=== PATIENT | female | born 1950 | race Caucasian/White ===

== ENCOUNTER → 2018-06-02 14:26 | Outpatient (POV) | payer MEDICARE, OTHER, SELFPAY | PROVIDERS: Visit Provider Dermatology | DX: Z00.00 Encounter for general adult medical examination without abnormal findings (principal) ==

== ENCOUNTER → 2018-06-08 13:29 | Outpatient (CLI) | payer MEDICARE, OTHER, SELFPAY ==
[2018-06-08 13:54] LABS: Basophils # 0.1 K/mm3 (0-0.2); Basophils % 1.2 % (0.1-2.0); Eosinophils # 0.1 K/mm3 (0.0-0.4); Eosinophils % 2.4 % (0.1-12.0); Hematocrit 38.6 % (37.0-47.0); Hemoglobin 13.8 g/dL (12.2-16.2); Lymphocytes # 1.3 K/mm3 (0.7-4.5); Lymphocytes % 25.4 % (10-50); Mean Corpuscular HGB Conc 35.7 g/dL (31.8-35.4); Mean Corpuscular Volume 92.6 fl (81-99); Mean Platelet Volume 8.2 fl (7.4-10.4); Monocytes # 0.2 K/mm3 (0.1-1.0); Monocytes % 4.3 % (1.7-9.3); Neutrophils # 3.5 K/mm3 (1.8-7.8); Neutrophils % 66.7 % (37.0-80.0); Platelet Count 230 K/mm3 (142-424); Red Blood Count 4.17 M/mm3 (4.20-5.40); Red Cell Distribution Width 13.2 % (11.5-17.5); White Blood Count 5.3 K/mm3 (4.8-10.8)
[2018-06-08 14:32] LABS: Alanine Aminotransferase 21 U/L (12-78); Albumin Level 3.9 gm/dL (3.4-5.0); Albumin/Globulin Ratio 1.3 (1.1-1.8); Alkaline Phosphatase 78 U/L (46-116); Aspartate Amino Transferase 14 U/L (15-37); Bilirubin,Total 0.3 mg/dL (0.2-1.0); Blood Urea Nitrogen 11 mg/dL (7-18); Calcium 9.2 mg/dL (8.5-10.1); Carbon Dioxide 29 mmol/L (21.0-32.0); Chloride 103 mmol/L (98-107); Chol/HDL Ratio 3.1 (1-3.5); Cholesterol 295 mg/dL (140-200); Estimated Glomerular Filt Rate 72 ml/min (>60); Free Thyroxine Index 2.6 ug/dL (5.93-13.13); GFR (African American) 87 ML/MIN (>60); Globulin 3.1 gm/dl (1.3-3.2); Glucose 95 mg/dL (74-106); HDL Cholesterol 96 mg/dL (29-89); LDL Cholesterol 156 mg/dL (0-130); Sodium 140 mmol/L (136-145); T4 (Thyroxine) 9.1 ug/dl (4.7-13.3); Thyroid Stimulating Hormone 1.87 uIU/ml (0.358-3.740); Triglycerides 216 mg/dL (30-200); Triiodothryronine (T3) Uptake 29 % (31-39); VLDL Cholesterol 43 mg/dL (0-40)
== END ==
PROVIDERS: Visit Provider Emergency Medicine
DX: R53.1 Weakness (principal); E78.49 Other hyperlipidemia
CPT/HCPCS: 80053; 80061; 82652; 84436; 84443; 84479; 85025

== ENCOUNTER 2020-02-06 13:08 | Emergency (ER) | payer MEDICARE, BC, SELFPAY ==
--- NOTE | 2020-02-06 13:41 | HMH.EDUTC ---
[facility] [place] Impression: Viral syndrome, Bronchitis Disposition: Home, Self-Care Condition on Discharge: Good Instructions: DI for Bronchiolitis, Preventing the Spread of Coronavirus Discharge Instructions Additional Instructions: Drink plenty of fluids. Take tylenol for pain or fever. Follow up with your regular doctor. GO TO THE ER FOR ANY WORSENING SYMPTOMS FOLLOW THE DIRECTIONS ON THE COVID-19 HAND OUT THAT WE GAVE YOU REGARDING SELF-ISOLATION UNTIL YOU KNOW YOUR COVID-19 RESULTS Prescriptions: Fluconazole [Diflucan 150mg tab] 150 mg PO ONCE #1 tab Transmission Status: Received by [facility] # Benzonatate [Tessalon Perle 100mg Cap] 100 mg PO TIDP PRN #30 cap PRN Reason: Cough Transmission Status: Received by [facility] # Azithromycin [Z-Terrell 250mg Tab*] 250 mg PO UD DOSE PK #6 tab Transmission Status: Received by [facility] # Referrals: Roque Gutierrez MD [Primary Care Provider] - Time of Disposition: 14:27 Medical Decision Making - Medical Records Medical records reviewed: No: I reviewed the patient's medical records. - Abdiel Inquiry Pt receiving controlled substance: No Vital Signs: 02/06/20 13:49 02/06/20 14:34 Temperature 97.9 F 97.9 F Temperature Source Oral Oral Pulse Rate 76 Pulse Rate [Radial] 76 Respiratory Rate 14 14 Blood Pressure 149/84 H Blood Pressure [Right Arm] 149/84 H Blood Pressure Mean [Right Arm] 105 Blood Pressure Source Automatic Cuff Blood Pressure Source [Right Arm] Automatic Cuff Blood Pressure Position Sitting Blood Pressure Position [Right Arm] Sitting 02 Sat by Pulse Oximetry 98 Oxygen Delivery Method Room Air [place] Air [facility] [place] - General Stated complaint: sore throat cough Time Seen by Provider: 02/06/20 13:41 - History of Present Illness Provider Complaint: She c/o sore throat, chilling, feeling bad and having a dry cough for the past 2 days. She denies a documented fever. She denies being around anyone known to have COVID-19. - Related Data Home Medications Medication Instructions Recorded Confirmed tizanidine 4 mg tablet 4 mg PO DAILY 30 Days #60 02/09/18 07/12/19 agmpsbprly-muqmpcrnxfycl-vomtzwmu PO Q6H PRN 30 Days #40 tab 06/12/18 07/12/19 50 mg-325 mg-40 mg tablet colestipol 1 gram tablet PO 30 Days #30 tab 06/12/18 07/12/19 clonazepam 1 mg tablet 1 mg PO DAILY PRN tab 03/08/19 07/12/19 flu vacc [id number](65yr up)PF 180 IM 07/12/19 07/12/19 mcg/0.5 mL intramuscular syringe [id number]-vfrm 225 mg/1.5 mL mg SQ 07/12/19 07/12/19 subcutaneous syringe ketorolac 10 mg tablet PO BID tab 07/12/19 07/12/19 meloxicam 7.5 mg tablet PO DAILY PRN tab 07/12/19 07/12/19 pneumococcal 23-albino ps vaccine 25 IM 07/12/19 07/12/19 mcg/0.5 mL injection syringe Previous Rx's Medication Instructions Recorded estradiol 0.5 mg tablet 0.5 mg PO DAILY #90 tab 11/16/18 ciprofloxacin HCl 500 mg tablet 500 mg PO BID #20 tab 07/12/19 diazepam 5 mg tablet 5 mg PO DAILY #30 tab 07/12/19 fluconazole 100 mg tablet 100 mg PO Q OTHER DAY #5 tab 07/12/19 hydrocodone 5 mg-acetaminophen 325 1 tab PO TID PRN #10 tab 07/12/19 mg tablet esomeprazole magnesium 40 mg 40 mg PO DAILY #90 cap 01/13/20 capsule,delayed release Azithromycin [Z-Terrell 250mg Tab*] 250 mg PO UD DOSE PK #6 tab 02/06/20 Benzonatate [Tessalon Perle 100mg 100 mg PO TIDP PRN #30 cap 02/06/20 Cap] Fluconazole [Diflucan 150mg tab] 150 mg PO ONCE #1 tab 02/06/20 Allergies Allergy/AdvReac Type Severity Reaction Status Date / Time Sulfa (Sulfonamide Allergy Mild Verified 07/12/19 09:27 Antibiotics) [SULFA (SULFONAMIDE ANTIBIOTICS)] [facility] History - Hepatitis A Screen Attestation statement:: This patient has been screened for Hepatitis A risk factors. I have reviewed the patient's past medical history: Yes Medical History: Reports:: Anxiety, Hypertension, Migraine Denies:: C
[2020-02-06 13:49] VITALS: BP 149/84; PULSE 76; RESP 14; TEMP 36.6; O2SAT 98; BMI 23.0
[2020-02-06 14:19] LABS: UTC Strep Screen (Rapid) Negative (Negative)
[2020-02-06 14:34] VITALS: BP 149/84; PULSE 76; RESP 14; TEMP 36.6; O2SAT 98
== END 2020-02-06 14:37 | disposition home or self-care (01) ==
PROVIDERS: Emergency Provider Nurse Practitioner Family; PCP Emergency Medicine
DX: J20.9 Acute bronchitis, unspecified (principal); B34.9 Viral infection, unspecified; I10 Essential (primary) hypertension; G43.709 Chronic migraine without aura, not intractable, without status migrainosus; Z88.2 Allergy status to sulfonamides; Z79.899 Other long term (current) drug therapy; Z90.09 Acquired absence of other part of head and neck; Z90.710 Acquired absence of both cervix and uterus
CPT/HCPCS: G0463; 87880; 99202; U0003

== ENCOUNTER → 2020-04-21 13:59 | Outpatient (CLI) | payer OTHER, SELFPAY ==
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
--- NOTE | 2020-04-21 14:36 | XR_ITS ---
PROCEDURE: XR CHEST 2V CLINICAL HISTORY: bronchitis COMPARISON: No exams were available for comparison FINDINGS: The cardiomediastinal silhouette and pulmonary vascularity are within normal limits. The lungs are clear without infiltrates, suspicious nodules, or pleural effusions. There is calcified granuloma in the left upper lobe. There are bilateral breast implants. There is some nodularity noted in the hilar region on the lateral view and in the left suprahilar region which may be due to overlapping vessels or lymph nodes. Follow-up may confirm stability.. No acute bony findings. IMPRESSION: No definite acute finding. Nodularity in the hilar region on the left superiorly and in on the lateral view inferiorly possibly due to overlapping vessels or nodes. Stability may be confirmed with follow-up. Dictated by: Levon Downing MD 04/21/2020 15:27 Levon Downing MD in [facility] 04/21/2020 15:27
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
== END ==
PROVIDERS: PCP Emergency Medicine; Visit Provider Emergency Medicine
DX: R51.9 Headache, unspecified (principal); S09.93XA Unspecified injury of face, initial encounter; S16.1XXA Strain of muscle, fascia and tendon at neck level, initial encounter; M25.511 Pain in right shoulder; J40 Bronchitis, not specified as acute or chronic; V89.2XXA Person injured in unspecified motor-vehicle accident, traffic, initial encounter
CPT/HCPCS: 70450; 70486; 71046; 72125; 73030; 73050

== ENCOUNTER → 2020-04-22 13:47 | Outpatient (CLI) | payer OTHER, SELFPAY ==
--- NOTE | 2020-04-22 13:56 | XR_ITS ---
PROCEDURE: REPEAT VIEW XR CLINICAL INDICATION: AC joints COMPARISON: CR XR AC JOINT RT from 04/21/2020 FINDINGS: No fracture or dislocation. No lytic or blastic change. There is normal mineralization. The joint spaces are well-preserved. No significant degenerative/arthritic changes. No erosive changes evident. Other findings:Images are obtained without and with weights. No abnormal subluxation. No fracture or dislocation. IMPRESSION: Negative AC joints Dictated by: Levon Downing MD 04/22/2020 14:48 Levon Downing MD in [facility] 04/22/2020 14:48
== END ==
PROVIDERS: PCP Emergency Medicine; Visit Provider Emergency Medicine
DX: M25.511 Pain in right shoulder (principal)

== ENCOUNTER → 2020-05-02 14:22 | Outpatient (CLI) | payer OTHER, SELFPAY ==
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
== END ==
PROVIDERS: PCP Emergency Medicine; Visit Provider Emergency Medicine
DX: S49.91XA Unspecified injury of right shoulder and upper arm, initial encounter (principal); V89.2XXA Person injured in unspecified motor-vehicle accident, traffic, initial encounter
CPT/HCPCS: 73221

== ENCOUNTER 2020-05-22 14:00 | Outpatient (RCR) | payer OTHER, SELFPAY | END 2020-05-22 14:05 | disposition home or self-care (01) | LOC: OT 14:00 | PROVIDERS: Visit Provider Emergency Medicine | DX: S49.91XA Unspecified injury of right shoulder and upper arm, initial encounter; V89.2XXA Person injured in unspecified motor-vehicle accident, traffic, initial encounter | CPT/HCPCS: 97014; 97110; 97165; 97530; G0283 ==

== ENCOUNTER → 2020-05-23 11:02 | Outpatient (POV) | payer OTHER, SELFPAY | PROVIDERS: Visit Provider Dermatology | DX: Z00.00 Encounter for general adult medical examination without abnormal findings (principal) ==

== ENCOUNTER → 2020-06-16 09:06 | Outpatient (CLI) | payer MEDICARE, BC, SELFPAY ==
--- NOTE | 2020-06-16 09:07 | CT_ITS ---
PROCEDURE: CT CHEST WO CON CLINICAL INDICATION: possible hilar node seen on cxr, follow-up chest x-ray, bronchitis FOLLOW UP; ? HILAR NODE SEEN ON CXR, 04/21/20 COMPARISON: CR XR CHEST 2V from 04/21/2020 TECHNIQUE: Axial images obtained with sagittal and coronal reformats. All CT scans at the facility use one or more dose reduction, viz: automated exposure control, ma/kV adjustment per patient size (including targeted exams where dose is matched to indication, i.e. head), or iterative reconstruction technique. FINDINGS: HEART AND MEDIASTINAL STRUCTURES: No mediastinal or hilar mass or adenopathy. Coronary artery calcifications are present. LUNGS AND PLEURAL SPACES: There are some atelectatic or fibrotic changes in the left lung base. There is a calcified granuloma in the left upper lobe. There are few small nodular opacities which are nonspecific including a 3 mm nodule image 19 series 3 right upper lobe, 3 mm noncalcified nodule right upper lobe image 31, 2 mm right upper lobe nodule image 39. The nodularity noted in the left hilar region corresponds to overlapping vessels. No hilar mass evident. No central obstructing lesions BONY STRUCTURES: No acute finding UPPER ABDOMEN: Unremarkable ADDITIONAL FINDINGS: There are bilateral breast implants with intracapsular rupture noted with linguine sign bilaterally. The capsules are calcified partially. IMPRESSION: 1. No mediastinal or hilar mass. Radiographic abnormality corresponds to overlapping vessels. 2. There are few small less than 5 mm pulmonary nodules. Annual follow-up may confirm stability. 3. Bilateral breast implants with intracapsular rupture with capsular calcification Dictated by: Levon Downing MD 06/17/2020 08:52 Levon Downing MD in [facility] 06/17/2020 08:52
== END ==
PROVIDERS: PCP Emergency Medicine; Visit Provider Emergency Medicine
DX: R91.1 Solitary pulmonary nodule (principal)
CPT/HCPCS: 71250

== ENCOUNTER → 2020-06-27 09:21 | Outpatient (POV) | payer MEDICARE, BC, SELFPAY | PROVIDERS: Visit Provider Dermatology | DX: Z00.00 Encounter for general adult medical examination without abnormal findings (principal) ==

== ENCOUNTER → 2021-01-23 14:45 | Outpatient (POV) | payer MEDICARE, BC, SELFPAY | PROVIDERS: Visit Provider Dermatology | DX: Z00.00 Encounter for general adult medical examination without abnormal findings (principal) ==

== ENCOUNTER → 2021-06-18 08:32 | Outpatient (CLI) | payer MEDICARE, BC, SELFPAY ==
--- NOTE | 2021-06-18 08:33 | CT_ITS ---
PROCEDURE: CT CHEST WO CON CLINICAL INDICATION: nodules COMPARISON: CT CT CHEST WO CON from 06/16/2020 TECHNIQUE: Axial images obtained with sagittal and coronal reformats. All CT scans at the facility use one or more dose reduction, viz: automated exposure control, ma/kV adjustment per patient size (including targeted exams where dose is matched to indication, i.e. head), or iterative reconstruction technique. FINDINGS: HEART AND MEDIASTINAL STRUCTURES: No mediastinal or hilar mass. Coronary artery calcifications are present. Mild nonspecific thickening at the GE junction. Bilateral partially calcified breast implants are noted with radial folds versus intracapsular rupture which may be better evaluated with MRI. LUNGS AND PLEURAL SPACES: Fibrotic changes are present in the left lung base. There is evidence of old granulomatous disease.. No suspicious nodules.. Previously noted small nodules are unchanged to somewhat less apparent. No new nodules evident. No effusions or infiltrates. BONY STRUCTURES: No acute bony abnormalities apparent. UPPER ABDOMEN: Unremarkable. ADDITIONAL FINDINGS: No other significant abnormalities. IMPRESSION: Stable CT appearance of the chest. No new suspicious nodules. Previously noted small nodules are unchanged to somewhat less prominent Bilateral partially calcified breast implants are noted with radial folds versus intracapsular rupture which would be better evaluated with MRI Dictated by: Levon Downing MD 06/19/2021 09:28 Levon Downing MD in [facility] 06/19/2021 09:28
== END ==
PROVIDERS: PCP Emergency Medicine; Visit Provider Emergency Medicine
DX: R91.8 Other nonspecific abnormal finding of lung field (principal)
CPT/HCPCS: 71250

== ENCOUNTER → 2021-09-18 10:52 | Outpatient (CLI) | payer MEDICARE, BC, SELFPAY ==
[2021-09-18 11:31] LABS: Basophils # 0.1 K/mm3 (0-0.2); Basophils % 1.1 % (0.1-2.0); Eosinophils # 0.1 K/mm3 (0.0-0.4); Hematocrit 45.8 % (37.0-47.0); Hemoglobin 14.6 g/dL (12.2-16.2); Lymphocytes # 1.3 K/mm3 (0.7-4.5); Lymphocytes % 23.7 % (10-50); Mean Corpuscular HGB Conc 31.9 g/dL (31.8-35.4); Mean Corpuscular Volume 97.2 fl (81-99); Mean Platelet Volume 8.1 fl (7.4-10.4); Monocytes # 0.2 K/mm3 (0.1-1.0); Monocytes % 4.1 % (1.7-9.3); Neutrophils # 3.8 K/mm3 (1.8-7.8); Neutrophils % 69.1 % (37.0-80.0); Platelet Count 281 K/mm3 (142-424); Red Blood Count 4.71 M/mm3 (4.20-5.40); Red Cell Distribution Width 13.7 % (11.5-17.5); White Blood Count 5.5 K/mm3 (4.8-10.8)
[2021-09-18 12:22] LABS: Alanine Aminotransferase 16 U/L (12-78); Albumin Level 4.4 g/dl (3.5-5.0); Albumin/Globulin Ratio 2.1 (1.1-1.8); Alkaline Phosphatase 85 U/L (38-126); Anion Gap 10.1 mEq/L (5-15); Aspartate Amino Transferase 33 U/L (14-36); Bilirubin,Total 0.7 mg/dl (0.2-1.3); Blood Urea Nitrogen 21 mg/dl (7-17); Calcium 9.6 mg/dl (8.4-10.2); Carbon Dioxide 32 mmol/L (22.0-30.0); Chloride 101 mmol/L (98-107); Chol/HDL Ratio 3.3 (1-3.5); Cholesterol 293 mg/dl (140-200); Estimated Glomerular Filt Rate 71 ml/min (>60); GFR (African American) 86 ML/MIN (>60); Globulin 2.1 g/dL (1.3-3.2); Glucose 93 mg/dl (74-100); HDL Cholesterol 90 mg/dl (40-60); Potassium 4.1 mmoL/L (3.5-5.1); Sodium 139 mmol/L (136-145); Total Protein,Serum 6.5 g/dl (6.3-8.2); Triglycerides 226 mg/dl (30-150); VLDL Cholesterol 45 mg/dL (0-40)
[2021-09-18 12:32] LABS: Direct LDL Cholesterol 150.22 mg/dL (100-129)
[2021-09-18 12:39] LABS: 25-OH Vitamin D, Total 50.9 ng/mL (30-100); Free T4 (Free Thyroxine) 0.92 ng/dl (0.78-2.19)
[2021-09-18 12:52] LABS: Thyroid Stimulating Hormone 1.29 uIU/mL (0.465-4.68)
== END ==
PROVIDERS: Visit Provider Emergency Medicine
DX: R53.83 Other fatigue (principal); E55.9 Vitamin D deficiency, unspecified; K59.00 Constipation, unspecified; E03.9 Hypothyroidism, unspecified
CPT/HCPCS: 36415; 80053; 80061; 82306; 84439; 84443; 85025

== ENCOUNTER 2021-09-28 17:31 | Inpatient (IN) | payer MEDICARE, BC, SELFPAY ==
[2021-09-28] VITALS (24 sets, daily range): BP systolic 97–198; BP diastolic 46–120; PULSE 60–113; RESP 15–22; TEMP 36.2–36.8; O2SAT 96–100; BMI 22.1; BMI 23.8
--- NOTE | 2021-09-28 | IR_ITS ---
APPROVED REPORT Patient Location: Emergent Sole Splitter: COLUMBA Ji RT (R) PROCEDURES Left heart catheterization Left ventriculogram Selective coronary angiogram Drug-eluting stent deployment to the mid dominant right coronary artery INDICATION Acute coronary syndrome, Coronary artery disease Informed consent was obtained prior to the procedure. COMPLICATIONS None Estimated Blood Loss: Less than 10 mls TECHNIQUE One percent lidocaine used to anesthetize the right anterior aspect of the wrist. The right radial artery was accessed via the Seldinger technique. A 6 Armenian sheath was placed in the right radial artery. 2.5 mg of verapamil, 800 mcg of nitroglycerin, 1mg Lidocaine and 5000 U Heparin were given through the arterial sheath. The papa catheter was also used to perform left heart catheterization, left ventriculogram and selective coronary angiogram. At the end the diagnostic angiogram therapeutic heparin was administered giving a therapeutic ACT and the guide catheter was placed in the right coronary artery followed by a Choice PT wire. A 3.5 x 22 mm resolute Sb stent was initially deployed at 16 lorrie and then 20 lorrie reducing the stenosis to 10 to 20%. 3.75 x 8 mm balloon was then deployed in the midportion and proximal portion of the stent at 20 and then 22 lorrie further post dilating. TYLER-3 flow was present before and after the procedure. At the end of the procedure the apparatus was removed the sheath was removed and hemostasis was achieved using TR banding patient was transferred to the postop already in stable condition ANGIOGRAPHIC RESULTS The left main artery Normal The left anterior descending artery Is normal in the ostial segment and then has a 30% concentric tapering immediately proximal to the takeoff of the large first diagonal artery. Immediately distal to this large first diagonal artery the LAD continues with a 30 to 40% stenosis. The remaining LAD is patent. The first diagonal artery i is 3 mm in diameter and widely patent The circumflex artery Is a codominant vessel and has mild mid vessel 10% stenosis The right coronary artery Is a large codominant vessel and has a proximal to mid vessel hazy 30 to 40% stenosis. The SAMANO ventriculogram reveals Normal 65% The left ventricular end-diastolic pressure 20 mmHg IMPRESSION Hazy stenosis which represents a ruptured plaque with thrombus in the mid dominant right coronary artery which accounted for the highly abnormal EKG abnormalities. This vessel was successfully stented using 1 drug-eluting stent reducing the stenosis to 0% Normal ejection fraction Mildly elevated LVEDP PLAN 1. Brilinta 90 twice daily plus aspirin 81 mg daily 2. LDL less than 55 to be achieved with high intensity statin 3. Continue with beta-blockers for ischemic heart disease 4. Given the mildly elevated D-dimer I still think it would be reasonable to perform pulmonary artery CTA this evening to make sure pulmonary embolism is not present. 5. The hazy stenosis within the right coronary artery is almost certainly the culprit for what appears to be an acute coronary syndrome. Patient's EKG has improved and her pain improved with better blood pressure control and heart rate control. Nevertheless I still want to rule out the possibility of a PE. Electronically signed by : Andrew Salomon MD 09/28/2021 20:10:44
--- NOTE | 2021-09-28 17:31 | ECG_ITS ---
APPROVED REPORT Exam: Resting ECG HR:101 bpm ECG Measurements Heart Rate 101 AXES CA 133 P 52 QRSd 81 QRS 47 QT 340 T 54 QTc 398 Conclusion SINUS TACHYCARDIA MODERATE ST DEPRESSION [0.05+ mV ST DEPRESSION] ABNORMAL ECG UNCONFIRMED REPORT Electronically signed by : Isaak Donovan MD 09/29/2021 08:15:59
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
--- NOTE | 2021-09-28 17:41 | HMH.EDGENADL ---
ED Disposition Clinical Impression: Acute coronary syndrome Disposition: Admitted As Inpatient Condition on Discharge: Serious - Critical Care Critical Care Time: Yes Attestation: On , the high probability of a clinically significant, sudden or life threatening deterioration of the following system(s) required my full and direct attention, intervention and personal management. The time I documented below is in addition to time spent performing reported procedures but includes the following listed in this critical care notation. Total Critical Care Time: 45 Vital system(s) involved:: Circulatory Failure My critical care processes included: Assessment & monitoring of V/S, Initial and Re-exams, Data Review/Interpretation, Coordinating Care, Medication Orders and management, Documentation Medical Decision Making - Abdiel Inquiry Pt receiving controlled substance: Yes Abdiel was queried for this patient: No Reason not queried -: Emergent pt cond-no time Risks and benefits of using a controlled substance: were not discussed with pt by me Vital Signs: 09/28/21 17:34 09/28/21 17:53 09/28/21 18:00 Temperature 98 F Temperature Source Oral Pulse Rate 101 H 113 H Pulse Rate [Radial] 103 H Respiratory Rate 20 Blood Pressure 171/93 H 170/113 H Blood Pressure [Right Arm] 173/104 H Blood Pressure Mean Blood Pressure Mean [Right Arm] 127 Blood Pressure Position Sitting Blood Pressure Position [Right Arm] Sitting 02 Sat by Pulse Oximetry 98 Oxygen Delivery Method Room Air 09/28/21 18:14 09/28/21 18:20 09/28/21 18:25 Temperature Temperature Source Pulse Rate 93 H 92 H 91 H Pulse Rate [Radial] Respiratory Rate 22 15 Blood Pressure 173/104 H 183/104 H 174/97 H Blood Pressure [Right Arm] Blood Pressure Mean 127 123 Blood Pressure Mean [Right Arm] Blood Pressure Position Sitting Blood Pressure Position [Right Arm] 02 Sat by Pulse Oximetry 97 97 Oxygen Delivery Method 09/28/21 18:30 09/28/21 18:43 09/28/21 18:50 Temperature Temperature Source Pulse Rate 88 87 Pulse Rate [Radial] Respiratory Rate Blood Pressure 195/107 H 198/120 H 165/98 H Blood Pressure [Right Arm] Blood Pressure Mean Blood Pressure Mean [Right Arm] Blood Pressure Position Sitting Blood Pressure Position [Right Arm] 02 Sat by Pulse Oximetry Oxygen Delivery Method 09/28/21 18:53 09/28/21 19:13 Temperature Temperature Source Pulse Rate 89 87 Pulse Rate [Radial] Respiratory Rate 16 Blood Pressure 148/86 H 152/90 H Blood Pressure [Right Arm] Blood Pressure Mean Blood Pressure Mean [Right Arm] Blood Pressure Position Sitting Sitting Blood Pressure Position [Right Arm] 02 Sat by Pulse Oximetry 98 Oxygen Delivery Method Room Air - Lab Data Lab Results 09/28/21 17:37: WBC 11.0 H, RBC 4.67, Hgb 14.4, Hct 45.7, MCV 97.7, MCH 30.8, MCHC 31.6 L, RDW 13.3, Plt Count 307, MPV 8.3, Neut % (Auto) 72.1, Lymph % (Auto) 23.4, Tompkins % (Auto) 3.1, Eos % (Auto) 0.5, Baso % (Auto) 0.9, Neut # (Auto) 7.9 H, Lymph # (Auto) 2.6, Tompkins # (Auto) 0.3, Eos # (Auto) 0.1, Baso # (Auto) 0.1 09/28/21 17:37: Sodium 135 L, Potassium 3.6, Chloride 99, Carbon Dioxide 29, Anion Gap 10.6, BUN 16, Creatinine 0.80, Estimated Creat Clear 48, Estimated GFR 71, Est GFR ( Amer) 86, Glucose 103 H, Calcium 9.8, Troponin I < 0.01 09/28/21 17:37: PT 10.7, INR 0.94, APTT 24.9 09/28/21 17:37: D-Dimer 0.59 H 09/28/21 19:42: Activated Clotting Time 212 H* 09/28/21 19:53: Activated Clotting Time 269 H* D Result diagrams: 09/28/21 17:37 09/28/21 17:37 Orders (Tests/Meds): ED MEDICATIONS Generic Name Dose Route Start Last Admin Trade Name Freq PRN Reason Stop Dose Admin Aspirin 81 mg 09/29/21 09:00 Aspirin Ec 81mg Tablet PO 10/29/21 08:59 DAILY ATUL Atorvastatin Calcium 40 mg 09/28/21 21:00 Atorvastatin 40mg Tablet PO 10/28/21 20:59 HS ATUL Jones
--- NOTE | 2021-09-28 17:53 | PC.NURSE ---
has been paged.
--- NOTE | 2021-09-28 17:54 | PC.NURSE ---
on the phone with
[2021-09-28 17:55] LABS: Basophils # 0.1 K/mm3 (0-0.2); Basophils % 0.9 % (0.1-2.0); Eosinophils # 0.1 K/mm3 (0.0-0.4); Eosinophils % 0.5 % (0.1-12.0); Hematocrit 45.7 % (37.0-47.0); Hemoglobin 14.4 g/dL (12.2-16.2); Lymphocytes # 2.6 K/mm3 (0.7-4.5); Lymphocytes % 23.4 % (10-50); Mean Corpuscular HGB Conc 31.6 g/dL (31.8-35.4); Mean Corpuscular Hemoglobin 30.8 pg (27.0-31.2); Mean Corpuscular Volume 97.7 fl (81-99); Mean Platelet Volume 8.3 fl (7.4-10.4); Monocytes # 0.3 K/mm3 (0.1-1.0); Monocytes % 3.1 % (1.7-9.3); Neutrophils # 7.9 K/mm3 (1.8-7.8); Neutrophils % 72.1 % (37.0-80.0); Platelet Count 307 K/mm3 (142-424); Red Blood Count 4.67 M/mm3 (4.20-5.40); Red Cell Distribution Width 13.3 % (11.5-17.5)
[2021-09-28 18:01] LABS: Anion Gap 10.6 mEq/L (5-15); Blood Urea Nitrogen 16 mg/dl (7-17); Calcium 9.8 mg/dl (8.4-10.2); Carbon Dioxide 29 mmol/L (22.0-30.0); Chloride 99 mmol/L (98-107); Creatinine Clearance Estimated 48 mL/min (50-200); Estimated Glomerular Filt Rate 71 ml/min (>60); GFR (African American) 86 ML/MIN (>60); Glucose 103 mg/dl (74-100); Potassium 3.6 mmoL/L (3.5-5.1); Sodium 135 mmol/L (136-145)
--- NOTE | 2021-09-28 18:04 | PC.NURSE ---
has been paged again
--- NOTE | 2021-09-28 18:05 | PC.NURSE ---
on the phone with
[2021-09-28 18:15] LABS: Troponin I < 0.01 ng/ml (0.00-0.034)
[2021-09-28 18:18] LABS: Activated Partial Thrombo Time 24.9 seconds (22.8-30.6); INR 0.94 (0.9-1.1); Prothrombin Time 10.7 seconds (10.1-12.5)
[2021-09-28 18:28] LABS: D-Dimer 0.59 ug/mL (0.0-0.5)
--- NOTE | 2021-09-28 18:52 | ECG_ITS ---
APPROVED REPORT Exam: Resting ECG HR:85 bpm ECG Measurements Heart Rate 85 AXES TN 141 P 53 QRSd 81 QRS 47 QT 370 T 47 QTc 412 Conclusion SINUS RHYTHM NONSPECIFIC T-WAVE ABNORMALITY BORDERLINE ECG UNCONFIRMED REPORT Electronically signed by : Isaak Donovan MD 09/29/2021 08:15:54
--- NOTE | 2021-09-28 18:57 | PC.NURSE ---
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
[2021-09-28 20:21] LABS: CATHL Activated Clotting Time 269 SEC (74-125)
[2021-09-28 20:22] LABS: CATHL Activated Clotting Time 212 SEC (74-125)
--- NOTE | 2021-09-28 20:32 | PC.NURSE ---
pt arrived to floor via stretcher at this time
--- NOTE | 2021-09-28 21:44 | PC.NURSE ---
MD Mast consulted about PE workup. New orders received to cancel PE studies.
[2021-09-29] VITALS (8 sets, daily range): BP systolic 96–141; BP diastolic 52–68; PULSE 50–63; RESP 15–18; TEMP 36.4–36.6; O2SAT 97–98; BMI 22.6
--- NOTE | 2021-09-29 05:13 | PC.NURSE ---
Pt A&O x4. Denies any discomfort or soa. (R) radial cath site with DSG in place. C/D/I. Pt is sinus with periods of bradycardia on telemetry. Other VSS. Pt has ambulated to with standby assistance. Education provided. No other concerns. Will continue to monitor.
--- NOTE | 2021-09-29 05:27 | CT_ITS ---
PROCEDURE INFORMATION: Exam: CTA Chest With Contrast Exam date and time: 09/29/2021 7:49 AM Age: 71 years old Clinical indication: Shortness of breath; Prior surgery; Surgery date: Post-operative (0-2 days); Surgery type: Stent placement heart cath; Additional info: Sob// status post stent placement yesterday TECHNIQUE: Imaging protocol: Computed tomographic angiography of the chest with contrast. 3D rendering (Not supervised by radiologist): MIP and/or 3D reconstructed images were created by the technologist. Radiation optimization: All CT scans at this facility use at least one of these dose optimization techniques: automated exposure control; mA and/or kV adjustment per patient size (includes targeted exams where dose is matched to clinical indication); or iterative reconstruction. Contrast material: ISOVUE; Contrast volume: 70 ml; Contrast route: INTRAVENOUS (IV); COMPARISON: CT CHEST WO CON 06/18/2021 8:45 AM FINDINGS: Pulmonary arteries: Normal. No pulmonary emboli. Aorta: Unremarkable. No aortic aneurysm. No aortic dissection. Lungs: Streaky consolidation at both lung bases, more compared to the prior study. The remaining pulmonary parenchyma is clear. No other pulmonary infiltrate or consolidation. No pulmonary nodules or masses. Pleural spaces: Unremarkable. No pneumothorax. No pleural effusion. Heart: Stent in the right coronary artery. No cardiomegaly. No pericardial effusion. Lymph nodes: Unremarkable. No enlarged lymph nodes. Bones/joints: Mild degenerative changes in the spine. No acute fracture. Soft tissues: Again noted are bilateral breast implants. IMPRESSION: 1. Streaky consolidation at both lung bases, most likely atelectasis. 2. No other acute changes in the chest. No pulmonary embolus.
[2021-09-29 06:46] LABS: Chloride 104 mmol/L (98-107); Potassium 3.3 mmoL/L (3.5-5.1); Sodium 137 mmol/L (136-145)
[2021-09-29 06:47] LABS: Basophils # 0.1 K/mm3 (0-0.2); Basophils % 0.9 % (0.1-2.0); Eosinophils # 0.1 K/mm3 (0.0-0.4); Eosinophils % 1.3 % (0.1-12.0); Hematocrit 39.6 % (37.0-47.0); Hemoglobin 12.9 g/dL (12.2-16.2); Lymphocytes % 26.8 % (10-50); Mean Corpuscular HGB Conc 32.5 g/dL (31.8-35.4); Mean Corpuscular Hemoglobin 31.5 pg (27.0-31.2); Mean Corpuscular Volume 96.7 fl (81-99); Mean Platelet Volume 8.4 fl (7.4-10.4); Monocytes # 0.3 K/mm3 (0.1-1.0); Monocytes % 4.5 % (1.7-9.3); Neutrophils # 5.1 K/mm3 (1.8-7.8); Neutrophils % 66.5 % (37.0-80.0); Platelet Count 251 K/mm3 (142-424); Red Blood Count 4.09 M/mm3 (4.20-5.40); Red Cell Distribution Width 13.6 % (11.5-17.5); White Blood Count 7.6 K/mm3 (4.8-10.8)
[2021-09-29 06:49] LABS: Anion Gap 7.3 mEq/L (5-15); Blood Urea Nitrogen 13 mg/dl (7-17); Calcium 8.3 mg/dl (8.4-10.2); Carbon Dioxide 29 mmol/L (22.0-30.0); Creatinine Clearance Estimated 50 mL/min (50-200); Estimated Glomerular Filt Rate 71 ml/min (>60); GFR (African American) 86 ML/MIN (>60); Glucose 82 mg/dl (74-100)
--- NOTE | 2021-09-29 09:06 | HMH.HPDC ---
General - General Admission date:: 09/28/21 Discharge date: 09/29/21 *Admission Date: 09/28/21 *Chief complaint: chest pain *History of present illness: this patient presented to the ed with chest pain - States that 45 minutes prior to arrival developed substernal chest pain with pain going into her right neck and jaw associated with shortness of breath, nausea, diaphoresis. Current pain is 8/10. She has had extreme fatigue for the past couple of months, daytime sleepiness, but has not had chest pain. She saw Dr. Gutierrez in the office today for follow-up of lab results. No prior history of heart disease. She does have hypertension. She has hyperlipidemia but says that she cannot take statins because of side effects. She does not have diabetes. She is a non-smoker. She has seen Dr. Noel, instrumentation tech at [facility], because of orthostatic hypotension, she has not had a heart cath. She also just recently drove to [place] and [facility], arriving back within the past week. eKG was transmitted to him for review. He concurs that findings suggest cardiac ischemia. He recommends metoprolol tartrate 50 mg, Brilinta 180 mg, heparin 4000 units IV bolus followed by 1000 unit drip, nitroglycerin drip. Call him back within the next 30 minutes to report on her pain level. If symptoms do not resolve, he anticipates heart cath tonight. 6:52 PM: Patient still has pain 5/10 and significant pain in her neck and jaw. Discussed with Dr. Salomon. He request the seed analysis laboratory assistant team be called in. pt was admitted with acute coronary art syndrome [facility] History I have reviewed the patient's past medical history: Yes Medical History: Reports:: Anxiety, Hypertension, Migraine Denies:: Cancer, Diabetes Mellitus Type 1, Diabetes Mellitus Type 2, MRSA *Have you ever received a pneumonia vaccine?: No *Have you received a flu vaccine this season?: No Laterality Cases: Bilateral: Tonsillectomy Other Surgeries: Yes: No Previous Surgery, Cholecystectomy, Colonoscopy, Hysterectomy-Total, Other Amputation: No Fractures: No - *Social History Smoking Status: Never smoker Alcohol Intake: current Alcohol Intake Frequency:: holidays/special occasions only *Occupational Status:: retired Housing: house Household Members: family *Travel in the last 8 weeks: Inside the [facility] - Psychiatric History Pschychiatric History:: Reports:: Anxiety Family Hx:: Cancer, Heart Attack, Hyperlipidemia, Thyroid Disorder Review of Systems - Review of Systems Review of systems:: pertinent systems reviewed and negative unless documented below - Constitutional Denies fever(s) - Eyes Denies change in vision - ENT Denies dizziness - *Cardiovascular Reports chest pain at rest, Reports shortness of breath - *Respiratory Denies cough - *Gastrointestinal Denies abdominal pain - *Genitourinary Denies blood in urine - *Musculoskeletal Denies joint pain - Integumentary/Breasts Denies rash - *Neurologic Denies localized weakness, Denies headache(s) - Psychiatric Denies anxiety Exam Vital signs and Labs for Last 24 Hours: Temp Pulse Resp BP Pulse Ox 97.6 F 63 18 141/68 H 97 09/29/21 07:50 09/29/21 07:50 09/29/21 07:50 09/29/21 07:50 09/29/21 07:50 Laboratory Results - last 24 hr 09/28/21 17:37: WBC 11.0 H, RBC 4.67, Hgb 14.4, Hct 45.7, MCV 97.7, MCH 30.8, MCHC 31.6 L, RDW 13.3, Plt Count 307, MPV 8.3, Neut % (Auto) 72.1, Lymph % (Auto) 23.4, Cooke % (Auto) 3.1, Eos % (Auto) 0.5, Baso % (Auto) 0.9, Neut # (Auto) 7.9 H, Lymph # (Auto) 2.6, Cooke # (Auto) 0.3, Eos # (Auto) 0.1, Baso # (Auto) 0.1 09/28/21 17:37: Sodium 135 L, Potassium 3.6, Chloride 99, Carbon Dioxide 29, Anion Gap 10.6, BUN 16, Creatinine 0.80, Estimated Creat Clear 48, Estimated GFR 71, Est GFR ( Amer) 86, Glucose 103 H, Calcium 9.8, Troponin I < 0.01 09/28/21 17:37: PT 10.7, INR 0.94, APTT 24.9 09/28/21 17:37: D-Dimer 0.59 H 09/28/21 19:42: Activated Clotting Tani
--- NOTE | 2021-09-29 10:21 | PC.NURSE ---
spoke with MD regarding pt being on a statin for discharge. Per MD pt is intolernt of statins and will follow up with Dr. Gutierrez so she will not be prescribed one upon discharge
--- NOTE | 2021-09-29 10:29 | HMH.PHACLD ---
Maame Khan has received discharge medication counseling on the following medications: -BRILINTA (WATCH FOR SIGNS/SYMPTOMS OF BLEEDING, TAKE BID, BUMP HEAD = VISIT ER, BRUISING MAY LAST LONGER) -ASPIRIN (WATCH FOR SIGNS/SYMPTOMS OF BLEEDING, TAKE DAILY, BUMP HEAD = VISIT ER, BRUISING MAY LAST LONGER) -LOSARTAN (TAKE DAILY, WATCH FOR DIZZINESS/LIGHTHEADEDNESS) -BISOPROLOL (TAKE DAILY, WATCH FOR DIZZINESS/LIGHTHEADEDNESS) -PATIENT HAS AN INTOLERANCE TO STATINS, A RESULT THESE WERE HELD.
--- NOTE | 2021-09-29 10:59 | PC.NURSE ---
pt has been discahrged from the unit. Took all of her belongings. Family @ bedside. Voiced understanding of all teaching and follow up labs,appts. Cath site is c/d/i/ denies any pain. prescriptions given vis meds to beds
--- NOTE | 2021-10-01 14:03 | CARE MANAGER ---
Spoke with patient regarding hospital stay and patient states no concerns and no issues. Patient got her meds and had follow-up appointment in the am. No further needs at this time.
== END 2021-09-29 10:55 | disposition home or self-care (01) | DRG 249 ==
LOC: ER 19:48 → 2ND 20:21
PROVIDERS: Internal Medicine; Admitting Provider Family Medicine; Emergency Provider Emergency Medicine; PCP Emergency Medicine; Visit Provider Emergency Medicine
PROC: 02H03DZ Insertion of Intraluminal Device into Coronary Artery, One Artery, Percutaneous Approach (ICD-10-PCS; principal; 2021-09-28 19:15)
DX: I25.10 Atherosclerotic heart disease of native coronary artery without angina pectoris (principal); F41.9 Anxiety disorder, unspecified; I10 Essential (primary) hypertension; G43.909 Migraine, unspecified, not intractable, without status migrainosus; E78.5 Hyperlipidemia, unspecified
CPT/HCPCS: C9600; 71045; 71275; 80048; 84484; 85025; 85347; 85378; 85610; 85730; 92928; 93005; 93458; 96365; 96375; 96376; 99152; 99285; C1725; C1769; C1876; J1644; J2405; Q9967

== ENCOUNTER → 2021-10-02 07:30 | Outpatient (CLI) | payer MEDICARE, BC, SELFPAY ==
[2021-10-02 08:02] LABS: Blood Urea Nitrogen 13 mg/dl (7-17); Estimated Glomerular Filt Rate 62 ml/min (>60); GFR (African American) 75 ML/MIN (>60)
== END ==
PROVIDERS: Visit Provider Internal Medicine
DX: I25.10 Atherosclerotic heart disease of native coronary artery without angina pectoris (principal)
CPT/HCPCS: 36415; 82565; 84520

== ENCOUNTER 2021-10-10 13:57 | Outpatient (RCR) | payer MEDICARE, BC, SELFPAY | END 2021-12-03 15:00 | disposition home or self-care (01) | LOC: PT 13:57 | PROVIDERS: Visit Provider Internal Medicine | DX: I25.10 Atherosclerotic heart disease of native coronary artery without angina pectoris (principal); Z95.5 Presence of coronary angioplasty implant and graft | CPT/HCPCS: 93798 ==

== ENCOUNTER 2021-11-11 13:10 | Emergency (ER) | payer MEDICARE, BC, SELFPAY ==
[2021-11-11 13:25] VITALS: BP 131/76; PULSE 79; RESP 19; TEMP 37.1; O2SAT 96; BMI 22.3
--- NOTE | 2021-11-11 13:43 | HMH.EDUTC ---
[facility] [place] Disposition Clinical Impression: Enlarged lymph node in neck Disposition: Home, Self-Care Condition on Discharge: Good Instructions: DI for Lymphadenopathy Additional Instructions: follow up with pcp antibiotics as ordered return or be seen in ed if symptoms worsen or do not improve Prescriptions: cephALEXin [Cephalexin 500mg Tab] 500 mg PO BID 10 Days #20 tab Prescription Printed Fluconazole [Diflucan 100mg tablet] 100 mg PO ONCE #1 tab Prescription Printed Referrals: Roque Gutierrez MD [Primary Care Provider] - Time of Disposition: 13:48 Medical Decision Making - Abdiel Inquiry Pt receiving controlled substance: No Vital Signs: 11/11/21 13:25 Temperature 98.7 F Temperature Source Oral Pulse Rate [Right Brachial] 79 Respiratory Rate 19 Blood Pressure [Right Arm] 131/76 Blood Pressure Mean [Right Arm] 94 Blood Pressure Source [Right Arm] Automatic Cuff Blood Pressure Position [Right Arm] Sitting 02 Sat by Pulse Oximetry 96 Oxygen Delivery Method Room Air [facility] [place] HPI - General Chief complaint: Urgent Treatment Center Stated complaint: LYUMP NODE SWOLLEN,NAUSEA Time Seen by Provider: 11/11/21 13:43 Mode of Arrival: Ambulatory Source of Information: Patient Limitations: No Limitations Description of Symptoms (Recalled from Triage Doc. by RN): PATIENT C/O PAIN TO BACK OF HEAD ON RIGHT SIDE THAT RADIATES DOWN NECK AND NAUSEA. SHE STATES SYMPTOMS STARTED AFTER HAVING A TICK BITE TO AREA ON FRIDAY HEENT Symptoms (Recalled from RN notes): Yes Resp Symptoms (Recalled from RN notes): No Skin Symptoms (Recalled from RN notes): No MS Symptoms (Recalled from RN notes): No Functional Status (Recalled from RN notes): WNL - History of Present Illness Provider Complaint: 71 yr old female presents for a knot in the back of her head on the rt side and lymp node in neck that swollen and tender - Related Data Home Medications Medication Instructions Recorded Confirmed tizanidine 4 mg tablet 4 mg PO DAILY 30 Days #60 02/09/18 10/02/21 clonazepam 1 mg tablet 1 mg PO DAILY PRN tab 03/08/19 10/02/21 ubrogepant 100 mg tablet 100 mg PO DAILY PRN tab 06/20/21 10/02/21 Esomeprazole Magnesium 40 mg PO DAILY 09/28/21 10/02/21 Hydrocodone/Acetaminophen 1 tab PO DAILY PRN 09/28/21 10/02/21 [Hydrocodone-Acetamin 7.5-325] diazePAM [Valium 5mg tablets] 5 mg PO DAILY 09/28/21 10/02/21 atogepant 60 mg tablet 60 mg PO HS PRN tab 10/02/21 10/02/21 Previous Rx's Medication Instructions Recorded estradiol 0.5 mg tablet 0.5 mg PO DAILY #90 tab 11/16/18 ondansetron 4 mg disintegrating 4 mg PO Q8H PRN #30 tab 09/14/21 tablet Aspirin [Aspirin 81mg EC Tab] 81 mg PO DAILY #30 tab 09/29/21 Losartan Potassium 25 mg PO DAILY #30 tab 09/29/21 Ticagrelor [Brilinta 90mg 90 mg PO BID #60 tab 09/29/21 Tablet] bisoproloL fumarate [Bisoprolol 10 mg PO DAILY #30 tab 09/29/21 Fumarate] rosuvastatin 5 mg tablet 5 mg PO DAILY #30 tab 10/02/21 Fluconazole [Diflucan 100mg tablet] 100 mg PO ONCE #1 tab 11/11/21 cephALEXin [Cephalexin 500mg Tab] 500 mg PO BID 10 Days #20 tab 11/11/21 Allergies Allergy/AdvReac Type Severity Reaction Status Date / Time Sulfa (Sulfonamide Allergy Mild Verified 10/02/21 09:16 Antibiotics) [SULFA (SULFONAMIDE ANTIBIOTICS)] - Worker's Comp Is this a Worker's Comp case?: No [facility] History - Hepatitis A Screen Attestation statement:: This patient has been screened for Hepatitis A risk factors. I have reviewed the patient's past medical history: Yes Medical History: Reports:: Anxiety, Hypertension, Migraine Denies:: Cancer, Diabetes Mellitus Type 1, Diabetes Mellitus Type 2, MRSA Laterality Cases: Bilateral: Tonsillectomy Other Surgeries: Yes: No Previous Surgery, Cholecystectomy, Colonoscopy, Hysterectomy-Total, Other Amputation: No Fractures: No Comment: hammer toe - Social History Smoking Status: Never smoker Alcohol Intake: current Alcohol Intake F
[2021-11-11 13:47] VITALS: BP 131/76; PULSE 79; RESP 19; TEMP 37.1; O2SAT 96
== END 2021-11-11 13:50 | disposition home or self-care (01) ==
PROVIDERS: Emergency Provider Nurse Practitioner Family; PCP Emergency Medicine
DX: R59.0 Localized enlarged lymph nodes (principal); I10 Essential (primary) hypertension; K21.9 Gastro-esophageal reflux disease without esophagitis; E78.5 Hyperlipidemia, unspecified; G43.909 Migraine, unspecified, not intractable, without status migrainosus; F41.9 Anxiety disorder, unspecified; Z79.1 Long term (current) use of non-steroidal anti-inflammatories (NSAID); Z79.82 Long term (current) use of aspirin; Z79.890 Hormone replacement therapy; Z79.899 Other long term (current) drug therapy; Z88.2 Allergy status to sulfonamides; Z82.49 Family history of ischemic heart disease and other diseases of the circulatory system; Z80.9 Family history of malignant neoplasm, unspecified; Z83.438 Family history of other disorder of lipoprotein metabolism and other lipidemia; Z83.49 Family history of other endocrine, nutritional and metabolic diseases
CPT/HCPCS: 99213; G0463

== ENCOUNTER 2021-12-11 12:52 | Emergency (ER) | payer MEDICARE, BC, SELFPAY ==
[2021-12-11 13:16] VITALS: BP 135/71; PULSE 58; RESP 17; TEMP 36.7; O2SAT 98; BMI 21.6
--- NOTE | 2021-12-11 13:22 | HMH.EDUTC ---
[facility] [place] Clinical Impression: Sinusitis Qualifiers: Sinusitis location: unspecified location Chronicity: unspecified Qualified Code(s): J32.9 - Chronic sinusitis, unspecified Disposition: Home, Self-Care Condition on Discharge: Good Instructions: Sinusitis, DI for Sinusitis, Cefdinir Additional Instructions: *Monitor Temp, Over the counter Motrin or Tylenol as directed/as needed Tylenol every 4 hours and Motrin every 6 hours (as long as your family doctor has told you that you can take it) for fever or pain. and straight to ER if unable to lower temp less than 101.0 after medication given *Warm salt water gargles may help to soothe the throat *Throat Lozenges *Warm fluids like tea with honey may help to soothe the throat *Sleep elevated *Humidifier/Vaporizer Follow up IMMEDIATELY for new or worsening symptoms or no Noticeable improvement over the next 48-72 hours. 911 for difficulty breathing or swallowing You were tested for today for COVID19 your test result should be back in the next 24-48 hours, your results will be available for viewing on the [facility] [employer] [facility] Prescriptions: Fluconazole [Diflucan 150mg tab] 150 mg PO ONCE #1 tab Transmission Status: Pending to [facility] # methylPREDNISolone [Medrol 4mg tab] 4 mg PO DIRECTED #21 tab Transmission Status: Pending to [facility] # Cefdinir [Omnicef 300mg Capsule] 300 mg PO BID 7 Days #14 cap Transmission Status: Pending to [facility] # Referrals: Roque Gutierrez MD [Primary Care Provider] - As needed Time of Disposition: 13:31 Medical Decision Making - Abdiel Inquiry Pt receiving controlled substance: No Abdiel was queried for this patient: No Vital Signs: 12/11/21 13:16 Temperature 98.1 F Temperature Source Oral Pulse Rate [Left Radial] 58 L Respiratory Rate 17 Blood Pressure [Right Arm] 135/71 Blood Pressure Mean [Right Arm] 92 02 Sat by Pulse Oximetry 98 Orders (Tests/Meds): ORDERS Category Date Time Status Covid-19 Nasal PCR ([facility]) Routine Lab 12/11/21 13:14 Received Medical Decision Narrative: Patient states that she has taken cephlosporins and medrol in the past without complications or reactions [facility] [place] - General Stated complaint: head congestion, runny nose, [place] Time Seen by Provider: 12/11/21 13:23 Description of Symptoms (Recalled from Triage Doc. by RN): patient comes in today for head congestion, runny nose, headache, sore throat, ear fullness. symptoms began 2 days ago HEENT Symptoms (Recalled from RN notes): Yes Resp Symptoms (Recalled from RN notes): Yes Skin Symptoms (Recalled from RN notes): No MS Symptoms (Recalled from RN notes): No Functional Status (Recalled from RN notes): wnl - History of Present Illness Provider Complaint: Patient states that she started about 2 days ago with headache, sore throat, ear fullness, and pressure behind her eyes that has got worse over the last couple of days States that at first she thought it may be just her allergies but today it was worse so she came in to get checked State that she also needed a COVID test because she is suppose to see Cardiology tomorrow and due to her symptoms wanted her to get a COVID test - Related Data Home Medications Medication Instructions Recorded Confirmed tizanidine 4 mg tablet 4 mg PO DAILY 30 Days #60 02/09/18 11/29/21 clonazepam 1 mg tablet 1 mg PO DAILY PRN tab 03/08/19 11/29/21 ubrogepant 100 mg tablet 100 mg PO DAILY PRN tab 06/20/21 11/29/21 Esomeprazole Magnesium 40 mg PO DAILY 09/28/21 11/29/21 Hydrocodone/Acetaminophen 1 tab PO DAILY PRN 09/28/21 11/29/21 [Hydrocodone-Acetamin 7.5-325] diazePAM [Valium 5mg tablets] 5 mg PO DAILY 09/28/21 11/29/21 atogepant 60 mg tablet 60 mg PO HS PRN tab 10/02/21 11/29/21 Previous Rx's Medication Instructions Recorded estradiol 0.5 mg tablet 0.5 mg PO DAILY #90 tab 11/16/18 ondansetron 4 mg disintegrating 4
[2021-12-11 13:39] VITALS: BP 135/71; PULSE 58; RESP 17; TEMP 36.7
== END 2021-12-11 13:43 | disposition home or self-care (01) ==
PROVIDERS: Emergency Provider Nurse Practitioner; PCP Emergency Medicine
DX: J32.9 Chronic sinusitis, unspecified (principal); J02.9 Acute pharyngitis, unspecified; H92.03 Otalgia, bilateral; N39.0 Urinary tract infection, site not specified; I10 Essential (primary) hypertension; K21.9 Gastro-esophageal reflux disease without esophagitis; E78.5 Hyperlipidemia, unspecified; G43.909 Migraine, unspecified, not intractable, without status migrainosus; Z79.51 Long term (current) use of inhaled steroids; Z79.82 Long term (current) use of aspirin; Z79.890 Hormone replacement therapy; Z79.899 Other long term (current) drug therapy; Z88.2 Allergy status to sulfonamides; Z82.49 Family history of ischemic heart disease and other diseases of the circulatory system; Z83.438 Family history of other disorder of lipoprotein metabolism and other lipidemia; Z83.49 Family history of other endocrine, nutritional and metabolic diseases; Z80.9 Family history of malignant neoplasm, unspecified
CPT/HCPCS: 99213; C9803; G0463; U0003; U0005

== ENCOUNTER 2022-01-06 13:31 | Emergency (ER) | payer MEDICARE, BC, SELFPAY ==
[2022-01-06 13:50] VITALS: BP 143/74; PULSE 60; RESP 18; TEMP 37.1; O2SAT 98; BMI 21.4
--- NOTE | 2022-01-06 14:06 | HMH.EDUTC ---
[facility] Disposition Clinical Impression: Cellulitis of arm, left Disposition: Home, Self-Care Condition on Discharge: Good Instructions: Cellulitis Additional Instructions: follow up with dermatology and pcp as scheduled if worsen or no improvement return meds as ordered Prescriptions: cephALEXin [Cephalexin 500mg Tab] 500 mg PO BID 7 Days #14 tab Transmission Status: Pending to [id number] Triamcinolone Acetonide 1 applic TP BID 7 Days #15 gm Transmission Status: Pending to [id number] Referrals: Roque Gutierrez MD [Primary Care Provider] - Time of Disposition: 14:13 Medical Decision Making - Abdiel Inquiry Pt receiving controlled substance: No Vital Signs: 01/06/22 13:50 Temperature 98.8 F Temperature Source Oral Pulse Rate [Left Brachial] 60 Respiratory Rate 18 Blood Pressure [Left Arm] 143/74 H Blood Pressure Mean [Left Arm] 97 Blood Pressure Source [Left Arm] Automatic Cuff Blood Pressure Position [Left Arm] Sitting 02 Sat by Pulse Oximetry 98 Oxygen Delivery Method Room Air [facility] HPI - General Chief complaint: Urgent Treatment Center Stated complaint: hot spots on arms and chest Time Seen by Provider: 01/06/22 14:06 Mode of Arrival: Ambulatory Source of Information: Patient Limitations: No Limitations Description of Symptoms (Recalled from Triage Doc. by RN): PATIENT C/O RASH TO LEFT UPPER ARM AND CHEST THAT BLOOD AND GETS WORSE AT NIGHT. SHE STATES IT STARTED APPROX 5 WEEKS AGO HEENT Symptoms (Recalled from RN notes): No Resp Symptoms (Recalled from RN notes): No Skin Symptoms (Recalled from RN notes): Yes MS Symptoms (Recalled from RN notes): No Functional Status (Recalled from RN notes): WNL - History of Present Illness Provider Complaint: 71 yr old female presnts for redness and rash to left upper arm. pt states she had a really bad sunburn 3 weeks ago and since then she has has had this redness and burning to upper arm and chest that is worse at night - Related Data Home Medications Medication Instructions Recorded Confirmed tizanidine 4 mg tablet 4 mg PO DAILY 30 Days #60 02/09/18 11/29/21 clonazepam 1 mg tablet 1 mg PO DAILY PRN tab 03/08/19 11/29/21 ubrogepant 100 mg tablet 100 mg PO DAILY PRN tab 06/20/21 11/29/21 Esomeprazole Magnesium 40 mg PO DAILY 09/28/21 11/29/21 Hydrocodone/Acetaminophen 1 tab PO DAILY PRN 09/28/21 11/29/21 [Hydrocodone-Acetamin 7.5-325] diazePAM [Valium 5mg tablets] 5 mg PO DAILY 09/28/21 11/29/21 atogepant 60 mg tablet 60 mg PO HS PRN tab 10/02/21 11/29/21 Previous Rx's Medication Instructions Recorded estradiol 0.5 mg tablet 0.5 mg PO DAILY #90 tab 11/16/18 ondansetron 4 mg disintegrating 4 mg PO Q8H PRN #30 tab 09/14/21 tablet Aspirin [Aspirin 81mg EC Tab] 81 mg PO DAILY #30 tab 09/29/21 Losartan Potassium 25 mg PO DAILY #30 tab 09/29/21 Ticagrelor [Brilinta 90mg 90 mg PO BID #60 tab 09/29/21 Tablet] bisoproloL fumarate [Bisoprolol 10 mg PO DAILY #30 tab 09/29/21 Fumarate] rosuvastatin 5 mg tablet 5 mg PO DAILY #30 tab 10/02/21 Fluconazole [Diflucan 100mg tablet] 100 mg PO ONCE #1 tab 11/11/21 cephALEXin [Cephalexin 500mg Tab] 500 mg PO BID 10 Days #20 tab 11/11/21 Cefdinir [Omnicef 300mg Capsule] 300 mg PO BID 7 Days #14 cap 12/11/21 Fluconazole [Diflucan 150mg tab] 150 mg PO ONCE #1 tab 12/11/21 methylPREDNISolone [Medrol 4mg 4 mg PO DIRECTED #21 tab 12/11/21 tab] Triamcinolone Acetonide 1 applic TP BID 7 Days #15 gm 01/06/22 cephALEXin [Cephalexin 500mg Tab] 500 mg PO BID 7 Days #14 tab 01/06/22 Allergies Allergy/AdvReac Type Severity Reaction Status Date / Time Sulfa (Sulfonamide Allergy Mild Verified 12/11/21 13:19 Antibiotics) [SULFA (SULFONAMIDE ANTIBIOTICS)] - Worker's Comp Is this a Worker's Comp case?: No [facility] History - Hepatitis A Screen Attestation statement:: This patient has been screened for Hepatitis A risk factors. I have reviewed th
[2022-01-06 14:12] VITALS: BP 143/74; PULSE 60; RESP 18; TEMP 37.1; O2SAT 98
== END 2022-01-06 14:19 | disposition home or self-care (01) ==
PROVIDERS: Emergency Provider Nurse Practitioner Family; PCP Emergency Medicine
DX: L03.114 Cellulitis of left upper limb
CPT/HCPCS: 96372; 99212; G0463

== ENCOUNTER 2022-01-13 11:50 | Emergency (ER) | payer MEDICARE, BC, SELFPAY ==
[2022-01-13 11:51] VITALS: BP 100/60; PULSE 66; RESP 16; TEMP 36.7; O2SAT 100; BMI 21.4
--- NOTE | 2022-01-13 12:12 | HMH.EDUTC ---
[facility] [place] Clinical Impression: Dermatitis Disposition: Home, Self-Care Condition on Discharge: Good Instructions: Photosensitivity (Alternative Therapy) Additional Instructions: Cholesterol-lowering drugs may result in chronic skin changes, such as actinic dermatitis, erythema, and eczematous rashes. They also can be a cause of photosensitivity. We should not adjust your cholesterol and heart medications here. Your fisherman helper and cardiothoracic surgeon and primary care physician should be the only ones to change these. Call Dr. Bush's office in the morning and let them know what is going on with you and that it could be your cholesterol medication or other heart medications causing this. He may want to adjust something to see if it helps your skin issue. Follow up with your primary care physician also. If this is not caused by your medications then you may need to be seen by a director of retail operations for further evaluation. I put in a referrral to Dr. Zhang (director of retail operations that comes to the speciality clinic at this [facility]). Please call her office to get an appointment if you are not getting better with a medication change. Wear a good sun screen at all times when you are going to be exposed to the sun. GO TO THE EMERGENCY ROOM FOR ANY WORSENING OR LIFE THREATENING SYMPTOMS. Prescriptions: Triamcinolone Acetonide 1 applicatio TP TIDP PRN 7 Days #1 gm PRN Reason: Itching Transmission Status: Received by [id number] Ubrogepant [Ubrelvy] 100 mg PO DAILYP PRN #20 tab PRN Reason: Migraine Headache Transmission Status: Received by [id number] Referrals: Roque Gutierrez MD [Primary Care Provider] - Yisel Zhang MD [Referring] - Time of Disposition: 12:54 Medical Decision Making - Medical Records Medical records reviewed: No: I reviewed the patient's medical records. - Abdiel Inquiry Pt receiving controlled substance: No Vital Signs: 01/13/22 11:51 01/13/22 13:06 Temperature 98.0 F 98.3 F Temperature Source Oral Oral Pulse Rate 64 Pulse Rate [Right] 66 Respiratory Rate 16 16 Blood Pressure 102/64 L Blood Pressure [Right Arm] 100/60 L Blood Pressure Mean [Right Arm] 73 Blood Pressure Source Automatic Cuff Blood Pressure Source [Right Arm] Automatic Cuff Blood Pressure Position Sitting Blood Pressure Position [Right Arm] Sitting 02 Sat by Pulse Oximetry 100 Oxygen Delivery Method Room Air Room Air [facility] [place] HPI - General Stated complaint: ongoing rash Time Seen by Provider: 01/13/22 12:12 Mode of Arrival: Ambulatory Source of Information: Patient Limitations: No Limitations Description of Symptoms (Recalled from Triage Doc. by RN): pt advises she has a rash all over that has been ongoing for weeks. Advises she was seen in the [facility] last week but the rash is still going on. Advises she thinks it might be her heart medicine. Asked pt if she had contacted her fisherman helper about it. Advises no HEENT Symptoms (Recalled from RN notes): No Resp Symptoms (Recalled from RN notes): No Skin Symptoms (Recalled from RN notes): Yes (rash all over) MS Symptoms (Recalled from RN notes): No Functional Status (Recalled from RN notes): na - History of Present Illness Provider Complaint: She states that for the past 6 weeks she has had recurrent skin rashes. She states that her symptoms are worse after being exposed to sun light. She was treated with steroids about 2 weeks ago with no improvment of her symptoms - Related Data Home Medications Medication Instructions Recorded Confirmed tizanidine 4 mg tablet 4 mg PO DAILY 30 Days #60 02/09/18 11/29/21 clonazepam 1 mg tablet 1 mg PO DAILY PRN tab 03/08/19 11/29/21 ubrogepant 100 mg tablet 100 mg PO DAILY PRN tab 06/20/21 11/29/21 Esomeprazole Magnesium 40 mg PO DAILY 09/28/21 11/29/21 Hydrocodone/Acetaminophen 1 tab PO DAILY PRN 09/28/21 11/29/21 [Hydrocodone-Acetamin 7.5-325] diazePAM [Valium 5mg tab
[2022-01-13 13:06] VITALS: BP 102/64; PULSE 64; RESP 16; TEMP 36.8; O2SAT 98
== END 2022-01-13 13:07 | disposition home or self-care (01) ==
PROVIDERS: Emergency Provider Nurse Practitioner Family; PCP Emergency Medicine
DX: L30.9 Dermatitis, unspecified (principal)
CPT/HCPCS: 99212; G0463

== ENCOUNTER → 2022-01-22 10:36 | Outpatient (CLI) | payer MEDICARE, BC, SELFPAY ==
[2022-01-22 11:34] LABS: Chol/HDL Ratio 5.5 (1-3.5); Cholesterol 213 mg/dl (140-200); HDL Cholesterol 39 mg/dl (40-60); Triglycerides 212 mg/dl (30-150); VLDL Cholesterol 42 mg/dL (0-40)
[2022-01-22 11:45] LABS: Direct LDL Cholesterol 124.55 mg/dL (100-129)
== END ==
PROVIDERS: PCP Emergency Medicine; Visit Provider Emergency Medicine
DX: E03.9 Hypothyroidism, unspecified (principal); E78.5 Hyperlipidemia, unspecified
CPT/HCPCS: 36415; 80061

== ENCOUNTER → 2022-01-22 11:05 | Outpatient (POV) | payer MEDICARE, BC, SELFPAY | PROVIDERS: Visit Provider Dermatology | DX: Z00.00 Encounter for general adult medical examination without abnormal findings (principal) ==

== ENCOUNTER → 2022-01-29 15:14 | Outpatient (CLI) | payer MEDICARE, BC, SELFPAY ==
[2022-01-29 16:32] LABS: Basophils # 0.1 K/mm3 (0-0.2); Basophils % 0.8 % (0.1-2.0); Eosinophils # 0.3 K/mm3 (0.0-0.4); Eosinophils % 3.6 % (0.1-12.0); Hemoglobin 12.4 g/dL (12.2-16.2); Lymphocytes # 0.4 K/mm3 (0.7-4.5); Lymphocytes % 4.8 % (10-50); Mean Corpuscular Hemoglobin 28.7 pg (27.0-31.2); Mean Corpuscular Volume 92.5 fl (81-99); Mean Platelet Volume 8.4 fl (7.4-10.4); Monocytes # 0.3 K/mm3 (0.1-1.0); Monocytes % 4.6 % (1.7-9.3); Neutrophils # 6.1 K/mm3 (1.8-7.8); Neutrophils % 86.1 % (37.0-80.0); Platelet Count 231 K/mm3 (142-424); Red Blood Count 4.32 M/mm3 (4.20-5.40); Red Cell Distribution Width 13.8 % (11.5-17.5); White Blood Count 7.1 K/mm3 (4.8-10.8)
[2022-01-29 16:45] LABS: MANUAL DIFFERENTIAL MANUAL DIFFERENTIAL (MANUAL DIFF)
[2022-01-29 16:48] LABS: Chloride 97 mmol/L (98-107); Potassium 4.3 mmoL/L (3.5-5.1); Sodium 137 mmol/L (136-145)
[2022-01-29 16:51] LABS: Alanine Aminotransferase 28 U/L (12-78); Albumin Level 4.2 g/dl (3.5-5.0); Albumin/Globulin Ratio 1.8 (1.1-1.8); Alkaline Phosphatase 143 U/L (38-126); Anion Gap 11.3 mEq/L (5-15); Aspartate Amino Transferase 33 U/L (14-36); Bilirubin,Total 0.6 mg/dl (0.2-1.3); Carbon Dioxide 33 mmol/L (22.0-30.0); Globulin 2.3 g/dL (1.3-3.2); Total Protein,Serum 6.5 g/dl (6.3-8.2)
[2022-01-29 16:52] LABS: Calcium 10.2 mg/dl (8.4-10.2); Glucose 120 mg/dl (74-100)
[2022-01-29 16:56] LABS: Blood Urea Nitrogen 20 mg/dl (7-17)
[2022-01-29 16:57] LABS: Estimated Glomerular Filt Rate 55 ml/min (>60); GFR (African American) 66 ML/MIN (>60)
[2022-01-29 17:24] LABS: Thyroid Stimulating Hormone 1.64 uIU/mL (0.465-4.68)
[2022-01-29 18:00] LABS: Lymphocytes % 11 % (10-50); Monocytes % 6 % (2-9); Neutrophils % 83 % (42-76); Total Cells Counted 100
[2022-01-29 18:01] LABS: Hypochromasia 1+; Platelet Estimate Normal
== END ==
PROVIDERS: PCP Internal Medicine Adolescent Medicine; Visit Provider Dermatology
DX: L30.8 Other specified dermatitis (principal); Z79.899 Other long term (current) drug therapy
CPT/HCPCS: 36415; 80053; 84443; 85007; 85025

== ENCOUNTER → 2022-02-12 10:48 | Outpatient (POV) | payer MEDICARE, BC, SELFPAY | PROVIDERS: Visit Provider Dermatology | DX: Z00.00 Encounter for general adult medical examination without abnormal findings (principal) ==

== ENCOUNTER → 2022-02-18 10:12 | Outpatient (CLI) | payer MEDICARE, BC, SELFPAY ==
--- NOTE | 2022-02-18 10:21 | XR_ITS ---
FINAL REPORT CLINICAL HISTORY: COUGH,LYMPHADENOPATHY, rash COMPARISON: 09/28/2021 FINDINGS: 2 views of the chest were obtained . The heart is normal in size. The mediastinum is within normal limits. There is a calcified granuloma in the left upper lobe. The lungs are otherwise clear. There is no pneumothorax. Osseous structures are unremarkable. IMPRESSION: No acute cardiopulmonary process. Reviewed, Interpreted and Dictated by Lazaro Ribera MD Transcribed by Yuliana Dietrich Authenticated and [facility]
== END ==
PROVIDERS: PCP Nurse Practitioner Family; Visit Provider Nurse Practitioner Family
DX: R05.1 Acute cough (principal); R59.1 Generalized enlarged lymph nodes; R21 Rash and other nonspecific skin eruption
CPT/HCPCS: 71046

== ENCOUNTER → 2022-03-11 14:27 | Outpatient (CLI) | payer MEDICARE, BC, SELFPAY ==
[2022-03-11 15:28] LABS: Basophils # 0.1 K/mm3 (0-0.2); Basophils % 1.4 % (0.1-2.0); Eosinophils # 0.6 K/mm3 (0.0-0.4); Eosinophils % 9.8 % (0.1-12.0); Hematocrit 38.7 % (37.0-47.0); Lymphocytes # 0.6 K/mm3 (0.7-4.5); Lymphocytes % 10.1 % (10-50); Mean Corpuscular HGB Conc 30.9 g/dL (31.8-35.4); Mean Corpuscular Hemoglobin 27.7 pg (27.0-31.2); Mean Corpuscular Volume 89.6 fl (81-99); Mean Platelet Volume 8.1 fl (7.4-10.4); Monocytes # 0.4 K/mm3 (0.1-1.0); Monocytes % 6.3 % (1.7-9.3); Neutrophils # 4.1 K/mm3 (1.8-7.8); Neutrophils % 72.4 % (37.0-80.0); Platelet Count 247 K/mm3 (142-424); Red Blood Count 4.32 M/mm3 (4.20-5.40); Red Cell Distribution Width 14.6 % (11.5-17.5); White Blood Count 5.7 K/mm3 (4.8-10.8)
[2022-03-11 15:40] LABS: Anion Gap 15.3 mEq/L (5-15); Blood Urea Nitrogen 10 mg/dl (7-17); Carbon Dioxide 32 mmol/L (22.0-30.0); Chloride 93 mmol/L (98-107); Estimated Glomerular Filt Rate 44 ml/min (>60); GFR (African American) 54 ML/MIN (>60); Glucose 103 mg/dl (74-100); Potassium 3.3 mmoL/L (3.5-5.1); Sodium 137 mmol/L (136-145)
[2022-03-11 15:46] LABS: Calcium 12.1 mg/dl (8.4-10.2)
[2022-03-11 15:55] LABS: 25-OH Vitamin D, Total 57.6 ng/mL (30-100)
== END ==
PROVIDERS: PCP Nurse Practitioner Family; Visit Provider Nurse Practitioner Family
DX: E83.52 Hypercalcemia (principal)
CPT/HCPCS: 36415; 80048; 82306; 82330; 83970; 85025

== ENCOUNTER → 2022-03-18 12:48 | Outpatient (CLI) | payer MEDICARE, BC, SELFPAY ==
--- NOTE | 2022-03-18 12:51 | CT_ITS ---
FINAL REPORT TECHNIQUE: Thin section axial CT images with coronal and sagittal reformats were performed through the neck. This study was performed with techniques to keep radiation doses as low as reasonably achievable (ALARA). Individualized dose reduction techniques using automated exposure control or adjustment of mA and/or kV according to the patient''s size were employed. CLINICAL HISTORY: LYMPHADENOPATHY COMPARISON: 04/21/2020 FINDINGS: Bilateral cervical adenopathy has increased from prior exam. Anterior and posterior cervical lymph nodes now measure up to 11 mm or less. Salivary glands are normal. Larynx is unremarkable. Thyroid gland is unremarkable. There is a retention cyst or polyp in the left maxillary sinus . IMPRESSION: Worsening cervical adenopathy. Reviewed, Interpreted and Dictated by Lazaro Ribera MD Transcribed by Yuliana Dietrich Authenticated and [facility]
--- NOTE | 2022-03-18 13:07 | CT_ITS ---
FINAL REPORT TECHNIQUE: Axial imaging of the chest was obtained without contrast. Reformatted images were also obtained and reviewed.This study was performed with techniques to keep radiation doses as low as reasonably achievable, (ALARA). Individualized dose reduction technique using automated exposure control or adjustment of mA and/or kV according to the patient's size were employed. CLINICAL HISTORY: LYMPHADENOPATHY, WEIGHT LOSS FINDINGS: There are new, multiple bilateral, abnormally enlarged axillary lymph nodes measuring up to 2.6 cm. Note is made of densely peripherally calcified breast implants. There is no hilar or mediastinal mass or adenopathy. Heart size is normal. There is no pericardial or pleural effusion. Limited images of the upper abdomen are unremarkable. There is scarring at the left lung base. No suspicious infiltrate or nodule is identified on lung window images. IMPRESSION: New, extensive cervical and axillary adenopathy, consider underlying lymphoma peer Reviewed, Interpreted and Dictated by Lazaro Ribera MD Transcribed by Yuliana Dietrich Authenticated and . [facility]
== END ==
PROVIDERS: PCP Nurse Practitioner Family; Visit Provider Nurse Practitioner Family
DX: R59.1 Generalized enlarged lymph nodes (principal)
CPT/HCPCS: 70490; 71250

== ENCOUNTER → 2022-12-13 13:32 | Outpatient (CLI) | payer MEDICARE, BC, SELFPAY ==
--- NOTE | 2022-12-13 13:36 | XR_ITS ---
FINAL REPORT CLINICAL HISTORY: Rt knee pain x yrs, worsened x last few months since undergoing chemo. COMPARISON: None FINDINGS: Three views of the right knee reveal no evidence of fracture or dislocation. The bony alignment is normal. There is mild degenerative change. Medial compartment narrowing is noted. There is no evidence of joint effusion. No localized soft tissue abnormality is identified. IMPRESSION: No acute abnormality identified. Reviewed, Interpreted and Dictated by Jorge Martel III, MD Transcribed by Dulce Royal Authenticated and [facility]
--- NOTE | 2022-12-13 13:36 | XR_ITS ---
FINAL REPORT CLINICAL HISTORY: Lt knee pain x yrs, worsened x last few months since undergoing chemo. Lt knee worse than Rt. COMPARISON: None FINDINGS: Three views of the left knee reveal no evidence of fracture or dislocation. The bony alignment is normal. There is mild degenerative change. Medial compartment narrowing is noted. There is no evidence of joint effusion. No localized soft tissue abnormality is seen. IMPRESSION: No acute abnormality identified. Reviewed, Interpreted and Dictated by Jorge Martel III, MD Transcribed by Dulce Royal Authenticated and [facility] [place] [place]
== END ==
PROVIDERS: PCP Internal Medicine Adolescent Medicine; Visit Provider Orthopaedic Surgery
DX: M25.561 Pain in right knee (principal); M25.562 Pain in left knee
CPT/HCPCS: 73562

== ENCOUNTER → 2023-03-20 14:38 | Outpatient (POV) | payer MEDICARE, BC, SELFPAY | PROVIDERS: Visit Provider Specialist/Technologist | DX: Z00.00 Encounter for general adult medical examination without abnormal findings (principal) ==

== ENCOUNTER 2023-07-03 13:36 | Outpatient (CLI) | payer MEDICARE, BC, SELFPAY ==
[2023-07-03 14:03] LABS: Basophils % 0.8 % (0.1-2.0); Eosinophils # 0.1 K/mm3 (0.0-0.4); Eosinophils % 2.6 % (0.1-12.0); Hematocrit 39.8 % (37.0-47.0); Hemoglobin 12.8 g/dL (12.2-16.2); Lymphocytes # 0.7 K/mm3 (0.7-4.5); Lymphocytes % 17.6 % (10-50); Mean Corpuscular HGB Conc 32.1 g/dL (31.8-35.4); Mean Corpuscular Hemoglobin 30.8 pg (27.0-31.2); Mean Corpuscular Volume 95.9 fl (81-99); Mean Platelet Volume 8.4 fl (7.4-10.4); Monocytes # 0.3 K/mm3 (0.1-1.0); Monocytes % 7.3 % (1.7-9.3); Neutrophils # 2.8 K/mm3 (1.8-7.8); Neutrophils % 71.7 % (37.0-80.0); Platelet Count 103 K/mm3 (142-424); Red Blood Count 4.15 M/mm3 (4.20-5.40); Red Cell Distribution Width 13.8 % (11.5-17.5); White Blood Count 3.9 K/mm3 (4.8-10.8)
[2023-07-03 14:13] LABS: Chloride 99 mmol/L (98-107); Sodium 138 mmol/L (136-145)
[2023-07-03 14:14] LABS: Potassium 4.5 mmoL/L (3.5-5.1)
[2023-07-03 14:16] LABS: Alanine Aminotransferase 25 U/L (12-78); Amylase 34 U/L (30-110); Anion Gap 11.5 mEq/L (5-15); Aspartate Amino Transferase 39 U/L (14-36); Blood Urea Nitrogen 16 mg/dl (7-17); Carbon Dioxide 32 mmol/L (22.0-30.0); Estimated Glomerular Filt Rate 49 ml/min (>60); GFR (African American) 59 ML/MIN (>60)
[2023-07-03 14:17] LABS: Albumin/Globulin Ratio 1.5 (1.1-1.8); Alkaline Phosphatase 153 U/L (38-126); Bilirubin,Total 0.9 mg/dl (0.2-1.3); Globulin 2.6 g/dL (1.3-3.2); Glucose 94 mg/dl (74-100); Lipase 88 U/L (23-300); Total Protein,Serum 6.6 g/dl (6.3-8.2)
== END 2023-07-03 23:59 ==
LOC: LAB 13:38
PROVIDERS: Nurse Practitioner Family; PCP Internal Medicine Adolescent Medicine; Visit Provider Internal Medicine Adolescent Medicine
DX: R11.0 Nausea (principal)
CPT/HCPCS: 36415; 80053; 82150; 83690; 85025

== ENCOUNTER 2023-08-26 13:10 | Outpatient (POV) | payer MEDICARE, BC, SELFPAY | END 2023-08-26 23:59 | disposition home or self-care (01) | LOC: SC 13:10 | PROVIDERS: PCP Internal Medicine Adolescent Medicine; Visit Provider Dermatology | DX: Z00.00 Encounter for general adult medical examination without abnormal findings (principal) ==

== ENCOUNTER 2023-11-27 16:31 | Emergency (ER) | payer MEDICARE, BC, SELFPAY ==
[2023-11-27 16:40] VITALS: BP 143/76; PULSE 91; RESP 20; TEMP 36.8; O2SAT 98; BMI 21.6
--- NOTE | 2023-11-27 16:57 | EXP.UTC ---
Discharge Plan Disposition Patient Disposition: Home, Self-Care Condition: Good Prescriptions Prescriptions: New benzonatate 100 mg capsule 100 mg PO TID PRN (Reason: cough) Qty: 30 0RF methylprednisolone [Medrol (Terrell)] 4 mg tablets,dose pack See Rx Instructions .Route .COMPLEX 6 Days Qty: 21 0RF Rx Instructions: taper pack; amoxicillin-pot clavulanate 875-125 mg Tablet 1 tab PO Q12H Qty: 20 0RF No Action tizanidine 4 mg tablet 4 mg PO DAILY 30 Days Qty: 60 clonazepam [Klonopin] 1 mg tablet 1 mg PO DAILY PRN (Reason: Sleep) meloxicam 7.5 mg tablet 7.5 mg PO DAILY Patient Comments: TAKE 1 TABLET BY MOUTH ONCE DAILY Repatha SureClick 140 mg/mL pen injector 140 mg SQ Q2W Patient Comments: INJECT 1 ML UNDER THE SKIN EVERY 2 WEEKS DIRECTED cyclosporine [Restasis] 0.05 % dropperette 1 drp Eye-Both BID ubrogepant 100 MG tablet 100 mg PO DAILYP PRN (Reason: Migraine Headache) Qty: 20 0RF esomeprazole magnesium 40 MG capsule,delayed release(DR/EC) 40 mg PO DAILY aspirin 81 MG tablet,delayed release (DR/EC) 81 mg PO DAILY Qty: 30 0RF Referrals Follow up/Referrals: Isaak Donovan MD [Primary Care Provider] - See instructions Activity Restrictions/Add. Instructions Additional Instructions/Restrictions: *Monitor Temp, Over the counter Motrin or Tylenol as directed/as needed Tylenol every 4 hours and Motrin every 6 hours (as long as your family doctor has told you that you can take it) for fever or pain. and straight to ER if unable to lower temp less than 101.0 after medication given *Warm salt water gargles may help to soothe the throat *Throat Lozenges? *Warm fluids like tea with honey may help to soothe the throat? *Sleep elevated *Humidifier/Vaporizer Take medication as prescribed Follow up IMMEDIATELY for new or worsening symptoms or no Noticeable improvement over the next 48-72 hours. 911 for difficulty breathing or swallowing Clinical Impressions Clinical Impression: Sinusitis Qualifiers: Sinusitis location: unspecified location Chronicity: unspecified Qualified Code(s): J32.9 - Chronic sinusitis, unspecified Instructions Patient Instructions: Sinusitis, DI for Sinusitis [place] [facility] [place] General Stated complaint: cough Mode of Arrival: Ambulatory Source of Information: Patient Limitations: No Limitations Time Seen by Provider: 11/27/23 16:57 Description of Symptoms (Recalled from Triage Doc. by RN): PATIENT C/O SINUS CONGESTION X 2 WEEKS HEENT Symptoms (Recalled from RN notes): Yes Resp Symptoms (Recalled from RN notes): No Skin Symptoms (Recalled from RN notes): No MS Symptoms (Recalled from RN notes): No Functional Status (Recalled from RN notes): WNL History of Present Illness Provider Complaint: Patient states that she has been having sinus pain and pressure and cough for about 2 weeks States that she is a Cancer patient and recently found out she was no longer in remission and had to start taking cancer pills again and thinks she may have a bad sinus infection Related Data Home Medications Medication Instructions Recorded Confirmed tizanidine 4 mg tablet 4 mg PO DAILY Pain 30 days ##60 02/09/18 09/12/23 clonazepam 1 mg tablet (Klonopin) 1 mg PO DAILY PRN Sleep 03/08/19 11/27/23 esomeprazole magnesium 40 mg 40 mg PO DAILY GERD 09/28/21 09/12/23 capsule,delayed release cyclosporine 0.05 % eye drops in a 1 drp Eye-Both BID 02/10/23 09/12/23 dropperette (Restasis) evolocumab 140 mg/mL subcutaneous 140 mg SQ Q2W 02/10/23 09/12/23 pen injector (Nitish Campos) meloxicam 7.5 mg tablet 7.5 mg PO DAILY 02/10/23 09/12/23 Previous Rx's Medication Instructions Recorded aspirin 81 mg tablet,delayed 81 mg PO DAILY #30 tabs 09/29/21 release ubrogepant 100 mg tablet 100 mg PO DAILYP PRN Migraine 01/13/22 Headache #20 tabs amoxicillin 875 mg-potassium 1 tab PO Q12H #20 tabs 11/27/23 clavulanate 125 mg tablet benzonatate 100 mg capsule 100 mg PO TID PRN cough #30 caps 11/27/23 methylprednisolone 4 mg tablets in See Rx Instructions .Route 05/30/24 a dose pack (Medrol (Terrell)) .COMPLEX 6 days #21 tabs Allergies Allergy/AdvReac Type Severity Reaction Status Date / Time Sulfa (Sulfonamide Allergy Mild Verified 09/12/23 11:41 Antibiotics) [SULFA (SULFONAMIDE ANTIBIOTICS)] Worker's Comp Is this a Worker's Comp case?: No [facility] Disclaimer: The information contained in this section may have been updated after the patient was seen, as this information can be updated by other users. Medical History Sensorineural hearing loss Lymphoma in remission Ear congestion Hearing loss . Otalgia Gastroesophageal reflux disease Hyperlipidemia (~06/11/18) Social History Smoking Status: Never smoker alcohol intake: current alcohol intake frequency: holidays/special occasions only substance use type: denies use current occupational status: retired Travel in the last 8 weeks: None household members: spouse housing: house caffeine: Yes ROS Obtained: Yes All systems reviewed & no additional complaints except as documented and Yes Systems reviewed as appropriate & no additional complaints except as documented Constitutional Constitutional: Reports system reviewed and no additional complaints, except as documented and Reports as per HPI ENT Ears, Nose, Mouth, and Throat: Reports system reviewed and no additional complaints, except as documented, Reports as per HPI, Reports sinus pain and Reports sinus pressure Respiratory Respiratory: Reports system reviewed and no additional complaints, except as documented, Reports as per HPI and Reports cough Gastrointestinal Gastrointestingal: Reports system reviewed and no additional complaints, except as documented and as per HPI Genitourinary Female Genitourinary: Reports system reviewed and no additional complaints, except as documented and Reports as per HPI Musculoskeletal Musculoskeletal: Reports system reviewed and no additional complaints, except as documented and Reports as per HPI Physical Exam General General appearance: alert and in no apparent distress ENT ENT exam: Present mucous membranes moist Expanded ENT Exam Nose exam: Present sinus tenderness Throat exam: Present other (PND) Respiratory Respiratory exam: Present normal lung sounds bilaterally; Absent respiratory distress or wheezes Cardiovascular Cardiovascular exam: Present regular rate, normal rhythm and normal heart sounds Abdominal Exam Abdominal exam: Present soft and normal bowel sounds; Absent distention or tenderness Neurological Exam Neurological exam: Present alert, oriented X3 and normal gait Medical Decision Making Abdiel Inquiry Pt receiving controlled substance: No Abdiel was queried for this patient: No Vital Signs: 11/27/23 16:40 Temperature 98.2 F Temperature Source Oral Pulse Rate [Left Brachial] 91 H Respiratory Rate 20 Blood Pressure [Left Arm] 143/76 H Blood Pressure Mean [Left Arm] 98 Blood Pressure Source [Left Arm] Automatic Cuff Blood Pressure Position [Left Arm] Sitting 02 Sat by Pulse Oximetry 98 Oxygen Delivery Method Room Air Medical Decision Narrative: Medication discussed with pharmacy
[2023-11-27 17:08] VITALS: BP 143/76; PULSE 91; RESP 20; TEMP 36.8; O2SAT 98
== END 2023-11-27 17:13 | disposition home or self-care (01) ==
PROVIDERS: Emergency Provider Nurse Practitioner; PCP Internal Medicine Adolescent Medicine
DX: J01.90 Acute sinusitis, unspecified (principal); R05.9 Cough, unspecified; C85.90 Non-Hodgkin lymphoma, unspecified, unspecified site
CPT/HCPCS: 99212; 99214; G0463

== ENCOUNTER 2024-01-13 14:02 | Outpatient (CLI) | payer MEDICARE, BC, SELFPAY ==
[2024-01-13 14:28] LABS: Basophils # 0.1 K/mm3 (0-0.2); Basophils % 1.2 % (0.1-2.0); Eosinophils % 0.7 % (0.1-12.0); Hematocrit 37.1 % (37.0-47.0); Hemoglobin 12.1 g/dL (12.2-16.2); Lymphocytes # 0.9 K/mm3 (0.7-4.5); Mean Corpuscular HGB Conc 32.6 g/dL (31.8-35.4); Mean Corpuscular Hemoglobin 30.2 pg (27.0-31.2); Mean Corpuscular Volume 92.6 fl (81-99); Monocytes # 0.3 K/mm3 (0.1-1.0); Neutrophils # 3.9 K/mm3 (1.8-7.8); Neutrophils % 75.1 % (37.0-80.0); Platelet Count 129 K/mm3 (142-424); Red Blood Count 4.01 M/mm3 (4.20-5.40); Red Cell Distribution Width 16.2 % (11.5-17.5); White Blood Count 5.2 K/mm3 (4.8-10.8)
[2024-01-13 14:39] LABS: Alanine Aminotransferase 17 U/L (12-78); Albumin Level 3.8 g/dl (3.5-5.0); Albumin/Globulin Ratio 1.9 (1.1-1.8); Alkaline Phosphatase 106 U/L (38-126); Anion Gap 8.9 mEq/L (5-15); Aspartate Amino Transferase 28 U/L (14-36); Bilirubin,Total 0.6 mg/dl (0.2-1.3); Blood Urea Nitrogen 18 mg/dl (7-17); Calcium 9.6 mg/dl (8.4-10.2); Carbon Dioxide 31 mmol/L (22.0-30.0); Chloride 103 mmol/L (98-107); Estimated Glomerular Filt Rate 62 ml/min (>60); GFR (African American) 74 ML/MIN (>60); Glucose 86 mg/dl (74-100); Lactate Dehydrogenase 252 U/L (313-618); Potassium 3.9 mmoL/L (3.5-5.1); Sodium 139 mmol/L (136-145); Total Protein,Serum 5.8 g/dl (6.3-8.2); Uric Acid 7.7 mg/dl (2.5-6.2)
== END 2024-01-13 23:59 | disposition home or self-care (01) ==
LOC: LAB 14:04
PROVIDERS: PCP Radiology Diagnostic Radiology; Visit Provider Internal Medicine Medical Oncology
DX: C81.90 Hodgkin lymphoma, unspecified, unspecified site (principal)
CPT/HCPCS: 36415; 80053; 83615; 84550; 85025

== ENCOUNTER 2024-01-14 11:17 | Outpatient (CLI) | payer MEDICARE, BC, SELFPAY ==
--- NOTE | 2024-01-14 11:22 | CT_ITS ---
FINAL REPORT TECHNIQUE: Thin section axial images were obtained through the abdomen after intravenous contrast. Reconstruction images were obtained from the axial data. Exam was performed using dose reduction techniques. CLINICAL HISTORY: LYMPHOMA COMPARE TO RASTAFARI IMAGES SHARED FOR CT AND PET COMPARISON: Outside PET from 08/12/2023 FINDINGS: The liver is homogeneous. The gallbladder is present. The spleen is enlarged at 14 cm but stable. The adrenal glands, and pancreas are unremarkable. There is no hydronephrosis or solid renal mass. Abdominal GI tract is without acute abnormality. There is a small hiatal hernia. There is no evidence of small bowel obstruction.. The uterus is absent. The pelvic solid organs are unremarkable. The pelvic portions of the GI tract, including the appendix, are without acute abnormality. There is a left periaortic lymph node seen on axial image 51 measuring 10 mm which is unchanged. There is an aortocaval lymph node which is increased in size measuring 11 mm, was 6 mm. There are several other retroperitoneal lymph nodes which have slightly increased in size. A right external iliac lymph node is 22 mm, previously measured 11 mm. Inguinal and left external iliac adenopathy has also worsened. A stable fluid density is seen adjacent to the rectosigmoid colon which is unchanged. No acute osseous abnormality is seen IMPRESSION: Increasing lymphadenopathy in lower abdomen and pelvis concerning for progression of lymphoma. Reviewed, Interpreted and Dictated by Perla Layne MD Transcribed by Yuliana Dietrich Authenticated and [facility]
--- NOTE | 2024-01-14 11:22 | CT_ITS ---
FINAL REPORT TECHNIQUE: Thin section axial images were obtained from the thoracic inlet through the upper abdomen after intravenous contrast injection. Reconstruction images were obtained from the axial data. Exam was performed using dose reduction technique. CLINICAL HISTORY: .100 ML OF ISOVUE 370 LYMPHOMA PLEASE COMPARE TO EPISCOPALIAN IMAGES COMPARISON: 03/18/2022 FINDINGS: There is bilateral axillary lymphadenopathy. Largest right axillary lymph node measures 28 mm, previously measured 15 mm. There are also new right axillary lymph nodes. Left axillary lymphadenopathy has improved. There is no mediastinal or hilar adenopathy. There is no pleural or pericardial effusion. The lungs are clear. No acute osseous abnormality. IMPRESSION: Mixed response with worsening right and improving left axillary lymphadenopathy. No new abnormality identified. Reviewed, Interpreted and Dictated by Perla Layne MD Transcribed by Loren Dalal Authenticated and [facility]
--- NOTE | 2024-01-14 11:22 | CT_ITS ---
FINAL REPORT TECHNIQUE: Thin section axial CT images with coronal and sagittal reformats were performed after the administration of IV contrast. This study was performed with techniques to keep radiation doses as low as reasonably achievable (ALARA). Individualized dose reduction techniques using automated exposure control or adjustment of mA and/or kV according to the patient''s size were employed. CLINICAL HISTORY: 100 ML OF ISOVUE LYMPHOMA PLEASE COMPARE TO IMAGES FROM [facility] COMPARISON: 03/18/2022 FINDINGS: The nasopharynx, oropharynx, epiglottis, and larynx are unremarkable. The thyroid and salivary glands are unremarkable without acute abnormality. There is bilateral cervical lymphadenopathy. The previously noted lymph node along the inferior left parotid gland now measures 6 mm, was 11 mm. The left submandibular lymph node measuring 8 mm previously measured 13 mm. Other lymph nodes are stable or also smaller. There is no new lymphadenopathy. There are no acute osseous abnormalities. IMPRESSION: Stable to slightly improved cervical lymphadenopathy. Reviewed, Interpreted and Dictated by Perla Layne MD Transcribed by Dulce Royal Authenticated and [facility]
== END 2024-01-14 23:59 | disposition home or self-care (01) ==
LOC: RAD 11:18
PROVIDERS: PCP Internal Medicine Adolescent Medicine; Visit Provider Internal Medicine Medical Oncology
DX: C85.98 Non-Hodgkin lymphoma, unspecified, lymph nodes of multiple sites (principal)
CPT/HCPCS: 70491; 71260; 74177; Q9967

== ENCOUNTER 2024-01-21 11:38 | Outpatient (CLI) | payer MEDICARE, BC, SELFPAY ==
[2024-01-21] MEDS: VITAMIN B-12 1,000 MCG 1ML VIAL 1000 MCG (11:45)
[2024-01-21 11:48] VITALS: BP 150/72; PULSE 76; RESP 18; O2SAT 100
== END 2024-01-21 11:48 | disposition home or self-care (01) ==
LOC: INF 11:39
PROVIDERS: PCP Internal Medicine Adolescent Medicine; Visit Provider Internal Medicine Medical Oncology
DX: C85.99 Non-Hodgkin lymphoma, unspecified, extranodal and solid organ sites (principal)
CPT/HCPCS: 96372; J3420

== ENCOUNTER 2024-01-30 11:01 | Outpatient (CLI) | payer MEDICARE, BC, SELFPAY ==
[2024-01-30] MEDS: SODIUM CHLORIDE 0.9% 10ML FLUSH SYRINGE 10 ML IV (12:00)
[2024-01-30 12:10] VITALS: BP 133/71; PULSE 92; RESP 17; TEMP 36.3; O2SAT 98
[2024-01-30 12:40] VITALS: BP 150/73; PULSE 90; TEMP 36.9; O2SAT 96
--- NOTE | 2024-02-03 14:41 | DIET.NUTRFU ---
Consult for 1st chemo dose. She just started chemo through Dr. Mccloud but has been during it through [facility] previously. Currently she has mouth sores and was out picking up script for that. Also on steroids and has been gaining weight. plans to pickup milkshake while out, recommended premier protein 2-3 day if appetite/mouth sore causing poor intake. Provided contact information for future needs. She did not want to talk for long hurting.
== END 2024-01-30 12:40 | disposition home or self-care (01) ==
LOC: INF 11:02
PROVIDERS: PCP Internal Medicine Adolescent Medicine; Visit Provider Internal Medicine Medical Oncology
DX: Z51.11 Encounter for antineoplastic chemotherapy (principal); Z79.899 Other long term (current) drug therapy; C84.48 Peripheral T-cell lymphoma, not elsewhere classified, lymph nodes of multiple sites
CPT/HCPCS: 96409; J9307

== ENCOUNTER 2024-02-05 10:43 | Outpatient (CLI) | payer MEDICARE, BC, SELFPAY ==
[2024-02-05 10:47] VITALS: BMI 23.5
[2024-02-05 11:09] LABS: Basophils % 0.5 % (0.1-2.0); Eosinophils # 0.4 K/mm3 (0.0-0.4); Eosinophils % 5.5 % (0.1-12.0); Hematocrit 40.8 % (37.0-47.0); Hemoglobin 13.2 g/dL (12.2-16.2); Lymphocytes # 1.3 K/mm3 (0.7-4.5); Lymphocytes % 16.9 % (10-50); Mean Corpuscular HGB Conc 32.3 g/dL (31.8-35.4); Mean Corpuscular Hemoglobin 29.6 pg (27.0-31.2); Mean Corpuscular Volume 91.5 fl (81-99); Mean Platelet Volume 7.9 fl (7.4-10.4); Monocytes # 0.2 K/mm3 (0.1-1.0); Monocytes % 2.8 % (1.7-9.3); Neutrophils # 5.7 K/mm3 (1.8-7.8); Neutrophils % 74.4 % (37.0-80.0); Platelet Count 147 K/mm3 (142-424); Red Blood Count 4.46 M/mm3 (4.20-5.40); Red Cell Distribution Width 16.4 % (11.5-17.5); White Blood Count 7.6 K/mm3 (4.8-10.8)
[2024-02-05 11:35] LABS: Alanine Aminotransferase 80 U/L (12-78); Albumin/Globulin Ratio 1.4 (1.1-1.8); Alkaline Phosphatase 85 U/L (38-126); Anion Gap 8.8 mEq/L (5-15); Aspartate Amino Transferase 62 U/L (14-36); Blood Urea Nitrogen 17 mg/dl (7-17); Calcium 9.6 mg/dl (8.4-10.2); Carbon Dioxide 30 mmol/L (22.0-30.0); Chloride 104 mmol/L (98-107); Creatinine Clearance Estimated 50 mL/min (50-200); Estimated Glomerular Filt Rate 55 ml/min (>60); GFR (African American) 66 ML/MIN (>60); Globulin 2.8 g/dL (1.3-3.2); Glucose 84 mg/dl (74-100); Potassium 3.8 mmoL/L (3.5-5.1); Sodium 139 mmol/L (136-145); Total Protein,Serum 6.8 g/dl (6.3-8.2)
== END 2024-02-05 11:45 | disposition home or self-care (01) ==
LOC: INF 10:44
PROVIDERS: PCP Internal Medicine Adolescent Medicine; Visit Provider Internal Medicine Medical Oncology
DX: R59.0 Localized enlarged lymph nodes (principal)
CPT/HCPCS: 36415; 80053; 85025

== ENCOUNTER 2024-02-17 09:11 | Outpatient (CLI) | payer MEDICARE, BC, SELFPAY ==
[2024-02-17 09:19] VITALS: BMI 23.5
--- NOTE | 2024-02-17 09:28 | PC.NURSE ---
0928-collected labs via venipuncture stick in left ac with butterfly needle;pt to dr sanchez.
[2024-02-17 09:38] LABS: Eosinophils # 0.1 K/mm3 (0.0-0.4); Eosinophils % 4.7 % (0.1-12.0); Hemoglobin 10.5 g/dL (12.2-16.2); Lymphocytes # 0.5 K/mm3 (0.7-4.5); Lymphocytes % 17.3 % (10-50); Mean Corpuscular HGB Conc 31.8 g/dL (31.8-35.4); Mean Corpuscular Hemoglobin 28.8 pg (27.0-31.2); Mean Corpuscular Volume 90.7 fl (81-99); Mean Platelet Volume 8.4 fl (7.4-10.4); Monocytes # 0.2 K/mm3 (0.1-1.0); Monocytes % 6.4 % (1.7-9.3); Neutrophils # 2.1 K/mm3 (1.8-7.8); Neutrophils % 70.6 % (37.0-80.0); Platelet Count 233 K/mm3 (142-424); Red Blood Count 3.64 M/mm3 (4.20-5.40); Red Cell Distribution Width 17.1 % (11.5-17.5)
== END 2024-02-17 09:28 | disposition home or self-care (01) ==
PROVIDERS: PCP Internal Medicine Adolescent Medicine; Visit Provider Internal Medicine Medical Oncology
DX: C85.90 Non-Hodgkin lymphoma, unspecified, unspecified site (principal)
CPT/HCPCS: 36415; 85025

== ENCOUNTER 2024-02-17 10:37 | Observation (INO) | payer MEDICARE, BC, SELFPAY ==
--- OUTSIDE RECORDS SUMMARY | 2024-02-17 10:42 | XMS_ITS ---
Author Organization [facility] Address [address] [facility] [address] [place] [address] Care Team Providers Care Management Planner Name Role Phone Mackenzie Shikha Primary Care Provider Mtat Clark, Rajinder Unavailable Unavailable REASON FOR VISIT refill hydroxyzine MEDICATIONS Medication SIG (Take, Route, Frequency, Duration) Notes Start Date End Date Status hydrOXYzine hydrochloride 25 mg 1 tab(s) orally at bedtime as needed for itching for 30 days 01/05/2024 Active Encounters Encounter Location Date Provider Diagnosis [facility] [address] [facility] [address] [place] [address] 01/05/2024 Shikha Mackenzie PLAN OF TREATMENT Medication Medication Name Sig Start Date Stop Date Notes hydrOXYzine hydrochloride 25 mg 1 tab(s) orally at bedtime as needed for itching for 30 days 01/05/2024 Progress Notes * Ranjan VIVASgailDOB:1950 ( 73 yo F)Acc No.[id number]:01/05/2024 Patient:??Maame VIVAS :1950?Age:73 Y?Sex:Fe male Address:[place], [address] * Refills?? Start hydrOXYzine tablet, hydrochloride 25 mg, orally, 30, 1 tab(s), at bedtime as needed for itching, 30 days, Refills=1 * true * Date:??
--- OUTSIDE RECORDS SUMMARY | 2024-02-17 10:42 | XMS_ITS ---
Author Organization [facility] Address [address] [place] [address] Care Team Providers Care Heat And Frost Insulator Name Role Phone Shikha Mann Primary Care Provider Matt Clark, Rajinder Unavailable Unavailable REASON FOR VISIT Dr Mccloud Encounters Encounter Location Date Provider Diagnosis [facility] [address] [place] [address] 01/06/2024 Shikha Mann PLAN OF TREATMENT No Information Progress Notes * CASSIERanjan CEDEÑOgailDOB:1950 ( 73 yo F)Acc No.[id number]:01/06/2024 Patient:??Maame VIVAS :1950?Age:73 Y?Sex:Fe male Address:[place], [address] * true * Date:??
--- OUTSIDE RECORDS SUMMARY | 2024-02-17 10:43 | XMS_ITS | Patient Health Record ---
Author Organization [facility] Address [address] [place] [address] Care Team Providers Care Instructor Flying Name Role Phone Shikha Mann Primary Care Provider [phone] Matt Clark, Rajinder Unavailable Unavailable Isaak Donovan Unavailable [phone] ALLERGIES Allergen (clinical drug ingredient) Drug/Non Drug Allergy documented on EMR Reaction Allergy Type Onset Date Status sulfa (uncoded) vagina swelling Allergy Active RESULTS Component Value Reference Range Notes M-Complete Blood Count Auto Diff Reviewed date:07/06/2023 01:07:45 PM Interpretation: Performing Lab: Notes/Report: WBC 3.9 4.8-10.8 K/mm3 RBC 4.15 4.20-5.40 M/mm3 HGB 12.8 12.2-16.2 g/dL HCT 39.8 37.0-47.0 % MCV 95.9 81-99 fl MCH 30.8 27.0-31.2 pg MCHC 32.1 31.8-35.4 g/dL RDW 13.8 11.5-17.5 % PLT 103 142-424 K/mm3 MPV 8.4 7.4-10.4 fl NE% 71.7 37.0-80.0 % LY% 17.6 10-50 % MO% 7.3 1.7-9.3 % EO% 2.6 0.1-12.0 % BA% 0.8 0.1-2.0 % NE# 2.8 1.8-7.8 K/mm3 LY# 0.7 0.7-4.5 K/mm3 MO# 0.3 0.1-1.0 K/mm3 EO# 0.1 0.0-0.4 K/mm3 BA# 0.0 0-0.2 K/mm3 M-Comprehensive Metabolic Pa milton Reviewed date:07/06/2023 01:07:45 PM Interpretation: Performing Lab: Notes/Report: NA 138 136-145 mmol/L K 4.5 3.5-5.1 mmoL/L CL 99 98-107 mmol/L CO2 32 22.0-30.0 mmol/L GAP 11.5 5-15 mEq/L BUN 16 7-17 mg/dl CREATT 1.10 0.52-1.04 mg/dl GFRAA 59 >60 ML/MIN EGFR 49 >60 ml/min GLU 94 74-100 mg/dl CA 9.0 8.4-10.2 mg/dl BILIT 0.9 0.2-1.3 mg/dl AST 39 14-36 U/L ALT 25 12-78 U/L TP 6.6 6.3-8.2 g/dl ALB 4.0 3.5-5.0 g/dl GLOB 2.6 1.3-3.2 g/dL AGRATIO 1.5 1.1-1.8 ALP 153 38-126 U/L M-Amylase Reviewed date:07/06/2023 01:07:45 PM Interpretation: Performing Lab: Notes/Report: EMMANUELLE 34 30-110 U/L M-Lipase Reviewed date:07/06/2023 01:07:45 PM Interpretation: Performing Lab: Notes/Report: LIP 88 23-300 U/L LIPID PANEL, STANDARD (7600) Reviewed date:03/31/2023 10:01:47 AM Interpretation: Performing Lab:CB, [facility] [address], [place]andal MuellerXuudYC[address] [place] Notes/Report: NON-FASTING; NON-FASTING; NON-FASTING; NON-FASTING; NON-FAST FASTING:YES FASTING: YES CHOLESTEROL, TOTAL 138 <200 mg/dL HDL CHOLESTEROL 63 > OR = 50 mg/dL TRIGLYCERIDES 166 <150 mg/dL LDL-CHOLESTEROL 51 Reference range: <100 Desirable range <100 mg/dL for primary prevention; <70 mg/dL for patients with CHD or diabetic patients with > or = 2 CHD risk factors. LDL-C is now calculated using the Carlos-Cole calculation, which is a validated novel method providing better accuracy than the Friedewald equation in the estimation of LDL-C. Carlos SS et al. XENIA. 2013;310(19): 4193-4997 (http://education.[employer] Media/faq/GZH148) CHOL/HDLC RATIO 2.2 <5.0 (calc) NON HDL CHOLESTEROL 75 <130 mg/dL (calc) For patients with diabetes plus 1 major ASCVD risk factor, treating to a non-HDL-C goal of <100 mg/dL (LDL-C of <70 mg/dL) is considered a therapeutic option. LIPID PANEL, STANDARD (7600) Reviewed date:09/23/2023 05:02:22 PM Interpretation: Performing Lab:[facility] Hbvc8237 [facility], [facility] CenterCeltOY[address] [place] Notes/Report: FASTING: YES FASTING:YES NON-FASTING CHOLESTEROL, TOTAL 176 <200 mg/dL HDL CHOLESTEROL 81 > OR = 50 mg/dL TRIGLYCERIDES 239 <150 mg/dL If a non-fasting specimen was collected, consider repeat triglyceride testing on a fasting specimen if clinically indicated. Forte et al. J. of Clin. Lipidol. 2015;9:129-169. LDL-CHOLESTEROL 65 Reference range: <100 Desirable range <100 mg/dL for primary prevention; <70 mg/dL for patients with CHD or diabetic patients with > or = 2 CHD risk factors. LDL-C is now calculated using the Carlos-Cole calculation, which is a validated novel method providing better accuracy than the Friedewald equation in the estimation of LDL-C. Carlos SS et al. XENIA. 2013;310(19): 8089-8038 (http://education.[employer].com/faq/UAC008) CHOL/HDLC RATIO 2.2 <5.0 (calc) NON HDL CHOLESTEROL 95 <130 mg/dL (calc) For patients with diabetes plus 1 major ASCVD risk factor, treating to a non-HDL-C goal of <100 mg/dL (LDL-C of <70 mg/dL) is considered a therapeutic option. COMPREHENSIVE METABOLIC PANE Alesia (17787) Reviewed date:03/31/2023 10:01:47 AM Interpretation: Performing Lab:[facility] [id number] SolutionsteSonoMedica, [facility] InstituteLaqnWD[address] [place] Notes/Report: NON-FASTING; NON-FASTING; NON-FASTING; NON-FASTING; NON-FAST FASTING:YES FASTING: YES GLUCOSE 83 65-99 mg/dL Fasting reference interval UREA NITROGEN (BUN) 17 7-25 mg/dL CREATININE 0.99 0.60-1.00 mg/dL EGFR 61 > OR = 60 mL/min/1.73m2 BUN/CREATININE RATIO SEE NOTE: 6-22 (calc) Not Reported: BUN and Creatinine are within reference range. SODIUM 143 135-146 mmol/L POTASSIUM 3.8 3.5-5.3 mmol/L CHLORIDE 106 98-110 mmol/L CARBON DIOXIDE 28 20-32 mmol/L CALCIUM 9.3 8.6-10.4 mg/dL PROTEIN, TOTAL 6.2 6.1-8.1 g/dL ALBUMIN 4.1 3.6-5.1 g/dL GLOBULIN 2.1 1.9-3.7 g/dL (calc) ALBUMIN/GLOBULIN RATIO 2.0 1.0-2.5 (calc) BILIRUBIN, TOTAL 0.7 0.2-1.2 mg/dL ALKALINE PHOSPHATASE 124 37-153 U/L AST 20 10-35 U/L ALT 15 6-29 U/L CBC (INCLUDES DIFF/PLT) (639 9) Reviewed date:03/31/2023 10:01:47 AM Interpretation: Performing Lab:[facility] Poly2576 [employer], [facility] InstituteFrspDC[address] [place] Notes/Report: NON-FASTING; NON-FASTING; NON-FASTING; NON-FASTING; NON-FAST FASTING:YES FASTING: YES WHITE BLOOD CELL COUNT 5.2 3.8-10.8 Thousand/ uL RED BLOOD CELL COUNT 4.14 3.80-5.10 Million/uL HEMOGLOBIN 12.6 11.7-15.5 g/dL HEMATOCRIT 37.6 35.0-45.0 % MCV 90.8 80.0-100.0 fL MCH 30.4 27.0-33.0 pg MCHC 33.5 32.0-36.0 g/dL RDW 14.1 11.0-15.0 % PLATELET COUNT 150 140-400 Thousand/uL MPV 10.1 7.5-12.5 fL ABSOLUTE NEUTROPHILS 4098 8816-8213 cells/uL ABSOLUTE LYMPHOCYTES 782 202-3305 cells/uL ABSOLUTE MONOCYTES 302 200-950 cells/uL ABSOLUTE EOSINOPHILS 99 15-500 cells/uL ABSOLUTE BASOPHILS 42 0-200 cells/uL NEUTROPHILS 78.8 LYMPHOCYTES 12.7 MONOCYTES 5.8 EOSINOPHILS 1.9 BASOPHILS 0.8 VITAMIN B12 (927) Reviewed date:03/31/2023 10:01:47 AM Interpretation: Performing Lab:KASSIDY, [facility] [employer], [facility] InstituteEnirFZ[address] [place] Notes/Report: NON-FASTING; NON-FASTING; NON-FASTING; NON-FASTING; NON-FAST FASTING:YES FASTING: YES VITAMIN B12 298 593-0161 pg/mL Please Note: Although the reference range for vitamin B12 is 200-1100 pg/mL, it has been reported that between 5 and 10% of patients with values between 200 and 400 pg/mL may experience neuropsychiatric and hematologic abnormalities due to occult B12 deficiency; less than 1% of patients with values above 400 pg/mL will have symptoms. TSH W/REFLEX TO FT4 (40037) Reviewed date:03/31/2023 10:01:47 AM Interpretation: Performing Lab:KASSIDY, [facility] [address], [place] BksuFS[address] [place] Notes/Report: NON-FASTING; NON-FASTING; NON-FASTING; NON-FASTING; NON-FAST FASTING:YES FASTING: YES TSH W/REFLEX TO FT4 2.14 0.40-4.50 mIU/L REASON FOR REFERRAL Reason Dr Volodymyr Antonio for EGD. 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 Referral Priority Routine MEDICATIONS Medication SIG (Take, Route, Frequency, Duration) Notes Start Date End Date Status esomeprazole 40 mg 1 cap(s) orally once a day for 90 days 04/28/2023 Active KlonoPIN 1 mg 1 tab(s) orally 2 ti mes a day as needed for 30 days Active Aspirin Low Dose 81 mg 1 tab(s) orally once a day Active hydrOXYzine hydrochloride 25 mg 1 tab(s) orally at bedtime as needed for itching for 30 days 01/05/2024 Active Ubrelvy 50 mg 1 tab(s) orally once as needed for migraine for 30 days 04/04/2022 Active Copiktra 25 mg 1 cap(s) orally 2 ti mes a day Active Repatha Prefilled Syringe 140 mg/mL as directed subcutaneously every 2 weeks Active dapsone 25 mg 2 tab(s) orally once a day Active DULoxetine Hydrochloride 20 mg 1 cap(s) orally once a day for 30 days 11/08/2023 Active SOCIAL HISTORY Tobacco Use: Social History Observation Description Date Details (start date - stop date) Never Smoker NA - NA Sex Assigned At : Social History Observation Description Sex Assigned At Unknown Smoking: Question Answer Notes Are you a: nonsmoker PROBLEMS Problem Type ICD Code Onset Dates Problem Status W/U Status Risk SNOMED Code Notes Problem Hypercalcemia (E83.52) Active confirmed 63663131 Problem Urinary frequency (R35.0) Active confirmed Urinary frequen cy (417567437) Problem Urinary tract infection (N39.0) Active confirmed Urinary tract infection (53055450) Problem Coronary artery disease involving [place] coronary artery of [place] heart without angina pectoris (I25.10) Active confirmed 147891847 Problem Situational depression (F43.21) Active confirmed 60151139 Problem Dysphagia, unspecified type (R13.10) Active confirmed 15419197 Problem Schatzki's ring (K22.2) Active confirmed 956097141 Problem Chronic migraine with aura (G43.109) Active confirmed 497939481 Problem 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) Active confirmed 428856946151742 VITAL SIGNS Heart Rate 84 /min 11/08/2023 Temperature 97.8 degrees Fahrenheit 11/08/2023 Blood pressure diastolic 66 mm Hg 11/08/2023 Height 5 ft 4 in in 11/08/2023 Blood pressure systolic 114 mm Hg 11/08/2023 Weight 133 lbs 11/08/2023 BMI 22.83 kg/m2 11/08/2023 Encounters Encounter Location Date Provider Diagnosis [facility] [address] [address] 03/07/2023 Isaak Donovan [facility] [address] [place] [address] 03/27/2023 Shikha Mackenzie [facility] [address] [place] [address] 09/22/2023 Shikha Mackenzie [facility] [address] [place] [address] 07/03/2023 Shikha Mackenzie Chronic nausea R11.0 [facility] [address] [place] [address] 11/08/2023 Shikha Mackenzie Peripheral T cell lymphoma of lymph nodes of multiple sites C84.48 and Situational depression F43.21 [facility] [address] [place] [address] 03/26/2023 Shikha Mackenzie Coronary artery disease involving [place] coronary artery of [place] heart without angina pectoris I25.10 ; Peripheral T cell lymphoma of lymph nodes of multiple sites C84.48 and Malaise R53.81 [facility] [address] [place] [address] 04/28/2023 Shikha Mackenzie [facility] [address] [facility] [address] [place] [address] 08/20/2023 Shikha Mackenzie [facility] [address] [place] [address] 09/16/2023 Shikha Mann Coronary artery disease involving [place] coronary artery of [place] heart without angina pectoris I25.10 [facility] [address] [place] [address] 01/05/2024 [facility] [address] [place] [address] 01/06/2024 Shikha Mann ASSESSMENTS Encounter Date Diagnosis Assessment Notes Treatment Notes Treatment Clinical Notes 03/26/2023 Coronary artery disease involving [place] coronary artery of [place] heart without angina pectoris (ICD-10 - I25.10) 03/26/2023 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 I recommended that she hold her meloxicam for the next couple of weeks and see if this helps her nausea. Continue PPI. 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 Recommend labs today to rule out any acute abnormalities with her liver, kidney, pancreatic enzymes. 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 Encouraged her to continue discussion about medication side effects with her oncologist and see what [facility] has to stay about possible SCT. Dapsone could be causing some side effects as well. 03/26/2023 Malaise (ICD-10 - R53.81) PLAN OF TREATMENT Pending Test Test Name Order Date M-Parathyroid Hormone Intact 03/09/2022 M-Vitamin D 25 Hydroxy 03/09/2022 Insurance Providers Payer Name Payer Address Payer Phone Subscriber Number Group Number Insured Name Patient Relationship to Insured Coverage Start Date Coverage End Date [place] [address] [place] [address] [phone] [id number] Maame Khan Self - patient is the insured [facility] [address] [place] [address] [id number] Jim Khan Spouse - patient is the spouse of the insured MEDICAL (GENERAL) HISTORY Medical History History ICD Code Acute NM 09/2021 HTN, HLD Common salts diarrhea following cholecys tectomy Migraines, ocular, followed by Dr Gisell martínez in [place] HRT - followed by Dr Vines. Esophageal strictures, managed by Dr Sandra munoz. Colonoscopy with him as well. Lymphoma Surgical History Surgery Date(Month/Year) cholecystectomy 2014 AMP repair with bladder lift 2001 Total hysterectomy 1992 Cardiac Stent x 1 2021 Hammer toe surgery 2008 T and A 1956 Hospitalization History Reason Date(Month/Year) childbirth x 2 surgeries 1992, 2021 2001
--- OUTSIDE RECORDS SUMMARY | 2024-02-17 10:43 | XMS_ITS | Patient Health Record ---
Author Organization [facility] Address [address] [address] [place] [address] Care Team Providers Care Steward/Stewardess Club Car Name Role Phone Ila Vines Unavailable [phone] Reason For Referral No Information Medications Medication SIG (Take, Route, Fr equency, Duration) Notes Start Date End Date Status Estradiol 0.5 MG 1 tablet Orally Once a day for 90 days 08/17/2021 Active Problems Problem Type SNOMED Code ICD Code Onset Dates Problem Status W/U Status Risk Notes Problem Gynecological examination normal (662210234018358 ) Cervical smear, as part of routine gynecological examination (Z01.419) 01/07/20 19 Active confirmed Annual without abnormal findings Plan Of Treatment No Information Medical (General) History Medical History History ICD Code MENSTR FLOW: Heavy Abnormal Pap Anxiety Depression IBS UTI and Yeast infections. Mobic 7.5 mg tablet, BY MOUTH Citracal-D3 Plus Magnesium 250-40-125 mg -mg-unit tablet, BY MOUTH cholecalciferol (vitamin D3) 25 mcg (1,0 00 unit) capsule, BY MOUTH Klonopin 1 mg tablet, BY MOUTH Ubrelvy colestipol 1 gram tablet, BY MOUTH esomeprazole magnesium 40 mg capsule,del ayed release(DR/EC) tizanidine 2 mg tablet, BY MOUTH Surgical History Surgery Date(Month/Year) T/A, Hysterectomy, Anterior/ Posterior Repair, Mid Urethral Sling, and Hammer Toe.
--- OUTSIDE RECORDS SUMMARY | 2024-02-17 10:43 | XMS_ITS ---
Author Organization [facility] Address [address] [place] [address] Care Team Providers Care Wood Strip Block Floor Installer Name Role Phone Shikha Mann Primary Care Provider Matt Clark, Rajinder Unavailable Unavailable ALLERGIES Allergen (clinical drug ingredient) Drug/Non Drug Allergy documented on EMR Reaction Allergy Type Onset Date Status sulfa (uncoded) vagina swelling Allergy Active REASON FOR VISIT Patient here today to discuss several issues MEDICATIONS Medication SIG (Take, Route, Frequency, Duration) Notes Start Date End Date Status esomeprazole 40 mg 1 cap(s) orally once a day for 90 days 04/28/2023 Active KlonoPIN 1 mg 1 tab(s) orally 2 ti mes a day as needed for 30 days Active Aspirin Low Dose 81 mg 1 tab(s) orally once a day Active Ubrelvy 50 mg 1 tab(s) orally [...] Question Answer Notes Are you a: nonsmoker VITAL SIGNS Temperature 97.8 degrees Fahrenheit 11/08/19 24 Heart Rate 84 /min 11/08/2023 Blood pressure systolic 114 mm Hg 11/08/19 24 Blood pressure diastolic 66 mm Hg 024 Height 5 ft 4 in in 11/08/2023 Weight 133 lbs 11/08/2023 BMI 22.83 kg/m2 11/08/2023 Encounters Encounter Location Date Provider Diagnosis [facility] [address] [place] [address] 11/08/2023 Shikha Mann 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 Encouraged her to continue discussion about medication side effects with her oncologist and see what [facility] has to stay about possible SCT. Dapsone could be causing some side effects as well. 11/08/2023 Situational depression (ICD-10 - F43.21) Recommend trial of low dose Cymbalta to help with depression and pain symptoms PLAN OF TREATMENT Medication Medication Name Sig Start Date Stop Date Notes DULoxetine Hydrochloride 20 mg 1 cap(s) orally once a day for 30 days 11/08/2023 Treatment Notes Assessment Notes Peripheral T cell lymphoma o f lymph nodes of multiple sites Long discussion about options. Encourage d her to continue discussion about medication side effects with her oncologist and see what [facility] has to stay about possible SCT. Dapsone could be causing some side effects as well. Situational depression Recommend trial o f low dose Cymbalta to help with depression and pain symptoms Next Appt Details Follow Up: 6 Weeks,prn, Reas on: Progress Notes * Maame VIVASDOB:1950 ( 73 yo F)Acc No.[id number]:11/08/2023 Progress Notes Patient:??ORTEGA Maame Provider:??FIFI Prieto :1950?Age:73 Y?Sex:Fe male Date:11/08/2023 Address:[address] [place] [address] [id number] Subjective: * Chief Complaints: * ?1. Patient here today to discuss several issues. * HPI: ?gen:? 73-year-old female with lymphoma presents today to discuss treatment and symptoms. Recent imaging indicated complete response to her current therapy but she reports multiple side effects including myalgias, arthralgias, malaise, lack of taste, etc. She has discussed these symptoms with her oncologist as well. She is really quite discouraged about the fact that she will have to take this medication for the rest of her life if she wants to maintain remission. She does have an appointment to see an oncologist at the [facility] to discuss possible stem cell transplant which would allow her to stop oral chemotherapy if transplant is an option and successful ?pain ?not sleeping well ?poor appetite but gaining weight ?rash on chest and face ?tearful - did not tolerate lexapro. taking clonazepam only at night ?Dr Rojas gave steroids and Peralta, pain is improved somewhat. * ROS:?CONSTITUTIONAL:?See HPI??Yes.?DERMATOLOGY:?Rash??yes.?GASTROENTEROLOGY:?no??Vomiting.??no??Diarrhea.?UROLOGY:?no??Difficulty urinating.? * Medical History:??Acute [place] , HTN, HLD, Common salts diarrhea following cholecystectomy, Migraines, ocular, followed by Dr Manuel in [place], HRT - followed by Dr Vines., Esophageal strictures, managed by Dr Antonio. Colonoscopy with him as well., Lymphoma. * Surgical History:??cholecyst ectomy 2014, AMP repair with bladder lift 2001, Total hysterectomy 1992, Cardiac Stent x 1 2021, Hammer toe surgery 2008, T and A 195. * Hospitalization/Major Diagno stic Procedure:??surgeries 1992, 2021 2001, childbirth x 2 . * Family History:??Father: dec eased, [place]'s disease.??Mother: , Alzheimer's dementia.??Paternal Grand Father: .??Paternal Grand Mother: .??Maternal Grand Father: .??Maternal Grand Mother: .??Paternal uncle: .??Paternal aunt: .??Maternal uncle: .??Maternal aunt: .??Siblings: alive, brother and sister -[place]'s.??Children: alive.??2 sister(s) - healthy. 2 son(s) - healthy. .?? * Social History:??Smoking??Ar e you a:??nonsmoker.??Recreational drug use: no. Exercise: no. Home smoke detector use: yes. Caffeine: yes, frequency:tea daily. Living Will: Yes. Alcohol: socially. Sexually active: no. Travel outside [place]: no. Occupation: Retired. * Medications:??Taking dapsone 25 mg tablet 2 tab(s) orally once a day , Taking Copiktra 25 mg capsule 1 cap(s) orally 2 times a day , Taking Repatha Prefilled Syringe 140 mg/mL solution as directed subcutaneously every 2 weeks , Taking Aspirin Low Dose 81 mg delayed release tablet 1 tab(s) orally once a day , Taking Ubrelvy 50 mg tablet 1 tab(s) orally once as needed for migraine , Taking esomeprazole 40 mg delayed release capsule 1 cap(s) orally once a day , Taking KlonoPIN 1 mg tablet 1 tab(s) orally 2 times a day as needed , Discontinued meloxicam 7.5 mg tablet 1 tab(s) orally once a day , Medication List reviewed and reconciled with the patient * Allergies:??Sulfa: Vagina Sw elling. Objective: * Vitals:??Nurse: niles, Temp: 97 .8, RR: 18, HR: 84, BP: 114/66, Ht: 5 ft 4 in, Wt: 133, BMI:22.83. * Examination: ?General Examination: ?General??Pleasant and Cooperative, NAD on RA,.?Oral cavity:??Moist membranes.?Heart:??Regular Rate and Rhythm, no murmur, rubs or gallops.?Lungs:??clear to auscultation,.?Skin:??without acute rashes.?Psych??Depressed Affect.? Assessment: * Assessment: 1.??Peripheral T cell lympho ma of lymph nodes of multiple sites - C84.48 (Primary)??2.??Situational depression - F43.21?? Plan: * Treatment: 2.??Situational depression?? Start DULoxetine Hydrochloride delayed release capsule, 20 mg, 1 cap(s), orally, once a day, 30 days, 30 Capsule, Refills 1.? Notes: Recommend trial of low dose Cymbalta to help with depression and pain symptoms? * Follow Up:??6 Weeks,prn * * Sign off status: Completed true * Provider:??FIFI Prieto Date: ??11/08/2023 History and Physical Notes * Examination Category Sub-Category Detail Notes General Examination Heart: Regular Rate and Rhythm, no murmur, rubs or gallops Lungs: clear to auscultatio n, Skin: without acute rashes Oral cavity: Moist membranes General Pleasant and Coopera tive, NAD on RA, Psych Depressed Affect
[2024-02-17 10:48] VITALS: BP 99/53; PULSE 77; RESP 16; TEMP 37.3; O2SAT 98; BMI 23.2
--- NOTE | 2024-02-17 11:08 | HMH.PHAINT1 ---
Pharmacy Intervention Comments: MEDICATION RECONCILIATION COMPLETED ON PATIENT USING EXTERNAL FILL HISTORY FROM PHARMACY AND NADIA REPORT. -RAYRAY PAZ, LONAD
[2024-02-17 12:29] LABS: Albumin Level 3.5 g/dl (3.5-5.0); Chloride 98 mmol/L (98-107); Sodium 132 mmol/L (136-145)
[2024-02-17 12:30] LABS: Potassium 3.1 mmoL/L (3.5-5.1)
[2024-02-17 12:32] LABS: Alanine Aminotransferase 24 U/L (12-78); Alkaline Phosphatase 76 U/L (38-126); Anion Gap 11.1 mEq/L (5-15); Aspartate Amino Transferase 42 U/L (14-36); Bilirubin,Total 0.9 mg/dl (0.2-1.3); Blood Urea Nitrogen 17 mg/dl (7-17); Carbon Dioxide 26 mmol/L (22.0-30.0); Creatinine Clearance Estimated 45 mL/min (50-200); Estimated Glomerular Filt Rate 49 ml/min (>60); GFR (African American) 59 ML/MIN (>60)
[2024-02-17 12:33] LABS: Albumin/Globulin Ratio 1.5 (1.1-1.8); Calcium 8.7 mg/dl (8.4-10.2); Globulin 2.3 g/dL (1.3-3.2); Glucose 114 mg/dl (74-100); Total Protein,Serum 5.8 g/dl (6.3-8.2)
--- NOTE | 2024-02-17 12:55 | EXP.HP ---
History of Present Illness *Admission Date: 02/17/24 *Reason for visit:: rash *History of present illness: 73-year-old with past medical history of T-cell lymphoma, hypothyroidism, GERD, hearing loss, CAD, dermatitis. Patient presents with 7 days of torso rash, weakness. Patient presented to hematology clinic then admitted to medical service for rash/weakness amelioration patient states she has suffered from T7, for about 3.5 years. Patient first seen at for 1.5 years, then transferred to Dr. Mccloud, local jawbone breaker about 2 years ago. Status post treatment with pralatrexate [address] Garcia for mucositis simulation. Patient states that rash has steadily spread all over diffuse extremities, torso, arms, neck, and legs. Admits to 45 days of fevers, chills and night sweats. Denies chest pain, abdominal pain, known sick contacts, recent travel, or dysphagia. [facility] Disclaimer: The information contained in this section may have been updated after the patient was seen, as this information can be updated by other users. Medical History Sensorineural hearing loss Lymphoma in remission Ear congestion Hearing loss . Otalgia Gastroesophageal reflux disease Hyperlipidemia (~06/11/18) Surgical History History of hammer toe correction History of bladder surgery History of hysterectomy Family History Other Alzheimer disease [facility] disease Social History Smoking Status: Never smoker alcohol intake: current alcohol intake frequency: holidays/special occasions only substance use type: denies use current occupational status: retired Travel in the last 8 weeks: None household members: spouse housing: house caffeine: Yes Review of Systems Constitutional Constitutional: Reports system reviewed and no additional complaints, except as documented Meds Home Medications and Allergies Home Medications ?Medication ?Instructions ?Recorded ?Confirmed ?Type tizanidine 4 mg tablet 4 - 8 mg PO HS 30 days ##60 02/09/18 02/17/24 History esomeprazole magnesium 40 mg 40 mg PO DAILY 09/28/21 02/17/24 History capsule,delayed release aspirin 81 mg tablet,delayed 81 mg PO DAILY #30 tabs 09/29/21 02/17/24 Rx release ubrogepant 100 mg tablet 100 mg PO DAILYP PRN Migraine 01/13/22 02/17/24 Rx Headache #20 tabs evolocumab 140 mg/mL subcutaneous 140 mg SQ Q2W 02/10/23 02/17/24 History pen injector (Nitish Campos) allopurinol 300 mg tablet 300 mg PO DAILY 02/17/24 02/17/24 History clonazepam 2 mg tablet 2 mg PO HS 02/17/24 02/17/24 History folic acid 1 mg tablet 1 mg PO DAILY 02/17/24 02/17/24 History hydrocodone 7.5 mg-acetaminophen 1 - 2 tab PO Q6HP PRN Moderate 02/17/24 02/17/24 History 325 mg tablet Pain (Scale Score 5-6) methylprednisolone 4 mg tablets in 4 mg PO DIRECTED 02/17/24 02/17/24 History a dose pack valacyclovir 1 gram tablet 1,000 mg PO TID 02/17/24 02/17/24 History New Prescriptions to Start Prescriptions: Allergies Allergy/AdvReac Type Severity Reaction Status Date / Time Sulfa (Sulfonamide Allergy Mild Verified 02/17/24 09:45 Antibiotics) [SULFA (SULFONAMIDE ANTIBIOTICS)] Exam Data for Last 24 hours Vital signs and Labs for Last 24 Hours: Temp Pulse Resp BP Pulse Ox O2 Del Method 99.2 F 77 16 99/53 L 98 Room Air 02/17/24 10:48 02/17/24 10:48 02/17/24 10:48 02/17/24 10:48 02/17/24 10:48 02/17/24 11:00 Laboratory Results - last 24 hr 02/17/24 12:00: Sodium 132 L, Potassium 3.1 L, Chloride 98, Carbon Dioxide 26, Anion Gap 11.1, BUN 17, Creatinine 1.10 H, Estimated Creat Clear 45, Estimated GFR 49 L, Est GFR ( Amer) 59, Glucose 114 H, Calcium 8.7, Total Bilirubin 0.9, AST 42 H, ALT 24, Alkaline Phosphatase 76, Total Protein 5.8 L, Albumin 3.5, Globulin 2.3, Albumin/Globulin Ratio 1.5 I & O for Last 24 hours: Intake & Output 02/14/24 02/15/24 02/16/24 02/17/24 23:59 23:59 23:59 23:59 Weight 61.49 kg *Routine HEENT Exam Head: Present normocephalic Eye: Present EOMI, PERRL and normal accommodation ENT: Present mucous membranes moist *Routine Neck Exam Neck: Present supple and full ROM *Routine Respiratory Exam Respiratory: Present CTA bilaterally *Routine Cardiovascular Exam Cardiovascular: Present RRR and Normal S1 *Routine Abdominal Exam Abdominal: Present soft and normoactive bowel sounds *Routine Rectal Exam Rectal:: deferred *Routine Genitalia Exam Genitalia:: deferred *Routine Extremities Exam Extremities: Present full ROM and normal capillary refill *Routine Skin Exam Skin: Present intact and dry *Routine Neurological Exam Neurological: Present alert and oriented X3 Assessment and Plan *Assessment and plan (1) T-cell lymphoma: Status: Acute Category: Medical Code(s): C85.90 - Non-Hodgkin lymphoma, unspecified, unspecified site (2) Dermatitis: Status: Acute Category: Medical Code(s): L30.9 - Dermatitis, unspecified (3) CAD (coronary artery disease): Status: Chronic Qualifiers: Coronary Disease-Associated Artery/Lesion type: [place] artery [place] vs. transplanted heart: [place] heart Associated angina: without angina Qualified Code(s): I25.10 - Atherosclerotic heart disease of [place] coronary artery without angina pectoris Category: Medical Code(s): I25.10 - Atherosclerotic heart disease of [place] coronary artery without angina pectoris Plan 73-year-old with past medical history of history of RCA stent, T-cell lymphoma, hypothyroidism, GERD, hearing loss, CAD, dermatitis. Patient presents with 7 days of torso rash, weakness. Patient presented to hematology clinic then admitted to medical service for rash/weakness amelioration: Torso rash lymphoma versus infection: ? Check inflammatory markers including CBC, CMP, procalcitonin. Start antibiotics if signs or symptoms of SIRS/sepsis noted. Per hematology advise we will start IV fluids, IV Decadron, and order PT/OT evaluation. ANC currently 2100 so no signs of neutropenia. PPX: Lovenox subcutaneous CODE STATUS: Full FEN regular diet:
--- NOTE | 2024-02-17 13:33 | HMH.OTEV ---
OT Inpatient Evaluation Rehab OT IP Evaluation Start: 02/17/24 12:49 Freq: ONCE Status: Active Protocol: Document 02/17/24 13:29 [facility] (Rec: 02/17/24 13:33 [facility] [id number]) Rehab OT IP Assessment Subjective History Pt oriented x 3 on arrival. Pt agreeable to engage in therapy evaluation. Pt admitted on 02/17/24 due to weakness and rash. History and Physical report: 73-year-old with past medical history of T-cell lymphoma, hypothyroidism, GERD, hearing loss, CAD, dermatitis. Patient presents with 7 days of torso rash, weakness. Patient presented to hematology clinic then admitted to medical service for rash/weakness amelioration patient states she has suffered from T7, for about 3. 5 years. Patient first seen at for 1.5 years, then transferred to Dr. Mccloud, local bow stapler about 2 years ago. Status post treatment with pralatrexate [address] Garcia for mucositis simulation. Patient states that rash has steadily spread all over diffuse extremities, torso, arms, neck, and legs. Admits to 45 days of fevers, chills and night sweats. Denies chest pain, abdominal pain, known sick contacts, recent travel, or dysphagia. Subjective I have had the rash for a little bit. Prior to being in the hospital , pt lived at home with her . Pt reports up until this past week she was independent with all ADLs and IADLs. Pt has been using a walker within the last week, but normally she did not require it. Objective Patient Orientation Person,Place,Birthday Right Upper Extremity Gross ROM Min Limitation <25% Left Upper Extremity Gross ROM Min Limitation <25% Shoulder ROM Limitations Muscle Weakness Elbow ROM Limitations Muscle Weakness Wrist Limitations of Range of Motion Muscle Weakness Bed Mobility bed mobility-scooting,bed mobility - supine/sit Assist Level Contact Guard/Hand Hold Transfer Training Sit/Stand Transfer Assist Level Contact Guard/Hand Hold Rehab OT IP prob,goals,plan Problems Date of Evaluation: 02/17/24 OT IP Problems Bed Mobility,Transfers,Balance ,Self care,Safety Rehab Potential Rehab Potential Good Equipment Needs Assistive Devices Rolling / Wheeled Walker Plan OT intervention Plan Bed Mobility,Transfers,Balance ,Self care,Safety,Therapeutic Exercise OT Plan Frequency Daily Duration LOS Discharge Goals Bed Mobility Ability Standby Assistance Sit to Stand Chair Transfer Ability Supervision/Stand by Chair Transfer Ability Supervision/Stand by Chair Transfer Technique Sit to/from Ambulatory Chair Transfer Assistive Devices Rolling Walker Lower Body Dressing Ability Minimal Assistance Upper Body Dressing Ability Standby Assistance Bathing Ability Minimal Assistance Performing Toilet Hygiene Ability Standby Assistance Overall Commode/Toilet Transfer Ability Standby Assistance Commode/Toilet Transfer Technique Sit to/from Ambulatory Oral Care Assist Standby Assistance Decrease in Endurance Yes Discharge Plan OT Discharge Plan Pt will continue to be seen for OT services while at [facility]. Pt can return home with husbands assistance once she is medically stable per physician. Therapist recommends OT evaluation upon returning home for continued skilled therapy. Therapist also recommends continued use of rolling walker to increase safety during functional transfers. Eval Complexity Eval Charge Codes 74689 - Moderate Complexity PHYSICIAN CERTIFICATION: I certify the specified therapy services for Maame Khan are required, authorized, and reviewed every 30 days.
--- NOTE | 2024-02-17 13:33 | HMH.PTEV ---
Physical Therapy Evaluation Rehab PT IP Evaluation Start: 02/17/24 12:47 Freq: ONCE Status: Active Protocol: Document 02/17/24 13:30 [facility] (Rec: 02/17/24 13:33 [facility] [id number]) Subjective/History History History Per H&P: 73-year-old with past medical history of T-cell lymphoma, hypothyroidism, GERD, hearing loss, CAD, dermatitis. Patient presents with 7 days of torso rash, weakness. Patient presented to hematology clinic then admitted to medical service for rash/weakness amelioration patient states she has suffered from T7, for about 3. 5 years. Patient first seen at for 1.5 years, then transferred to Dr. 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 Status post treatment with pralatrexate [address] Garcia for mucositis simulation. Patient states that rash has steadily spread all over diffuse extremities, torso, arms, neck, and legs. Admits to 45 days of fevers, chills and night sweats. Denies chest pain, abdominal pain, known sick contacts, recent travel, or dysphagia. Subjective Subjective Pt lives at home with her and is usually IND with all mobility. Pt has recently started using a RW d/ t more weakness and falls. 0 [place] home. New diagnosis of cancer in past 12 No months? Rehab PT IP Eval Objective Appearance Patient Behavior Appropriate,Cooperative Patient Orientation Person,Place Difficulty following instructions none Speech Pattern Clear Ambulation Patient Able to Ambulate Yes Ambulation Observation Ambulation Distance (feet) 20 Ambulation Assistive Device None Ambulation Ability Contact Guard/Hand Hold Balance Ability to Arise Able, uses arms to help Sitting Balance Steady, safe Standing Balance Steady, wide stance Transfers Bed Transfer Ability Supervision/Stand by Sit to Stand Bed Transfer Ability Contact Guard/Hand Hold Rehab PT IP prob,goals,plan Problems Date of Evaluation: 02/17/24 PT IP Problems Transfers,Gait,Balance,Safety Rehab Potential Rehab Potential Good Plan PT Intervention Plan Transfers,Gait,Balance,Safety, Therapeutic Exercise Other Intervention Plan 1-2 times PT Plan Frequency Daily Duration LOS Discharge Goals Bed Transfer Ability Independent Sit to Stand Chair Transfer Ability Independent Ambulation Assistive Device Rolling Walker Ambulation Distance (feet) 20 Discharge Plan PT Discharge Plan Initial physical therapy evaluation performed. Patient presents below baseline at this time in functional mobility, transfers, gait, and strength. Pt would benefit from skilled PT while at [facility] to prevent further functional decline and maximize safety with mobility. Pt safe to d/c home when deemed medically necessary d/t current level of mobility, home set-up, and family support. PT recommending home health PT services to address deficits. Eval Complexity Eval Charge Codes 92860 - Moderate Complexity PHYSICIAN CERTIFICATION: I certify the specified therapy services for Maame Khan are required, authorized, and reviewed every 30 days.
[2024-02-17 14:11] LABS: Lactate Dehydrogenase 330 U/L (313-618); Phosphorous 2.9 mg/dl (2.5-4.5); Uric Acid 5.2 mg/dl (2.5-6.2)
[2024-02-17 15:21] LABS: Lactic Acid 1.2 mmol/L (0.7-2.1)
[2024-02-17 16:00] VITALS: BP 93/48; PULSE 66; RESP 18; TEMP 36.9; O2SAT 97
[2024-02-17] MEDS: ENOXAPARIN 40MG/0.4ML SYRINGE 40 MG SQ (16:20)
[2024-02-17] MEDS: 0.9 % SODIUM CHLORIDE 1000ML 1,000 ML 125 ML IV (16:20)
[2024-02-17] MEDS: DEXAMETHASONE 4MG/ML 1ML VIAL 4 MG IV ×2 (16:20→21:34)
[2024-02-17 20:00] VITALS: BP 114/67; PULSE 89; RESP 16; TEMP 37.8; O2SAT 97
[2024-02-17] MEDS: clonazePAM 1MG TABLET 2 MG PO (21:33)
--- NOTE | 2024-02-17 21:41 | PC.NURSE ---
At [facility], pt states her gave her her hs pantoprazole dose earlier in night stating i didnt know if i would get it so i just took my own. Pt was educated on hospital policy and asked not to take any more of her own medication if it has not been labeled and scanned by staff. Pt states understanding. took home medication, no meds in room.
[2024-02-18] MEDS: 0.9 % SODIUM CHLORIDE 1000ML 1,000 ML 125 ML IV ×2 (02:52→15:33)
[2024-02-18 04:00] VITALS: BP 109/58; PULSE 71; RESP 16; TEMP 36.6; O2SAT 98; BMI 23.8
[2024-02-18] MEDS: DEXAMETHASONE 4MG/ML 1ML VIAL 4 MG IV ×3 (05:04→21:50)
[2024-02-18 07:40] VITALS: BP 134/74; PULSE 79; RESP 19; TEMP 36.7; O2SAT 98
[2024-02-18] MEDS: FOLIC ACID 1MG TABLET 1 MG PO (08:28)
[2024-02-18] MEDS: ASPIRIN EC 81MG TABLET 81 MG PO (08:28)
[2024-02-18] MEDS: ENOXAPARIN 40MG/0.4ML SYRINGE 40 MG SQ (08:32)
--- NOTE | 2024-02-18 10:07 | SW/DCPLANNER ---
Addendum entered by Katherine Feliz 02/19/24 15:19: Gretchen king/ [facility] stated that services will start tomorrow for this patient. Addendum entered by Katherine Feliz 02/19/24 11:21: Patient is now agreeable to home health services for PT/OT. Patient information will be faxed to [facility] this AM. Original Note: I spoke w/ this patient regarding plans once medically stable for discharge. PT/OT evaluated patient and recommended returning home w/ home health services. Patient voiced that she is not interested in home health services at this time. Patient stated that Dr Mccloud recently ordered her a rolling walker from [facility]. I did call Nikki king/ [facility] this AM: they have not received an order at this time. I will update Dr Serra and fax a new order. Discharge date is unknown at this time.
[2024-02-18 14:55] LABS: Basophils % 0.6 % (0.1-2.0); Eosinophils % 0.3 % (0.1-12.0); Hematocrit 31.1 % (37.0-47.0); Hemoglobin 9.8 g/dL (12.2-16.2); Lymphocytes # 0.7 K/mm3 (0.7-4.5); Lymphocytes % 19.9 % (10-50); Mean Corpuscular HGB Conc 31.6 g/dL (31.8-35.4); Mean Corpuscular Hemoglobin 28.6 pg (27.0-31.2); Mean Corpuscular Volume 90.7 fl (81-99); Mean Platelet Volume 8.8 fl (7.4-10.4); Monocytes # 0.2 K/mm3 (0.1-1.0); Monocytes % 4.9 % (1.7-9.3); Neutrophils # 2.7 K/mm3 (1.8-7.8); Neutrophils % 74.2 % (37.0-80.0); Platelet Count 262 K/mm3 (142-424); Red Blood Count 3.44 M/mm3 (4.20-5.40); White Blood Count 3.6 K/mm3 (4.8-10.8)
[2024-02-18 14:58] LABS: Anion Gap 8.1 mEq/L (5-15); Blood Urea Nitrogen 11 mg/dl (7-17); Calcium 8.8 mg/dl (8.4-10.2); Carbon Dioxide 25 mmol/L (22.0-30.0); Chloride 107 mmol/L (98-107); Creatinine Clearance Estimated 51 mL/min (50-200); Estimated Glomerular Filt Rate 82 ml/min (>60); GFR (African American) 100 ML/MIN (>60); Glucose 118 mg/dl (74-100); Magnesium 1.7 mg/dl (1.6-2.3); Potassium 3.1 mmoL/L (3.5-5.1); Sodium 137 mmol/L (136-145)
[2024-02-18 15:04] LABS: C-Reactive Protein 30.6 mg/L (0-4)
[2024-02-18 15:15] LABS: Procalcitonin 1.23 ng/mL (0.0-2.0)
[2024-02-18 16:00] VITALS: BP 126/67; PULSE 81; RESP 21; TEMP 36.5; O2SAT 98
--- NOTE | 2024-02-18 16:02 | P.PN_ITS ---
Subjective *Date: 02/18/24 *Time: 16:05 Interval history: Patient states she feels more energetic versus yesterday. Patient's rash less pronounced on distal extremities hands/feet. Medical Exam Vital signs and Labs for Last 24 Hours: Vital Signs Temp Pulse Resp BP Pulse Ox O2 Del Method 02/18/24 12:56 Room Air 02/18/24 11:00 Room Air 02/18/24 08:38 Room Air 02/18/24 08:35 Room Air 02/18/24 07:40 98.1 F 79 19 134/74 98 Room Air 02/18/24 07:00 Room Air 02/18/24 05:00 Room Air 02/18/24 04:00 97.9 F 71 16 109/58 L 98 Room Air 02/18/24 03:00 Room Air 02/18/24 01:00 Room Air 02/17/24 23:00 Room Air 02/17/24 21:00 Room Air 02/17/24 20:00 Room Air 02/17/24 20:00 100.1 F H 89 16 114/67 97 Room Air 02/17/24 17:00 Room Air Intake and Output 02/18/24 02/18/24 02/18/24 07:59 15:59 23:59 Intake Total 1268 / 1448 180 / 1448 Output Total 0 / 0 0 / 0 Balance 1268 / 1448 180 / 1448 Intake: Intake, Oral Amount 270 / 450 180 / 450 Intake, Total IV Amount 998 / 998 0.9 % Sodium Chloride 1000ML 1, 998 / 998 000 ml @ 125 mls/hr IV .Q8H [facility] Rx#:[id number] Output: Output, Urine Amount 0 / 0 0 / 0 Other: Number of Voids 0 Number of Unmeasured Voids 1 1 Weight 63.412 kg Patient Weight 02/18/24 23:59 Weight 63.412 kg Laboratory Results - last 24 hr 02/18/24 14:35: WBC 3.6 L, RBC 3.44 L, Hgb 9.8 L, Hct 31.1 L, MCV 90.7, MCH 28.6, MCHC 31.6 L, RDW 17.0, Plt Count 262, MPV 8.8, Neut % (Auto) 74.2, Lymph % (Auto) 19.9, [place] % (Auto) 4.9, Eos % (Auto) 0.3, Baso % (Auto) 0.6, Neut # (Auto) 2.7, Lymph # (Auto) 0.7, [place] # (Auto) 0.2, Eos # (Auto) 0.0, Baso # (Auto) 0.0, Sodium 137, Potassium 3.1 L, Chloride 107, Carbon Dioxide 25, Anion Gap 8.1, BUN 11 D, Creatinine 0.70 D, Estimated Creat Clear 51, Estimated GFR 82, Est GFR ( Amer) 100 D, Glucose 118 H, Calcium 8.8, Magnesium 1.7, C- Reactive Protein 30.6 H, Procalcitonin 1.23 I & O for Labs for Last 24 Hours: Intake & Output 02/15/24 02/16/24 02/17/24 02/18/24 23:59 23:59 23:59 23:59 Intake Total 540 / 540 1448 / 1448 Output Total 0 / 0 0 / 0 Balance 540 / 540 1448 / 1448 Weight 61.49 kg 63.412 kg Head: Present normocephalic ENT: Present normal exam Neck: Present normal inspection Respiratory: Present CTA bilaterally Cardiac: Present Reg Rate and Rhythm and Regular Rate GI: Present soft and normal bowel sounds Rectal (female): Present deferred (female): Present deferred Extremities: Present normal inspection and full ROM Skin: Present intact and dry Assessment and Plan *Assessment and plan (1) T-cell lymphoma: Status: Acute Category: Medical Code(s): C85.90 - Non-Hodgkin lymphoma, unspecified, unspecified site (2) Sensorineural hearing loss: Status: Acute Qualifiers: Laterality: bilateral Qualified Code(s): H90.3 - Sensorineural hearing loss, bilateral Category: Medical Code(s): H90.5 - Unspecified sensorineural hearing loss (3) Rash: Status: Acute Category: Medical Code(s): R21 - Rash and other nonspecific skin eruption (4) Lymphoma in remission: Status: Acute Category: Medical Code(s): C85.90 - Non-Hodgkin lymphoma, unspecified, unspecified site (5) Ear congestion: Status: Acute Qualifiers: Laterality: bilateral Qualified Code(s): H93.8X3 - Other specified disorders of ear, bilateral Category: Medical Code(s): H93.8X9 - Other specified disorders of ear, unspecified ear (6) Hearing loss: Problem Comment: . Status: Acute Qualifiers: Hearing loss type: sensorineural Laterality: bilateral Qualified Code(s): H90.3 - Sensorineural hearing loss, bilateral Category: Medical Code(s): H91.90 - Unspecified hearing loss, unspecified ear Plan 73-year-old with past medical history of history of RCA stent, T-cell lymphoma, hypothyroidism, GERD, hearing loss, CAD, dermatitis. Patient presents with 7 days of torso rash, weakness. Patient presented to hematology clinic then admitted to medical service for rash/weakness amelioration: Torso rash lymphoma versus infection: ? Check inflammatory markers including CBC, CMP, procalcitonin. Start antibiotics if signs or symptoms of SIRS/sepsis noted. Per hematology advise we will start IV fluids, IV Decadron, and order PT/OT evaluation. ANC currently 2100 so no signs of neutropenia. PPX: Lovenox subcutaneous CODE STATUS: Full FEN regular diet: Disposition: ? 02/18/2024 likely discharge tomorrow in a.m. if patient's rash continues to recede on IV glucocorticoids. Spoke with patient's oncologist Dr. Garcia today about patient's case via phone.
--- NOTE | 2024-02-18 18:25 | PC.NURSE ---
A&OX4. TOLERATING RA WELL. PT HAS BEEN UP AMBULATING INDEPENDENTLY WITH STANDBY ASSIST TO AND FROM BATHROOM. HAS BEEN UP TO CHAIR. HAS HAD MULTIPLE VISITORS T/O SHIFT. RASH REMAINS PRESENT, BETTER ON EXTREMITIES BUT CONTINUES TO BE PRETTY THICK ON TORSO. HAS HAD NO C/O THIS SHIFT OF ITCHING OR PAIN. PT HAS BEEN VERY PLEASANT. GOOD APPETITE. VSS.
[2024-02-18 19:00] VITALS: BMI 62.6
[2024-02-18 20:00] VITALS: BP 114/63; PULSE 76; RESP 17; TEMP 36.7; O2SAT 97
[2024-02-18 21:50] VITALS: O2SAT 97
[2024-02-18] MEDS: clonazePAM 1MG TABLET 2 MG PO (21:50)
[2024-02-19] MEDS: 0.9 % SODIUM CHLORIDE 1000ML 1,000 ML 125 ML IV (01:24)
[2024-02-19] MEDS: ACETAMINOPHEN 325MG TAB 650 MG PO (01:34)
[2024-02-19] MEDS: DEXAMETHASONE 4MG/ML 1ML VIAL 4 MG IV ×2 (04:24→14:05)
--- NOTE | 2024-02-19 05:44 | PC.NURSE ---
Patient alert and oriented x4 this shift. Tolerating room air well. NS running at 125 mls/hr. Patient has complained of a sore throat this shift and asked for Tylenol for pain. Administered per AUG. Patient stated around 2129 that she was absolutely exhausted from visitors throughout the day and would like for nobody to enter her room unless absolutely needed so she could get some rest, she will use her call light if she needs anything. Message was relayed to hospitalist and communication order entered. VSS. Patient has rested well through the night and states she is feeling much better this AM. Call light within reach.
[2024-02-19 07:34] VITALS: BP 115/58; PULSE 75; RESP 19; TEMP 36.6; O2SAT 97
[2024-02-19 09:21] LABS: Basophils % 0.9 % (0.1-2.0); Eosinophils % 0.2 % (0.1-12.0); Hematocrit 29.3 % (37.0-47.0); Hemoglobin 9.3 g/dL (12.2-16.2); Lymphocytes # 1.2 K/mm3 (0.7-4.5); Lymphocytes % 29.5 % (10-50); Mean Corpuscular HGB Conc 31.7 g/dL (31.8-35.4); Mean Corpuscular Hemoglobin 28.7 pg (27.0-31.2); Mean Corpuscular Volume 90.4 fl (81-99); Monocytes # 0.2 K/mm3 (0.1-1.0); Monocytes % 4.5 % (1.7-9.3); Neutrophils # 2.7 K/mm3 (1.8-7.8); Platelet Count 240 K/mm3 (142-424); Red Blood Count 3.23 M/mm3 (4.20-5.40); Red Cell Distribution Width 17.3 % (11.5-17.5); White Blood Count 4.2 K/mm3 (4.8-10.8)
[2024-02-19 09:26] LABS: Chloride 112 mmol/L (98-107); Sodium 139 mmol/L (136-145)
[2024-02-19 09:29] LABS: Blood Urea Nitrogen 13 mg/dl (7-17); Creatinine Clearance Estimated 44 mL/min (50-200); Estimated Glomerular Filt Rate 71 ml/min (>60); GFR (African American) 85 ML/MIN (>60)
[2024-02-19 09:30] LABS: Calcium 8.7 mg/dl (8.4-10.2); Glucose 156 mg/dl (74-100); Magnesium 1.6 mg/dl (1.6-2.3)
[2024-02-19 09:32] LABS: Potassium 2.8 mmoL/L (3.5-5.1)
[2024-02-19 09:35] LABS: C-Reactive Protein 18.9 mg/L (0-4)
--- NOTE | 2024-02-19 10:01 | P.DS_ITS ---
General Admission date:: 02/17/24 Discharge date: 02/19/24 HPI HPI HPI: 73-year-old with past medical history of T-cell lymphoma, hypothyroidism, GERD, hearing loss, CAD, dermatitis. Patient presents with 7 days of torso rash, weakness. Patient presented to hematology clinic then admitted to medical service for rash/weakness amelioration patient states she has suffered from T7, for about 3.5 years. Patient first seen at for 1.5 years, then transferred to Dr. Mccloud, local traffic incident management manager about 2 years ago. Status post treatment with pralatrexate [address] Garcia for mucositis simulation. Patient states that rash has steadily spread all over diffuse extremities, torso, arms, neck, and legs. Admits to 45 days of fevers, chills and night sweats. Denies chest pain, abdominal pain, known sick contacts, recent travel, or dysphagia. Hospital Course Hospital Course Hospital Course: Patient admitted to hospital for weakness and rash and diagnosed with T-cell lymphoma related rash. Patient placed on Decadron 3 times a day, maintenance IV fluids and slowly improved during hospitalization. Patient's potassium repleted during hospitalization. Patient's oncologist Dr. Mccloud phoned daily by Dr. Serra, and co-managed patient during hospitalization. Patient's rash ultimately improved, and patient discharged home on prednisone 40 mg p.o. x 7 days. Patient instructed to follow-up with Dr. Mccloud in oncology clinic for further prednisone medication titration. Patient also advised to follow-up with primary care physician within 2 weeks of hospital discharge. Patient sent home with rolling walker ordered. Patient's potassium noted to trend downward during hospitalization and was 3.18/ and 2.8 on 02/18. Patient given 100 MEQ equivalents potassium chloride by Dr. Serra 02/19/2024. Patient's potassium rechecked at time of hospital discharge. Patient also sent home on additional potassium supplementation. Patient's magnesium also low normal, so patient given 2 g IV magnesium sulfate by Dr. Serra prior to hospital discharge. Exam Data for Last 24 hours Vital signs and Labs for Last 24 Hours: Temp Pulse Resp BP Pulse Ox O2 Del Method 97.8 F 75 19 115/58 L 97 Room Air 02/19/24 07:34 02/19/24 07:34 02/19/24 07:34 02/19/24 07:34 02/19/24 07:34 02/19/24 07:34 Laboratory Results - last 24 hr 02/18/24 14:35: WBC 3.6 L, RBC 3.44 L, Hgb 9.8 L, Hct 31.1 L, MCV 90.7, MCH 28.6, MCHC 31.6 L, RDW 17.0, Plt Count 262, MPV 8.8, Neut % (Auto) 74.2, Lymph % (Auto) 19.9, Guthrie % (Auto) 4.9, Eos % (Auto) 0.3, Baso % (Auto) 0.6, Neut # (Auto) 2.7, Lymph # (Auto) 0.7, Guthrie # (Auto) 0.2, Eos # (Auto) 0.0, Baso # (Auto) 0.0, Sodium 137, Potassium 3.1 L, Chloride 107, Carbon Dioxide 25, Anion Gap 8.1, BUN 11 D, Creatinine 0.70 D, Estimated Creat Clear 51, Estimated GFR 82, Est GFR ( Amer) 100 D, Glucose 118 H, Calcium 8.8, Magnesium 1.7, C- Reactive Protein 30.6 H, Procalcitonin 1.23 02/19/24 09:00: WBC 4.2 L, RBC 3.23 L, Hgb 9.3 L, Hct 29.3 L, MCV 90.4, MCH 28.7, MCHC 31.7 L, RDW 17.3, Plt Count 240, MPV 9.0, Neut % (Auto) 65.0, Lymph % (Auto) 29.5, Guthrie % (Auto) 4.5, Eos % (Auto) 0.2, Baso % (Auto) 0.9, Neut # (Auto) 2.7, Lymph # (Auto) 1.2, Guthrie # (Auto) 0.2, Eos # (Auto) 0.0, Baso # (Auto) 0.0, Sodium 139, Potassium 2.8 L*, Chloride 112 H, Carbon Dioxide 23, BUN 13, Creatinine 0.80, Estimated Creat Clear 44, Estimated GFR 71, Est GFR ( Amer) 85, Glucose 156 H D, Calcium 8.7, Magnesium 1.6, C-Reactive Protein 18.9 H D I & O for Last 24 hours: Intake & Output 02/16/24 02/17/24 02/18/24 02/19/24 23:59 23:59 23:59 23:59 Intake Total 540 / 540 3157 / 3157 1320 / 1320 Output Total 0 / 0 0 / 0 Balance 540 / 540 3157 / 3157 1320 / 1320 Weight 61.49 kg 166.525 kg Constitutional Constitutional: no acute distress *Routine HEENT Exam Head: Present normocephalic Eye: Present EOMI and normal accommodation ENT: Present mucous membranes moist *Routine Neck Exam Neck: Present supple and full ROM *Routine Respiratory Exam Respiratory: Present diminished air movement *Routine Cardiovascular Exam Cardiovascular: Present RRR, Normal S1 and Normal S2 *Routine Abdominal Exam Abdominal: Present soft and normoactive bowel sounds *Routine Extremities Exam Extremities: Present full ROM and normal capillary refill *Routine Skin Exam Skin: Present intact and dry Results Data Completed and Pending Labs on day of discharge: Labs from last 24 hours 02/19/24 02/18/24 09:00 14:35 WBC 4.2 L 3.6 L RBC 3.23 L 3.44 L Hgb 9.3 L 9.8 L Hct 29.3 L 31.1 L MCV 90.4 90.7 MCH 28.7 28.6 MCHC 31.7 L 31.6 L RDW 17.3 17.0 Plt Count 240 262 MPV 9.0 8.8 Neut % (Auto) 65.0 74.2 Lymph % (Auto) 29.5 19.9 Guthrie % (Auto) 4.5 4.9 Eos % (Auto) 0.2 0.3 Baso % (Auto) 0.9 0.6 Neut # (Auto) 2.7 2.7 Lymph # (Auto) 1.2 0.7 Guthrie # (Auto) 0.2 0.2 Eos # (Auto) 0.0 0.0 Baso # (Auto) 0.0 0.0 Sodium 139 137 Potassium 2.8 L* 3.1 L Chloride 112 H 107 Carbon Dioxide 23 25 Anion Gap 8.1 BUN 13 11 D Creatinine 0.80 0.70 D Estimated Creat Clear 44 51 Estimated GFR 71 82 Est GFR ( Amer) 85 100 D Glucose 156 H D 118 H Calcium 8.7 8.8 Magnesium 1.6 1.7 C-Reactive Protein 18.9 H D 30.6 H Procalcitonin 1.23 DS: Diagnosis Discharge Diagnosis (1) T-cell lymphoma: Status: Acute Code(s): C85.90 - Non-Hodgkin lymphoma, unspecified, unspecified site (2) Sensorineural hearing loss: Status: Acute Code(s): H90.5 - Unspecified sensorineural hearing loss Qualifiers: Laterality: bilateral Qualified Code(s): H90.3 - Sensorineural hearing loss, bilateral (3) Rash: Status: Acute Code(s): R21 - Rash and other nonspecific skin eruption (4) Lymphoma in remission: Status: Acute Code(s): C85.90 - Non-Hodgkin lymphoma, unspecified, unspecified site (5) Ear congestion: Status: Acute Code(s): H93.8X9 - Other specified disorders of ear, unspecified ear Qualifiers: Laterality: bilateral Qualified Code(s): H93.8X3 - Other specified disorders of ear, bilateral (6) Hearing loss: Status: Acute Code(s): H91.90 - Unspecified hearing loss, unspecified ear Qualifiers: Hearing loss type: sensorineural Laterality: bilateral Qualified Code(s): H90.3 - Sensorineural hearing loss, bilateral Problem details: . Meds Home Medications and Allergies Home Medications ?Medication ?Instructions ?Recorded ?Confirmed ?Type tizanidine 4 mg tablet 4 - 8 mg PO HS 30 days ##60 02/09/18 02/17/24 History esomeprazole magnesium 40 mg 40 mg PO DAILY 09/28/21 02/17/24 History capsule,delayed release aspirin 81 mg tablet,delayed 81 mg PO DAILY #30 tabs 09/29/21 02/17/24 Rx release ubrogepant 100 mg tablet 100 mg PO DAILYP PRN Migraine 01/13/22 02/17/24 Rx Headache #20 tabs evolocumab 140 mg/mL subcutaneous 140 mg SQ Q2W 02/10/23 02/17/24 History pen injector (Nitish Campos) allopurinol 300 mg tablet 300 mg PO DAILY 02/17/24 02/17/24 History clonazepam 2 mg tablet 2 mg PO HS 02/17/24 02/17/24 History folic acid 1 mg tablet 1 mg PO DAILY 02/17/24 02/17/24 History hydrocodone 7.5 mg-acetaminophen 1 - 2 tab PO Q6HP PRN Moderate 02/17/24 02/17/24 History 325 mg tablet Pain (Scale Score 5-6) valacyclovir 1 gram tablet 1,000 mg PO TID 02/17/24 02/17/24 History potassium chloride 20 mEq 40 meq (2 x 20 mEq) PO DAILY #6 02/19/24 Rx tablet,extended release tabs prednisone 20 mg tablet 40 mg (2 x 20 mg) PO DAILY #14 tabs 02/19/24 Rx New Prescriptions to Start Prescriptions: potassium chloride Serra,[place] prednisone Serra,Robbie Allergies Allergy/AdvReac Type Severity Reaction Status Date / Time Sulfa (Sulfonamide Allergy Mild Verified 02/17/24 09:45 Antibiotics) [SULFA (SULFONAMIDE ANTIBIOTICS)] Discharge Plan Disposition Patient Disposition: Home, Self-Care Condition: Fair Follow up Plan Follow up with: Roque Mccloud MD [Staff Physician] - 02/26/24 9:30 am (T-cell lymphoma patient admitted for weakness, rash resolved with IV Decadron during hospitalization. Discharged on 10 mg prednisone taper by Dr. Serra. Please follow-up in clinic. Thank you) Isaak Donovan MD [Primary Care Provider] - 02/24/24 11:15 am (After hospitalization for weakness and rash.) Prescriptions/Medication Reconciliation: New prednisone 20 mg tablet 40 mg PO DAILY Qty: 14 0RF Rx Instructions: Please continue this medication until you see Dr. Mccloud in oncology clinic. Thank you! potassium chloride 20 mEq tablet extended release 40 meq PO DAILY Qty: 6 0RF Rx Instructions: Next dose 02/20/2020 4 in the morning. Continued tizanidine 4 mg tablet 4 - 8 mg PO HS 30 Days Qty: 60 Repatha SureClick 140 mg/mL pen injector 140 mg SQ Q2W Patient Comments: INJECT 1 ML UNDER THE SKIN EVERY 2 WEEKS DIRECTED ubrogepant 100 MG tablet 100 mg PO DAILYP PRN (Reason: Migraine Headache) Qty: 20 0RF esomeprazole magnesium 40 MG capsule,delayed release(DR/EC) 40 mg PO DAILY aspirin 81 MG tablet,delayed release (DR/EC) 81 mg PO DAILY Qty: 30 0RF valacyclovir 1 gram tablet 1,000 mg PO TID Patient Comments: TAKE 1 TABLET BY MOUTH 3 TIMES A DAY clonazepam 2 mg tablet 2 mg PO HS Patient Comments: TAKE 1 TABLET BY MOUTH DAILY AT BEDTIME folic acid 1 mg tablet 1 mg PO DAILY hydrocodone-acetaminophen 7.5-325 mg tablet 1 - 2 tab PO Q6HP PRN (Reason: Moderate Pain (Scale Score 5-6)) Held allopurinol 300 mg tablet 300 mg PO DAILY Hold Instructions: Resume on 02/26/24. Please hold until you speak with Dr. Mccloud about restarting this medication at your next oncology appointment Patient Comments: TAKE 1 TABLET BY MOUTH EVERY DAY Discontinued methylprednisolone 4 mg tablets,dose pack 4 mg PO DIRECTED Patient Comments: FOLLOW PACKAGE DIRECTIONS Other Ambulatory Orders: Home Medical Equipment (Routine) Location: None Selected Ordered By: Robbie Serra Problem Reconciliation Problems Reviewed?: Yes Patient Discharge Instructions ACTIVITY: Continue current activity DIET: continue same diet Patient Instructions: DI for Contact Dermatitis Print Language: Ukrainian Providers Primary Care Provider: Isaak Donovan Admit Provider: Robbie Serra Attending Provider: Robbie Serra
[2024-02-19] MEDS: POTASSIUM CHLORIDE 20MEQ TAB 60 MEQ PO (10:15)
[2024-02-19] MEDS: PT OWN MED *ASPIRIN 81 MG EC TAB 1 EACH PO (10:15)
[2024-02-19] MEDS: ENOXAPARIN 40MG/0.4ML SYRINGE 40 MG SQ (10:15)
[2024-02-19] MEDS: ESOMEPRAZOLE 40 MG 1 EACH PO (10:15)
[2024-02-19] MEDS: MAGNESIUM SULFATE IN WATER 2 GM/50 ML PIGGYBACK IV (10:15)
[2024-02-19] MEDS: FOLIC ACID 1MG TABLET 1 MG PO (10:16)
[2024-02-19 10:19] LABS: Procalcitonin 0.725 ng/mL (0.0-2.0)
[2024-02-19 12:23] LABS: Anion Gap 6.8 mEq/L (5-15); Carbon Dioxide 23 mmol/L (22.0-30.0)
[2024-02-19] MEDS: POTASSIUM CHLORIDE 20MEQ TAB 40 MEQ PO (14:05)
[2024-02-19 14:08] LABS: Chloride 112 mmol/L (98-107); Sodium 137 mmol/L (136-145)
[2024-02-19 14:09] LABS: Potassium 3.1 mmoL/L (3.5-5.1)
[2024-02-19 14:11] LABS: Blood Urea Nitrogen 13 mg/dl (7-17); Creatinine Clearance Estimated 44 mL/min (50-200); Estimated Glomerular Filt Rate 71 ml/min (>60); GFR (African American) 85 ML/MIN (>60)
[2024-02-19 14:12] LABS: Anion Gap 6.1 mEq/L (5-15); Calcium 8.3 mg/dl (8.4-10.2); Carbon Dioxide 22 mmol/L (22.0-30.0); Glucose 139 mg/dl (74-100)
--- NOTE | 2024-02-23 13:30 | SW/DCPLANNER ---
Hospital discharge follow up phone call: patient stated that she is doing well at home. Per patient home health services have started. Patient was able to flower buncher or picker her new medications and is aware of her follow up appointments w/ Dr Donovan and Dr Mccloud. Patient did not have any further needs/questions at this time.
== END 2024-02-19 15:21 | disposition home health service (06) ==
PROVIDERS: Admitting Provider Internal Medicine; PCP Internal Medicine Adolescent Medicine; Visit Provider Internal Medicine
DX: C85.90 Non-Hodgkin lymphoma, unspecified, unspecified site (principal); R53.1 Weakness; R21 Rash and other nonspecific skin eruption; L30.9 Dermatitis, unspecified; I25.10 Atherosclerotic heart disease of native coronary artery without angina pectoris; H90.3 Sensorineural hearing loss, bilateral; H93.8X3 Other specified disorders of ear, bilateral; K21.9 Gastro-esophageal reflux disease without esophagitis; E03.9 Hypothyroidism, unspecified; Z95.5 Presence of coronary angioplasty implant and graft
CPT/HCPCS: G0379; 36415; 80048; 80053; 83605; 83615; 83735; 84100; 84145; 84550; 85025; 86140; 97162; 97166; 97530; 97535; G0378; J1100; J1650; J3475; J7030

== ENCOUNTER 2024-02-26 11:14 | Outpatient (CLI) | payer MEDICARE, BC, SELFPAY ==
[2024-02-26 11:33] LABS: Basophils # 0.1 K/mm3 (0-0.2); Basophils % 1.1 % (0.1-2.0); Eosinophils % 0.4 % (0.1-12.0); Hematocrit 37.4 % (37.0-47.0); Hemoglobin 11.6 g/dL (12.2-16.2); Lymphocytes # 1.1 K/mm3 (0.7-4.5); Lymphocytes % 11.6 % (10-50); Mean Corpuscular HGB Conc 30.9 g/dL (31.8-35.4); Mean Corpuscular Hemoglobin 28.6 pg (27.0-31.2); Mean Corpuscular Volume 92.4 fl (81-99); Monocytes # 0.4 K/mm3 (0.1-1.0); Monocytes % 4.4 % (1.7-9.3); Neutrophils # 8.2 K/mm3 (1.8-7.8); Neutrophils % 82.6 % (37.0-80.0); Platelet Count 241 K/mm3 (142-424); Red Blood Count 4.05 M/mm3 (4.20-5.40); Red Cell Distribution Width 17.6 % (11.5-17.5); White Blood Count 9.9 K/mm3 (4.8-10.8)
[2024-02-26 11:49] LABS: Chloride 105 mmol/L (98-107)
[2024-02-26 11:50] LABS: Potassium 3.7 mmoL/L (3.5-5.1); Sodium 136 mmol/L (136-145)
[2024-02-26 11:53] LABS: Alanine Aminotransferase 34 U/L (12-78); Albumin/Globulin Ratio 1.9 (1.1-1.8); Alkaline Phosphatase 64 U/L (38-126); Anion Gap 9.7 mEq/L (5-15); Aspartate Amino Transferase 33 U/L (14-36); Bilirubin,Total 0.7 mg/dl (0.2-1.3); Blood Urea Nitrogen 19 mg/dl (7-17); Calcium 9.2 mg/dl (8.4-10.2); Carbon Dioxide 25 mmol/L (22.0-30.0); Estimated Glomerular Filt Rate 62 ml/min (>60); GFR (African American) 74 ML/MIN (>60); Globulin 2.1 g/dL (1.3-3.2); Glucose 92 mg/dl (74-100); Total Protein,Serum 6.1 g/dl (6.3-8.2)
[2024-02-26 12:22] LABS: Lactate Dehydrogenase 230 U/L (313-618); Uric Acid 7.3 mg/dl (2.5-6.2)
== END 2024-02-26 11:35 ==
LOC: INF 11:16
PROVIDERS: PCP Internal Medicine Adolescent Medicine; Visit Provider Internal Medicine Medical Oncology
DX: C85.90 Non-Hodgkin lymphoma, unspecified, unspecified site (principal)
CPT/HCPCS: 36415; 80053; 83615; 84550; 85025

== ENCOUNTER 2024-03-02 08:44 | Outpatient (CLI) | payer MEDICARE, BC, SELFPAY ==
--- NOTE | 2024-03-02 08:56 | CT_ITS ---
FINAL REPORT CLINICAL HISTORY: Lymphoma. Diagnosed Mar. COMPARISON: 01/14/2024 FINDINGS: CT OF THE ABDOMEN AND PELVIS WITH CONTRAST Axial CT images of the abdomen and pelvis were obtained after the administration of oral and iv contrast. Coronal and sagittal reformatted images were also obtained and reviewed.This study was performed with techniques to keep radiation doses as low as reasonably achievable (ALARA). Individualized dose reduction techniques using automated exposure control or adjustment of mA and/or kV according to the patient's size were employed. Abdomen: . The heart is normal in size. The gallbladder has been surgically resected. There is mild nonspecific biliary ductal dilatation. No focal hepatic mass is identified. The spleen has decreased in size, on today's exam measuring 12.7 cm, was previously 14.1 cm in size. No adrenal mass is present. The pancreas has an unremarkable appearance. The kidneys are normal, without evidence of mass or hydronephrosis. The aorta is normal in caliber. There is improvement in abdominal and pelvic adenopathy. A para-aortic node on the prior exam measured 10 mm, is 6 mm in size on today's exam. No mass or abnormal fluid collection is seen. Pelvis: The appendix is not well-visualized. The urinary bladder is unremarkable. No inflammatory process is seen. There is improvement in size of the pelvic adenopathy when compared to the prior exam. There is improvement in the iliac and inguinal adenopathy, with many nodes now normal in size. There is a left inguinal node that measures 9 mm on today's examination, with 17 mm previously. Diverticulosis of the sigmoid colon is noted without active inflammatory change. The uterus has been surgically resected. There is a small umbilical hernia containing fat. There is no evidence of bowel obstruction. IMPRESSION: Marked improvement in abdominal and pelvic adenopathy when compared to the prior exam of 01/14/2024. Improved splenomegaly since the prior exam, with the spleen now measuring 12.7 cm, was previously 14.1 cm in size. Reviewed, Interpreted and Dictated by Jorge Martel III, MD Transcribed by Liane Phillips Authenticated and [facility]
--- NOTE | 2024-03-02 08:57 | CT_ITS ---
FINAL REPORT TECHNIQUE: Thin section axial CT images were obtained through the neck after intravenous contrast administration. Coronal and sagittal reformats were also obtained. This study was performed with techniques to keep radiation doses as low as reasonably achievable (ALARA). Individualized dose reduction techniques using automated exposure control or adjustment of mA and/or kV according to the patient's size were employed. CLINICAL HISTORY: LYMPHOMA- diagnosed Mar 2022 COMPARISON: 01/14/2024 FINDINGS: The nasopharynx, oropharynx, hypopharynx and larynx are unremarkable. When compared to the prior exam of 01/14/2024, there is marked improvement in the adenopathy, with the cervical lymph nodes visualized today all less than 1 cm in diameter. No new masses or adenopathy are noted. The thyroid gland is unremarkable. There is a left maxillary polyp versus retention cyst present. There is no acute osseous abnormality. IMPRESSION: Marked improvement in the cervical adenopathy when compared to the prior CT examination, with all the nodes visualized on today's exam less than 1 cm in size. No new masses or adenopathy are identified. Reviewed, Interpreted and Dictated by Jorge Martel III, MD Transcribed by Liane Phillips Authenticated and [facility]
--- NOTE | 2024-03-02 08:57 | CT_ITS ---
FINAL REPORT CLINICAL HISTORY: Lymphoma. Diagnosed Mar 2022. COMPARISON: 01/14/2024 FINDINGS: Axial CT images of the chest were obtained with contrast. Coronal and sagittal reformatted images were also obtained. This study was performed with techniques to keep radiation doses as low as reasonably achievable, (ALARA). Individualized dose reduction techniques using automated exposure control or adjustment of mA and/or KV according to the patient's size were employed. There are a few small mediastinal nodes present, stable since the prior exam. There has been marked interval improvement in axillary adenopathy, with many of the lymph node seen on today's examination within normal limits of size. No new adenopathy is noted in the chest. On lung window images, no pulmonary mass or dominant pulmonary nodule is identified. No localized pulmonary inflammatory process is identified. Mild scarring versus fibrosis is present in the lung bases. IMPRESSION: Marked improvement in axillary adenopathy when compared to the prior exam, with many previously enlarged lymph nodes now within normal limits of size. No new adenopathy is identified. Reviewed, Interpreted and Dictated by Jorge Martel III, MD Transcribed by Liane Phillips Authenticated and [facility]
[2024-03-02] MEDS: IOPAMIDOL-370 (76%);100ML BOTTLE 150 ML IV (10:14)
[2024-03-02] MEDS: SODIUM CHLORIDE 0.9% 10ML SYR (RAD ONLY) 10 ML IV (10:14)
== END 2024-03-02 23:59 | disposition home or self-care (01) ==
LOC: RAD 08:46
PROVIDERS: PCP Internal Medicine Adolescent Medicine; Visit Provider Internal Medicine Medical Oncology
DX: C85.90 Non-Hodgkin lymphoma, unspecified, unspecified site (principal)
CPT/HCPCS: 70491; 71260; 74177; Q9967

== ENCOUNTER 2024-03-11 12:26 | Emergency (ER) | payer MEDICARE, BC, SELFPAY ==
[2024-03-11 12:28] VITALS: BP 164/78; PULSE 80; RESP 17; TEMP 36.7; O2SAT 98; BMI 22.3
--- NOTE | 2024-03-11 12:56 | CT_ITS ---
FINAL REPORT TECHNIQUE: Axial CT images of the face were obtained without contrast. Coronal reformatted images were also obtained. This study was performed with techniques to keep radiation doses as low as reasonably achievable, (ALARA). Individualized dose reduction techniques using automated exposure control or adjustment of mA and/or kV according to the patient''s size were employed. CLINICAL HISTORY: trauma >65, ran into door frame in the middle of the night walking back to bed, hit rt forehead and cheek, lac and swelling FINDINGS: There is no evidence of fracture.The orbits are intact.The globes are intact.No sinus fluid levels are identified. Right periorbital soft tissue swelling and soft tissue air is noted. IMPRESSION: No fracture or acute bony abnormality identified. Right periorbital soft tissue swelling and soft tissue air. Authenticated and [facility]
--- NOTE | 2024-03-11 12:56 | CT_ITS ---
FINAL REPORT CLINICAL HISTORY: trauma >65, ran into door frame in the middle of the night when walking back to bed FINDINGS: Axial CT images of the cervical spine were obtained without contrast. Sagittal and coronal reformatted images were also obtained. This study was performed with techniques to keep radiation doses as low as reasonably achievable (ALARA). Individualized dose reduction techniques using automated exposure control or adjustment of mA and/or kV according to the patient''s size were employed. There is no evidence of fracture or dislocation. The bony alignment is normal. Moderate degenerative changes are noted. There is no evidence of canal stenosis. No paraspinous soft tissue abnormality is seen. Limited images of the upper thorax are unremarkable. IMPRESSION: No fracture or acute bony abnormality identified. Moderate degenerative change. Authenticated and [facility]
--- NOTE | 2024-03-11 12:56 | CT_ITS ---
FINAL REPORT CLINICAL HISTORY: trauma >65, ran into door frame in the middle of the night walking back to bed FINDINGS: Axial images of the head were obtained without contrast. Coronal reformatted images were also obtained. This study was performed with techniques to keep radiation doses as low as reasonably achievable (ALARA). Individualized dose reduction techniques using automated exposure control or adjustment of mA and/or kV according to the patient''s size were employed. There is generalized age-appropriate atrophy. Periventricular low-attenuation areas are seen consistent with mild chronic ischemic changes. There is no evidence of intracranial hemorrhage or mass. There is no evidence of acute infarct. There is no evidence of shift of the midline structures. No skull abnormality is seen on the bone window images. IMPRESSION: Atrophy and mild periventricular chronic ischemic changes. No acute intracranial abnormality identified. Authenticated and [facility]
[2024-03-11 13:00] VITALS: BP 148/70; PULSE 69; O2SAT 90
--- NOTE | 2024-03-11 13:23 | PC.NURSE ---
PT TO CT
--- NOTE | 2024-03-11 13:40 | PC.NURSE ---
PT RETURNED FROM CT
--- NOTE | 2024-03-11 13:49 | PC.NURSE ---
DR BYRNES AT BEDSIDE
[2024-03-11] MEDS: TET/DIPHTH/PERT-ADULT 0.5ML SYRINGE 0.5 ML IM (13:51)
[2024-03-11] MEDS: ACETAMINOPHEN 500MG TAB 1000 MG PO (14:06)
[2024-03-11] MEDS: LIDOCAINE 1% W/EPI 1:100,000 20ML VIAL 20 ML IJ (14:06)
[2024-03-11 14:30] VITALS: BP 142/68; PULSE 68; RESP 16; O2SAT 96
[2024-03-11 15:00] VITALS: BP 128/68; PULSE 68; O2SAT 94
--- NOTE | 2024-03-11 15:43 | PC.WOUNDNOTE ---
Updated pt's on POC and ct scan
--- NOTE | 2024-03-11 16:28 | ED_ITS ---
Discharge Plan Disposition Patient Disposition: Home, Self-Care Condition: Good Prescriptions Prescriptions: No Action tizanidine 4 mg tablet 4 - 8 mg PO HS 30 Days Qty: 60 allopurinol 300 mg tablet 300 mg PO DAILY Qty: 30 3RF Rx Instructions: take one tablet daily Repatha SureClick 140 mg/mL pen injector 140 mg SQ Q2W Patient Comments: INJECT 1 ML UNDER THE SKIN EVERY 2 WEEKS DIRECTED ubrogepant 100 MG tablet 100 mg PO DAILYP PRN (Reason: Migraine Headache) Qty: 20 0RF esomeprazole magnesium 40 MG capsule,delayed release(DR/EC) 40 mg PO DAILY aspirin 81 MG tablet,delayed release (DR/EC) 81 mg PO DAILY Qty: 30 0RF valacyclovir 1 gram tablet 1,000 mg PO TID Patient Comments: TAKE 1 TABLET BY MOUTH 3 TIMES A DAY clonazepam 2 mg tablet 2 mg PO HS Patient Comments: TAKE 1 TABLET BY MOUTH DAILY AT BEDTIME folic acid 1 mg tablet 1 mg PO DAILY hydrocodone-acetaminophen 7.5-325 mg tablet 1 - 2 tab PO Q6HP PRN (Reason: Moderate Pain (Scale Score 5-6)) prednisone 20 mg tablet 40 mg PO DAILY Qty: 14 0RF Rx Instructions: Please continue this medication until you see Dr. Mccloud in oncology clinic. Thank you! potassium chloride 20 mEq tablet extended release 40 meq PO DAILY Qty: 6 0RF Rx Instructions: Next dose 02/20/2020 4 in the morning. bcobarqs-dljfonnze-QN 3.5-10,000-1 mg/mL-unit/mL-% drops,suspension 4 drp Ear-Left Q6H 7 Days Qty: 10 0RF Referrals Follow up/Referrals: Isaak Donovan MD [Primary Care Provider] - See instructions Activity Restrictions/Add. Instructions Additional Instructions/Restrictions: You were evaluated in the emergency department today. Please keep your wound clean and dry. Do not submerge under any water. Monitor for any signs of infection such as redness, warmth, or pus draining from the wound. Follow-up closely with your primary care provider. Return to the emergency department for new or worsening symptoms. Clinical Impressions Clinical Impression: Laceration of face, Abrasion of face, Periorbital hematoma Instructions Patient Instructions: DI for Skin Abscess Print Language Print Language: Singaporean Discharge ED Provider: Sury,Ross A General Adult HPI General Chief complaint: Skin/Abscess/Foreign Body Stated complaint: AO 03/10/24, fell, lac above and below rt eye Time Seen by Provider: 03/11/24 12:56 Mode of Arrival: Family Vehicle Source of Information: Patient and Spouse Limitations: No Limitations Description of Symptoms (Recalled from ER Triage Doc. by RN): Pt presents to ER following fall a fall @ approx 1am this morning from tripping and hitting the door-frame on the way back to bed. Denies any dizziness or light-headedness prior to fall. States she has a 1 gash to her R eyebrow with bruising and swelling around it. She c/o pain to R eye, similar to R occular migraine. Denies any vision changes. She did take a ubrevlya as she has a hx of migraines. History of Present Illness HPI narrative: Please note that above description of symptoms, in this electronic medical record under categorization of recalled from ER triage doctor by RN are reflective of an initial nursing assessment, however, is not reflective of my full history and physical exam that was personally taken and clarified. Consequentially, this preceding description of symptoms, which may include the patient's categorized chief complaint in the EMR, do not reflect my personal clinical impression, and the ultimate description of history of present illness and patient stated complaints should be deferred to this section of the note. Unless stated otherwise or congruent with this section of the note, additional signs, symptoms, or incongruence should be interpreted as inaccurate with my clinical impression. Related Data Home Medications ?Medication ?Instructions ?Recorded ?Confirmed tizanidine 4 mg tablet 4 - 8 mg PO HS 30 days ##60 02/09/18 03/08/24 esomeprazole magnesium 40 mg 40 mg PO DAILY 09/28/21 03/08/24 capsule,delayed release evolocumab 140 mg/mL subcutaneous 140 mg SQ Q2W 02/10/23 03/08/24 pen injector (Nitish Campos) clonazepam 2 mg tablet 2 mg PO HS 02/17/24 03/08/24 folic acid 1 mg tablet 1 mg PO DAILY 02/17/24 03/08/24 hydrocodone 7.5 mg-acetaminophen 1 - 2 tab PO Q6HP PRN Moderate 02/17/24 03/08/24 325 mg tablet Pain (Scale Score 5-6) valacyclovir 1 gram tablet 1,000 mg PO TID 02/17/24 03/08/24 Previous Rx's ?Medication ?Instructions ?Recorded aspirin 81 mg tablet,delayed 81 mg PO DAILY #30 tabs 09/29/21 release ubrogepant 100 mg tablet 100 mg PO DAILYP PRN Migraine 01/13/22 Headache #20 tabs umcauoex-dcsflapjg-lobmggrvb 3.5 4 drp Ear-Left Q6H 7 days #10 mL 02/19/24 mg-10,000 unit/mL-1 % ear drops,susp potassium chloride 20 mEq 40 meq (2 x 20 mEq) PO DAILY #6 02/19/24 tablet,extended release tabs prednisone 20 mg tablet 40 mg (2 x 20 mg) PO DAILY #14 tabs 02/19/24 allopurinol 300 mg tablet 300 mg PO DAILY #30 tabs 02/26/24 Allergies Allergy/AdvReac Type Severity Reaction Status Date / Time Sulfa (Sulfonamide Allergy Mild Verified 03/08/24 13:53 Antibiotics) [SULFA (SULFONAMIDE ANTIBIOTICS)] [facility] Disclaimer: The information contained in this section may have been updated after the patient was seen, as this information can be updated by other users. Medical History Sensorineural hearing loss Lymphoma in remission Ear congestion Hearing loss . Otalgia Gastroesophageal reflux disease Hyperlipidemia (~06/11/18) Surgical History History of hammer toe correction History of bladder surgery History of hysterectomy Family History Other Alzheimer disease Zirconia disease Social History Smoking Status: Never smoker alcohol intake: current alcohol intake frequency: holidays/special occasions only substance use type: denies use current occupational status: retired Travel in the last 8 weeks: None household members: spouse housing: house caffeine: Yes ROS Obtained: Yes All systems reviewed & no additional complaints except as documented Physical Exam General General appearance: alert Head Head exam: normocephalic and other (2 cm vertical laceration overlying right eyebrow over superior orbital rim. No ocular involvement. Superficial abrasion right mid face) Eye Eye exam: Present normal appearance, PERRL, EOMI and other (No evidence of hyphema, proptosis, entrapment, conjunctival hemorrhage, pupillary changes, cellulitic change, obvious foreign body, or otherwise irregular ocular findings.) Neck Neck exam: Present normal inspection, full ROM and trachea midline Respiratory Respiratory exam: Absent respiratory distress, wheezes, stridor, accessory muscle use or prolonged expiratory phase Cardiovascular Cardiovascular exam: Present other (Pulses equal symmetric in upper and lower extremities) Abdominal Exam Abdominal exam: Present soft; Absent distention, tenderness or pulsatile mass Extremities Exam Extremities exam: Absent edema Neurological Exam Neurological exam: Present alert, oriented X3 and CN II-XII intact; Absent motor sensory deficit Skin Skin exam: Present warm and dry; Absent diaphoresis or erythema Medical Decision Making Medical Records Medical records reviewed: Yes I reviewed the patient's medical records. Abdiel Inquiry Pt receiving controlled substance: No Abdiel was queried for this patient: No Vital Signs: 03/11/24 12:28 03/11/24 13:00 03/11/24 14:30 Temperature 98.0 F Temperature Source Oral Pulse Rate 69 68 Pulse Rate [Right] 80 Respiratory Rate 17 16 Blood Pressure 148/70 H 142/68 H Blood Pressure [Right Arm] 164/78 H Blood Pressure Mean 117 117 Blood Pressure Mean [Right Arm] 106 Blood Pressure Source [Right Arm] Automatic Cuff 02 Sat by Pulse Oximetry 98 90 L 96 Oxygen Delivery Method Room Air Room Air 03/11/24 15:00 Temperature Temperature Source Pulse Rate 68 Pulse Rate [Right] Respiratory Rate Blood Pressure 128/68 Blood Pressure [Right Arm] Blood Pressure Mean 104 Blood Pressure Mean [Right Arm] Blood Pressure Source [Right Arm] 02 Sat by Pulse Oximetry 94 L Oxygen Delivery Method Orders (Tests/Meds): ED MEDICATIONS Discontinued Medications Generic Name Dose Route Start Last Admin Trade Name Freq PRN Reason Stop Dose Admin Acetaminophen 1,000 mg 03/11/24 13:57 03/11/24 14:06 Acetaminophen 500mg Tab PO 03/11/24 13:58 1,000 mg ONCE ONE Administration Lidocaine/Epinephrine 20 ml 03/11/24 13:57 03/11/24 14:06 Lidocaine 1% W/Epi 1:100,000 20ml Vial IJ 03/11/24 13:58 10 ml ONCE ONE Administration Tetanus/Reduced Diphtheria/Acell Pertussis 0.5 ml 03/11/24 12:56 03/11/24 13:51 Tet/Diphth/Pert-Adult 0.5ml Syringe IM 03/11/24 12:57 0.5 ml .ONCE ONE Administration ORDERS Category Date Time Status CT cervical spine wo con Stat Cat Scan 03/11/24 12:[address] facial bones wo con Stat Cat Scan 03/11/24 12:[address] head/brain wo con Stat Cat Scan 03/11/24 12:56 Completed Medical Decision Narrative: 73-year-old female history of T-cell lymphoma presenting with fall and forehead laceration. Patient states that she takes Klonopin for sleeping at night. States that she got up to go to the bathroom around 1 AM, was trying to move around in the dark, used her phone flashlight to help her navigate, tripped and hit her forehead on the door frame. No loss of consciousness. Tried to manage symptoms at home, but given continued bleeding, she came in for further evaluation. Denies vision changes, neck pain, or any other concerns. Patient very pleasant and in no acute distress on my evaluation. States that she does not take anticoagulation other than daily aspirin. History was obtained via conversation with patient and . On arrival, patient hemodynamically stable, alert, oriented x4, appropriate, GCS 15, moving all extremities spontaneously, pupils equal and reactive to light. Full physical exam performed and significant for very well-appearing woman who is in no acute distress. She has a 2 cm vertical laceration overlying superior orbital rim on the right. No ocular involvement. Neurologically intact grossly and hemostatic on my arrival. Differential includes laceration, fracture, intracranial bleed, critical cervical spine injury, among others. Patient placed on continuous cardiac monitoring and continuous pulse ox with initial blood pressure 164/78, heart rate 80, saturation 98% on room air.. Patient was given subcutaneous epinephrine and lidocaine, acetaminophen, Tdap for symptomatic management and correction of underlying abnormalities. Workup independently interpreted and significant for no acute intracranial hemorrhage, no cervical spine injury. Patient also has no facial fracture just soft tissue injuries on CT face. See radiology read for full review of final results. On reevaluation, patient resting comfortably. Given patient presentation, workup, history, this most likely represents complicated laceration of the face secondary to fall. Laceration repaired, because patient at baseline without signs or symptoms of clinical decompensation, deemed appropriate for discharge. Results were relayed to patient who voiced understanding and were agreeable to outpatient management and follow up. I discussed my clinical impression with patient and answered all questions. At this time, the evidence for any other entities in the differential is insufficient to warrant any further testing or ED observation. This was explained as well. Advisory was given that persistent or worsening symptoms require further evaluation. I confirmed the understanding of this discussion. [employer]cher disclaimer Much of this encounter note is an electronic cert occupational therapy asst spoken language to printed text. Electronic cert occupational therapy asst of the spoken language may permit errors. Although I have reviewed the note, some errors may still exist. Procedures Laceration Laceration 1: Site: face Side (If applicable): right Size (cm): 2 Description: linear and clean Depth: simple, single layer, involves subcutaneous layer and involves muscle layer Local Anesthetic: lidocaine 1% and with epi Amount of anesthesia used (mL): 5 Pre-repair: wound explored Skin layer closed with: other (5.0 plain gut) Size (cm): 5-0 Number of sutures: 3 Technique: simple, interrupted Subcutaneous layer closed with: other (plain gut) Size: 5-0 Number of sutures: 2 Technique: simple, interrupted Critical Care Critical Care Time Critical Care Time: No
[2024-03-11 16:33] VITALS: BP 146/67; PULSE 80; RESP 18; TEMP 36.7; O2SAT 98
== END 2024-03-11 16:44 | disposition home or self-care (01) ==
PROVIDERS: Emergency Provider Emergency Medicine; PCP Internal Medicine Adolescent Medicine
DX: S01.81XA Laceration without foreign body of other part of head, initial encounter (principal); H57.11 Ocular pain, right eye; W01.198A Fall on same level from slipping, tripping and stumbling with subsequent striking against other object, initial encounter; Z23 Encounter for immunization
CPT/HCPCS: 12051; 70450; 70486; 72125; 90471; 90715; 99285

== ENCOUNTER 2024-03-15 10:57 | Outpatient (CLI) | payer MEDICARE, BC, SELFPAY ==
[2024-03-15 11:07] VITALS: BMI 22.8
[2024-03-15 11:19] LABS: Basophils # 0.1 K/mm3 (0-0.2); Basophils % 0.8 % (0.1-2.0); Eosinophils # 0.3 K/mm3 (0.0-0.4); Eosinophils % 4.2 % (0.1-12.0); Hematocrit 41.3 % (37.0-47.0); Hemoglobin 12.7 g/dL (12.2-16.2); Lymphocytes % 12.8 % (10-50); Mean Corpuscular HGB Conc 30.7 g/dL (31.8-35.4); Mean Corpuscular Hemoglobin 28.7 pg (27.0-31.2); Mean Corpuscular Volume 93.7 fl (81-99); Mean Platelet Volume 8.3 fl (7.4-10.4); Monocytes # 0.4 K/mm3 (0.1-1.0); Monocytes % 4.6 % (1.7-9.3); Neutrophils # 5.8 K/mm3 (1.8-7.8); Neutrophils % 77.5 % (37.0-80.0); Platelet Count 168 K/mm3 (142-424); Red Cell Distribution Width 18.7 % (11.5-17.5); White Blood Count 7.5 K/mm3 (4.8-10.8)
[2024-03-15] MEDS: ONDANSETRON 4MG ODT 16 MG (11:34)
[2024-03-15] MEDS: [UNRECOGNIZED DRUG - OTHER] IV (12:10)
[2024-03-15] MEDS: SODIUM CHLORIDE 0.9% 50ML BAG 50 ML IV (12:10)
[2024-03-15] MEDS: SODIUM CHLORIDE 0.9% IV (12:10)
[2024-03-15 12:15] VITALS: BP 144/69; PULSE 76; RESP 18; TEMP 36.7; O2SAT 100
[2024-03-15 12:30] VITALS: BP 127/57; PULSE 73; RESP 18
[2024-03-15 12:45] VITALS: BP 129/60; PULSE 75; RESP 18; O2SAT 100
[2024-03-15 13:05] VITALS: BP 131/62; PULSE 75; RESP 18; TEMP 36.4; O2SAT 100
== END 2024-03-15 13:05 | disposition home or self-care (01) ==
LOC: INF 11:00
PROVIDERS: PCP Internal Medicine Adolescent Medicine; Visit Provider Internal Medicine Medical Oncology
DX: C85.90 Non-Hodgkin lymphoma, unspecified, unspecified site (principal); Z51.11 Encounter for antineoplastic chemotherapy; Z79.899 Other long term (current) drug therapy
CPT/HCPCS: 85025; 96413; J9032; Q0162

== ENCOUNTER 2024-03-16 10:59 | Outpatient (CLI) | payer MEDICARE, BC, SELFPAY ==
[2024-03-16] MEDS: ONDANSETRON 4MG ODT 16 MG SL (11:10)
[2024-03-16] MEDS: SODIUM CHLORIDE 0.9% 50ML BAG 50 ML IV (11:46)
[2024-03-16] MEDS: [UNRECOGNIZED DRUG - OTHER] IV (11:48)
[2024-03-16] MEDS: SODIUM CHLORIDE 0.9% IV (11:48)
[2024-03-16 11:55] VITALS: BP 139/63; PULSE 97; RESP 18; TEMP 36.8; O2SAT 99
[2024-03-16 12:34] VITALS: BP 101/56; PULSE 86; RESP 18; O2SAT 100
== END 2024-03-16 12:34 | disposition home or self-care (01) ==
LOC: INF 11:00
PROVIDERS: PCP Internal Medicine Adolescent Medicine; Visit Provider Internal Medicine Medical Oncology
DX: Z51.11 Encounter for antineoplastic chemotherapy (principal); C85.90 Non-Hodgkin lymphoma, unspecified, unspecified site; Z79.899 Other long term (current) drug therapy
CPT/HCPCS: 96413; J9032; Q0162

== ENCOUNTER 2024-03-17 10:51 | Outpatient (CLI) | payer MEDICARE, BC, SELFPAY ==
[2024-03-17] VITALS (7 sets, daily range): BP systolic 78–144; BP diastolic 44–73; PULSE 82–130; RESP 18; TEMP 36.4; O2SAT 97–98
[2024-03-17] MEDS: ONDANSETRON 4MG ODT 16 MG (11:08)
[2024-03-17] MEDS: SODIUM CHLORIDE 0.9% IV (11:37)
[2024-03-17] MEDS: [UNRECOGNIZED DRUG - OTHER] IV (11:37)
[2024-03-17] MEDS: SODIUM CHLORIDE 0.9% 50ML BAG 50 ML IV (11:37)
[2024-03-17] MEDS: 0.9 % SODIUM CHLORIDE 1000ML 500 ML 999 ML IV (12:30)
[2024-03-17] MEDS: DEXAMETHASONE 4MG/ML 5ML MDV 10 MG IV (16:29)
== END 2024-03-17 13:20 | disposition home or self-care (01) ==
LOC: INF 10:53
PROVIDERS: PCP Internal Medicine Adolescent Medicine; Visit Provider Internal Medicine Medical Oncology
DX: Z51.11 Encounter for antineoplastic chemotherapy (principal); C85.90 Non-Hodgkin lymphoma, unspecified, unspecified site; Z79.899 Other long term (current) drug therapy
CPT/HCPCS: 96366; 96367; 96375; 96413; J1100; J7030; J9032; Q0162

== ENCOUNTER 2024-03-18 10:42 | Outpatient (CLI) | payer MEDICARE, BC, SELFPAY ==
[2024-03-18] MEDS: ONDANSETRON 4MG ODT 16 MG (10:54)
[2024-03-18] MEDS: DEXAMETHASONE 4MG/ML 5ML MDV 20 MG (10:54)
[2024-03-18] MEDS: SODIUM CHLORIDE 0.9% IV (11:33)
[2024-03-18] MEDS: [UNRECOGNIZED DRUG - OTHER] IV (11:33)
[2024-03-18 11:35] VITALS: BP 159/77; PULSE 71; RESP 18; TEMP 36.6; O2SAT 99
[2024-03-18] MEDS: SODIUM CHLORIDE 0.9% 50ML BAG 50 ML IV (11:35)
[2024-03-18 12:25] VITALS: BP 137/69; PULSE 73; RESP 18; O2SAT 98
== END 2024-03-18 12:25 | disposition home or self-care (01) ==
LOC: INF 10:44
PROVIDERS: PCP Internal Medicine Adolescent Medicine; Visit Provider Internal Medicine Medical Oncology
DX: Z51.11 Encounter for antineoplastic chemotherapy (principal); C85.90 Non-Hodgkin lymphoma, unspecified, unspecified site; Z79.899 Other long term (current) drug therapy
CPT/HCPCS: 96413; J1100; J9032; Q0162

== ENCOUNTER 2024-03-19 10:57 | Outpatient (CLI) | payer MEDICARE, BC, SELFPAY ==
[2024-03-19] MEDS: DEXAMETHASONE 4MG/ML 5ML MDV 20 MG (11:13)
[2024-03-19] MEDS: ONDANSETRON 4MG ODT 16 MG (11:13)
[2024-03-19 11:55] VITALS: BP 133/70; PULSE 73; RESP 18; TEMP 36.6; O2SAT 99
[2024-03-19] MEDS: SODIUM CHLORIDE 0.9% IV (11:56)
[2024-03-19] MEDS: [UNRECOGNIZED DRUG - OTHER] IV (11:56)
[2024-03-19] MEDS: SODIUM CHLORIDE 0.9% 50ML BAG 50 ML IV (11:57)
[2024-03-19 14:49] VITALS: BP 121/66; PULSE 69; RESP 18; O2SAT 98
== END 2024-03-19 14:49 | disposition home or self-care (01) ==
LOC: INF 10:59
PROVIDERS: PCP Internal Medicine Adolescent Medicine; Visit Provider Internal Medicine Medical Oncology
DX: Z51.11 Encounter for antineoplastic chemotherapy (principal); C85.90 Non-Hodgkin lymphoma, unspecified, unspecified site; Z79.899 Other long term (current) drug therapy
CPT/HCPCS: 96413; J1100; J9032; Q0162

== ENCOUNTER 2024-03-24 11:00 | Outpatient (CLI) | payer MEDICARE, BC, SELFPAY ==
[2024-03-24 11:16] VITALS: BMI 23.5
--- NOTE | 2024-03-24 11:22 | PC.NURSE ---
1122-collected labs via venipuncture stick in left ac with butterfly needle;pt to d/c home.
[2024-03-24 11:36] LABS: Basophils # 0.1 K/mm3 (0-0.2); Basophils % 0.9 % (0.1-2.0); Eosinophils # 0.2 K/mm3 (0.0-0.4); Eosinophils % 2.5 % (0.1-12.0); Hematocrit 39.2 % (37.0-47.0); Hemoglobin 12.9 g/dL (12.2-16.2); Lymphocytes # 0.5 K/mm3 (0.7-4.5); Lymphocytes % 6.3 % (10-50); Mean Corpuscular HGB Conc 32.8 g/dL (31.8-35.4); Mean Corpuscular Volume 91.6 fl (81-99); Mean Platelet Volume 8.4 fl (7.4-10.4); Monocytes # 0.3 K/mm3 (0.1-1.0); Neutrophils # 6.5 K/mm3 (1.8-7.8); Neutrophils % 86.3 % (37.0-80.0); Platelet Count 125 K/mm3 (142-424); Red Blood Count 4.29 M/mm3 (4.20-5.40); Red Cell Distribution Width 18.9 % (11.5-17.5); White Blood Count 7.6 K/mm3 (4.8-10.8)
[2024-03-24 11:38] LABS: MANUAL DIFFERENTIAL MANUAL DIFFERENTIAL (MANUAL DIFF)
[2024-03-24 13:14] LABS: Lymphocytes % 8 % (10-50); Monocytes % 2 % (2-9); Neutrophils % 90 % (42-76); Platelet Estimate Normal; RBC Morphology Normal; Total Cells Counted 100
== END 2024-03-24 11:25 | disposition home or self-care (01) ==
LOC: INF 11:02
PROVIDERS: PCP Internal Medicine Adolescent Medicine; Visit Provider Internal Medicine Medical Oncology
DX: C85.90 Non-Hodgkin lymphoma, unspecified, unspecified site (principal)
CPT/HCPCS: 36415; 85007; 85025; 85027

== ENCOUNTER 2024-04-01 12:23 | Outpatient (CLI) | payer MEDICARE, BC, SELFPAY ==
[2024-04-01] VITALS (10 sets, daily range): BP systolic 102–144; BP diastolic 52–72; PULSE 100–115; RESP 18; O2SAT 100; BMI 23.0
--- NOTE | 2024-04-01 12:37 | PC.NURSE ---
1238-collected labs via venipuncture stick in left ac with butterfly needle; pt to oncology appointment.
[2024-04-01 12:49] LABS: Basophils % 0.8 % (0.1-2.0); Eosinophils % 0.6 % (0.1-12.0); Hematocrit 32.7 % (37.0-47.0); Hemoglobin 10.4 g/dL (12.2-16.2); Lymphocytes # 0.6 K/mm3 (0.7-4.5); Lymphocytes % 10.6 % (10-50); Mean Corpuscular HGB Conc 31.7 g/dL (31.8-35.4); Mean Corpuscular Hemoglobin 30.1 pg (27.0-31.2); Mean Corpuscular Volume 94.9 fl (81-99); Monocytes # 0.2 K/mm3 (0.1-1.0); Monocytes % 3.6 % (1.7-9.3); Neutrophils # 4.6 K/mm3 (1.8-7.8); Neutrophils % 84.3 % (37.0-80.0); Platelet Count 171 K/mm3 (142-424); Red Blood Count 3.45 M/mm3 (4.20-5.40); Red Cell Distribution Width 18.4 % (11.5-17.5); White Blood Count 5.5 K/mm3 (4.8-10.8)
[2024-04-01 13:19] LABS: Chloride 96 mmol/L (98-107)
[2024-04-01 13:20] LABS: Albumin Level 3.5 g/dl (3.5-5.0); Sodium 133 mmol/L (136-145)
[2024-04-01 13:22] LABS: Alanine Aminotransferase 25 U/L (12-78); Alkaline Phosphatase 103 U/L (38-126); Anion Gap 9.9 mEq/L (5-15); Aspartate Amino Transferase 44 U/L (14-36); Bilirubin,Total 0.9 mg/dl (0.2-1.3); Blood Urea Nitrogen 16 mg/dl (7-17); Carbon Dioxide 30 mmol/L (22.0-30.0); Creatinine Clearance Estimated 49 mL/min (50-200); Estimated Glomerular Filt Rate 55 ml/min (>60); GFR (African American) 66 ML/MIN (>60)
[2024-04-01 13:23] LABS: Albumin/Globulin Ratio 1.5 (1.1-1.8); Calcium 9.2 mg/dl (8.4-10.2); Globulin 2.3 g/dL (1.3-3.2); Glucose 121 mg/dl (74-100); Total Protein,Serum 5.8 g/dl (6.3-8.2)
[2024-04-01 13:24] LABS: Potassium 2.9 mmoL/L (3.5-5.1)
[2024-04-01] MEDS: 0.9% NaCl w/40mEq KCL 1,000 ML 500 ML IV (13:55)
[2024-04-01] MEDS: DEXAMETHASONE 4MG/ML 5ML MDV 10 MG IV (15:58)
--- NOTE | 2024-04-02 14:58 | PC.NURSE ---
1458-called new rx of dexamethasone 4mg po bid for 5 days per md order to [facility].
== END 2024-04-01 16:00 | disposition home or self-care (01) ==
LOC: INF 12:24
PROVIDERS: PCP Internal Medicine Adolescent Medicine; Visit Provider Internal Medicine Medical Oncology
DX: C85.90 Non-Hodgkin lymphoma, unspecified, unspecified site (principal)
CPT/HCPCS: 36415; 80053; 85025; 96360; 96361; 96374; 96375; J1100

== ENCOUNTER 2024-04-20 19:05 | Inpatient (IN) | payer MEDICARE, BC, SELFPAY ==
[2024-04-20 19:06] VITALS: BP 113/55; PULSE 121; RESP 22; TEMP 39.6; O2SAT 93; BMI 23.1
--- NOTE | 2024-04-20 19:12 | ED_ITS ---
Discharge Plan Disposition Patient Disposition: Admitted Condition: Good Clinical Impressions Clinical Impression: Sepsis without septic shock, Encephalopathy, Immunocompromised Discharge ED Provider: Luis Ga General Adult HPI <JIMI Duque - Last Filed: 04/20/24 22:06> General Chief complaint: Fever Stated complaint: cough,weakness,fever Time Seen by Provider: 04/20/24 19:12 History of Present Illness HPI narrative: Patient presents for evaluation of cough weakness and fever. Patient has a history of lymphoma who last received chemotherapy approximately a month ago. Today patient has been profoundly weak has had a cough and according to family members present had some shaking along with incontinence of urine which is abnormal. Patient herself is unable to really provide any history of events. She does not have a seizure history. She reports a nonproductive cough and fever was 103.3 on arrival here. She denies any chest pain dysuria nausea vomiting diarrhea. Related Data Home Medications ?Medication ?Instructions ?Recorded ?Confirmed tizanidine 4 mg tablet 4 - 8 mg PO HS 30 days ##60 02/09/18 04/21/24 esomeprazole magnesium 40 mg 40 mg PO DAILY 09/28/21 04/20/24 capsule,delayed release evolocumab 140 mg/mL subcutaneous 140 mg SQ Q2W 02/10/23 04/20/24 pen injector (Nitish Campos) pregabalin 25 mg capsule 25 - 50 mg PO HS 04/20/24 04/21/24 amoxicillin 875 mg-potassium 1 tab PO BID 04/21/24 04/21/24 clavulanate 125 mg tablet clonazepam 1 mg tablet 1 mg PO BID PRN Insomnia 04/21/24 04/21/24 Previous Rx's ?Medication ?Instructions ?Recorded aspirin 81 mg tablet,delayed 81 mg PO DAILY #30 tabs 09/29/21 release ubrogepant 100 mg tablet 100 mg PO DAILYP PRN Migraine 01/13/22 Headache #20 tabs allopurinol 300 mg tablet 300 mg PO DAILY #30 tabs 02/26/24 Allergies Allergy/AdvReac Type Severity Reaction Status Date / Time Sulfa (Sulfonamide Allergy Mild Verified 04/06/24 10:42 Antibiotics) [SULFA (SULFONAMIDE ANTIBIOTICS)] PFS <JIMI Duque - Last Filed: 04/20/24 22:06> [facility] Disclaimer: The information contained in this section may have been updated after the patient was seen, as this information can be updated by other users. Medical History Sensorineural hearing loss Lymphoma in remission Ear congestion Hearing loss . Otalgia Gastroesophageal reflux disease Hyperlipidemia (~06/11/18) Surgical History History of hammer toe correction History of bladder surgery History of hysterectomy Family History Other Alzheimer disease Ange disease Social History Smoking Status: Never smoker alcohol intake: former substance use type: denies use current occupational status: retired Travel in the last 8 weeks: None household members: spouse housing: house caffeine: Yes Other Medical History Have you received the Flu Vaccine for this season: No Have you received the Pneumonia Vaccine: Yes <JIMI Duque - Last Filed: 04/20/24 22:06> ROS Obtained: Yes Systems reviewed as appropriate & no additional complaints except as documented Physical Exam <JIMI Duque - Last Filed: 04/20/24 22:06> General General appearance: alert (Patient is awake but does not appear to be alert currently) Respiratory Respiratory exam: Present normal lung sounds bilaterally Cardiovascular Cardiovascular exam: Present tachycardia Neurological Exam Neurological exam: Present other (Pavo Coma Score is 13); Absent alert or oriented X3 <Luis Ga MD - Last Filed: 04/21/24 15:46> Neck Neck exam: Present normal inspection and full ROM; Absent tenderness or meningismus Medical Decision Making <JIMI Duque - Last Filed: 04/20/24 22:06> Medical Records Medical records reviewed: Yes I reviewed the patient's medical records. Screening: Per USPSTF and CDC recommendations, given the prevalence of disease in our region, it is our hospital?s policy to screen for HIV and viral Hepatitis for all patients aged 18 and over and those with ongoing risk factors. Abdiel Inquiry Pt receiving controlled substance: No Vital Signs: 04/20/24 19:06 04/20/24 19:46 04/20/24 20:03 Temperature 103.3 F H Temperature Source Oral Pulse Rate 121 H 119 H Pulse Rate [Right] 121 H Respiratory Rate 22 Blood Pressure 137/75 138/67 Blood Pressure [Right Arm] 113/55 L Blood Pressure Mean 92 91 Blood Pressure Mean [Right Arm] 74 Blood Pressure Source 02 Sat by Pulse Oximetry 93 L 98 92 L Oxygen Delivery Method 04/20/24 20:30 04/20/24 22:19 04/20/24 22:29 Temperature 98.1 F Temperature Source Oral Oral Pulse Rate 115 H 105 H Pulse Rate [Right] Respiratory Rate 20 Blood Pressure 113/55 L 114/72 Blood Pressure [Right Arm] Blood Pressure Mean 74 Blood Pressure Mean [Right Arm] Blood Pressure Source Automatic Cuff 02 Sat by Pulse Oximetry 94 L Oxygen Delivery Method Room Air Lab Data Lab results reviewed: Yes I reviewed the patient's lab results. Lab Results 04/20/24 19:13: Chlamy pneumoniae PCR Not detected, Adenovirus (PCR) Not detected, B. pertussis DNA (PCR) Not detected, Coronavirus OC43 (PCR) Not detected, Coronavirus HKU1 (PCR) Not detected, Coronavirus 229E (PCR) Not detected, SARS-CoV-2 (PCR) Not detected, Coronavirus NL63 (PCR) Not detected, Human Metapneumovir PCR Not detected, Influenza A (H1) PCR Not detected, Influ A (H1N1/09) PCR Not detected, Influenza A (H3) PCR Not detected, Influenza Type A (PCR) Not detected, Influenza Type B (PCR) Not detected, M. pneumoniae (PCR) Not detected, Parainfluenza 1 (PCR) Not detected, Parainfluenza 2 (PCR) Not detected, Parainfluenza 3 (PCR) Not detected, Parainfluenza 4 (PCR) Not detected, RSV (PCR) Not detected, Entero/Rhino (PCR) Not detected 04/20/24 19:25: PT 11.9, INR 1.07, APTT 16.4 L, Sodium 134 L, Potassium 3.3 L, C hloride 97 L, Carbon Dioxide 29, Anion Gap 11.3, BUN 13, Creatinine 0.90, Estimated Creat Clear 49, Estimated GFR 62, Est GFR ( Amer) 74, Glucose 120 H, Lactate 1.8, Calcium 10.2, Magnesium 1.4 L, Total Bilirubin 1.0, AST 43 H , ALT 21, Alkaline Phosphatase 84, Lactate Dehydrogenase 416, Total Creatine Kinase < 20 L, Total Protein 5.9 L, Albumin 3.6, Globulin 2.3, Albumin/Globulin Ratio 1.6, HIV 1&2 Antibody Rapid Nonreactive 04/20/24 19:56: WBC 3.5 L, RBC 3.47 L, Hgb 9.9 L, Hct 30.4 L, MCV 87.5, MCH 28.6, MCHC 32.7, RDW 17.6 H, Plt Count 103 L, MPV 8.8, Neut % (Auto) 61.5, Lymph % (Auto) 27.6, Cros[place] % (Auto) 6.8, Eos % (Auto) 2.9, Baso % (Auto) 1.1, Neut # (Auto) 2.2, Lymph # (Auto) 1.0, [place] # (Auto) 0.2, Eos # (Auto) 0.1, Baso # (Auto) 0.0, Retic Count (auto) 2.1 04/20/24 22:12: Urine Color Yellow, Urine Appearance Clear, Urine pH 6.0, Ur Specific [place] 1.015, Urine Protein Trace, Urine Glucose (UA) Negative, Urine Ketones Negative, Urine Blood Negative, Urine Nitrate Negative, Urine Bilirubin Negative, Urine Urobilinogen 0.2, Ur Leukocyte Esterase Negative, Urine RBC 3-5, Urine WBC 3-5, Ur Squamous Epith Cells 5-10, Urine Bacteria 1+, Hyaline Casts 5- 10, Urine Mucus 1+ 04/21/24 06:05 04/21/24 06:05 Orders (Tests/Meds): ED MEDICATIONS Generic Name Dose Route Start Last Admin Trade Name Freq PRN Reason Stop Dose Admin Acetaminophen 1,000 mg 04/21/24 07:24 04/21/24 08:17 Acetaminophen 500mg Tab PO 05/21/24 07:23 1,000 mg Q6HP PRN Administration Fever or Mild Pain (1-3) Hydrocodone Bitart/Acetaminophen 1 tab 04/20/24 23:08 Hydrocodone/Apap 5/325 Mg Tablet PO 05/20/24 23:07 Q4HP PRN Mild to Moderate Pain (1-6) Albuterol/Ipratropium 3 ml 04/20/24 23:13 Ipratropium/Albuterol 3 Ml Neb IH 05/20/24 23:12 Q6HP PRN Shortness Of Breath Allopurinol 300 mg 04/21/24 09:00 04/21/24 08:14 Allopurinol 300mg Tablet PO 05/21/24 08:59 300 mg DAILY ATUL Administration Clonazepam 0.5 mg 04/21/24 21:00 Clonazepam 0.5mg Tablet PO 05/21/24 20:59 HS ATUL Docusate Sodium 100 mg 04/21/24 09:00 04/21/24 08:14 Docusate Sodium 100 Mg Capsule PO 05/21/24 08:59 100 mg DAILY ATUL Administration Doxycycline Hyclate 100 mg 04/21/24 09:00 04/21/24 08:14 Doxycycline Hycl 100 Mg Tablet PO 05/01/24 08:59 100 mg BID ATUL Administration Sodium Chloride 1,000 mls @ 100 mls/hr 04/20/24 23:15 04/21/24 09:56 Sod Chlor 0.9% 1000ml Bag IV 05/20/24 23:14 Not Given .Q10H ATUL Ceftriaxone Sodium 1 gm/ 50 mls @ 100 mls/hr 04/21/24 23:15 Sodium Chloride IV 05/01/24 23:14 Q24H ATUL Morphine Sulfate 2 mg 04/20/24 23:08 Morphine 2mg/Ml Syringe IV 05/20/24 23:07 Q4HP PRN Severe Pain (7-10) Ondansetron HCl 4 mg 04/20/24 23:08 Ondansetron 4mg/2ml Vial IV 05/20/24 23:07 Q8HP PRN Nausea Pantoprazole Sodium 40 mg 04/21/24 21:00 Pantoprazole 40mg Tablet PO 05/21/24 20:59 HS ATUL Pregabalin 25 mg 04/21/24 21:00 Pregabalin 25mg Capsule PO 05/21/24 20:59 HS ATUL Sodium Chloride 10 ml 04/20/24 23:08 Sodium Chloride 0.9% 10ml Flush Syringe IV 05/20/24 23:07 NEEDED PRN Maintain IV Site Sodium Chloride 3 ml 04/21/24 05:24 Sodium Chloride 3% 15ml Neb IH 05/21/24 05:23 ONCE PRN INDUCE SPUTUM COLLECTION Discontinued Medications Generic Name Dose Route Start Last Admin Trade Name Freq PRN Reason Stop Dose Admin Acetaminophen 1,000 mg 04/20/24 19:21 04/20/24 19:40 Acetaminophen 1,000mg/100ml Vial IV 04/20/24 19:22 1,000 mg ONCE ONE Administration Clonazepam 0.5 mg 04/21/24 00:15 04/21/24 00:19 Clonazepam 0.5mg Tablet PO 04/21/24 00:16 0.5 mg ONCE ONE Administration Cefepime HCl 2 gm/ Sodium 100 mls @ 200 mls/hr 04/20/24 19:19 04/20/24 21:15 Chloride IV 04/20/24 19:48 200 mls/hr ONCE ONE Administration Metronidazole 500 mg in 100 mls @ 100 mls/hr 04/20/24 19:19 04/20/24 21:11 Flagyl 500mg/100ml Ivpb IV 04/20/24 20:18 100 mls/hr ONCE ONE Administration Lactated Ringer's 1,000 mls @ 999 mls/hr 04/20/24 19:21 04/20/24 19:41 Lactated Ringer's 1000 Ml Bag IV 04/20/24 20:21 999 mls/hr .Q1H1M ONE Administration Vancomycin/PEG/NADA/Lysine/Water 1.25 gm in 250 mls @ 125 mls/hr 04/20/24 19:30 04/20/24 19:40 Vancomycin 1.25gm/250ml (Peg) Premix IV 04/20/24 21:29 125 mls/hr ONCE ONE Administration Lactated Ringer's 1,840 mls @ 920 mls/hr 04/20/24 20:50 04/20/24 21:11 Lactated Ringer's 1000 Ml Bag 30 ml/kg infuse over 2 hr (1840 ml) 04/20/24 22:49 920 mls/hr IV Administration .Q2H ONE Magnesium Sulfate 2 gm in 50 mls @ 50 mls/hr 04/20/24 23:13 04/20/24 23:34 Magnesium Sulfate 2gm/50ml Premix IV 04/21/24 00:12 50 mls/hr ONCE ONE Administration Iopamidol 100 ml 04/20/24 20:45 04/20/24 20:50 Iopamidol-370 (76%);100ml Bottle IV 04/20/24 20:46 100 ml ONCE ONE Administration Iopamidol 75 ml 04/21/24 08:49 04/21/24 08:50 Iopamidol-370 (76%);100ml Bottle IV 04/21/24 08:50 75 ml ONCE ONE Administration Ketorolac Tromethamine 15 mg 04/20/24 19:21 04/20/24 19:40 Ketorolac 30mg/Ml Vial IV 04/20/24 19:22 15 mg ONCE ONE Administration Miscellaneous 1 each 04/20/24 19:30 04/20/24 20:18 Vancomycin Consult Request NOTAPPLIC 05/20/24 19:29 Not Given CONSULT PHARMACY ATUL Potassium Chloride 40 meq 04/20/24 23:30 04/21/24 08:15 Potassium Chloride 20meq Tab PO 04/21/24 09:01 40 meq BID ATUL Administration Sodium Chloride 10 ml 04/20/24 20:45 04/20/24 20:50 Sodium Chloride 0.9% 10ml Syr (Rad Only) IV 05/20/24 20:44 10 ml NEEDED PRN Administration Maintain IV Site Sodium Chloride 10 ml 04/21/24 08:49 04/21/24 08:50 Sodium Chloride 0.9% 10ml Syr (Rad Only) IV 04/21/24 08:50 10 ml ONCE ONE Administration ORDERS Category Date Time Status CT head/brain wo/w con Stat Cat Scan 04/20/24 19:58 Completed CXR --portable [XR chest portable] Stat Exams 04/20/24 19:19 Completed Activated Partial Thrombo Time Stat Lab 04/20/24 19:25 Completed CK [Creatine Kinase] Stat Lab 04/20/24 19:25 Completed Complete Blood Count Auto Diff Stat Lab 04/20/24 19:56 Completed Comprehensive Metabolic Panel Stat Lab 04/20/24 19:25 Completed Full Resp Panel w/COVID ([facility]) Routine Lab 04/20/24 19:13 Completed HIV (1&2) Antibody Rapid Stat Lab 04/20/24 19:25 Completed Hep C Ab with Reflex to RNA Stat Lab 04/20/24 19:25 Received LDH [Lactate Dehydrogenase] Stat Lab 04/20/24 19:25 Completed Lactic Acid Stat Lab 04/20/24 19:25 Completed MAG [Magnesium] Stat Lab 04/20/24 19:25 Completed Prothrombin Time INR Stat Lab 04/20/24 19:25 Completed Reticulocyte % (Auto) Stat Lab 04/20/24 19:56 Completed Urinalysis and Microscopic Stat Lab 04/20/24 22:12 Completed Blood Culture Stat Micro 04/21/24 01:28 Received Tissue Perfus/Sepsis Re-Eval Sepsis Re-Evaluation Performed: Yes Date Performed: 04/20/24 Time Performed: 21:23 Medical Decision Narrative: In summary patient is a 73-year-old female who presents to the emergency department for evaluation of fever cough encephalopathy. Patient is presenting with a blood pressure of 113/55 heart rate of 121 respiratory rate of 22 temperature of 103.3 satting at 93% on room air upon arrival. Physical exam is remarkable for an awake and interactive but disoriented 73-year-old female who appears to be unwell. She can answer questions briefly but is not oriented to person place and circumstance currently. She has no nuchal rigidity she has full range of motion of her neck she can follow commands and pupils are equal round and reactive to light and accommodation. Breath sounds are clear and equal bilaterally to the bases abdomen is soft and nontender. Differential diagnosis includes sepsis meningitis stroke space-occupying lesion etc. Patient has a history of lymphoma and last received chemotherapy a month ago.. Initial workup will be conducted with hematologic labs CT scan of the head without contrast plain film chest x-ray blood cultures urinalysis full respiratory swab. Initial interventions include sepsis bolus triple antibiotics Tylenol Zofran. Initial workup reviewed by me shows that she has a white count of 3.5 hemoglobin hematocrit 9.9 and 30.4 respectively with an absolute neutrophil count of 2.2, CMP is significant for potassium 3.3 chloride 97 glucose of 120 magnesium of 1.4 CK of 20 with the remainder of her hematologic labs being nonactionable. My informal interpretation of CT scan of the head shows no acute processes and my informal interpretation of her chest x-ray again also shows no acute processes. There are lab test still pending including UA and respiratory panel.. Upon repeat evaluation after initial intervention patient is mentating back to baseline her fever has defervesced her heart rate is come down and she is oriented to person place but has no memory of events from earlier today with a Glascow coma score 15 currently. Given this because patient is immunocompromised and no definitive cause of fever has been identified as of yet I had interactive discussion with hospital medicine regarding patient management and she will be admitted for further evaluation and care. <Luis Ga MD - Last Filed: 04/21/24 15:46> Vital Signs: 04/20/24 19:06 04/20/24 19:46 04/20/24 20:03 Temperature 103.3 F H Temperature Source Oral Pulse Rate 121 H 119 H Pulse Rate [Right] 121 H Respiratory Rate 22 Blood Pressure 137/75 138/67 Blood Pressure [Right Arm] 113/55 L Blood Pressure Mean 92 91 Blood Pressure Mean [Right Arm] 74 Blood Pressure Source 02 Sat by Pulse Oximetry 93 L 98 92 L Oxygen Delivery Method 04/20/24 20:30 04/20/24 22:19 04/20/24 22:29 Temperature 98.1 F Temperature Source Oral Oral Pulse Rate 115 H 105 H Pulse Rate [Right] Respiratory Rate 20 Blood Pressure 113/55 L 114/72 Blood Pressure [Right Arm] Blood Pressure Mean 74 Blood Pressure Mean [Right Arm] Blood Pressure Source Automatic Cuff 02 Sat by Pulse Oximetry 94 L Oxygen Delivery Method Room Air Lab Data Lab Results 04/20/24 19:13: Chlamy pneumoniae PCR Not detected, Adenovirus (PCR) Not detected, B. pertussis DNA (PCR) Not detected, Coronavirus OC43 (PCR) Not detected, Coronavirus HKU1 (PCR) Not detected, Coronavirus 229E (PCR) Not detected, SARS-CoV-2 (PCR) Not detected, Coronavirus NL63 (PCR) Not detected, Human Metapneumovir PCR Not detected, Influenza A (H1) PCR Not detected, Influ A (H1N1/09) PCR Not detected, Influenza A (H3) PCR Not detected, Influenza Type A (PCR) Not detected, Influenza Type B (PCR) Not detected, M. pneumoniae (PCR) Not detected, Parainfluenza 1 (PCR) Not detected, Parainfluenza 2 (PCR) Not detected, Parainfluenza 3 (PCR) Not detected, Parainfluenza 4 (PCR) Not detected, RSV (PCR) Not detected, Entero/Rhino (PCR) Not detected 04/20/24 19:25: PT 11.9, INR 1.07, APTT 16.4 L, Sodium 134 L, Potassium 3.3 L, C hloride 97 L, Carbon Dioxide 29, Anion Gap 11.3, BUN 13, Creatinine 0.90, Estimated Creat Clear 49, Estimated GFR 62, Est GFR ( Amer) 74, Glucose 120 H, Lactate 1.8, Calcium 10.2, Magnesium 1.4 L, Total Bilirubin 1.0, AST 43 H , ALT 21, Alkaline Phosphatase 84, Lactate Dehydrogenase 416, Total Creatine Kinase < 20 L, Total Protein 5.9 L, Albumin 3.6, Globulin 2.3, Albumin/Globulin Ratio 1.6, HIV 1&2 Antibody Rapid Nonreactive 04/20/24 19:56: WBC 3.5 L, RBC 3.47 L, Hgb 9.9 L, Hct 30.4 L, MCV 87.5, MCH 28.6, MCHC 32.7, RDW 17.6 H, Plt Count 103 L, MPV 8.8, Neut % (Auto) 61.5, Lymph % (Auto) 27.6, [place] % (Auto) 6.8, Eos % (Auto) 2.9, Baso % (Auto) 1.1, Neut # (Auto) 2.2, Lymph # (Auto) 1.0, [place] # (Auto) 0.2, Eos # (Auto) 0.1, Baso # (Auto) 0.0, Retic Count (auto) 2.1 04/20/24 22:12: Urine Color Yellow, Urine Appearance Clear, Urine pH 6.0, Ur Specific [place] 1.015, Urine Protein Trace, Urine Glucose (UA) Negative, Urine Ketones Negative, Urine Blood Negative, Urine Nitrate Negative, Urine Bilirubin Negative, Urine Urobilinogen 0.2, Ur Leukocyte Esterase Negative, Urine RBC 3-5, Urine WBC 3-5, Ur Squamous Epith Cells 5-10, Urine Bacteria 1+, Hyaline Casts 5- 10, Urine Mucus 1+ Orders (Tests/Meds): ED MEDICATIONS Generic Name Dose Route Start Last Admin Trade Name Freq PRN Reason Stop Dose Admin Acetaminophen 1,000 mg 04/21/24 07:24 04/21/24 08:17 Acetaminophen 500mg Tab PO 05/21/24 07:23 1,000 mg Q6HP PRN Administration Fever or Mild Pain (1-3) Hydrocodone Bitart/Acetaminophen 1 tab 04/20/24 23:08 Hydrocodone/Apap 5/325 Mg Tablet PO 05/20/24 23:07 Q4HP PRN Mild to Moderate Pain (1-6) Albuterol/Ipratropium 3 ml 04/20/24 23:13 Ipratropium/Albuterol 3 Ml Neb 05/20/24 23:12 Q6HP PRN Shortness Of Breath Allopurinol 300 mg 04/21/24 09:00 04/21/24 08:14 Allopurinol 300mg Tablet PO 05/21/24 08:59 300 mg DAILY ATUL Administration Clonazepam 0.5 mg 04/21/24 21:00 Clonazepam 0.5mg Tablet PO 05/21/24 20:59 HS ATUL Docusate Sodium 100 mg 04/21/24 09:00 04/21/24 08:14 Docusate Sodium 100 Mg Capsule PO 05/21/24 08:59 100 mg DAILY ATUL Administration Doxycycline Hyclate 100 mg 04/21/24 09:00 04/21/24 08:14 Doxycycline Hycl 100 Mg Tablet PO 05/01/24 08:59 100 mg BID ATUL Administration Sodium Chloride 1,000 mls @ 100 mls/hr 04/20/24 23:15 04/21/24 09:56 Sod Chlor 0.9% 1000ml Bag IV 05/20/24 23:14 Not Given .Q10H ATUL Ceftriaxone Sodium 1 gm/ 50 mls @ 100 mls/hr 04/21/24 23:15 Sodium Chloride IV 05/01/24 23:14 Q24H ATUL Morphine Sulfate 2 mg 04/20/24 23:08 Morphine 2mg/Ml Syringe IV 05/20/24 23:07 Q4HP PRN Severe Pain (7-10) Ondansetron HCl 4 mg 04/20/24 23:08 Ondansetron 4mg/2ml Vial IV 05/20/24 23:07 Q8HP PRN Nausea Pantoprazole Sodium 40 mg 04/21/24 21:00 Pantoprazole 40mg Tablet PO 05/21/24 20:59 HS ATUL Pregabalin 25 mg 04/21/24 21:00 Pregabalin 25mg Capsule PO 05/21/24 20:59 HS ATUL Sodium Chloride 10 ml 04/20/24 23:08 Sodium Chloride 0.9% 10ml Flush Syringe IV 05/20/24 23:07 NEEDED PRN Maintain IV Site Sodium Chloride 3 ml 04/21/24 05:24 Sodium Chloride 3% 15ml Neb IH 05/21/24 05:23 ONCE PRN INDUCE SPUTUM COLLECTION Discontinued Medications Generic Name Dose Route Start Last Admin Trade Name Ravi PRN Reason Stop Dose Admin Acetaminophen 1,000 mg 04/20/24 19:21 04/20/24 19:40 Acetaminophen 1,000mg/100ml Vial IV 04/20/24 19:22 1,000 mg ONCE ONE Administration Clonazepam 0.5 mg 04/21/24 00:15 04/21/24 00:19 Clonazepam 0.5mg Tablet PO 04/21/24 00:16 0.5 mg ONCE ONE Administration Cefepime HCl 2 gm/ Sodium 100 mls @ 200 mls/hr 04/20/24 19:19 04/20/24 21:15 Chloride IV 04/20/24 19:48 200 mls/hr ONCE ONE Administration Metronidazole 500 mg in 100 mls @ 100 mls/hr 04/20/24 19:19 04/20/24 21:11 Flagyl 500mg/100ml Ivpb IV 04/20/24 20:18 100 mls/hr ONCE ONE Administration Lactated Ringer's 1,000 mls @ 999 mls/hr 04/20/24 19:21 04/20/24 19:41 Lactated Ringer's 1000 Ml Bag IV 04/20/24 20:21 999 mls/hr .Q1H1M ONE Administration Vancomycin/PEG/NADA/Lysine/Water 1.25 gm in 250 mls @ 125 mls/hr 04/20/24 19:30 04/20/24 19:40 Vancomycin 1.25gm/250ml (Peg) Premix IV 04/20/24 21:29 125 mls/hr ONCE ONE Administration Lactated Ringer's 1,840 mls @ 920 mls/hr 04/20/24 20:50 04/20/24 21:11 Lactated Ringer's 1000 Ml Bag 30 ml/kg infuse over 2 hr (1840 ml) 04/20/24 22:49 920 mls/hr IV Administration .Q2H ONE Magnesium Sulfate 2 gm in 50 mls @ 50 mls/hr 04/20/24 23:13 04/20/24 23:34 Magnesium Sulfate 2gm/50ml Premix IV 04/21/24 00:12 50 mls/hr ONCE ONE Administration Iopamidol 100 ml 04/20/24 20:45 04/20/24 20:50 Iopamidol-370 (76%);100ml Bottle IV 04/20/24 20:46 100 ml ONCE ONE Administration Iopamidol 75 ml 04/21/24 08:49 04/21/24 08:50 Iopamidol-370 (76%);100ml Bottle IV 04/21/24 08:50 75 ml ONCE ONE Administration Ketorolac Tromethamine 15 mg 04/20/24 19:21 04/20/24 19:40 Ketorolac 30mg/Ml Vial IV 04/20/24 19:22 15 mg ONCE ONE Administration Miscellaneous 1 each 04/20/24 19:30 04/20/24 20:18 Vancomycin Consult Request NOTAPPLIC 05/20/24 19:29 Not Given CONSULT PHARMACY ATUL Potassium Chloride 40 meq 04/20/24 23:30 04/21/24 08:15 Potassium Chloride 20meq Tab PO 04/21/24 09:01 40 meq BID ATUL Administration Sodium Chloride 10 ml 04/20/24 20:45 04/20/24 20:50 Sodium Chloride 0.9% 10ml Syr (Rad Only) IV 05/20/24 20:44 10 ml NEEDED PRN Administration Maintain IV Site Sodium Chloride 10 ml 04/21/24 08:49 04/21/24 08:50 Sodium Chloride 0.9% 10ml Syr (Rad Only) IV 04/21/24 08:50 10 ml ONCE ONE Administration ORDERS Category Date Time Status CT head/brain wo/w con Stat Cat Scan 04/20/24 19:58 Completed CXR --portable [XR chest portable] Stat Exams 04/20/24 19:19 Completed Activated Partial Thrombo Time Stat Lab 04/20/24 19:25 Completed CK [Creatine Kinase] Stat Lab 04/20/24 19:25 Completed Complete Blood Count Auto Diff Stat Lab 04/20/24 19:56 Completed Comprehensive Metabolic Panel Stat Lab 04/20/24 19:25 Completed Full Resp Panel w/COVID ([facility]) Routine Lab 04/20/24 19:13 Completed HIV (1&2) Antibody Rapid Stat Lab 04/20/24 19:25 Completed Hep C Ab with Reflex to RNA Stat Lab 04/20/24 19:25 Received LDH [Lactate Dehydrogenase] Stat Lab 04/20/24 19:25 Completed Lactic Acid Stat Lab 04/20/24 19:25 Completed MAG [Magnesium] Stat Lab 04/20/24 19:25 Completed Prothrombin Time INR Stat Lab 04/20/24 19:25 Completed Reticulocyte % (Auto) Stat Lab 04/20/24 19:56 Completed Urinalysis and Microscopic Stat Lab 04/20/24 22:12 Completed Blood Culture Stat Micro 04/21/24 01:28 Received Medical Decision Narrative: In summary patient is a 73-year-old female who presents to the emergency department for evaluation of fever cough encephalopathy. Patient is presenting with a blood pressure of 113/55 heart rate of 121 respiratory rate of 22 temperature of 103.3 satting at 93% on room air upon arrival. Physical exam is remarkable for an awake and interactive but disoriented 73-year-old female who appears to be unwell. She can answer questions briefly but is not oriented to person place and circumstance currently. She has no nuchal rigidity she has full range of motion of her neck she can follow commands and pupils are equal round and reactive to light and accommodation. Breath sounds are clear and equal bilaterally to the bases abdomen is soft and nontender. Differential diagnosis includes sepsis meningitis stroke space-occupying lesion etc. Patient has a history of lymphoma and last received chemotherapy a month ago.. Initial workup will be conducted with hematologic labs CT scan of the head without contrast plain film chest x-ray blood cultures urinalysis full respiratory swab. Initial interventions include sepsis bolus triple antibiotics Tylenol Zofran. Initial workup reviewed by me shows that she has a white count of 3.5 hemoglobin hematocrit 9.9 and 30.4 respectively with an absolute neutrophil count of 2.2, CMP is significant for potassium 3.3 chloride 97 glucose of 120 magnesium of 1.4 CK of 20 with the remainder of her hematologic labs being nonactionable. My informal interpretation of CT scan of the head shows no acute processes and my informal interpretation of her chest x-ray again also shows no acute processes. There are lab test still pending including UA and respiratory panel.. Upon repeat evaluation after initial intervention patient is mentating back to baseline her fever has defervesced her heart rate is come down and she is oriented to person place but has no memory of events from earlier today with a Glascow coma score 15 currently. Given this because patient is immunocompromised and no definitive cause of fever has been identified as of yet I had interactive discussion with hospital medicine regarding patient management and she will be admitted for further evaluation and care. I was consulted by the AKSHAT, and we discussed the complexity of the problems being addressed. I approved the treatment and management plan for this patient's care in the Emergency Department, thus performing a substantive portion of the medical decision making. Luis Ga MD Procedures <Luis Ga MD - Last Filed: 04/21/24 15:46> Limited Ultrasound Indication:: Ultrasound-guided line placement Indication: -Difficult access, altered mental status Identified structures: -Left radial and ulnar veins, left cephalic and basilic veins Location/access site: -Left basilic vein Vessel patency: -Patent Direct visualization? -Yes Impression: Successful placement of IV catheter in left basilic vein Images were not saved to permanent archive The study was technically adequate CPT Codes: Venipuncture: 56461-38 Age <3 yo: 05168-72 Age >3yo: 20728-91 Central line <5 yo: 83338-04 Central line >5 yo: 61260-49 This study was performed by me, and I personally interpreted all images/videos. Based on my clinical judgement, these images were adequate and did not necessitate further imaging Critical Care <JIMI Duque - Last Filed: 04/20/24 22:06> Critical Care Time Critical Care Time: Yes Attestation: On 04/20/24, the high probability of a clinically significant, sudden or life threatening deterioration of the following system: Cardiopulmonary, neurologic; required my full and direct attention, intervention and personal management. The time I documented below is in addition to time spent performing reported procedures but includes the following listed in this critical care notation. Total Time Total Critical Care Time: 30 <Luis Ga MD - Last Filed: 04/21/24 15:46> Total Time Total Critical Care Time: 45
--- NOTE | 2024-04-20 19:19 | XR_ITS ---
PROCEDURE INFORMATION: Exam: XR Chest Exam date and time: 04/20/2024 8:31 PM Age: 73 years old Clinical indication: Fever; Additional info: Fever, lymphoma TECHNIQUE: Imaging protocol: Radiologic exam of the chest. Views: 1 view. COMPARISON: CT CHEST W CON 03/02/2024 9:57 AM FINDINGS: Lungs: Low lung volumes with bronchovascular crowding. Platelike opacities in the left lower lobe most suggestive of subsegmental atelectasis. No focal consolidation. Pleural spaces: No pneumothorax. Trace left pleural effusion. Heart/Mediastinum: Cardiomediastinal silhouette is unremarkable for technique. Bones/joints: See Soft tissues finding. Soft tissues: Bilateral breast prostheses. No acute osseous or soft tissue abnormality. IMPRESSION: 1. Low lung volumes with bronchovascular crowding. Platelike opacities in the left lower lobe most suggestive of subsegmental atelectasis. No focal consolidation. 2. Trace left pleural effusion.
[2024-04-20 19:31] LABS: Adenovirus,PCR Not Detected (NotDetected); Bordetella Pertussis Not Detected (NotDetected); Chlamydophila Pneumoniae, PCR Not Detected (NotDetected); Coronavirus 19, PCR Not Detected (NotDetected); Coronavirus 229E Not Detected (NotDetected); Coronavirus NL63 Not Detected (NotDetected); Coronavirus OC43 Not Detected (NotDetected); Coronovirus HKU1,PCR Not Detected (NotDetected); Human Metapneumovirus Not Detected (NotDetected); Influenza A, PCR Not Detected (NotDetected); Influenza AH1, 2009 Not Detected (NotDetected); Influenza AH1, PCR Not Detected (NotDetected); Influenza AH3,PCR Not Detected (NotDetected); Influenza B, PCR Not Detected (NotDetected); Mycoplasma Pneumoniae, PCR Not Detected (NotDetected); Parainfluenza 1, PCR Not Detected (NotDetected); Parainfluenza 2, PCR Not Detected (NotDetected); Parainfluenza 3, PCR Not Detected (NotDetected); Parainfluenza 4, PCR Not Detected (NotDetected); Respiratory Syncytial Virus Not Detected (NotDetected); Rhinovirus/Enterovirus Not Detected (NotDetected)
[2024-04-20] MEDS: KETOROLAC 30MG/ML VIAL 15 MG IV (19:40)
[2024-04-20] MEDS: ACETAMINOPHEN 1,000MG/100ML VIAL 1000 MG IV (19:40)
[2024-04-20] MEDS: VANCOMYCIN/WATER FOR INJ (PEG) 1.25 GM/250 ML PIGGYBACK IV (19:40)
[2024-04-20] MEDS: LACTATED RINGERS 1000ML 1,000 ML 999 ML IV (19:41)
[2024-04-20 19:46] VITALS: BP 137/75; PULSE 121; O2SAT 98
[2024-04-20 19:46] LABS: Albumin Level 3.6 g/dl (3.5-5.0); Chloride 97 mmol/L (98-107); Potassium 3.3 mmoL/L (3.5-5.1); Sodium 134 mmol/L (136-145)
[2024-04-20 19:47] LABS: Lactic Acid 1.8 mmol/L (0.7-2.1)
[2024-04-20 19:48] LABS: Blood Urea Nitrogen 13 mg/dl (7-17); Creatinine Clearance Estimated 49 mL/min (50-200); Estimated Glomerular Filt Rate 62 ml/min (>60); GFR (African American) 74 ML/MIN (>60)
[2024-04-20 19:49] LABS: Alanine Aminotransferase 21 U/L (12-78); Albumin/Globulin Ratio 1.6 (1.1-1.8); Alkaline Phosphatase 84 U/L (38-126); Anion Gap 11.3 mEq/L (5-15); Aspartate Amino Transferase 43 U/L (14-36); Calcium 10.2 mg/dl (8.4-10.2); Carbon Dioxide 29 mmol/L (22.0-30.0); Globulin 2.3 g/dL (1.3-3.2); Glucose 120 mg/dl (74-100); Magnesium 1.4 mg/dl (1.6-2.3); Total Protein,Serum 5.9 g/dl (6.3-8.2)
--- NOTE | 2024-04-20 19:52 | PC.NURSE ---
Contacted Bora at [facility] in regards to a vancomycin consult. He said they'll take a look and let us know of any changes.
--- NOTE | 2024-04-20 19:58 | CT_ITS ---
PROCEDURE INFORMATION: Exam: CT Head Without And With Contrast Exam date and time: 04/20/2024 8:45 PM Age: 73 years old Clinical indication: Altered mental status/memory loss; Additional info: Lymphoma, AMS TECHNIQUE: Imaging protocol: Computed tomography of the head without and with contrast. Radiation optimization: All CT scans at this facility use at least one of these dose optimization techniques: automated exposure control; mA and/or kV adjustment per patient size (includes targeted exams where dose is matched to clinical indication); or iterative reconstruction. Contrast material: ISOVUE; Contrast volume: 100 ml; Contrast route: IV; COMPARISON: CT HEAD/BRAIN WO CON 03/11/2024 1:25 PM FINDINGS: Brain: Scattered hypoattenuation in the periventricular white matter similar to previous exam right greater than left hemispheres. No abnormal intra or extra-axial lesion demonstrated in the brain. Cerebral ventricles: No ventriculomegaly. Paranasal sinuses: Small mucous retention cyst present left maxillary sinus. Mastoid air cells: Visualized mastoid air cells are well aerated. Bones: Unremarkable. No acute fracture. Soft tissues: Unremarkable. Other findings: Normal post-contrast CT appearance for age. IMPRESSION: No visible acute intracranial abnormality. No abnormal enhancement.
[2024-04-20 20:02] LABS: Basophils % 1.1 % (0.1-2.0); Eosinophils # 0.1 K/mm3 (0.0-0.4); Eosinophils % 2.9 % (0.1-12.0); Hematocrit 30.4 % (37.0-47.0); Hemoglobin 9.9 g/dL (12.2-16.2); Lymphocytes % 27.6 % (10-50); Mean Corpuscular HGB Conc 32.7 g/dL (31.8-35.4); Mean Corpuscular Hemoglobin 28.6 pg (27.0-31.2); Mean Corpuscular Volume 87.5 fl (81-99); Mean Platelet Volume 8.8 fl (7.4-10.4); Monocytes # 0.2 K/mm3 (0.1-1.0); Monocytes % 6.8 % (1.7-9.3); Neutrophils # 2.2 K/mm3 (1.8-7.8); Neutrophils % 61.5 % (37.0-80.0); Platelet Count 103 K/mm3 (142-424); Red Blood Count 3.47 M/mm3 (4.20-5.40); Red Cell Distribution Width 17.6 % (11.5-17.5); Reticulocyte % (Auto) 2.1 % (0.9-3.2); White Blood Count 3.5 K/mm3 (4.8-10.8)
[2024-04-20 20:03] VITALS: BP 138/67; PULSE 119; O2SAT 92
--- NOTE | 2024-04-20 20:03 | PC.NURSE ---
Patient started on offrimev and LR at Bolus rate, once these are done the vancomycin at 125ml/hr will be started.
[2024-04-20 20:05] LABS: INR 1.07 (0.9-1.1); Prothrombin Time 11.9 seconds (10.1-12.5)
--- NOTE | 2024-04-20 20:09 | PC.NURSE ---
Vancomycin started at 125ml/hr with 250ml TBI, patient resting comfortably with family at bedside.
[2024-04-20 20:15] LABS: Activated Partial Thrombo Time 16.4 seconds (22.8-30.6)
[2024-04-20 20:20] LABS: Lactate Dehydrogenase 416 U/L (313-618)
[2024-04-20 20:30] VITALS: BP 113/55; PULSE 115; O2SAT 94
[2024-04-20] MEDS: SODIUM CHLORIDE 0.9% 10ML SYR (RAD ONLY) 10 ML IV (20:50)
[2024-04-20] MEDS: IOPAMIDOL-370 (76%);100ML BOTTLE 100 ML IV (20:50)
[2024-04-20] MEDS: LACTATED RINGERS 1000ML 1,840 ML 920 ML IV (21:11)
[2024-04-20] MEDS: METRONIDAZ/SOD CHL 500 MG/100 ML PIGGYBACK 100 MG IV (21:11)
[2024-04-20] MEDS: CEFEPIME HCL 2 GM in 0.9 % SODIUM CHLORIDE 100 ML IV (21:15)
[2024-04-20 21:20] LABS: Creatine Kinase < 20 U/L (30-135)
[2024-04-20 22:06] LABS: HIV (1&2) Antibody Rapid NONREACTIVE (NONREACTIVE)
[2024-04-20 22:16] LABS: Microscopic, Urine URINE MICROSCOPIC (MICROSCOPIC)
[2024-04-20 22:26] LABS: Appearance,Urine CLEAR (Clear); Bilirubin,Urine Negative (Negative); Blood, Urine Negative (Negative); Color,Urine YELLOW (Yellow); Glucose,Urine (UA) Negative (Negative); Ketones,Urine Negative (Negative); Leukocyte Esterase,Urine Negative (Negative); Nitrate,Urine Negative (Negative); Protein,Urine TRACE (Negative); Specific Gravity, Urine 1.015 (1.005-1.030); Urobilinogen,Urine 0.2 EU/dl (0.2)
[2024-04-20 22:29] VITALS: BP 114/72; PULSE 105; RESP 20; TEMP 36.7; O2SAT 98
[2024-04-20 22:38] LABS: Bacteria,Urine 1+ /lpf; Mucus,Urine 1+ /lpf
--- NOTE | 2024-04-20 23:17 | P.HP_ITS ---
History of Present Illness *Admission Date: 04/20/24 *Reason for visit:: Fever *History of present illness: This is a 73-year-old female who presents to [facility] emergency department at the request of her family for fever and delirium. The patient's past medical history significant for lymphoma with recent chemotherapy and outpatient oncology evaluations. She reports 2 to 3 days of weakness not improved with rest and home care. She reports an increased cough over the last 24 hours not improving. She reports no associated sputum production, hemoptysis or acute dyspnea at rest. She denies chest pain, palpitations, nausea, vomiting or diarrhea. She reports no abdominal pain or dysuria. She describes chills with some confusion and lack of energy. In the ED her Tmax was 103.3 with tachypnea, tachycardia and chest x-ray imaging concerning for pneumonia. [facility] Disclaimer: The information contained in this section may have been updated after the patient was seen, as this information can be updated by other users. Medical History Sensorineural hearing loss Lymphoma in remission Ear congestion Hearing loss . Otalgia Gastroesophageal reflux disease Hyperlipidemia (~06/11/18) Surgical History History of hammer toe correction History of bladder surgery History of hysterectomy Family History Other Alzheimer disease Ange disease Social History (Updated 04/20/24 @ 22:38 by Ml Paige RN) Smoking Status: Never smoker alcohol intake: former substance use type: denies use current occupational status: retired Travel in the last 8 weeks: None household members: spouse housing: house caffeine: Yes Other Medical History Have you received the Flu Vaccine for this season: Yes Have you received the Pneumonia Vaccine: No Review of Systems Review of Systems Review of systems:: pertinent systems reviewed and negative unless documented below Meds Home Medications and Allergies Home Medications ?Medication ?Instructions ?Recorded ?Confirmed ?Type tizanidine 4 mg tablet 4 mg PO HS 30 days ##60 02/09/18 04/20/24 History esomeprazole magnesium 40 mg 40 mg PO DAILY 09/28/21 04/20/24 History capsule,delayed release aspirin 81 mg tablet,delayed 81 mg PO DAILY #30 tabs 04/02/22 10/22/24 Rx release ubrogepant 100 mg tablet 100 mg PO DAILYP PRN Migraine 01/13/22 04/20/24 Rx Headache #20 tabs evolocumab 140 mg/mL subcutaneous 140 mg SQ Q2W 02/10/23 04/20/24 History pen injector (Nitish Campos) allopurinol 300 mg tablet 300 mg PO DAILY #30 tabs 02/26/24 04/20/24 Rx clonazepam 2 mg tablet 1 mg PO HS 04/06/24 04/20/24 History pregabalin 25 mg capsule 25 mg PO HS 04/20/24 04/20/24 History New Prescriptions to Start Prescriptions: Allergies Allergy/AdvReac Type Severity Reaction Status Date / Time Sulfa (Sulfonamide Allergy Mild Verified 04/06/24 10:42 Antibiotics) [SULFA (SULFONAMIDE ANTIBIOTICS)] Exam Data for Last 24 hours Vital signs and Labs for Last 24 Hours: Temp Pulse Resp BP Pulse Ox O2 Del Method 98.1 F 105 H 20 114/72 94 L Room Air 04/20/24 22:29 04/20/24 22:29 04/20/24 22:29 04/20/24 22:29 04/20/24 20:30 04/20/24 22:29 Laboratory Results - last 24 hr 04/20/24 19:13: Chlamy pneumoniae PCR Not detected, Adenovirus (PCR) Not detected, B. pertussis DNA (PCR) Not detected, Coronavirus OC43 (PCR) Not detected, Coronavirus HKU1 (PCR) Not detected, Coronavirus 229E (PCR) Not detected, SARS-CoV-2 (PCR) Not detected, Coronavirus NL63 (PCR) Not detected, Human Metapneumovir PCR Not detected, Influenza A (H1) PCR Not detected, Influ A (H1N1/09) PCR Not detected, Influenza A (H3) PCR Not detected, Influenza Type A (PCR) Not detected, Influenza Type B (PCR) Not detected, M. pneumoniae (PCR) Not detected, Parainfluenza 1 (PCR) Not detected, Parainfluenza 2 (PCR) Not detected, Parainfluenza 3 (PCR) Not detected, Parainfluenza 4 (PCR) Not detected, RSV (PCR) Not detected, Entero/Rhino (PCR) Not detected 04/20/24 19:25: PT 11.9, INR 1.07, APTT 16.4 L, Sodium 134 L, Potassium 3.3 L, Chloride 97 L, Carbon Dioxide 29, Anion Gap 11.3, BUN 13, Creatinine 0.90, Estimated Creat Clear 49, Estimated GFR 62, Est GFR ( Amer) 74, Glucose 120 H, Lactate 1.8, Calcium 10.2, Magnesium 1.4 L, Total Bilirubin 1.0, AST 43 H , ALT 21, Alkaline Phosphatase 84, Lactate Dehydrogenase 416, Total Creatine Kinase < 20 L, Total Protein 5.9 L, Albumin 3.6, Globulin 2.3, Albumin/Globulin Ratio 1.6, HIV 1&2 Antibody Rapid Nonreactive 04/20/24 19:56: WBC 3.5 L, RBC 3.47 L, Hgb 9.9 L, Hct 30.4 L, MCV 87.5, MCH 28.6, MCHC 32.7, RDW 17.6 H, Plt Count 103 L, MPV 8.8, Neut % (Auto) 61.5, Lymph % (Auto) 27.6, Starke % (Auto) 6.8, Eos % (Auto) 2.9, Baso % (Auto) 1.1, Neut # (Auto) 2.2, Lymph # (Auto) 1.0, Starke # (Auto) 0.2, Eos # (Auto) 0.1, Baso # (Auto) 0.0, Retic Count (auto) 2.1 04/20/24 22:12: Urine Color Yellow, Urine Appearance Clear, Urine pH 6.0, Ur Specific Parks 1.015, Urine Protein Trace, Urine Glucose (UA) Negative, Urine Ketones Negative, Urine Blood Negative, Urine Nitrate Negative, Urine Bilirubin Negative, Urine Urobilinogen 0.2, Ur Leukocyte Esterase Negative, Urine RBC 3-5, Urine WBC 3-5, Ur Squamous Epith Cells 5-10, Urine Bacteria 1+, Hyaline Casts 5- 10, Urine Mucus 1+ I & O for Last 24 hours: Intake & Output 04/17/24 04/18/24 04/19/24 04/20/24 23:59 23:59 23:59 23:59 Weight 61.235 kg Constitutional Constitutional: no acute distress and cooperative *Routine HEENT Exam Head: Present normocephalic Eye: Present EOMI, PERRL and conjunctivae pink ENT: Present mucous membranes moist *Routine Neck Exam Neck: Present supple and trachea midline; Absent lymphadenopathy *Routine Respiratory Exam Respiratory: Present rhonchi, normal respiratory effort and symmetric chest movement *Routine Cardiovascular Exam Cardiovascular: Present tachycardia *Routine Abdominal Exam Abdominal: Present soft and normoactive bowel sounds; Absent tenderness *Routine Rectal Exam Rectal:: deferred *Routine Genitalia Exam Genitalia:: deferred *Routine Extremities Exam Extremities: Present full ROM and pulses intact; Absent edema *Routine Skin Exam Skin: Present warm; Absent rash *Routine Neurological Exam Neurological: Present alert, oriented X3, moving all extremities, vision grossly intact, hearing grossly intact and normal speech; Absent sensory deficit, motor deficit, altered mental status or tremors Routine Psychiatric Exam Psychiatric: Present normal affect, normal thought process, cooperative, good insight and good judgment Assessment and Plan *Assessment and plan (1) Sepsis: Status: Acute Category: Medical Code(s): A41.9 - Sepsis, unspecified organism (2) Immunocompromised: Status: Acute Category: Medical Code(s): D84.9 - Immunodeficiency, unspecified (3) Bacterial pneumonia: Status: Acute Category: Medical Code(s): J15.9 - Unspecified bacterial pneumonia (4) Lymphoma in remission: Status: Acute Category: Medical Code(s): C85.90 - Non-Hodgkin lymphoma, unspecified, unspecified site Plan This is a 73-year-old female who presents to the emergency department with fever, lymphoma in remission with recent history of chemotherapy and cough. Problems addressed as follows: Sepsis, present on admission Febrile, tachycardia, tachypnea, source identified Immunocompromise state Acute metabolic encephalopathy-resolved Blood cultures pending IV fluid resuscitation with normal lactic acid CT head with no acute disease Trending labs and inflammatory markers IV antibiotic therapy Bacterial pneumonia Pulse oximetry monitoring Oxygen therapy to maintain appropriate oxygen saturations Currently oxygenating appropriately on room air Chest x-ray with concerns for pneumonia CT chest ordered Respiratory PCR negative for COVID, influenza and RSV Trending labs and inflammatory markers Blood cultures pending IV Rocephin P.o. doxycycline Meli/Rafa inhalation therapy as needed Incentive spirometry Lymphoma in remission Contact and droplet precautions Trending labs and imaging Replacing potassium and magnesium The length of stay for this patient will be 2 midnights or greater due to above diagnoses.
[2024-04-20] MEDS: 0.9 % SODIUM CHLORIDE 1000ML 1,000 ML 100 ML IV (23:34)
[2024-04-20] MEDS: MAGNESIUM SULFATE IN WATER 2 GM/50 ML PIGGYBACK IV (23:34)
[2024-04-21] VITALS (8 sets, daily range): BP systolic 88–128; BP diastolic 44–69; PULSE 80–132; RESP 14–20; TEMP 36.4–39.6; O2SAT 93–99; BMI 23.6; BMI 22.7
[2024-04-21] MEDS: POTASSIUM CHLORIDE 20MEQ TAB 40 MEQ PO ×2 (00:18→08:15)
[2024-04-21] MEDS: clonazePAM 0.5MG TABLET 0.5 MG PO ×2 (00:19→20:45)
--- NOTE | 2024-04-21 07:00 | CT_ITS ---
PROCEDURE INFORMATION: Exam: CT Chest With Contrast; Diagnostic Exam date and time: 04/21/2024 8:38 AM Age: 73 years old Clinical indication: Condition or disease; Other: Pneumonia , neutropenic; Additional info: Pneumonia and immunocompromised state TECHNIQUE: Imaging protocol: Diagnostic computed tomography of the chest with contrast. Radiation optimization: All CT scans at this facility use at least one of these dose optimization techniques: automated exposure control; mA and/or kV adjustment per patient size (includes targeted exams where dose is matched to clinical indication); or iterative reconstruction. Contrast material: ISOVUE; Contrast volume: 75 ml; Contrast route: IV; COMPARISON: CT CHEST W CON 03/02/2024 9:57 AM FINDINGS: Lungs: See Pleural spaces finding. Pleural spaces: No pneumothorax. Small bilateral pleural effusions with overlying passive atelectasis, [id number]-[id number]-gqdg-right. Few scattered 2-3 mm nodules in the bilateral lungs are unchanged. No new or enlarging pulmonary nodule. Heart: Normal heart size. No pericardial fluid. Mild coronary vessel atherosclerosis. Lymph nodes: Compared to 03/02/2024 increased prominence of multiple prominent bilateral lymph nodes, measuring up to 1.5 x 3.1 cm in the left axilla, 1.3 x 1.1 cm in the right axilla. Increased prominence of several mildly enlarged as well as a few new prevascular, paratracheal, precarinal, bilateral hilar lymph nodes. Vasculature: No large or central pulmonary embolus. Diaphragm: Yrctm-ug-ehogivpd hiatal hernia. Prior cholecystectomy. Partially imaged liver is unremarkable. Spleen: New splenomegaly (15.1 cm axial). Partially seen hypodense 7 x 7 mm nodule in the posterior lateral subcapsular spleen (image 71 series 2). Bones/joints: Unremarkable. No acute fracture. Soft tissues: Bilateral breast prostheses. 6 mm nodule in the posterolateral right breast on image 53 series 2. IMPRESSION: 1. Few tiny 2-3 mm nodules in the bilateral lungs are unchanged from the comparison. May be infectious or inflammatory. No new or enlarging pulmonary nodules or infiltrates on this study. 2. New trace right and small left pleural effusions, with overlying passive atelectasis in the left lower lobe. 3. There is diffuse increased lymphadenopathy in the bilateral axillae and mediastinum. No distinct hilar adenopathy. New splenomegaly. These are suggestive of a systemic infectious/inflammatory or lymphoproliferative disorder. Recommend correlation. 4. Partially seen 7 mm nodule attenuating at greater than fluid density in the posterior spleen is nonspecific. May be benign (for example hemangioma or hamartoma). Splenic infection/ microabscess is not excluded. Recommend correlation. Dedicated CT abdomen and pelvis recommended for complete evaluation. 5. 6 mm nodule in the posterolateral right breast. Nonspecific finding. May represent lymph node. Unless recently performed outpatient mammogram recommended for complete evaluation.
[2024-04-21 07:06] LABS: Basophils % 0.7 % (0.1-2.0); Eosinophils # 0.1 K/mm3 (0.0-0.4); Eosinophils % 2.6 % (0.1-12.0); Hematocrit 31.4 % (37.0-47.0); Hemoglobin 9.9 g/dL (12.2-16.2); Lymphocytes # 0.6 K/mm3 (0.7-4.5); Lymphocytes % 20.8 % (10-50); Mean Corpuscular HGB Conc 31.7 g/dL (31.8-35.4); Mean Corpuscular Hemoglobin 28.8 pg (27.0-31.2); Mean Platelet Volume 8.8 fl (7.4-10.4); Monocytes # 0.2 K/mm3 (0.1-1.0); Monocytes % 5.8 % (1.7-9.3); Neutrophils # 2.1 K/mm3 (1.8-7.8); Neutrophils % 70.2 % (37.0-80.0); Platelet Count 99 K/mm3 (142-424); Red Blood Count 3.45 M/mm3 (4.20-5.40); Red Cell Distribution Width 17.9 % (11.5-17.5)
[2024-04-21 07:31] LABS: Chloride 104 mmol/L (98-107); Potassium 3.5 mmoL/L (3.5-5.1); Sodium 137 mmol/L (136-145)
[2024-04-21 07:34] LABS: Anion Gap 11.5 mEq/L (5-15); Blood Urea Nitrogen 13 mg/dl (7-17); Calcium 9.6 mg/dl (8.4-10.2); Carbon Dioxide 25 mmol/L (22.0-30.0); Creatinine Clearance Estimated 51 mL/min (50-200); Estimated Glomerular Filt Rate 55 ml/min (>60); GFR (African American) 66 ML/MIN (>60); Glucose 96 mg/dl (74-100); Magnesium 2.1 mg/dl (1.6-2.3)
--- NOTE | 2024-04-21 07:41 | HMH.PHAINT1 ---
Pharmacy Intervention Comments: Home medications verified using list from pharmacy.
[2024-04-21] MEDS: ALLOPURINOL 300MG TABLET 300 MG PO (08:14)
[2024-04-21] MEDS: DOCUSATE SODIUM 100 MG CAPSULE PO (08:14)
[2024-04-21] MEDS: DOXYCYCLINE HYCL 100 MG TABLET PO ×2 (08:14→20:45)
[2024-04-21] MEDS: ACETAMINOPHEN 500MG TAB 1000 MG PO (08:17)
--- NOTE | 2024-04-21 08:44 | PC.NURSE ---
Addendum entered by Larisa Calvin RN 04/21/24 10:34: temperature recheck resulted 99.3 Original Note: tech notifed this rn of pt temperature of 103.2. pt medicated with tylenol per aug. will reassess temperature.
[2024-04-21] MEDS: SODIUM CHLORIDE 0.9% 10ML SYR (RAD ONLY) 10 ML IV (08:50)
[2024-04-21] MEDS: IOPAMIDOL-370 (76%);100ML BOTTLE 75 ML IV (08:50)
[2024-04-21 08:58] LABS: Procalcitonin 2.06 ng/mL (0.0-2.0)
--- OUTSIDE RECORDS SUMMARY | 2024-04-21 13:02 | XMS_ITS ---
Author Organization [facility] Address [address] [facility] [address] [facility] [address] [place] [address] Care Team Providers Care Trace Evidence Technician Name Role Phone Shikha Mann Primary Care Provider Matt Clark, Rajinder Unavailable Unavailable Isaak Donovan Unavailable [phone] REASON FOR VISIT NADIA/REFILL Medications Medication SIG (Take, Route, Frequency, Duration) Notes Start Date End Date Status KlonoPIN 1 mg 1 tab(s) orally 2 ti mes a day as needed for 30 days 04/12/2024 Active Encounters Encounter Location Date Provider Diagnosis [facility] [address] [place] [address] [facility] [address] [place] [address] 04/12/2024 Isaak Donovan Chronic insomnia F51.04 Assessments Encounter Date Diagnosis (ICD Code) Assessment Notes Treatment Notes Treatment Clinical Notes 04/12/2024 Chronic insomnia (ICD-10 - F51.04) Plan Of Treatment Medication Medication Name Sig Start Date Stop Date Notes KlonoPIN 1 mg 1 tab(s) orally 2 ti mes a day as needed for 30 days 04/12/2024 Progress Notes * Ranjan VIVASgailDOB:1950 ( 73 yo F)Acc No.[id number]:04/12/2024 Patient:?Maame VIVAS :1950???Age:73 Y???Sex:Female Address:[address] [place], [address] * Refills? Refill KlonoPIN tablet, 1 mg, orally, 60, 1 tab(s), 2 times a day as needed, 30 days, Refills=2 * true * Date:? Generated for Maren goodman/Jim/Mansiitting on:?04/21/2024 01:02 PM EDT
--- OUTSIDE RECORDS SUMMARY | 2024-04-21 13:02 | XMS_ITS ---
Author Organization [facility] Address [address] [facility] [address] [facility] [address] [place] [address] Care Team Providers Care Board Writer Name Role Phone Mackenzie Shikha Primary Care Provider [phone] Matt Clark, Rajinder Unavailable Unavailable Medications Medication SIG (Take, Route, Frequency, Duration) Notes Start Date End Date Status amoxicillin-clavulanate 875 mg-125 mg 1 tab(s) orally every 12 hours for 10 days 04/20/2024 Active Encounters Encounter Location Date Provider Diagnosis [facility] [address] [place] [address] [facility] [address] [place] [address] 04/20/2024 Shikha Mackenzie Plan Of Treatment Medication Medication Name Sig Start Date Stop Date Notes amoxicillin-clavulanate 875 mg-125 mg 1 tab(s) orally every 12 hours for 10 days 04/20/2024 Progress Notes * Ranjan VIVASgailDOB:1950 ( 73 yo F)Acc No.[id number]:04/20/2024 Patient:?Maame VIVAS :1950???Age:73 Y???Sex:Female Address:[place], [address] * Refills? Start amoxicillin-clavulanate tablet, 875 mg-125 mg, orally, 20, 1 tab(s), every 12 hours, 10 days, Refills=0 * true * Date:? Generated for Printi ng/Jim/Mansiitting on:?04/21/2024 01:02 PM EDT
--- OUTSIDE RECORDS SUMMARY | 2024-04-21 13:03 | XMS_ITS | Patient Health Record ---
Author Organization [facility] Address [address] [facility] [address] [place] [address] Care Team Providers Care Gear Room Keeper Name Role Phone Ila Vines Unavailable [phone] Reason For Referral No Information Medications Medication SIG (Take, Route, Fr equency, Duration) Notes Start Date End Date Status Estradiol 0.5 MG 1 tablet Orally Once a day for 90 days 08/17/2021 Active Problems Problem Type SNOMED Code ICD Code Onset Dates Problem Status W/U Status Risk Notes Problem Gynecological examination normal ([id number] ) Cervical smear, as part of routine [...]
--- OUTSIDE RECORDS SUMMARY | 2024-04-21 13:03 | XMS_ITS | Patient Health Record ---
Author Organization [facility] Address [address] [place] [address] Care Team Providers Care Substitute Crossing Guard Name Role Phone Shikha Mann Primary Care Provider Matt Clark, Rajinder Unavailable Unavailable Isaak Donovan Unavailable [phone] Allergies Allergen (clinical drug ingredient) Drug/Non Drug Allergy documented on EMR Reaction Allergy Type Onset Date Status sulfa (uncoded) vagina swelling Allergy Active Results Component Value Reference Range Notes M-Complete Blood [...] 23-300 U/L LIPID PANEL, STANDARD (7600) Reviewed date:09/23/2023 05:02:22 PM Interpretation: Performing Lab:[facility], [facility] [id number] [id number] [place] Notes/Report: NON-FASTING FASTING:YES FASTING: YES CHOLESTEROL, TOTAL 176 <200 mg/dL HDL CHOLESTEROL 81 > OR = 50 mg/dL TRIGLYCERIDES 239 <150 mg/dL If a non-fasting specimen was collected, consider repeat triglyceride testing on a fasting specimen if clinically indicated. Jann et al. J. of Clin. Lipidol. 2015;9:129-169. LDL-CHOLESTEROL 65 <70 mg/dL for patients with CHD or diabetic patients with > or = 2 CHD risk factors. LDL-C is now calculated using the aGrett calculation, which is a validated novel method providing better accuracy than the Friedewald equation in the estimation of LDL-C. Carlos ROSALES et al. [place]. 2013;310(19): 5513-8748 (http://education.PlayScape.com/faq/IEB518) Reference range: <100 Desirable range <100 mg/dL for primary prevention; CHOL/HDLC RATIO 2.2 <5.0 (calc) NON HDL CHOLESTEROL 95 <130 mg/dL (calc) For patients with diabetes plus 1 major ASCVD risk factor, treating to a non-HDL-C goal of <100 mg/dL (LDL-C of <70 mg/dL) is considered a therapeutic option. 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 Referral Priority Routine Medications Medication SIG (Take, Route, Frequency, Duration) Notes Start Date End Date Status amoxicillin-clavulana te 875 mg-125 mg 1 tab(s) orally every 12 hours for 10 days 04/20/2024 Active Aspirin Low Dose 81 mg 1 tab(s) orally once a day Active Repatha Prefilled Syringe 140 mg/mL as directed subcutaneously every 2 weeks Active KlonoPIN 1 mg 1 tab(s) orally 2 ti mes a day as needed for 30 days 04/12/2024 Active esomeprazole 40 mg 1 cap(s) orally once a day for 90 days 04/28/2023 Active Ubrelvy 100 mg 1 tab(s) orally once as needed for migraine for 30 days 04/04/2022 Active Cipro 250 mg 1 tab(s) orally ever y 12 hours for 7 days 04/06/2024 Active pregabalin 25 mg 1-2 caps orally at bedtime for 30 days 04/12/2024 Active predniSONE 20 mg 2 tabs orally once a day not on rt now Active potassium chloride 20 mEq 2 tabs orally once a day Active Immunizations Vaccine Route Administration Date Status Comme nts Fluzone High Dose IM Intramuscular 04/12/2024 Administered Social History Tobacco Use: Social History Observation Description Date Details (start date - stop date) Never Smoker NA - NA Smoking: Question Answer Notes Are you a: nonsmoker Problems Problem Type SNOMED Code ICD Code Onset Dates Problem Status W/U Status Risk Notes Problem 780619245 Hypomagnesemia (E83.42) Active confirmed Problem 15636702 Hypercalcemia (E83.52) Active confirmed Problem 32032562 Anxiety (F41.9) Active confirmed Problem Urinary frequency (598853803) Urinary frequency (R35.0) Active confirmed Problem Urinary tract infection (18805710) Urinary tract infection (N39.0) Active confirmed Problem 183077091 Coronary artery disease involving [place] coronary artery of [place] heart without angina pectoris (I25.10) Active confirmed Problem 674866642 Chronic insomnia (F51.04) Active confirmed Problem 65927202 Situational depression (F43.21) Active confirmed Problem 89010712 Dysphagia, unspecified type (R13.10) Active confirmed Problem 472416122 Schatzki's ring (K22.2) Active confirmed Problem Atherosclerotic heart disease of [place] coronary artery without angina pectoris (152141219447761) 2-vessel coronary artery disease (I25.10) Active confirmed Problem Arthritis of both knees (0013779990549434) Arthritis of both knees (M17.0) Active confirmed Problem 301137508082140 Episodic migrain e (G43.909) Active confirmed Problem 123413239 Chronic migraine with aura (G43.109) Active confirmed Problem 652465235848618 Peripheral T gabriella l lymphoma of lymph nodes of multiple sites (C84.48) Active confirmed Problem Non-Hodgkin lymphoma (847327921) Lymphoma, unspecified body region, unspecified lymphoma type (C85.90) Active confirmed Vital Signs Heart Rate 98 /min 04/12/2024 Temperature 97.6 degrees Fahrenheit 04/12/2024 Blood pressure diastolic 58 mm Hg 04/12/2024 Height 5 ft 4 in in 04/12/2024 Blood pressure systolic 96 mm Hg 04/12/2024 Weight 132.8 lbs 04/12/2024 BMI 22.79 kg/m2 04/12/2024 Encounters Encounter Location Date Provider Diagnosis [facility] [address] [facility] [address] [place], [place] [address] 09/22/2023 Shikha Mann [facility] [address] [facility] [address] [place], [place] [address] 07/03/2023 Shikha Mann Chronic nausea R11.0 [facility] [address] [facility] [address] [place], [place] [address] 11/08/2023 Shikha Mann Peripheral T cell lymphoma of lymph nodes of multiple sites C84.48 and Situational depression F43.21 [facility] [address] [facility] [address] [place] [address] 02/24/2024 Shikha Mann Peripheral T cell lymphoma of lymph nodes of multiple sites C84.48 ; Situational depression F43.21 ; Hospital discharge follow-up Z09 ; Hypokalemia E87.6 ; Hypomagnesemia E83.42 and Episodic migraine G43.909 [facility] [address] [facility] [address] [place], [place] [address] 04/12/2024 Shikha Mann Peripheral T cell lymphoma of lymph nodes of multiple sites C84.48 ; Episodic migraine G43.909 ; Peripheral neuropathic pain M79.2 ; Encounter for immunization Z23 ; Chronic insomnia F51.04 ; Anxiety F41.9 and Acute UTI N39.0 [facility] [address] [facility] [address] [place] [address] 04/28/2023 Shikha Cartyence [facility] [address] [place] [address] 08/20/2023 Shikha Cartyence [facility] [address] [facility] [address] [place] [address] 09/16/2023 Shikha Mann Coronary artery dise ase involving [place] coronary artery of [place] heart without angina pectoris I25.10 [facility] [address] [place] [address] 01/05/2024 Shikha Mackenzie [facility] [address] [place] [address] 01/06/2024 Shikha Mackenzie [facility] [address] [place] [address] 04/05/2024 Shikha Mackenzie [facility] [address] [place] [address] 04/06/2024 Shikha Mackenzie [facility] [address] [place] [address] 04/12/2024 Isaak Donovan Chronic insomnia F51 .04 [facility] [address] [place] [address] 04/20/2024 Shikha Cartyence Assessments Encounter Date Diagnosis (ICD Code) Assessment Notes Treatment Notes Treatment Clinical Notes 07/03/2023 Chronic nausea (ICD-10 - R11.0) Stable and has rebounded some since completing chemotherapy. I recommended that she hold her meloxicam for the next couple of weeks and see if this helps her nausea. Continue PPI. She has follow-up with her sales mgr in July and will discuss with her if symptoms or not proved. Recommend labs today to rule out any acute abnormalities with her liver, kidney, pancreatic enzymes. 09/16/2023 Coronary artery disease involving [place] coronary artery of [place] heart without angina pectoris (ICD-10 - I25.10) [...] be causing some side effects as well. 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) trial of low dose Lyrica 02/24/2024 Hospital discharge follow-up (ICD-10 - Z09) records reviewed 02/24/2024 Hypokalemia (ICD-10 - E87.6) 04/12/2024 Encounter for immunization (ICD-10 - Z23) 04/12/2024 Chronic insomnia (ICD-10 - F51.04) continue clonazepam at HS and during the day as needed for anxiety, NADIA appropriate, in the past prescribed by her neurologist 02/24/2024 Hypomagnesemia (ICD-10 - E83.42) 02/24/2024 Episodic migraine (ICD-10 - G43.909) 04/12/2024 Anxiety (ICD-10 - F41.9) 04/12/2024 Acute UTI (ICD-10 - N39.0) complete cipro and will bring specimen if symptoms return Plan Of Treatment Pending Test Test Name Order Date M-Parathyroid Hormone Intact 03/09/2022 M-Vitamin D 25 Hydroxy 03/09/2022 Insurance Providers Payer Name Payer Address Payer Phone Subscriber Number Group Number Insured Name Patient Relationship to Insured Coverage Start Date Coverage End Date [place] [address] [place] [address] [id number] Maame Khan Self - patient is the insured [facility] [address] [place] [address] [phone] [id number] Jim Khan Spouse - patient is the spouse of the insured Medical (General) History Medical History History ICD Code Acute IA 09/2021 HTN, HLD Common salts diarrhea following cholecys tectomy Migraines, ocular, followed by Dr Gisell martínez in [facility] - followed by Dr Vines. Esophageal strictures, managed by Dr Sandra munoz. Colonoscopy with him as well. Lymphoma Surgical History Surgery Date(Month/Year) cholecystectomy 2014 AMP repair with bladder lift 2001 Total hysterectomy 1992 Cardiac Stent x 1 2021 Hammer toe surgery 2009 T and A 1956 Hospitalization History Reason Date(Month/Year) [facility] 01/2024 childbirth x 2 surgeries 1992, 2021 2001
--- OUTSIDE RECORDS SUMMARY | 2024-04-21 13:03 | XMS_ITS ---
Author Organization [facility] Address [address] [place] [address] Care Team Providers Care Director Of Campus Recreation Name Role Phone Shikha Mann Primary Care Provider Matt Clark, Rajinder Unavailable Unavailable Allergies Allergen (clinical drug ingredient) Drug/Non Drug Allergy documented on EMR Reaction Allergy Type Onset Date Status sulfa (uncoded) vagina swelling Allergy Active REASON FOR VISIT Bladder Infection, needs CSA, flu shot Medications Medication SIG (Take, Route, Frequency, Duration) Notes Start Date End Date Status Ubrelvy 100 mg 1 tab(s) orally once as needed for migraine for 30 days 04/04/2022 Active Cipro 250 mg 1 tab(s) orally ever y 12 hours for 7 days 04/06/2024 Active pregabalin 25 mg 1-2 caps orally at bedtime for 30 days 04/12/2024 Active potassium chloride 20 mEq 2 tabs orally once a day Active Aspirin Low Dose 81 mg 1 tab(s) orally once a day Active Repatha Prefilled Syringe 140 mg/mL as directed subcutaneously every 2 weeks Active esomeprazole 40 mg 1 cap(s) orally once a day for 90 days 04/28/2023 Active KlonoPIN 1 mg 1 tab(s) orally 2 ti mes a day as needed for 30 days Active predniSONE 20 mg 2 tabs orally once a day not on rt now Active Immunizations Vaccine Route Administration Date Status Comme nts Fluzone High Dose IM Intramuscular 04/12/2024 Administered Social History Tobacco Use: Social History Observation Description Date Details (start date - stop date) Never Smoker NA - NA Smoking: Question Answer Notes Are you a: nonsmoker Problems Problem Type SNOMED Code ICD Code Onset Dates Problem Status W/U Status Risk Notes Problem 661231576 Chronic insomnia (F51.04) Active confirmed Problem 22829350 Anxiety (F41.9) Active confirmed Vital Signs Temperature 97.6 degrees Fahrenheit 04/12/20 24 Blood pressure systolic 96 mm Hg 04/12/20 24 Blood pressure diastolic 58 mm Hg 024 Heart Rate 98 /min 04/12/2024 Height 5 ft 4 in in 04/12/2024 Weight 132.8 lbs 04/12/2024 BMI 22.79 kg/m2 04/12/2024 Encounters Encounter Location Date Provider Diagnosis 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 (ICD-10 - C84.48) has ongoing FU with oncology 04/12/2024 Episodic migraine (ICD-10 - G43.909) ubrelvy as needed 04/12/2024 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.2) trial of low dose Lyrica 04/12/2024 Encounter for immunization (ICD-10 - Z23) 04/12/2024 Chronic insomnia (ICD-10 - F51.04) continue clonazepam at HS and during the day as needed for anxiety, NADIA appropriate, in the past prescribed by her neurologist 04/12/2024 Anxiety (ICD-10 - F41.9) 04/12/2024 Acute UTI (ICD-10 - N39.0) complete cipro and will bring specimen if symptoms return Plan Of Treatment Medication Medication Name Sig Start Date Stop Date Notes pregabalin 25 mg 1-2 caps orally at bedtime for 30 days KlonoPIN 1 mg 1 tab(s) orally 2 ti mes a day as needed for 30 days Treatment Notes Assessment Notes Peripheral T cell lymphoma o f lymph nodes of multiple sites has ongoing FU with oncology Next Appt Details Follow Up: 3 Months,luizRiddhi son: Progress Notes * Maame VIVASDOB:1950 ( 73 yo F)Acc No.[id number]:04/12/2024 Progress Notes Patient:?Maame VIVAS Provider:?FIFI Prieto :1950???Age:73 Y???Sex:Female D ate:04/12/2024 Address:[address] [place] [address] [id number] Subjective: * Chief Complaints: * ???1. Bladder Infection, nee ds CSA. 2. Flu shot. * HPI: ???gen:? 73-year-old female with lymphoma, managed by oncology here at [facility], presents to follow-up on recent urinary tract symptoms. She is improving with Cipro, tolerating well. Unfortunately continues to have a lot of issues from a malignancy and treatment standpoint. Her imaging has improved significantly with respect to size of adenopathy but she has a diffuse rash on her trunk. Has an appointment next week for biopsy and will follow-up with oncology again when those results are available. Still has a very poor appetite, lots of nausea despite being off of treatment for few weeks. Her mucositis symptoms did finally resolved. Her hands are both peeling but improving. She is most bothered by severe pain in her arms, from her fingertips to the elbows bilaterally, worse at night. Her neurologist did upper extremity nerve conduction studies a few months ago which did confirm the presence of some neuropathy here. He gave her a trial of gabapentin but she reports that this made me crazy and she was up doing things during the night that she was not aware of. She has used some topical Voltaren gel without much relief. * ROS:?CONSTITUTIONAL:?See HPI?Yes.?DERMATOLOGY:?Rash?yes.?GASTROENTEROLOGY:?no?Vomiting.?no?Diarrhea.?UROLOGY:?no?Difficulty urinating.? * Medical History:?Acute OR 2021, HTN, HLD, Common salts diarrhea following cholecystectomy, Migraines, ocular, followed by Dr Manuel in [facility], HRT - followed by Dr Vines., Esophageal strictures, managed by Dr Antonio. Colonoscopy with him as well., Lymphoma. * Surgical History:?cholecyste ctomy 2014, AMP repair with bladder lift 2001, Total hysterectomy 1992, Cardiac Stent x 1 2021, Hammer toe surgery 2008, T and A 195. * Hospitalization/Major Diagno stic Procedure:?surgeries 1992, 2021 2001, childbirth x 2 , H 01/2024. * Family History:?Father: dece ased, [place]'s disease.?Mother: , Alzheimer's dementia.?Paternal Grand Father: .?Paternal Grand Mother: .?Maternal Grand Father: .?Maternal Grand Mother: .?Paternal uncle: .?Paternal aunt: .?Maternal uncle: .?Maternal aunt: .?Siblings: alive, brother and sister -[place]'s.?Children: alive.?2 sister(s) - healthy. 2 son(s) - healthy. .? * Social History:?Smoking?Are you a:?nonsmoker.?Recreational drug use: no. Exercise: no. Home smoke detector use: yes. Caffeine: yes, frequency:tea daily. Living Will: Yes. Alcohol: socially. Sexually active: no. Travel outside [place]: no. Occupation: Retired. * Medications:?Taking potassiu m chloride 20 mEq tablet, extended release 2 tabs orally once a day , Taking predniSONE 20 mg tablet 2 tabs orally once a day , Notes to Pharmacist: not on rt now, Taking Repatha Prefilled Syringe 140 mg/mL solution as directed subcutaneously every 2 weeks , Taking Aspirin Low Dose 81 mg delayed release tablet 1 tab(s) orally once a day , Taking esomeprazole 40 mg delayed release capsule 1 cap(s) orally once a day , Taking KlonoPIN 1 mg tablet 1 tab(s) orally 2 times a day as needed , Taking Ubrelvy 100 mg tablet 1 tab(s) orally once as needed for migraine , Taking Cipro 250 mg tablet 1 tab(s) orally every 12 hours , Discontinued hydrOXYzine hydrochloride 25 mg tablet 1 tab(s) orally at bedtime as needed for itching , Medication List reviewed and reconciled with the patient * Allergies:?Sulfa: Vagina Swe lling. Objective: * Vitals:?Nurse: crystal, Pain: 10- bones, muscles, Temp: 97.6, RR: 20, HR: 98, BP: 96/58, Ht: 5 ft 4 in, Wt: 132.8, BMI:22.79. * Examination: ???General Examination: ?General?Pleasant and Cooperative, NAD on RA,.?Oral cavity:?Moist membranes.?Heart:?Regular Rate and Rhythm, no murmur, rubs or gallops.?Lungs:?clear to auscultation,.?Abdomen:?soft, NT/ND, BS present.?Neurologic Exam:?Alert and oriented x 3.?Skin:?erythematous to ruborish rash on extremities and abdomen, visible but not palpable.?Extremities:?trace edema bilat ankles.?Psych?Depressed Affect.? Assessment: * Assessment: 1.?Peripheral T cell lymphom a of lymph nodes of multiple sites - C84.48 (Primary)???2.?Episodic migraine - G43.909???3.?Peripheral neuropathic pain - M79.2???4.?Encounter for immunization - Z23???5.?Chronic insomnia - F51.04???6.?Anxiety - F41.9???7.?Acute UTI - N39.0??? Plan: * Treatment: 2.?Episodic migraine? Clinical Notes: ubrelvy as needed?? 3.?Peripheral neuropathic pa in? Start pregabalin capsule, 25 mg, 1-2 caps, orally, at bedtime, 30 days, 60, Refills 2.?? Clinical Notes: trial of low dose Lyrica?? 4.?Chronic insomnia? Refill KlonoPIN tablet, 1 mg, 1 tab(s), orally, 2 times a day as needed, 30 days, 60, Refills 0.?? Clinical Notes: continue clonazepam at HS and during the day as needed for anxiety, NADIA appropriate, in the past prescribed by her neurologist?? 5.?Acute UTI? Clinical Notes: complete cipro and will bring specimen if symptoms return?? * Immunizations:? Fluzone High Dose : 0.5 mL (Dose No:1) (Route: Intramuscular) given by SLIME Clark on Left Deltoid * Procedure Codes:?29950 Influ lucy High Dose Vaccine >65 Years Old, G0008 ADMINISTRATION-FLU VACCINE MEDICARE ONLY * Follow Up:?3 Months,prn * * Sign off status: Completed true * Provider:?FIFI Prieto Date:? 04/12/2024 Generated for Maren goodman/Jim/eTransmitting on:?04/21/2024 01:02 PM EDT History and Physical Notes * Examination Category Sub-Category Detail Notes General Examination Heart: Regular Rate and Rhythm, no murmur, rubs or gallops Lungs: clear to auscultatio n, Abdomen: soft, NT/ND, BS pres ent Extremities: trace edema bilat an kles Skin: erythematous to rubo rish rash on extremities and abdomen, visible but not palpable Neurologic Exam: Alert and oriented x 3 Oral cavity: Moist membranes General Pleasant and Coopera tive, NAD on RA, Psych Depressed Affect
--- NOTE | 2024-04-21 14:26 | P.PN_ITS ---
Subjective *Date: 04/21/24 *Time: 14:26 Interval history: Still having a cough this morning. Stable on room air. Fever to [address] chest obtained this morning, formal read still pending. No nausea or vomiting. Alert and oriented x 4 Medical Exam Vital signs and Labs for Last 24 Hours: Vital Signs Temp Pulse Pulse Resp BP BP Pulse Ox 04/21/24 12:56 04/21/24 12:00 97.5 F L 90 16 105/58 L 95 04/21/24 11:00 04/21/24 09:00 04/21/24 08:00 103.2 F H 132 H 20 113/44 L 97 04/21/24 08:00 130 H 04/21/24 06:48 04/21/24 05:00 04/21/24 04:00 97.6 F 90 18 128/69 99 04/21/24 03:00 04/21/24 01:00 04/21/24 00:00 98.5 F 80 14 98/52 L 93 L 04/20/24 23:00 04/20/24 22:29 98.1 F 105 H 20 114/72 04/20/24 20:30 115 H 113/55 L 94 L 04/20/24 20:03 119 H 138/67 92 L 04/20/24 19:46 121 H 137/75 98 04/20/24 19:06 103.3 F H 121 H 22 113/55 L 93 L O2 Del Method 04/21/24 12:56 Room Air 04/21/24 12:00 Room Air 04/21/24 11:00 Room Air 04/21/24 09:00 Room Air 04/21/24 08:00 Room Air 04/21/24 08:00 Room Air 04/21/24 06:48 Room Air 04/21/24 05:00 Room Air 04/21/24 04:00 Room Air 04/21/24 03:00 Room Air 04/21/24 01:00 Room Air 04/21/24 00:00 Room Air 04/20/24 23:00 Room Air 04/20/24 22:29 Room Air 04/20/24 20:30 04/20/24 20:03 04/20/24 19:46 04/20/24 19:06 Intake and Output 04/20/24 04/21/24 04/21/24 23:59 07:59 15:59 Intake Total 300 / 1663 1363 / 1663 Output Total 0 / 0 0 / 0 Balance 300 / 1663 1363 / 1663 Intake: Intake, Oral Amount 570 / 570 Intake, Total IV Amount 300 / 1093 793 / 1093 0.9 % Sodium Chloride 1000ML 1, 793 / 793 000 ml @ 100 mls/hr IV .Q10H [facility] Rx#:[id number] Magnesium Sulfate in Water 2 gm 50 / 50 In 50 ml @ 50 mls/hr IV ONCE ONE Rx#:[id number] Vancomycin/Water For Inj (Peg) 250 / 250 1.25 gm In 250 ml @ 125 mls/hr IV ONCE ONE Rx#:[id number] Output: Output, Urine Amount 0 / 0 0 / 0 Other: Number of Unmeasured Voids 1 1 Number of Bowel Movements 1 1 Weight 61.235 kg 62.913 kg 60.5 kg Patient Weight 04/21/24 23:59 Weight 60.5 kg Laboratory Results - last 24 hr 04/20/24 19:13: Chlamy pneumoniae PCR Not detected, Adenovirus (PCR) Not detected, B. pertussis DNA (PCR) Not detected, Coronavirus OC43 (PCR) Not detected, Coronavirus HKU1 (PCR) Not detected, Coronavirus 229E (PCR) Not detected, SARS-CoV-2 (PCR) Not detected, Coronavirus NL63 (PCR) Not detected, Human Metapneumovir PCR Not detected, Influenza A (H1) PCR Not detected, Influ A (H1N1/09) PCR Not detected, Influenza A (H3) PCR Not detected, Influenza Type A (PCR) Not detected, Influenza Type B (PCR) Not detected, M. pneumoniae (PCR) Not detected, Parainfluenza 1 (PCR) Not detected, Parainfluenza 2 (PCR) Not detected, Parainfluenza 3 (PCR) Not detected, Parainfluenza 4 (PCR) Not detected, RSV (PCR) Not detected, Entero/Rhino (PCR) Not detected 04/20/24 19:25: PT 11.9, INR 1.07, APTT 16.4 L, Sodium 134 L, Potassium 3.3 L, Chloride 97 L, Carbon Dioxide 29, Anion Gap 11.3, BUN 13, Creatinine 0.90, Estimated Creat Clear 49, Estimated GFR 62, Est GFR ( Amer) 74, Glucose 120 H, Lactate 1.8, Calcium 10.2, Magnesium 1.4 L, Total Bilirubin 1.0, AST 43 H , ALT 21, Alkaline Phosphatase 84, Lactate Dehydrogenase 416, Total Creatine Kinase < 20 L, Total Protein 5.9 L, Albumin 3.6, Globulin 2.3, Albumin/Globulin Ratio 1.6, HIV 1&2 Antibody Rapid Nonreactive 04/20/24 19:56: WBC 3.5 L, RBC 3.47 L, Hgb 9.9 L, Hct 30.4 L, MCV 87.5, MCH 28.6, MCHC 32.7, RDW 17.6 H, Plt Count 103 L, MPV 8.8, Neut % (Auto) 61.5, Lymph % (Auto) 27.6, [place] % (Auto) 6.8, Eos % (Auto) 2.9, Baso % (Auto) 1.1, Neut # (Auto) 2.2, Lymph # (Auto) 1.0, [place] # (Auto) 0.2, Eos # (Auto) 0.1, Baso # (Auto) 0.0, Retic Count (auto) 2.1 04/20/24 22:12: Urine Color Yellow, Urine Appearance Clear, Urine pH 6.0, Ur Specific [place] 1.015, Urine Protein Trace, Urine Glucose (UA) Negative, Urine Ketones Negative, Urine Blood Negative, Urine Nitrate Negative, Urine Bilirubin Negative, Urine Urobilinogen 0.2, Ur Leukocyte Esterase Negative, Urine RBC 3-5, Urine WBC 3-5, Ur Squamous Epith Cells 5-10, Urine Bacteria 1+, Hyaline Casts 5- 10, Urine Mucus 1+ 04/21/24 06:05: WBC 3.0 L, RBC 3.45 L, Hgb 9.9 L, Hct 31.4 L, MCV 91.0, MCH 28.8, MCHC 31.7 L, RDW 17.9 H, Plt Count 99 L, MPV 8.8, Neut % (Auto) 70.2, Lymph % (Auto) 20.8, [place] % (Auto) 5.8, Eos % (Auto) 2.6, Baso % (Auto) 0.7, Neut # (Auto) 2.1, Lymph # (Auto) 0.6 L, [place] # (Auto) 0.2, Eos # (Auto) 0.1, Baso # (Auto) 0.0, Sodium 137, Potassium 3.5, Chloride 104, Carbon Dioxide 25, Anion Gap 11.5, BUN 13, Creatinine 1.00, Estimated Creat Clear 51, Estimated GFR 55 L, Est GFR ( Amer) 66, Glucose 96, Calcium 9.6, Magnesium 2.1 D, Procalcitonin 2.06 H I & O for Labs for Last 24 Hours: Intake & Output 04/18/24 04/19/24 04/20/24 04/21/24 23:59 23:59 23:59 23:59 Intake Total 1663 / 1663 Output Total 0 / 0 Balance 1663 / 1663 Weight 61.235 kg 60.5 kg Constitutional: Present no acute distress, average body habitus and cooperative Head: Present normocephalic ENT: Present normal exam Neck: Present normal inspection Respiratory: Present crackles (Left base); Absent rhonchi or wheezes Cardiac: Present Reg Rate and Rhythm and Regular Rate GI: Present soft and normal bowel sounds; Absent distention or tenderness Rectal (female): Present deferred (female): Present deferred Extremities: Present normal inspection and full ROM Skin: Present intact and dry Neuro: Present alert, awake and oriented x 3 Assessment and Plan *Assessment and plan (1) Sepsis: Status: Acute Category: Medical Code(s): A41.9 - Sepsis, unspecified organism (2) Immunocompromised: Status: Acute Category: Medical Code(s): D84.9 - Immunodeficiency, unspecified (3) Bacterial pneumonia: Status: Acute Category: Medical Code(s): J15.9 - Unspecified bacterial pneumonia (4) Lymphoma in remission: Status: Acute Category: Medical Code(s): C85.90 - Non-Hodgkin lymphoma, unspecified, unspecified site (5) T-cell lymphoma: Status: Acute Category: Medical Code(s): C85.90 - Non-Hodgkin lymphoma, unspecified, unspecified site Plan This is a 73-year-old female who presents to the emergency department with fever, lymphoma in remission with recent history of chemotherapy and cough. PSI port score of 102, risk category 4. Scored for female, age, neoplastic disease (T-cell lymphoma), and effusion. Continues to require inpatient management. Problems addressed as follows: Sepsis, present on admission Febrile, tachycardia, tachypnea, source identified Immunocompromise state Bacterial pneumonia Acute metabolic encephalopathy-resolved Blood cultures obtained on admission, pending. Sputum culture pending. - Continue IV antibiotics with ceftriaxone 1 g daily and doxycycline 100 mg twice daily. - CT head with no acute disease - CT chest obtained this morning, has left lower lobe pneumonia with effusion per my review of imaging - Fever overnight to 103, continue Tylenol 1000 mg as needed every 6 hours - White count low at 3, hemoglobin 10. - Currently on room air, dyspneic with rhonchorous cough. Monitor for O2 needs. Goal sats greater 90%. Supplemental oxygen as needed - Meli/Rafa inhalation therapy as needed - Incentive spirometry -Repeat CBC, CMP, magnesium ordered for the morning. Lymphoma in remission Contact and droplet precautions Trending labs and imaging Replacing potassium and magnesium Continue home allopurinol 300 mg daily for gout Continue home Klonopin 0.5 mg nightly for anxiety and sleep Continue home Lyrica 25 mg nightly for neuropathy/restless leg and sleep Full code holding anticoagulation with platelets less than 100k Regular diet The length of stay for this patient will be 2 midnights or greater due to above diagnoses.
--- NOTE | 2024-04-21 14:35 | PC.NURSE ---
d/c fluids per MD. pt has adequate po intake.
--- NOTE | 2024-04-21 15:59 | PC.NURSE ---
tech notifed this rn of BP of 88/43 taken on the datascope. this rn took manual bp of 90/44. pt stated that she just was tired and feels worse than this morning . MD notified. pt educated on symptoms of hypotension. will notify MD if pt becomes symptomatic. no new orders at this time.
--- NOTE | 2024-04-21 16:18 | PC.NURSE ---
pt resting supine in bed at the moment. a&ox4. pt spiked a fever of 103.2 this morning and was treated with tylenol. temperature decreased to 97.5 at 1200 and has remained WNL since. fluids d/c per md orders due to pt tolerating po intake. pt has had numerous loose stools this shift and states that its the potassium pills that she received this morning. no issues ambulating with standby assistance. pt does not complain of any abdominal discomfort, n/v, or cramping. pt had an episode of urinary incontinence this morning, but states that this is not something that she normally struggles with at home. brief placed at pt request. 1600 bp was 88/43 using datascope reported by tech and this rn recorded manual of 90/44. MD contacted. No new orders at this time. abx to be given per aug. family at bedside. call light within reach, bed in low and locked position, and bed alarm on for pt safety.
--- NOTE | 2024-04-21 20:31 | PC.NURSE ---
Attempted to contact Dr. Patton at this time to inform of medication not available, will attempt again.
[2024-04-21] MEDS: PANTOPRAZOLE 40MG TABLET 40 MG PO (20:45)
[2024-04-21] MEDS: PREGABALIN 25MG CAPSULE 25 MG PO (20:45)
[2024-04-21] MEDS: CEFTRIAXONE SODIUM 1 GM in 0.9 % SODIUM CHLORIDE 50 ML IV (23:14)
[2024-04-22] VITALS (7 sets, daily range): BP systolic 83–107; BP diastolic 40–64; PULSE 79–121; RESP 16–22; TEMP 36.5–38.6; O2SAT 95–100; BMI 26.4
[2024-04-22] MEDS: ACETAMINOPHEN 500MG TAB 1000 MG PO ×2 (00:57→11:23)
[2024-04-22 07:00] LABS: Albumin Level 2.5 g/dl (3.5-5.0); Chloride 108 mmol/L (98-107); Sodium 138 mmol/L (136-145)
[2024-04-22 07:03] LABS: Alanine Aminotransferase 15 U/L (12-78); Albumin/Globulin Ratio 1.3 (1.1-1.8); Alkaline Phosphatase 63 U/L (38-126); Anion Gap 7.7 mEq/L (5-15); Aspartate Amino Transferase 33 U/L (14-36); Bilirubin,Total 0.6 mg/dl (0.2-1.3); Blood Urea Nitrogen 10 mg/dl (7-17); Calcium 8.8 mg/dl (8.4-10.2); Carbon Dioxide 25 mmol/L (22.0-30.0); Creatinine Clearance Estimated 56 mL/min (50-200); Estimated Glomerular Filt Rate 62 ml/min (>60); GFR (African American) 74 ML/MIN (>60); Glucose 91 mg/dl (74-100); Magnesium 1.7 mg/dl (1.6-2.3); Total Protein,Serum 4.5 g/dl (6.3-8.2)
[2024-04-22 07:09] LABS: Basophils % 0.8 % (0.1-2.0); Eosinophils # 0.2 K/mm3 (0.0-0.4); Eosinophils % 7.3 % (0.1-12.0); Hematocrit 26.4 % (37.0-47.0); Hemoglobin 8.3 g/dL (12.2-16.2); Lymphocytes # 0.6 K/mm3 (0.7-4.5); Mean Corpuscular HGB Conc 31.7 g/dL (31.8-35.4); Mean Corpuscular Hemoglobin 28.4 pg (27.0-31.2); Mean Corpuscular Volume 89.6 fl (81-99); Mean Platelet Volume 8.9 fl (7.4-10.4); Monocytes # 0.2 K/mm3 (0.1-1.0); Monocytes % 6.4 % (1.7-9.3); Neutrophils # 1.4 K/mm3 (1.8-7.8); Neutrophils % 60.5 % (37.0-80.0); Platelet Count 100 K/mm3 (142-424); Red Blood Count 2.94 M/mm3 (4.20-5.40); Red Cell Distribution Width 17.8 % (11.5-17.5); White Blood Count 2.3 K/mm3 (4.8-10.8)
[2024-04-22 07:26] LABS: Potassium 2.7 mmoL/L (3.5-5.1)
--- NOTE | 2024-04-22 08:28 | PC.NURSE ---
TECH NOTE; NOTIFIED NURSE OF BLOOD PRESSURE FOR 0800 VITAL SIGNS Kassie ROOT SRNA
[2024-04-22] MEDS: DOCUSATE SODIUM 100 MG CAPSULE PO (08:32)
[2024-04-22] MEDS: DOXYCYCLINE HYCL 100 MG TABLET PO ×2 (08:32→20:20)
[2024-04-22] MEDS: ALLOPURINOL 300MG TABLET 300 MG PO (08:32)
[2024-04-22] MEDS: POTASSIUM CHLORIDE 20MEQ TAB 40 MEQ PO (08:34)
[2024-04-22] MEDS: MAGNESIUM SULFATE IN WATER 2 GM/50 ML PIGGYBACK IV (08:34)
[2024-04-22] MEDS: ONDANSETRON 4MG/2ML VIAL 4 MG IV (09:27)
[2024-04-22 09:33] LABS: HCV Ab Non Reactive (Non Reactive)
[2024-04-22] MEDS: LOPERAMIDE 2MG CAPSULE 2 MG PO (09:43)
[2024-04-22] MEDS: BENZONATATE 100MG CAPSULE 200 MG PO (09:43)
--- NOTE | 2024-04-22 10:10 | XR_ITS ---
PROCEDURE INFORMATION: Exam: XR Chest Exam date and time: 04/22/2024 11:18 AM Age: 73 years old Clinical indication: Cough; Additional info: Increased cough TECHNIQUE: Imaging protocol: Radiologic exam of the chest. Views: 1 view. Total images: 1 COMPARISON: CT CHEST W CON 04/21/2024 8:38 AM FINDINGS: Tubes, catheters and devices: Breast implants are noted. Lungs: Bilateral hyperinflation is present. Atelectatic changes noted within both lung bases. No focal pneumonia. Pleural spaces: Unremarkable. No pleural effusion. No pneumothorax. Heart/Mediastinum: The heart is not enlarged. Bones/joints: The thoracic spine demonstrates mild degenerative changes at multiple levels. IMPRESSION: 1. Bilateral hyperinflation is present. 2. Atelectatic changes noted within both lung bases. 3. No focal pneumonia.
--- NOTE | 2024-04-22 11:19 | P.PN_ITS ---
Subjective *Date: 04/22/24 *Time: 16:55 Interval history: Afebrile overnight. Last fever was 103.2 yesterday morning. Has developed significant cough overnight however that is nonproductive. Also noted to have some loose stool this morning, feels it is related to her potassium supplemen tation upsetting her stomach. Denies any chest pain. Complains of just not feeling any better today. Medical Exam Vital signs and Labs for Last 24 Hours: Vital Signs Temp Pulse Resp BP Pulse Ox O2 Del Method 04/22/24 09:00 Room Air 04/22/24 08:00 Room Air 04/22/24 08:00 98.1 F 90 18 83/40 L 97 Room Air 04/22/24 06:19 Room Air 04/22/24 05:00 Room Air 04/22/24 04:00 97.7 F 79 16 100/47 L 98 Room Air 04/22/24 03:00 Room Air 04/22/24 01:00 Room Air 04/22/24 00:00 99.7 F H 91 H 16 102/46 L 95 Room Air 04/21/24 23:00 Room Air 04/21/24 21:00 Room Air 04/21/24 20:00 Room Air 04/21/24 20:00 99.1 F 93 H 16 103/52 L 98 Room Air 04/21/24 18:28 Room Air 04/21/24 18:02 84 18 100/61 L 97 Room Air 04/21/24 17:00 Room Air 04/21/24 16:47 88/48 L 04/21/24 15:33 97.9 F 80 16 90/44 L 98 Room Air 04/21/24 14:51 Room Air 04/21/24 12:56 Room Air 04/21/24 12:00 97.5 F L 90 16 105/58 L 95 Room Air Intake and Output 04/21/24 04/22/24 04/22/24 23:59 07:59 15:59 Intake Total 240 / 2693 290 / 820 530 / 820 Output Total 0 / 0 0 / 0 Balance 240 / 2693 290 / 820 530 / 820 Intake: Intake, Oral Amount 240 / 1550 240 / 720 480 / 720 Intake, Total IV Amount 50 / 100 50 / 100 Ceftriaxone Sodium 1 gm In 0.9 50 / 50 % Sodium Chloride 50 ml @ 100 mls/hr IV Q24H [facility] Rx#:[id number] Magnesium Sulfate in Water 2 gm 50 / 50 In 50 ml @ 50 mls/hr IV ONCE ONE Rx#:[id number] Output: Output, Urine Amount 0 / 0 0 / 0 Other: Number of Unmeasured Voids 1 1 Number of Bowel Movements 1 Weight 70.3 kg Patient Weight 04/22/24 23:59 Weight 70.3 kg Laboratory Results - last 24 hr 04/20/24 19:25: Hepatitis C Antibody Non reactive 04/22/24 06:08: WBC 2.3 L, RBC 2.94 L, Hgb 8.3 L, Hct 26.4 L, MCV 89.6, MCH 28.4, MCHC 31.7 L, RDW 17.8 H, Plt Count 100 L, MPV 8.9, Neut % (Auto) 60.5, Lymph % (Auto) 25.0, [place] % (Auto) 6.4, Eos % (Auto) 7.3, Baso % (Auto) 0.8, Neut # (Auto) 1.4 L, Lymph # (Auto) 0.6 L, [place] # (Auto) 0.2, Eos # (Auto) 0.2, Baso # (Auto) 0.0, Sodium 138, Potassium 2.7 L* D, Chloride 108 H, Carbon Dioxide 25, Anion Gap 7.7, BUN 10, Creatinine 0.90, Estimated Creat Clear 56, Estimated GFR 62, Est GFR ( Amer) 74, Glucose 91, Calcium 8.8, Magnesium 1.7 D, Total Bilirubin 0.6, AST 33, ALT 15 D, Alkaline Phosphatase 63, Total Protein 4.5 L, Albumin 2.5 L D, Globulin 2.0, Albumin/Globulin Ratio 1.3 I & O for Labs for Last 24 Hours: Intake & Output 04/19/24 04/20/24 04/21/24 04/22/24 23:59 23:59 23:59 23:59 Intake Total 2403 / 2693 820 / 820 Output Total 0 / 0 0 / 0 Balance 2403 / 2693 820 / 820 Weight 61.235 kg 60.5 kg 70.3 kg Microbiology Reports for the Last 24 Hours: Microbiology 04/21/24 01:28 Blood Blood Culture - Preliminary NO GROWTH AFTER 24 HOURS 04/21/24 07:15 Sputum - Expectorated Sputum Gram Stain - Preliminary 04/20/24 19:29 Blood Blood Culture - Preliminary NO GROWTH AFTER 24 HOURS Constitutional: Present mild distress, average body habitus and cooperative Head: Present normocephalic ENT: Present normal exam Neck: Present normal inspection Respiratory: Present crackles (Left base); Absent accessory muscle use, rhonchi or wheezes Comment:: Cough on exam, dry and nonproductive Cardiac: Present Reg Rate and Rhythm and Regular Rate GI: Present soft and normal bowel sounds; Absent distention or tenderness Rectal (female): Present deferred (female): Present deferred Extremities: Present normal inspection and full ROM Skin: Present intact and dry Neuro: Present alert, awake and oriented x 3 Assessment and Plan *Assessment and plan (1) Sepsis: Status: Acute Category: Medical Code(s): A41.9 - Sepsis, unspecified organism (2) Immunocompromised: Status: Acute Category: Medical Code(s): D84.9 - Immunodeficiency, unspecified (3) Bacterial pneumonia: Status: Acute Category: Medical Code(s): J15.9 - Unspecified bacterial pneumonia (4) Lymphoma in remission: Status: Acute Category: Medical Code(s): C85.90 - Non-Hodgkin lymphoma, unspecified, unspecified site (5) T-cell lymphoma: Status: Acute Category: Medical Code(s): C85.90 - Non-Hodgkin lymphoma, unspecified, unspecified site Plan This is a 73-year-old female who presents to the emergency department with fever, lymphoma in remission with recent history of chemotherapy and cough. PSI port score of 102, risk category 4. Scored for female, age, neoplastic disease (T-cell lymphoma), and effusion. Continues to require inpatient management. Problems addressed as follows: Sepsis, present on admission Febrile, tachycardia, tachypnea, source identified Immunocompromise state Bacterial pneumonia Acute metabolic encephalopathy-resolved Blood cultures obtained on admission, pending, remain negative at 36 hours. Sputum culture pending. - Continue IV antibiotics with ceftriaxone 1 g daily and doxycycline 100 mg twice daily. - CT head with no acute disease - CT chest obtained this morning, has left lower lobe pneumonia with effusion per my review of imaging -Afebrile for 24 hours, continue Tylenol 1000 mg as needed every 6 hours - White count low at 2.3, hemoglobin 8, no signs of bleeding. Platelets 100.. - Currently on room air, dyspneic with rhonchorous cough. Monitor for O2 needs. Goal sats greater 90%. Supplemental oxygen as needed - Meli/Rafa inhalation therapy as needed, scheduled once this morning. -Initiate Tessalon Perles 200 mg as needed every 4-6 hours for cough - Incentive spirometry -Repeat CBC, CMP, magnesium ordered for the morning. Lymphoma in remission Contact and droplet precautions Trending labs and imaging Replacing potassium and magnesium Continue home allopurinol 300 mg daily for gout Continue home Klonopin 0.5 mg nightly for anxiety and sleep Continue home Lyrica 25 mg nightly for neuropathy/restless leg and sleep Full code holding anticoagulation with platelets </= to 100k Regular diet The length of stay for this patient will be 2 midnights or greater due to above diagnoses.
[2024-04-22] MEDS: IPRATROPIUM/ALBUTEROL 3 ML NEB IH (11:40)
--- NOTE | 2024-04-22 12:02 | PC.NURSE ---
TECH NOTE; NURSE NOTIFIED OF VITAL SIGNS FOR 1200 K DK, SRNA
--- NOTE | 2024-04-22 12:22 | PC.NURSE ---
08:10 MD aware of patient's bp of 83/40 P: 90, emesis times one.
[2024-04-22] MEDS: KCl 10mEq/100ml 100 ML 100 MEQ IV ×3 (16:24→21:32)
[2024-04-22] MEDS: PREGABALIN 25MG CAPSULE 25 MG PO (20:20)
[2024-04-22] MEDS: clonazePAM 0.5MG TABLET 0.5 MG PO (20:20)
[2024-04-22] MEDS: PANTOPRAZOLE 40MG TABLET 40 MG PO (20:20)
[2024-04-22] MEDS: CEFTRIAXONE SODIUM 1 GM in 0.9 % SODIUM CHLORIDE 50 ML IV (23:10)
[2024-04-23] VITALS: BP 102/42; PULSE 92; RESP 18; TEMP 36.6; O2SAT 100
[2024-04-23 00:37] VITALS: PULSE 90
[2024-04-23 04:00] VITALS: BP 106/55; PULSE 80; PULSE 88; RESP 16; TEMP 36.9; O2SAT 95; BMI 25.3
[2024-04-23 06:49] LABS: Eosinophils # 0.1 K/mm3 (0.0-0.4); Eosinophils % 5.3 % (0.1-12.0); Hematocrit 25.2 % (37.0-47.0); Lymphocytes # 0.9 K/mm3 (0.7-4.5); Lymphocytes % 37.1 % (10-50); Mean Corpuscular HGB Conc 31.8 g/dL (31.8-35.4); Mean Corpuscular Hemoglobin 28.3 pg (27.0-31.2); Mean Platelet Volume 9.1 fl (7.4-10.4); Monocytes # 0.1 K/mm3 (0.1-1.0); Neutrophils # 1.2 K/mm3 (1.8-7.8); Neutrophils % 50.5 % (37.0-80.0); Platelet Count 111 K/mm3 (142-424); Red Blood Count 2.84 M/mm3 (4.20-5.40); Red Cell Distribution Width 17.9 % (11.5-17.5); White Blood Count 2.3 K/mm3 (4.8-10.8)
[2024-04-23 06:56] LABS: Magnesium 1.7 mg/dl (1.6-2.3)
[2024-04-23 07:02] LABS: C-Reactive Protein 40.3 mg/L (0-4)
[2024-04-23 07:37] LABS: Chloride 109 mmol/L (98-107)
[2024-04-23 07:38] LABS: Albumin Level 2.4 g/dl (3.5-5.0); Potassium 3.4 mmoL/L (3.5-5.1); Sodium 138 mmol/L (136-145)
--- NOTE | 2024-04-23 07:38 | P.PN_ITS ---
Subjective *Date: 04/23/24 *Time: 07:38 Medical Exam Vital signs and Labs for Last 24 Hours: Vital Signs Temp Pulse Pulse Resp BP Pulse Ox O2 Del Method 04/23/24 06:50 Room Air 04/23/24 05:00 Room Air 04/23/24 04:00 98.5 F 88 16 106/55 L 95 Room Air 04/23/24 04:00 80 04/23/24 03:00 Room Air 04/23/24 01:00 Room Air 04/23/24 00:37 90 04/23/24 00:00 97.8 F 92 H 18 102/42 L 100 Room Air 04/22/24 23:00 Room Air 04/22/24 21:00 Room Air 04/22/24 20:50 90 04/22/24 20:00 Room Air 04/22/24 20:00 98.3 F 88 16 99/59 L 100 Room Air 04/22/24 17:40 Room Air 04/22/24 16:08 Room Air 04/22/24 16:00 98.0 F 79 18 102/61 L 98 Room Air 04/22/24 13:45 Room Air 04/22/24 11:59 101.4 F H 121 H 22 107/64 L 99 Room Air 04/22/24 11:52 Room Air 04/22/24 11:00 Room Air 04/22/24 09:00 Room Air 04/22/24 08:00 Room Air 04/22/24 08:00 98.1 F 90 18 83/40 L 97 Room Air Intake and Output 04/22/24 04/22/24 04/23/24 15:59 23:59 07:59 Intake Total 770 / 2310 540 / 2310 710 / 710 Output Total 0 / 0 0 / 0 Balance 770 / 2310 540 / 2310 710 / 710 Intake: Intake, Oral Amount 720 / 1560 240 / 1560 360 / 360 Intake, Total IV Amount 50 / 750 300 / 750 350 / 350 0.9 % Sodium Chloride 1000ML 1, 200 / 200 000 ml @ 100 mls/hr IV .Q10H [facility] Rx#:[id number] Ceftriaxone Sodium 1 gm In 0.9 50 / 50 % Sodium Chloride 50 ml @ 100 mls/hr IV Q24H [facility] Rx#:[id number] KCl 10mEq/100ml 100 ml @ 100 300 / 400 100 / 100 mls/hr IV Q1H [facility] Rx#:[id number] Magnesium Sulfate in Water 2 gm 50 / 50 In 50 ml @ 50 mls/hr IV ONCE ONE Rx#:[id number] Output: Output, Urine Amount 0 / 0 0 / 0 Other: Number of Unmeasured Voids 1 1 Number of Bowel Movements 1 1 Weight 70.3 kg 67.33 kg Patient Weight 04/23/24 23:59 Weight 67.33 kg Laboratory Results - last 24 hr 04/20/24 19:25: Hepatitis C Antibody Non reactive 04/23/24 06:18: WBC 2.3 L, RBC 2.84 L, Hgb 8.0 L, Hct 25.2 L, MCV 89.0, MCH 28.3, MCHC 31.8, RDW 17.9 H, Plt Count 111 L, MPV 9.1, Neut % (Auto) 50.5, Lymph % (Auto) 37.1, [place] % (Auto) 6.0, Eos % (Auto) 5.3, Baso % (Auto) 1.0, Neut # (Auto) 1.2 L, Lymph # (Auto) 0.9, [place] # (Auto) 0.1, Eos # (Auto) 0.1, Baso # (Auto) 0.0, Magnesium 1.7, C-Reactive Protein 40.3 H I & O for Labs for Last 24 Hours: Intake & Output 04/20/24 04/21/24 04/22/24 04/23/24 23:59 23:59 23:59 23:59 Intake Total 2403 / 2693 1600 / 2310 710 / 710 Output Total 0 / 0 0 / 0 Balance 2403 / 2693 1600 / 2310 710 / 710 Weight 61.235 kg 60.5 kg 70.3 kg 67.33 kg Microbiology Reports for the Last 24 Hours: Microbiology 04/21/24 01:28 Blood Blood Culture - Preliminary NO GROWTH AFTER 48 HOURS 04/20/24 19:29 Blood Blood Culture - Preliminary NO GROWTH AFTER 48 HOURS Assessment and Plan *Assessment and plan (1) Sepsis: Status: Acute Category: Medical Code(s): A41.9 - Sepsis, unspecified organism (2) Immunocompromised: Status: Acute Category: Medical Code(s): D84.9 - Immunodeficiency, unspecified (3) Bacterial pneumonia: Status: Acute Category: Medical Code(s): J15.9 - Unspecified bacterial pneumonia (4) Lymphoma in remission: Status: Acute Category: Medical Code(s): C85.90 - Non-Hodgkin lymphoma, unspecified, unspecified site (5) T-cell lymphoma: Status: Acute Category: Medical Code(s): C85.90 - Non-Hodgkin lymphoma, unspecified, unspecified site (6) Neutropenia: Status: Acute Category: Medical Code(s): D70.9 - Neutropenia, unspecified Plan This is a 73-year-old female who presents to the emergency department with fever, lymphoma in remission with recent history of chemotherapy and cough. PSI port score of 102, risk category 4. Scored for female, age, neoplastic disease (T-cell lymphoma), and effusion. Continues to require inpatient management. Problems addressed as follows: Sepsis, present on admission Febrile, tachycardia, tachypnea, source identified Immunocompromise state Bacterial pneumonia Acute metabolic encephalopathy-resolved Blood cultures obtained on admission, pending, remain negative at 36 hours. Sputum culture pending. - Continue IV antibiotics with ceftriaxone 1 g daily and doxycycline 100 mg twice daily. - CT head with no acute disease - CT chest obtained this morning, has left lower lobe pneumonia with effusion per my review of imaging -Afebrile for 24 hours, continue Tylenol 1000 mg as needed every 6 hours - White count low at 2.3, hemoglobin 8, no signs of bleeding. Platelets 100.. - Currently on room air, dyspneic with rhonchorous cough. Monitor for O2 needs. Goal sats greater 90%. Supplemental oxygen as needed - Meli/Rafa inhalation therapy as needed, scheduled once this morning. -Initiate Tessalon Perles 200 mg as needed every 4-6 hours for cough - Incentive spirometry -Repeat CBC, CMP, magnesium ordered for the morning. Lymphoma in remission Contact and droplet precautions Trending labs and imaging Replacing potassium and magnesium Continue home allopurinol 300 mg daily for gout Continue home Klonopin 0.5 mg nightly for anxiety and sleep Continue home Lyrica 25 mg nightly for neuropathy/restless leg and sleep Full code holding anticoagulation with platelets </= to 100k Regular diet The length of stay for this patient will be 2 midnights or greater due to above diagnoses.
[2024-04-23 07:40] LABS: Blood Urea Nitrogen 7 mg/dl (7-17); Creatinine Clearance Estimated 54 mL/min (50-200); Estimated Glomerular Filt Rate 62 ml/min (>60); GFR (African American) 74 ML/MIN (>60)
[2024-04-23 07:41] LABS: Alanine Aminotransferase 10 U/L (12-78); Albumin/Globulin Ratio 1.4 (1.1-1.8); Alkaline Phosphatase 64 U/L (38-126); Anion Gap 8.4 mEq/L (5-15); Aspartate Amino Transferase 28 U/L (14-36); Bilirubin,Total 0.7 mg/dl (0.2-1.3); Calcium 8.9 mg/dl (8.4-10.2); Carbon Dioxide 24 mmol/L (22.0-30.0); Globulin 1.7 g/dL (1.3-3.2); Glucose 91 mg/dl (74-100); Total Protein,Serum 4.1 g/dl (6.3-8.2)
[2024-04-23 08:00] VITALS: BP 105/64; PULSE 66; PULSE 95; RESP 18; TEMP 37.2; O2SAT 98
[2024-04-23] MEDS: DOXYCYCLINE HYCL 100 MG TABLET PO (08:59)
[2024-04-23] MEDS: ONDANSETRON 4MG/2ML VIAL 4 MG IV (08:59)
[2024-04-23] MEDS: MAGNESIUM SULFATE IN WATER 2 GM/50 ML PIGGYBACK IV (08:59)
[2024-04-23] MEDS: ALLOPURINOL 300MG TABLET 300 MG PO (08:59)
[2024-04-23] MEDS: LEVOFLOXACIN/D5W 750 MG/150 ML 750 MG/150 ML PIGGYBACK 100 MG IV (09:52)
[2024-04-23] MEDS: ACETAMINOPHEN 500MG TAB 1000 MG PO (11:41)
[2024-04-23] MEDS: LOPERAMIDE 2MG CAPSULE 2 MG PO (11:42)
[2024-04-23 12:00] VITALS: BP 104/58; PULSE 92; RESP 18; TEMP 37.4; O2SAT 97
--- NOTE | 2024-04-23 13:21 | P.DS_ITS ---
General Admission date:: 04/20/24 Discharge date: 04/23/24 HPI HPI HPI: This is a 73-year-old female who presents to [facility] emergency department at the request of her family for fever and delirium. The patient's past medical history significant for lymphoma with recent chemotherapy and outpatient oncology evaluations. She reports 2 to 3 days of weakness not improved with rest and home care. She reports an increased cough over the last 24 hours not improving. She reports no associated sputum production, hemoptysis or acute dyspnea at rest. She denies chest pain, palpitations, nausea, vomiting or diarrhea. She reports no abdominal pain or dysuria. She describes chills with some confusion and lack of energy. In the ED her Tmax was 103.3 with tachypnea, tachycardia and chest x-ray imaging concerning for pneumonia. Hospital Course Hospital Course Hospital Course: This is a 73-year-old female who presents to the emergency department with fever, lymphoma in remission with recent history of chemotherapy and cough. PSI port score of 102, risk category 4. Scored for female, age, neoplastic disease (T-cell lymphoma), and effusion. Monitored for over 48 hours, cultures remain negative. Findings of pneumonia on chest imaging. Remains neutropenic but symptoms effervescing. Given negative cultures and improving symptoms along with tolerance of p.o. intake, will transition to oral antibiotics to complete empiric course. Stable to discharge home with close follow-up with oncology and primary care. Problems addressed as follows: Sepsis, present on admission Febrile, tachycardia, tachypnea, source identified Immunocompromise state Bacterial pneumonia Patient was somewhat confused initially when she came in. Her mentation returned to baseline after initial treatment with antibiotics and fluids. Blood cultures obtained, negative at 48 hours. Sputum culture obtained and still pending but no growth as of time of discharge. Initiated on ceftriaxone and doxycycline for pneumonia component, transitioned to Levaquin given patient's neutropenia and fevers. Will continue levofloxacin 750 mg daily to complete at least 7 days of therapy given her neutropenia and pneumonia. Patient has been afebrile for 24 hours prior to discharge. Fever curve has been trending down during admission. White count remains low, 2.3 on day of discharge. ANC of 1.1. Remained on room air during admission. Cough nonproductive and improving on day of discharge. Tolerating Tessalon Perles. Will continue these at discharge. Continue incentive spirometry. Kidney function electrolytes normal. Continues to have anemia with hemoglobin of 8. No indication for transfusion during admission. Close follow-up with PCP and oncology recommended. Of note, last chemo approximately 1 month ago. Outside of window for normal fabian post chemo for neutropenia. Lymphoma in remission Neutropenia, mild Contact and droplet precautions Continue home allopurinol 300 mg daily for gout Continue home Klonopin 0.5 mg nightly for anxiety and sleep Continue home Lyrica 25 mg nightly for neuropathy/restless leg and sleep Total time spent on discharge 32 minutes in counseling, documentation, chart review, and direct care with patient. Exam Data for Last 24 hours Vital signs and Labs for Last 24 Hours: Temp Pulse Resp BP Pulse Ox O2 Del Method 98.9 F 66 18 105/64 L 98 Room Air 04/23/24 08:00 04/23/24 08:00 04/23/24 08:00 04/23/24 08:00 04/23/24 08:00 04/23/24 08:42 Laboratory Results - last 24 hr 04/23/24 06:18: WBC 2.3 L, RBC 2.84 L, Hgb 8.0 L, Hct 25.2 L, MCV 89.0, MCH 28.3, MCHC 31.8, RDW 17.9 H, Plt Count 111 L, MPV 9.1, Neut % (Auto) 50.5, Lymph % (Auto) 37.1, O'Brien % (Auto) 6.0, Eos % (Auto) 5.3, Baso % (Auto) 1.0, Neut # (Auto) 1.2 L, Lymph # (Auto) 0.9, O'Brien # (Auto) 0.1, Eos # (Auto) 0.1, Baso # (Auto) 0.0, Sodium 138, Potassium 3.4 L D, Chloride 109 H, Carbon Dioxide 24, Anion Gap 8.4, BUN 7 D, Creatinine 0.90, Estimated Creat Clear 54, Estimated GFR 62, Est GFR ( Amer) 74, Glucose 91, Calcium 8.9, Magnesium 1.7, Total Bilirubin 0.7, AST 28, ALT 10 L D, Alkaline Phosphatase 64, C-Reactive Protein 40.3 H, Total Protein 4.1 L, Albumin 2.4 L, Globulin 1.7, Albumin/Globulin Ratio 1.4 I & O for Last 24 hours: Intake & Output 04/20/24 04/21/24 04/22/24 04/23/24 23:59 23:59 23:59 23:59 Intake Total 2403 / 2693 1600 / 2310 1150 / 1150 Output Total 0 / 0 0 / 0 0 / 0 Balance 2403 / 2693 1600 / 2310 1150 / 1150 Weight 61.235 kg 60.5 kg 70.3 kg 67.33 kg Microbiology Reports for the Last 24 Hours: Microbiology 04/21/24 07:15 Sputum - Expectorated Sputum Gram Stain - Preliminary 04/21/24 07:15 Sputum - Expectorated Sputum Sputum Culture - Final 04/21/24 01:28 Blood Blood Culture - Preliminary NO GROWTH AFTER 48 HOURS 04/20/24 19:29 Blood Blood Culture - Preliminary NO GROWTH AFTER 48 HOURS Constitutional Constitutional: no acute distress and cooperative *Routine HEENT Exam Head: Present normocephalic Eye: Present EOMI and PERRL ENT: Present mucous membranes moist *Routine Neck Exam Neck: Present supple; Absent lymphadenopathy *Routine Respiratory Exam Respiratory: Present CTA bilaterally; Absent rhonchi, wheezes or crackles *Routine Cardiovascular Exam Cardiovascular: Present RRR *Routine Abdominal Exam Abdominal: Present soft and normoactive bowel sounds; Absent tenderness *Routine Rectal Exam Patient deferred: visual exam *Routine Exam Patient deferred: external exam *Routine Extremities Exam Extremities: Absent cyanosis, clubbing or edema *Routine Skin Exam Skin: Present warm; Absent rash *Routine Neurological Exam Neurological: Present alert, oriented X3 and moving all extremities; Absent altered mental status Results Data Completed and Pending Labs on day of discharge: Labs from last 24 hours 04/23/24 06:18 WBC 2.3 L RBC 2.84 L Hgb 8.0 L Hct 25.2 L MCV 89.0 MCH 28.3 MCHC 31.8 RDW 17.9 H Plt Count 111 L MPV 9.1 Neut % (Auto) 50.5 Lymph % (Auto) 37.1 O'Brien % (Auto) 6.0 Eos % (Auto) 5.3 Baso % (Auto) 1.0 Neut # (Auto) 1.2 L Lymph # (Auto) 0.9 O'Brien # (Auto) 0.1 Eos # (Auto) 0.1 Baso # (Auto) 0.0 Sodium 138 Potassium 3.4 L D Chloride 109 H Carbon Dioxide 24 Anion Gap 8.4 BUN 7 D Creatinine 0.90 Estimated Creat Clear 54 Estimated GFR 62 Est GFR ( Amer) 74 Glucose 91 Calcium 8.9 Magnesium 1.7 Total Bilirubin 0.7 AST 28 ALT 10 L D Alkaline Phosphatase 64 C-Reactive Protein 40.3 H Total Protein 4.1 L Albumin 2.4 L Globulin 1.7 Albumin/Globulin Ratio 1.4 Preliminary micro results at discharge 04/21/24 07:15 Gram Stain - Preliminary Sputum - Expectorated Sputum 04/21/24 01:28 Blood Culture - Preliminary Blood NO GROWTH AFTER 48 HOURS 04/20/24 19:29 Blood Culture - Preliminary Blood NO GROWTH AFTER 48 HOURS DS: Diagnosis Discharge Diagnosis (1) Sepsis: Status: Acute Code(s): A41.9 - Sepsis, unspecified organism (2) Immunocompromised: Status: Acute Code(s): D84.9 - Immunodeficiency, unspecified (3) Bacterial pneumonia: Status: Acute Code(s): J15.9 - Unspecified bacterial pneumonia (4) Lymphoma in remission: Status: Acute Code(s): C85.90 - Non-Hodgkin lymphoma, unspecified, unspecified site (5) T-cell lymphoma: Status: Acute Code(s): C85.90 - Non-Hodgkin lymphoma, unspecified, unspecified site (6) Neutropenia: Status: Acute Code(s): D70.9 - Neutropenia, unspecified Meds Home Medications and Allergies Home Medications ?Medication ?Instructions ?Recorded ?Confirmed ?Type tizanidine 4 mg tablet 4 - 8 mg PO HS 30 days ##60 02/09/18 04/21/24 History esomeprazole magnesium 40 mg 40 mg PO DAILY 09/28/21 04/20/24 History capsule,delayed release aspirin 81 mg tablet,delayed 81 mg PO DAILY #30 tabs 09/29/21 04/20/24 Rx release ubrogepant 100 mg tablet 100 mg PO DAILYP PRN Migraine 01/13/22 04/20/24 Rx Headache #20 tabs evolocumab 140 mg/mL subcutaneous 140 mg SQ Q2W 02/10/23 04/20/24 History pen injector (Nitish Campos) allopurinol 300 mg tablet 300 mg PO DAILY #30 tabs 02/26/24 04/20/24 Rx pregabalin 25 mg capsule 25 - 50 mg PO HS 04/20/24 04/21/24 History clonazepam 1 mg tablet 1 mg PO BID PRN Insomnia 04/21/24 04/21/24 History benzonatate 100 mg capsule 100 mg PO Q4HP PRN Cough 5 days 04/23/24 Rx #20 caps levofloxacin 750 mg tablet 750 mg PO DAILY 5 days #5 tabs 04/23/24 Rx New Prescriptions to Start Prescriptions: Robi Delvalle levofloxacin Robi Trammell Allergies Allergy/AdvReac Type Severity Reaction Status Date / Time Sulfa (Sulfonamide Allergy Mild Verified 04/06/24 10:42 Antibiotics) [SULFA (SULFONAMIDE ANTIBIOTICS)] Discharge Plan Disposition Patient Disposition: Home, Self-Care Condition: Fair Discharge Order Discharge Orders: Discharge Order (Routine); Ordered 04/23/24 Ordered By: Robi Trammell Follow up Plan Follow up with: Roque Mccloud MD [Staff Physician] - Enter time for follow up Isaak Donovan MD [Primary Care Provider] - Enter time for follow up Prescriptions/Medication Reconciliation: New benzonatate 100 mg Capsule 100 mg PO Q4HP PRN (Reason: Cough) 5 Days Qty: 20 0RF levofloxacin 750 mg tablet 750 mg PO DAILY 5 Days Qty: 5 0RF Continued tizanidine 4 mg tablet 4 - 8 mg PO HS 30 Days Qty: 60 allopurinol 300 mg tablet 300 mg PO DAILY Qty: 30 3RF Repatha SureClick 140 mg/mL pen injector 140 mg SQ Q2W Patient Comments: INJECT 1 ML UNDER THE SKIN EVERY 2 WEEKS DIRECTED ubrogepant 100 MG tablet 100 mg PO DAILYP PRN (Reason: Migraine Headache) Qty: 20 0RF pregabalin 25 mg capsule 25 - 50 mg PO HS clonazepam 1 mg tablet 1 mg PO BID PRN (Reason: Insomnia) Patient Comments: TAKE 1 TABLET BY MOUTH TWICE DAILY NEEDED esomeprazole magnesium 40 MG capsule,delayed release(DR/EC) 40 mg PO DAILY aspirin 81 MG tablet,delayed release (DR/EC) 81 mg PO DAILY Qty: 30 0RF Discontinued amoxicillin-pot clavulanate 875-125 mg tablet 1 tab PO BID Problem Reconciliation Problems Reviewed?: Yes Patient Discharge Instructions ACTIVITY: Continue current activity DIET: continue same diet Patient Instructions: DI for Sepsis -- Adult Print Language: Thai Providers Primary Care Provider: Isaak Donovan Admit Provider: Robi Trammell Attending Provider: Robi Trammell
--- NOTE | 2024-04-26 16:02 | SW/DCPLANNER ---
Hospital follow up phone call: patient stated that she is not feeling well today. Patient is scheduled to see Dr Mccloud tomorrow and Dr Donovan 04/29. 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 Patient did not have any further questions/needs at this time.
== END 2024-04-23 14:14 | disposition home or self-care (01) | DRG 193 ==
LOC: ER 22:06 → 2ND 04-21 06:11
PROVIDERS: Family Medicine; Physician Assistant; Admitting Provider Internal Medicine Adolescent Medicine; Emergency Provider Emergency Medicine; PCP Internal Medicine Adolescent Medicine; Visit Provider Internal Medicine Adolescent Medicine
DX: J15.9 Unspecified bacterial pneumonia (principal); G93.41 Metabolic encephalopathy; D84.9 Immunodeficiency, unspecified; C82.82 Other types of follicular lymphoma, intrathoracic lymph nodes; Z79.899 Other long term (current) drug therapy; D64.9 Anemia, unspecified
CPT/HCPCS: 36415; 70470; 71045; 71260; 80048; 80053; 81001; 82550; 83605; 83615; 83735; 84145; 85025; 85044; 85610; 85730; 86140; 86803; 87040; 87070; 87205; 87265; 87389; 87486; 87581; 87632; 87635; 99291; J0131; J0696; J1885; J1956; J2405; J3475; J3480; J7030; J7120; J7620; Q9967

== ENCOUNTER 2024-04-27 11:54 | Outpatient (CLI) | payer MEDICARE, BC, SELFPAY ==
--- NOTE | 2024-04-27 11:45 | PC.NURSE ---
[id number] collected labs via venipuncture stick in left ac with butterfly needle to call with results
[2024-04-27 12:08] LABS: Eosinophils # 0.3 K/mm3 (0.0-0.4); Eosinophils % 6.5 % (0.1-12.0); Hematocrit 29.9 % (37.0-47.0); Hemoglobin 9.7 g/dL (12.2-16.2); Lymphocytes # 1.2 K/mm3 (0.7-4.5); Lymphocytes % 30.7 % (10-50); Mean Corpuscular HGB Conc 32.3 g/dL (31.8-35.4); Mean Corpuscular Hemoglobin 29.2 pg (27.0-31.2); Mean Corpuscular Volume 90.3 fl (81-99); Mean Platelet Volume 9.3 fl (7.4-10.4); Monocytes # 0.3 K/mm3 (0.1-1.0); Monocytes % 6.5 % (1.7-9.3); Neutrophils # 2.2 K/mm3 (1.8-7.8); Neutrophils % 55.2 % (37.0-80.0); Platelet Count 145 K/mm3 (142-424); Red Blood Count 3.32 M/mm3 (4.20-5.40); Red Cell Distribution Width 18.1 % (11.5-17.5); White Blood Count 3.9 K/mm3 (4.8-10.8)
[2024-04-27 12:16] LABS: Chloride 102 mmol/L (98-107)
[2024-04-27 12:17] LABS: Albumin Level 3.1 g/dl (3.5-5.0); Potassium 3.4 mmoL/L (3.5-5.1); Sodium 137 mmol/L (136-145)
[2024-04-27 12:19] LABS: Blood Urea Nitrogen 9 mg/dl (7-17); Estimated Glomerular Filt Rate 55 ml/min (>60); GFR (African American) 66 ML/MIN (>60)
[2024-04-27 12:20] LABS: Alanine Aminotransferase 13 U/L (12-78); Albumin/Globulin Ratio 1.2 (1.1-1.8); Alkaline Phosphatase 81 U/L (38-126); Anion Gap 11.4 mEq/L (5-15); Aspartate Amino Transferase 39 U/L (14-36); Bilirubin,Total 0.8 mg/dl (0.2-1.3); Calcium 11.1 mg/dl (8.4-10.2); Carbon Dioxide 27 mmol/L (22.0-30.0); Globulin 2.5 g/dL (1.3-3.2); Glucose 99 mg/dl (74-100); Total Protein,Serum 5.6 g/dl (6.3-8.2)
[2024-04-27 12:32] LABS: Lactate Dehydrogenase 304 U/L (313-618); Uric Acid 4.6 mg/dl (2.5-6.2)
== END 2024-04-27 12:00 | disposition home or self-care (01) ==
LOC: INF 11:55
PROVIDERS: PCP Internal Medicine Medical Oncology; Visit Provider Internal Medicine Medical Oncology
DX: C85.90 Non-Hodgkin lymphoma, unspecified, unspecified site (principal)
CPT/HCPCS: 36415; 80053; 83615; 84550; 85025

== ENCOUNTER 2024-05-03 08:57 | Outpatient (CLI) | payer MEDICARE, BC, SELFPAY ==
--- NOTE | 2024-05-03 08:57 | CT_ITS ---
FINAL REPORT CLINICAL HISTORY: lymphoma COMPARISON: 03/02/2024 FINDINGS: CT OF THE ABDOMEN AND PELVIS WITH CONTRAST Axial CT images of the abdomen and pelvis were obtained after the administration of oral and iv contrast. Coronal and sagittal reformatted images were also obtained and reviewed.This study was performed with techniques to keep radiation doses as low as reasonably achievable (ALARA). Individualized dose reduction techniques using automated exposure control or adjustment of mA and/or kV according to the patient's size were employed. Abdomen: Small bilateral pleural effusions are now present, new since the prior exam. Mild bibasilar atelectasis is present as well. There is a small hiatal hernia present. There is contrast present in the distal esophagus, that may be secondary to reflux. The heart is normal in size. The gallbladder has been surgically resected. There is mild biliary ductal dilatation, favor post cholecystectomy change. The spleen is larger than seen on the prior exam, measuring 16 mm, was previously 12 mm. There is a new left adrenal mass measuring 11 mm, not seen on the prior CT, worrisome for neoplastic involvement. The pancreas has an unremarkable appearance. The kidneys are normal, without evidence of mass or hydronephrosis. The aorta is normal in caliber. Moderate vascular calcifications are identified. There is a 6 mm paraaortic node, stable since the prior exam. No mass or abnormal fluid collection is otherwise seen. Pelvis: The appendix is normal in appearance. There is a small amount of pelvic free fluid, new since the prior exam. The urinary bladder is unremarkable. No inflammatory process is seen. There is a 29 mm cystic mass in the left pelvis, of uncertain etiology, however stable when compared with the prior exam. This may represent a cyst or cystic mass. The uterus has been surgically resected. There are mildly enlarged inguinal nodes present, slightly larger than seen on the prior exam. The largest measures 21 mm, was previously 17 mm in size. There is no evidence of bowel obstruction. There is a sclerotic focus in the L1 vertebral body, nonspecific but stable. IMPRESSION: There is a new left adrenal mass, 11 mm in size, worrisome for neoplastic involvement. The spleen is larger than seen on the prior exam, measuring 16 mm as opposed to 12 mm. There is mild enlargement of inguinal lymph nodes noted on the prior exam. New bilateral small pleural effusions, and a small amount of free fluid in the pelvis, also new. Reviewed, Interpreted and Dictated by Jorge Martel III, MD Transcribed by Liane Phillips Authenticated and [facility]
[2024-05-03] MEDS: SODIUM CHLORIDE 0.9% 10ML SYR (RAD ONLY) 10 ML IV (09:21)
[2024-05-03] MEDS: BARIUM SULFATE(READI-CAT2);450ML BOTTLE 450 ML PO (09:21)
[2024-05-03] MEDS: IOPAMIDOL-370 (76%);100ML BOTTLE 75 ML IV (09:21)
== END 2024-05-03 23:59 | disposition home or self-care (01) ==
LOC: RAD 08:57
PROVIDERS: PCP Internal Medicine Adolescent Medicine; Visit Provider Internal Medicine Medical Oncology
DX: C85.90 Non-Hodgkin lymphoma, unspecified, unspecified site (principal)
CPT/HCPCS: 74177; Q9967

== ENCOUNTER 2024-05-13 11:52 | Outpatient (CLI) | payer MEDICARE, BC, SELFPAY ==
--- NOTE | 2024-05-13 12:03 | PC.NURSE ---
Patient here for labs only. CBC, CMP, uric acid, LDH collected via venipuncture to R forearm x1 stick with butterfly needle. Patient tolerated well.
[2024-05-13 12:27] LABS: Basophils # 0.1 K/mm3 (0-0.2); Basophils % 0.4 % (0.1-2.0); Eosinophils % 0.2 % (0.1-12.0); Hematocrit 38.7 % (37.0-47.0); Hemoglobin 12.1 g/dL (12.2-16.2); Lymphocytes # 0.8 K/mm3 (0.7-4.5); Lymphocytes % 6.4 % (10-50); Mean Corpuscular HGB Conc 31.2 g/dL (31.8-35.4); Mean Corpuscular Hemoglobin 27.6 pg (27.0-31.2); Mean Corpuscular Volume 88.4 fl (81-99); Mean Platelet Volume 7.4 fl (7.4-10.4); Monocytes # 0.4 K/mm3 (0.1-1.0); Neutrophils # 11.7 K/mm3 (1.8-7.8); Platelet Count 194 K/mm3 (142-424); Red Blood Count 4.38 M/mm3 (4.20-5.40); Red Cell Distribution Width 18.1 % (11.5-17.5); White Blood Count 13.1 K/mm3 (4.8-10.8)
[2024-05-13 12:33] LABS: Alanine Aminotransferase 24 U/L (12-78); Albumin Level 4.1 g/dl (3.5-5.0); Albumin/Globulin Ratio 1.9 (1.1-1.8); Alkaline Phosphatase 60 U/L (38-126); Anion Gap 14.7 mEq/L (5-15); Aspartate Amino Transferase 31 U/L (14-36); Bilirubin,Total 0.8 mg/dl (0.2-1.3); Blood Urea Nitrogen 26 mg/dl (7-17); Calcium 9.4 mg/dl (8.4-10.2); Carbon Dioxide 21 mmol/L (22.0-30.0); Chloride 106 mmol/L (98-107); Estimated Glomerular Filt Rate 71 ml/min (>60); GFR (African American) 85 ML/MIN (>60); Globulin 2.2 g/dL (1.3-3.2); Glucose 139 mg/dl (74-100); Lactate Dehydrogenase 153 U/L (313-618); Potassium 3.7 mmoL/L (3.5-5.1); Sodium 138 mmol/L (136-145); Total Protein,Serum 6.3 g/dl (6.3-8.2); Uric Acid 3.7 mg/dl (2.5-6.2)
[2024-05-13 12:38] LABS: MANUAL DIFFERENTIAL MANUAL DIFFERENTIAL (MANUAL DIFF)
[2024-05-13 15:04] LABS: Anisocytosis 1+; Lymphocytes % 6 % (10-50); Microcytosis 1+; Monocytes % 3 % (2-9); Neutrophils % 90 % (42-76); Total Cells Counted 100
[2024-05-13 15:06] LABS: Platelet Estimate Normal
== END 2024-05-13 12:08 | disposition home or self-care (01) ==
LOC: INF 11:56
PROVIDERS: PCP Internal Medicine Adolescent Medicine; Visit Provider Internal Medicine Medical Oncology
DX: C85.90 Non-Hodgkin lymphoma, unspecified, unspecified site (principal)
CPT/HCPCS: 36415; 80053; 83615; 84550; 85007; 85025

== ENCOUNTER 2024-05-19 11:01 | Outpatient (CLI) | payer MEDICARE, BC, SELFPAY ==
[2024-05-19] MEDS: DEXAMETHASONE 4MG TABLET 12 MG PO (11:17)
[2024-05-19] MEDS: GEMCITABINE HCL IV (11:48)
[2024-05-19] MEDS: SODIUM CHLORIDE 0.9% 50ML BAG 50 ML IV (11:48)
[2024-05-19] MEDS: SODIUM CHLORIDE 0.9% IV (11:48)
[2024-05-19 11:55] VITALS: BP 145/70; PULSE 81; RESP 18; TEMP 36.4; O2SAT 100
[2024-05-19 12:35] VITALS: BP 138/96; PULSE 80; RESP 18; O2SAT 100
== END 2024-05-19 12:35 | disposition home or self-care (01) ==
LOC: INF 11:05
PROVIDERS: PCP Internal Medicine Adolescent Medicine; Visit Provider Internal Medicine Medical Oncology
DX: Z51.11 Encounter for antineoplastic chemotherapy (principal); C85.90 Non-Hodgkin lymphoma, unspecified, unspecified site; Z79.630 Long term (current) use of alkylating agent
CPT/HCPCS: 96413; J8540; J9201

== ENCOUNTER 2024-05-26 10:41 | Outpatient (CLI) | payer MEDICARE, BC, SELFPAY ==
[2024-05-26 10:54] VITALS: BMI 21.8
[2024-05-26 11:18] LABS: Basophils % 0.6 % (0.1-2.0); Eosinophils % 0.3 % (0.1-12.0); Hematocrit 36.4 % (37.0-47.0); Hemoglobin 12.2 g/dL (12.2-16.2); Lymphocytes % 18.7 % (10-50); Mean Corpuscular HGB Conc 33.6 g/dL (31.8-35.4); Mean Corpuscular Hemoglobin 28.6 pg (27.0-31.2); Mean Corpuscular Volume 85.1 fl (81-99); Mean Platelet Volume 7.4 fl (7.4-10.4); Monocytes # 0.2 K/mm3 (0.1-1.0); Monocytes % 4.1 % (1.7-9.3); Neutrophils # 4.1 K/mm3 (1.8-7.8); Neutrophils % 76.3 % (37.0-80.0); Platelet Count 116 K/mm3 (142-424); Red Blood Count 4.28 M/mm3 (4.20-5.40); Red Cell Distribution Width 18.7 % (11.5-17.5); White Blood Count 5.4 K/mm3 (4.8-10.8)
[2024-05-26 11:26] LABS: Alanine Aminotransferase 16 U/L (12-78); Albumin Level 3.5 g/dl (3.5-5.0); Albumin/Globulin Ratio 1.1 (1.1-1.8); Alkaline Phosphatase 92 U/L (38-126); Anion Gap 11.5 mEq/L (5-15); Aspartate Amino Transferase 27 U/L (14-36); Bilirubin,Total 1.1 mg/dl (0.2-1.3); Blood Urea Nitrogen 21 mg/dl (7-17); Calcium 8.8 mg/dl (8.4-10.2); Carbon Dioxide 32 mmol/L (22.0-30.0); Chloride 96 mmol/L (98-107); Creatinine Clearance Estimated 46 mL/min (50-200); Estimated Glomerular Filt Rate 71 ml/min (>60); GFR (African American) 85 ML/MIN (>60); Globulin 3.2 g/dL (1.3-3.2); Glucose 86 mg/dl (74-100); Potassium 3.5 mmoL/L (3.5-5.1); Sodium 136 mmol/L (136-145); Total Protein,Serum 6.7 g/dl (6.3-8.2)
[2024-05-26] MEDS: DEXAMETHASONE 4MG TABLET 12 MG (11:45)
[2024-05-26] MEDS: GEMCITABINE HCL IV (12:13)
[2024-05-26] MEDS: SODIUM CHLORIDE 0.9% IV (12:13)
[2024-05-26 12:15] VITALS: BP 163/92; PULSE 90; RESP 18; TEMP 36.6; O2SAT 96
[2024-05-26] MEDS: 0.9 % SODIUM CHLORIDE 50 ML 100 ML IV (12:15)
[2024-05-26 13:05] VITALS: BP 138/71; PULSE 85; RESP 18; O2SAT 96
== END 2024-05-26 13:05 | disposition home or self-care (01) ==
LOC: INF 10:45
PROVIDERS: PCP Internal Medicine Adolescent Medicine; Visit Provider Internal Medicine Medical Oncology
DX: C85.90 Non-Hodgkin lymphoma, unspecified, unspecified site (principal)
CPT/HCPCS: 80053; 85025; 96413; J8540; J9201

== ENCOUNTER 2024-06-02 10:49 | Outpatient (CLI) | payer MEDICARE, BC, SELFPAY ==
[2024-06-02 10:59] VITALS: BMI 23.5
[2024-06-02 11:30] LABS: Chloride 105 mmol/L (98-107); Potassium 3.7 mmoL/L (3.5-5.1); Sodium 136 mmol/L (136-145)
[2024-06-02 11:32] LABS: Basophils # 0.1 K/mm3 (0-0.2); Basophils % 1.5 % (0.1-2.0); Eosinophils % 0.5 % (0.1-12.0); Hemoglobin 11.6 g/dL (12.2-16.2); Lymphocytes # 0.5 K/mm3 (0.7-4.5); Lymphocytes % 14.7 % (10-50); Mean Corpuscular Hemoglobin 28.9 pg (27.0-31.2); Mean Platelet Volume 7.3 fl (7.4-10.4); Monocytes # 0.2 K/mm3 (0.1-1.0); Monocytes % 6.3 % (1.7-9.3); Neutrophils # 2.9 K/mm3 (1.8-7.8); Platelet Count 79 K/mm3 (142-424); White Blood Count 3.7 K/mm3 (4.8-10.8)
[2024-06-02 11:33] LABS: Alanine Aminotransferase 37 U/L (12-78); Albumin/Globulin Ratio 2.1 (1.1-1.8); Alkaline Phosphatase 53 U/L (38-126); Anion Gap 8.7 mEq/L (5-15); Aspartate Amino Transferase 36 U/L (14-36); Bilirubin,Total 0.9 mg/dl (0.2-1.3); Blood Urea Nitrogen 26 mg/dl (7-17); Carbon Dioxide 26 mmol/L (22.0-30.0); Creatinine Clearance Estimated 50 mL/min (50-200); Estimated Glomerular Filt Rate 71 ml/min (>60); GFR (African American) 85 ML/MIN (>60); Globulin 1.9 g/dL (1.3-3.2); Total Protein,Serum 5.9 g/dl (6.3-8.2)
[2024-06-02 11:34] LABS: Calcium 9.2 mg/dl (8.4-10.2); Glucose 95 mg/dl (74-100)
[2024-06-02] MEDS: 0.9 % SODIUM CHLORIDE 50 ML 100 ML IV (12:28)
[2024-06-02] MEDS: DEXAMETHASONE 4MG TABLET 12 MG (12:28)
[2024-06-02] MEDS: GEMCITABINE HCL IV (13:00)
[2024-06-02] MEDS: SODIUM CHLORIDE 0.9% IV (13:00)
[2024-06-02 13:03] VITALS: BP 140/77; PULSE 84; RESP 18; O2SAT 96
[2024-06-02 13:55] VITALS: BP 121/55; PULSE 77; RESP 18; O2SAT 96
== END 2024-06-02 13:55 | disposition home or self-care (01) ==
LOC: INF 10:50
PROVIDERS: PCP Internal Medicine Adolescent Medicine; Visit Provider Internal Medicine Medical Oncology
DX: C85.90 Non-Hodgkin lymphoma, unspecified, unspecified site (principal)
CPT/HCPCS: 80053; 85025; 96413; J8540; J9201

== ENCOUNTER 2024-06-04 10:56 | Outpatient (CLI) | payer MEDICARE, BC, SELFPAY ==
--- NOTE | 2024-06-04 11:00 | XR_ITS ---
FINAL REPORT CLINICAL HISTORY: lymphoma/ pain right upper quandrant x 4 weeks front to back COMPARISON: None FINDINGS: 2 views of the abdomen demonstrate a nonobstructive bowel gas pattern. There is a moderate amount of retained stool. There are no abnormal calcifications. Postoperative changes are noted in the right upper quadrant. IMPRESSION: Nonobstructive bowel gas pattern with a moderate stool burden. Reviewed, Interpreted and Dictated by Jorge Martel III, MD Transcribed by Terra Espinoza Authenticated and [facility]
== END 2024-06-04 23:59 | disposition home or self-care (01) ==
PROVIDERS: PCP Internal Medicine Adolescent Medicine; Visit Provider Internal Medicine Medical Oncology
DX: C85.90 Non-Hodgkin lymphoma, unspecified, unspecified site (principal); R10.9 Unspecified abdominal pain
CPT/HCPCS: 74019

== ENCOUNTER 2024-06-07 12:39 | Outpatient (CLI) | payer MEDICARE, BC, SELFPAY ==
--- NOTE | 2024-06-07 12:44 | XR_ITS ---
FINAL REPORT CLINICAL HISTORY: Left knee pain COMPARISON: 12/13/2022 FINDINGS: LEFT KNEE: Three views of the left knee were obtained. There is no acute fracture or dislocation. There are moderate to severe degenerative changes. There is medial compartment narrowing, which is worse since the prior exam. A small joint effusion is noted. Soft tissues are unremarkable. IMPRESSION: Small joint effusion. Degenerative changes and worsening medial compartment narrowing. Reviewed, Interpreted and Dictated by Jorge Martel III, MD Transcribed by Terra Espinoza Authenticated and [facility]
== END 2024-06-07 23:59 | disposition home or self-care (01) ==
LOC: RAD 12:41
PROVIDERS: PCP Internal Medicine Adolescent Medicine; Visit Provider Physician Assistant
DX: M25.562 Pain in left knee (principal)
CPT/HCPCS: 73562

== ENCOUNTER 2024-06-16 09:56 | Outpatient (CLI) | payer MEDICARE, BC, SELFPAY ==
[2024-06-16 10:09] VITALS: BMI 23.5
[2024-06-16 10:40] LABS: Chloride 103 mmol/L (98-107); Potassium 3.4 mmoL/L (3.5-5.1); Sodium 132 mmol/L (136-145)
[2024-06-16 10:43] LABS: Alanine Aminotransferase 40 U/L (12-78); Albumin/Globulin Ratio 1.9 (1.1-1.8); Alkaline Phosphatase 66 U/L (38-126); Anion Gap 7.4 mEq/L (5-15); Aspartate Amino Transferase 38 U/L (14-36); Bilirubin,Total 0.8 mg/dl (0.2-1.3); Blood Urea Nitrogen 24 mg/dl (7-17); Calcium 9.2 mg/dl (8.4-10.2); Carbon Dioxide 25 mmol/L (22.0-30.0); Creatinine Clearance Estimated 50 mL/min (50-200); Estimated Glomerular Filt Rate 71 ml/min (>60); GFR (African American) 85 ML/MIN (>60); Globulin 2.1 g/dL (1.3-3.2); Glucose 85 mg/dl (74-100); Total Protein,Serum 6.1 g/dl (6.3-8.2)
[2024-06-16 10:48] LABS: Hemoglobin 11.4 g/dL (12.2-16.2); Red Blood Count 4.01 M/mm3 (4.20-5.40); White Blood Count 8.9 K/mm3 (4.8-10.8)
[2024-06-16 10:49] LABS: Basophils # 0.1 K/mm3 (0-0.2); Eosinophils % 0.2 % (0.1-12.0); Hematocrit 35.2 % (37.0-47.0); Lymphocytes # 1.6 K/mm3 (0.7-4.5); Lymphocytes % 17.5 % (10-50); Mean Corpuscular HGB Conc 32.4 g/dL (31.8-35.4); Mean Corpuscular Hemoglobin 28.4 pg (27.0-31.2); Mean Corpuscular Volume 87.8 fl (81-99); Monocytes # 0.6 K/mm3 (0.1-1.0); Monocytes % 6.8 % (1.7-9.3); Neutrophils # 5.8 K/mm3 (1.8-7.8); Neutrophils % 65.4 % (37.0-80.0); Platelet Count 202 K/mm3 (142-424); Red Cell Distribution Width 19.7 % (11.5-17.5)
[2024-06-16] MEDS: DEXAMETHASONE 4MG TABLET 12 MG PO (11:30)
[2024-06-16] MEDS: GEMCITABINE HCL IV (12:00)
[2024-06-16] MEDS: SODIUM CHLORIDE 0.9% IV (12:00)
[2024-06-16] MEDS: SODIUM CHLORIDE 0.9% 50ML BAG 50 ML IV (12:00)
[2024-06-16 12:05] VITALS: BP 132/78; PULSE 73; RESP 18; O2SAT 96
[2024-06-16 13:00] VITALS: BP 150/89; PULSE 76; RESP 18; O2SAT 96
== END 2024-06-16 13:00 | disposition home or self-care (01) ==
LOC: INF 09:58
PROVIDERS: PCP Internal Medicine Adolescent Medicine; Visit Provider Internal Medicine Medical Oncology
DX: C84.40 Peripheral T-cell lymphoma, not elsewhere classified, unspecified site (principal)
CPT/HCPCS: 80053; 85025; 96413; J8540; J9201

== ENCOUNTER 2024-06-24 11:04 | Outpatient (CLI) | payer MEDICARE, BC, SELFPAY | END 2024-06-24 11:45 | disposition home or self-care (01) | LOC: INF 11:05 | PROVIDERS: PCP Internal Medicine Adolescent Medicine; Visit Provider Internal Medicine Medical Oncology | DX: C85.90 Non-Hodgkin lymphoma, unspecified, unspecified site (principal) ==

== ENCOUNTER 2024-06-28 12:16 | Observation (INO) | payer MEDICARE, BC, SELFPAY ==
[2024-06-28] VITALS (17 sets, daily range): BP systolic 107–166; BP diastolic 55–85; PULSE 84–105; RESP 12–19; TEMP 36.6–37.1; O2SAT 91–99; BMI 22.3
--- NOTE | 2024-06-28 12:35 | ED_ITS ---
<Statement entered by Ibrahima Aguilar MD - 07/01/24 15:31> I was consulted by the AK[facility], and we discussed the complexity of the problems being addressed. I approved the treatment and management plan for this patient's care in the emergency department, thus performing a substantive portion of the medical decision making. Ibrahima Aguilar MD, ALISON, FACEP Discharge Plan Disposition Patient Disposition: Admitted Condition: Serious Prescriptions Prescriptions: No Action tizanidine 4 mg tablet 4 - 8 mg PO HS 30 Days Qty: 60 dexamethasone 4 mg tablet 4 mg PO BID Qty: 60 0RF Repatha SureClick 140 mg/mL pen injector 140 mg SQ Q2W Patient Comments: INJECT 1 ML UNDER THE SKIN EVERY 2 WEEKS DIRECTED prednisone 10 mg tablet 10 mg PO BID furosemide 20 mg tablet 20 mg PO DAILY PRN (Reason: edema) Patient Comments: TAKE 1 TABLET BY MOUTH ONCE DAILY NEEDED FOR SWELLING allopurinol 300 mg tablet See Rx Instructions .ROUTE .COMPLEX Qty: 30 0RF Dose Instruction: TAKE 1 TABLET BY MOUTH EVERY DAY Rx Instructions: TAKE 1 TABLET BY MOUTH EVERY DAY prochlorperazine maleate [Compazine] 10 mg tablet 10 mg PO Q6H PRN (Reason: nausea and vomiting) Qty: 30 3RF azithromycin 250 mg tablet See Rx Instructions PO .COMPLEX Qty: 6 0RF Rx Instructions: For 250 mg dose pack: take 500 mg today (day 1), then 250 mg for 4 days (days 2-5) PO ubrogepant 100 MG tablet 100 mg PO DAILYP PRN (Reason: Migraine Headache) Qty: 20 0RF pregabalin 25 mg capsule 25 - 50 mg PO HS clonazepam 1 mg tablet 1 mg PO BID PRN (Reason: Insomnia) Patient Comments: TAKE 1 TABLET BY MOUTH TWICE DAILY NEEDED benzonatate 100 mg Capsule 100 mg PO Q4HP PRN (Reason: Cough) 5 Days Qty: 20 0RF levofloxacin 750 mg tablet 750 mg PO DAILY 5 Days Qty: 5 0RF esomeprazole magnesium 40 MG capsule,delayed release(DR/EC) 40 mg PO DAILY aspirin 81 MG tablet,delayed release (DR/EC) 81 mg PO DAILY Qty: 30 0RF Referrals Follow up/Referrals: Isaak Donovan MD [Primary Care Provider] - See instructions Clinical Impressions Clinical Impression: Sepsis without septic shock, Immunosuppressed due to chemotherapy, Acute hypokalemia, Asthenia Urinary tract infection Qualifiers: Urinary tract infection type: site unspecified Hematuria presence: without hematuria Qualified Code(s): N39.0 - Urinary tract infection, site not specified Print Language Print Language: Frisian Discharge ED Provider: Luis Ga General Adult HPI General Chief complaint: Weakness Stated complaint: weakness Time Seen by Provider: 06/28/24 12:35 Mode of Arrival: EMS Source of Information: Patient Limitations: No Limitations Description of Symptoms (Recalled from ER Triage Doc. by RN): pt presents to ED with c/o fever, weakness. symptoms began . pt reports she finished z pack today for sore throat that was prescribed by dr rico. pt did not receive chemo last week due to sore throat and possible infection. pt does have lymphoma. History of Present Illness HPI narrative: Patient presents for evaluation of high fever and weakness. Patient reports that she has been having a high fever and weakness that began on . She does not complain of chest pain shortness of breath abdominal pain diarrhea nausea vomiting hemoptysis hematochezia melena hematemesis hematuria or dysuria. Patient does have lymphoma and is actively undergoing treatment with Dr. Rogers angela at [facility] however she did not receive her treatment last week due to this illness Related Data Home Medications ?Medication ?Instructions ?Recorded ?Confirmed tizanidine 4 mg tablet 4 - 8 mg PO HS 30 days ##60 02/09/18 06/16/24 esomeprazole magnesium 40 mg 40 mg PO DAILY 09/28/21 06/16/24 capsule,delayed release evolocumab 140 mg/mL subcutaneous 140 mg SQ Q2W 02/10/23 06/16/24 pen injector (Nitish Campos) pregabalin 25 mg capsule 25 - 50 mg PO HS 04/20/24 06/16/24 clonazepam 1 mg tablet 1 mg PO BID PRN Insomnia 04/21/24 06/16/24 furosemide 20 mg tablet 20 mg PO DAILY PRN edema 05/04/24 06/16/24 prednisone 10 mg tablet 10 mg PO BID 05/04/24 06/16/24 Previous Rx's ?Medication ?Instructions ?Recorded aspirin 81 mg tablet,delayed 81 mg PO DAILY #30 tabs 09/29/21 release ubrogepant 100 mg tablet 100 mg PO DAILYP PRN Migraine 01/13/22 Headache #20 tabs benzonatate 100 mg capsule 100 mg PO Q4HP PRN Cough 5 days 04/23/24 #20 caps levofloxacin 750 mg tablet 750 mg PO DAILY 5 days #5 tabs 04/23/24 dexamethasone 4 mg tablet 4 mg PO BID #60 tabs 04/27/24 allopurinol 300 mg tablet See Rx Instructions .Route 04/28/24 .COMPLEX #30 tabs prochlorperazine maleate 10 mg 10 mg PO Q6H PRN nausea and 05/19/24 tablet (Compazine) vomiting #30 tabs azithromycin 250 mg tablet See Rx Instructions PO .COMPLEX #6 06/24/24 tabs Allergies Allergy/AdvReac Type Severity Reaction Status Date / Time Sulfa (Sulfonamide Allergy Mild Verified 06/16/24 10:41 Antibiotics) (SULFA (SULFONAMIDE ANTIBIOTICS)) [facility] Disclaimer: The information contained in this section may have been updated after the patient was seen, as this information can be updated by other users. Medical History Right shoulder injury Post concussion syndrome Sensorineural hearing loss Lymphoma in remission Ear congestion Hearing loss . Otalgia Gastroesophageal reflux disease Hyperlipidemia (~06/11/18) Surgical History History of hammer toe correction History of bladder surgery History of hysterectomy Family History Other Alzheimer disease Liberty disease Social History Smoking Status: Never smoker alcohol intake: former substance use type: denies use current occupational status: retired Travel in the last 8 weeks: None household members: spouse housing: house caffeine: Yes Have you lived/traveled outside [place] in past 30 days?: No Contact w/someone who lives/traveled outside US past 30 days?: No Exposure to someone with infectious disease in past 14 days?: No Do you have a fever (greater than 100.4 F or 38 C)?: No Have you tested positive for COVID-19: No Exposed to someone with COVID-19 in past 14 days?: No Do you have a sore throat?: No Do you have a cough?: No Do you have any weakness?: Yes Do you have any diarrhea?: No Are you experiencing any unusual bleeding?: No Do you have any muscle aches/pain?: No Do you have any abdominal pain?: No Are you experiencing loss of taste or smell?: No Other Medical History Have you received the Flu Vaccine for this season: No Have you received the Pneumonia Vaccine: Yes ROS Obtained: Yes Systems reviewed as appropriate & no additional complaints except as documented Physical Exam General General appearance: alert and in no apparent distress Respiratory Respiratory exam: Present normal lung sounds bilaterally Cardiovascular Cardiovascular exam: Present regular rate Neurological Exam Neurological exam: Present alert and oriented X3 Medical Decision Making Medical Records Medical records reviewed: Yes I reviewed the patient's medical records. Screening: Per USPSTF and CDC recommendations, given the prevalence of disease in our region, it is our hospital?s policy to screen for HIV and viral Hepatitis for all patients aged 18 and over and those with ongoing risk factors. Abdiel Inquiry Pt receiving controlled substance: No Vital Signs: 06/28/24 12:17 06/28/24 12:40 06/28/24 13:00 Temperature 98.8 F Temperature Source Oral Pulse Rate 95 H 92 H Pulse Rate [Left Radial] 94 H Respiratory Rate 19 Blood Pressure 123/64 127/72 Blood Pressure [Right Arm] 124/55 L Blood Pressure Mean [Right Arm] 78 02 Sat by Pulse Oximetry 97 98 97 Oxygen Delivery Method Room Air Room Air 06/28/24 13:30 06/28/24 14:00 06/28/24 14:30 Temperature Temperature Source Pulse Rate 89 90 90 Pulse Rate [Left Radial] Respiratory Rate 17 Blood Pressure 129/70 134/74 144/74 H Blood Pressure [Right Arm] Blood Pressure Mean [Right Arm] 02 Sat by Pulse Oximetry 96 97 97 Oxygen Delivery Method Room Air 06/28/24 15:00 06/28/24 15:30 06/28/24 16:00 Temperature Temperature Source Pulse Rate 86 84 92 H Pulse Rate [Left Radial] Respiratory Rate 15 19 13 Blood Pressure 127/70 114/59 L 129/70 Blood Pressure [Right Arm] Blood Pressure Mean [Right Arm] 02 Sat by Pulse Oximetry 94 L 91 L 97 Oxygen Delivery Method Room Air 06/28/24 16:30 06/28/24 16:49 06/28/24 17:02 Temperature Temperature Source Pulse Rate 94 H 93 H 98 H Pulse Rate [Left Radial] Respiratory Rate 13 13 16 Blood Pressure 126/68 131/63 143/71 H Blood Pressure [Right Arm] Blood Pressure Mean [Right Arm] 02 Sat by Pulse Oximetry 96 97 99 Oxygen Delivery Method Room Air Room Air 06/28/24 17:31 06/28/24 18:00 06/28/24 18:30 Temperature Temperature Source Pulse Rate 95 H 98 H 104 H Pulse Rate [Left Radial] Respiratory Rate 14 12 15 Blood Pressure 107/71 L 125/68 149/79 H Blood Pressure [Right Arm] Blood Pressure Mean [Right Arm] 02 Sat by Pulse Oximetry 98 97 99 Oxygen Delivery Method Lab Data Lab results reviewed: Yes I reviewed the patient's lab results. Lab Results 06/28/24 12:54: WBC 4.8, RBC 3.15 L, Hgb 9.1 L, Hct 27.5 L, MCV 87.3, MCH 28.9, MCHC 33.1, RDW 19.9 H, Plt Count 101 L, MPV 10.5 H, Neut % (Auto) 77.7, Lymph % (Auto) 11.9, Thayer % (Auto) 5.2, Eos % (Auto) 1.3, Baso % (Auto) 0.4, Neut # (Auto) 3.7, Lymph # (Auto) 0.6 L, Thayer # (Auto) 0.3, Eos # (Auto) 0.1, Baso # (Auto) 0.0, PT 10.8, INR 0.96, Sodium 134 L, Potassium 2.8 L*, Chloride 99, C arbon Dioxide 32 H, Anion Gap 5.8, BUN 11, Creatinine 0.80, Estimated Creat Clear 47, Estimated GFR 71, Est GFR ( Amer) 85, Glucose 99, Calcium 9.1, Magnesium 1.6, Total Bilirubin 1.0, AST 32, ALT 20, Alkaline Phosphatase 76, N T-Pro-B Natriuret Pep 375 H, Total Protein 5.4 L, Albumin 3.3 L, Globulin 2.1, Albumin/Globulin Ratio 1.6, Procalcitonin 0.258 06/28/24 13:02: SARS-CoV-2 (PCR) Not detected, Influenza Type A (PCR) Not detected, Influenza Type B (PCR) Not detected, RSV (PCR) Not detected, Rhinovirus (PCR) Not detected 06/28/24 17:51: Urine Color Yellow, Urine Appearance Cloudy, Urine pH 7.0, Ur Specific [place] 1.015, Urine Protein Trace, Urine Glucose (UA) Negative, Urine Ketones Negative, Urine Blood Negative, Urine Nitrate Positive A, Urine Bilirubin Negative, Urine Urobilinogen 1.0, Ur Leukocyte Esterase 2+ A, Urine RBC None, Urine WBC Tntc, Ur Squamous Epith Cells 3-5, Urine Bacteria 4+ 06/28/24 12:54 06/28/24 12:54 Orders (Tests/Meds): ED MEDICATIONS Generic Name Dose Route Start Last Admin Trade Name Freq PRN Reason Stop Dose Admin Potassium Chloride/Water 100 mls @ 50 mls/hr 06/28/24 13:41 06/28/24 18:03 Potassium Chloride 20meq/100ml Ivpb IV 06/28/24 19:40 50 mls/hr Q2H ATUL Administration Ceftriaxone Sodium 1 gm/ 50 mls @ 100 mls/hr 06/28/24 18:45 06/28/24 18:56 Sodium Chloride IV 06/28/24 19:14 100 mls/hr ONCE ONE Administration Discontinued Medications Generic Name Dose Route Start Last Admin Trade Name Freq PRN Reason Stop Dose Admin Sodium Chloride 1,000 mls @ 999 mls/hr 06/28/24 12:47 06/28/24 13:03 Sod Chlor 0.9% 1000ml Bag IV 06/28/24 13:47 999 mls/hr .Q1H1M ONE Administration Ondansetron HCl 4 mg 06/28/24 14:28 06/28/24 14:29 Ondansetron 4mg/2ml Vial IV 06/28/24 14:29 4 mg ONCE ONE Administration Potassium Chloride 60 meq 06/28/24 13:41 06/28/24 14:16 Potassium Chloride 20meq Tab PO 06/28/24 13:42 60 meq ONCE ONE Administration Sodium Chloride 250 ml 06/28/24 18:22 06/28/24 18:24 Sodium Chloride 0.9% 250ml Bag IV 06/28/24 18:23 250 ml ONCE ONE Administration ORDERS Category Date Time Status Chest XR -- portable [XR chest portable] Stat Exams 06/28/24 12:52 Completed BNP [NT Pro Brain Natriuretic Pep.] Stat Lab 06/28/24 12:54 Completed CBC w/Auto Diff [Complete Blood Count Auto Diff] Stat Lab 06/28/24 12:54 Completed CMP [Comprehensive Metabolic Panel] Stat Lab 06/28/24 12:54 Completed INR [Prothrombin Time INR] Stat Lab 06/28/24 12:54 Completed Magnesium Stat Lab 06/28/24 12:54 Completed Mini Respiratory Panel Stat Lab 06/28/24 13:02 Completed Procalcitonin Stat Lab 06/28/24 12:54 Completed UA [Urinalysis and Microscopic] Stat Lab 06/28/24 17:51 Completed Urine Culture Stat Micro 06/28/24 17:51 Received Medical Decision Narrative: In summary patient is a 73-year-old female who presents to the emergency department for evaluation of astenia. Patient is initially hemodynamically stable with a blood pressure 124/55 pulse 94 respiratory rate 19 satting at 97% on room air upon arrival, the temperature of 98.8. Physical exam reveals a well-nourished well-developed 73-year-old female who does not appear to be in acute distress. Patient appears to be normal sinus rhythm on the bedside monitor. Breath sounds are currently equal bilaterally to the bases without adventitious sounds, abdomen is soft no rebound or guarding no rigidity and normal bowel sounds, patient is awake alert and oriented to person place and circumstance with a GCS of 15 and no focal deficits. Differential diagnosis includes immunocompromise patient versus viral or bacterial infection versus electrolyte abnormality etc. Initial workup will be conducted with hematologic labs urinalysis respiratory swabs plain film chest x-ray. Initial interventions include crystalloid bolus for now as patient took Tylenol and Motrin prior to her arrival here. Initial workup reviewed by me shows that she has a white count of 4.8 hemoglobin hematocrit of 9.1 and 27.5 with no shift on differential however her lymphocyte count is 0.6, chemistry shows sodium 134 potassium critically low at 2.8 with remainder of her CMP with nonactionable, her NT proBNP is 375 her procalcitonin is detectable within normal range at 0.258, urinalysis shows nitrite positive leukocyte Estrace positive and microscopic exam shows too numerous to count white cells 3-5 epithelial cells and 4+ bacteria and her COVID flu RSV and rhinovirus are negative.. Upon repeat evaluation patient is still too weak to arise without significant assistance. Given this had interactive discussion with the patient and her family and patient does not feel safe nor does her family and going home. Given this had interactive discussion with hospital medicine about patient management and she will be admitted for further evaluation and care Critical Care Critical Care Time Critical Care Time: No
--- NOTE | 2024-06-28 12:52 | XR_ITS ---
FINAL REPORT CLINICAL HISTORY: Weakness, immunosuppressed COMPARISON: 02/18/2022 FINDINGS: A portable view of the chest was obtained. The heart size is normal. The patient is rotated, which likely accounts for the right paratracheal opacity. The lungs are otherwise clear. There is no pleural effusion or pneumothorax. IMPRESSION: Right paratracheal opacity favored to be related to patient rotation. Otherwise, no acute abnormality. Reviewed, Interpreted and Dictated by Perla Layne MD Transcribed by Terra Espinoza Authenticated and [facility]
[2024-06-28 12:57] LABS: Basophils % 0.4 % (0.1-2.0); Eosinophils # 0.1 K/mm3 (0.0-0.4); Eosinophils % 1.3 % (0.1-12.0); Hematocrit 27.5 % (37.0-47.0); Hemoglobin 9.1 g/dL (12.2-16.2); Lymphocytes # 0.6 K/mm3 (0.7-4.5); Lymphocytes % 11.9 % (10-50); Mean Corpuscular HGB Conc 33.1 g/dL (31.8-35.4); Mean Corpuscular Hemoglobin 28.9 pg (27.0-31.2); Mean Corpuscular Volume 87.3 fl (81-99); Mean Platelet Volume 10.5 fl (7.4-10.4); Monocytes # 0.3 K/mm3 (0.1-1.0); Monocytes % 5.2 % (1.7-9.3); Neutrophils # 3.7 K/mm3 (1.8-7.8); Neutrophils % 77.7 % (37.0-80.0); Platelet Count 101 K/mm3 (142-424); Red Blood Count 3.15 M/mm3 (4.20-5.40); Red Cell Distribution Width 19.9 % (11.5-17.5); White Blood Count 4.8 K/mm3 (4.8-10.8)
[2024-06-28] MEDS: 0.9 % SODIUM CHLORIDE 1000ML 1,000 ML 999 ML IV (13:03)
[2024-06-28 13:07] LABS: Coronavirus 19, PCR Not Detected (NotDetected); Influenza A, PCR Not Detected (NotDetected); Influenza B, PCR Not Detected (NotDetected); Respiratory Syncytial Virus Not Detected (NotDetected)
[2024-06-28 13:08] LABS: Alanine Aminotransferase 20 U/L (12-78); Albumin Level 3.3 g/dl (3.5-5.0); Albumin/Globulin Ratio 1.6 (1.1-1.8); Alkaline Phosphatase 76 U/L (38-126); Anion Gap 5.8 mEq/L (5-15); Aspartate Amino Transferase 32 U/L (14-36); Blood Urea Nitrogen 11 mg/dl (7-17); Calcium 9.1 mg/dl (8.4-10.2); Carbon Dioxide 32 mmol/L (22.0-30.0); Chloride 99 mmol/L (98-107); Creatinine Clearance Estimated 47 mL/min (50-200); Estimated Glomerular Filt Rate 71 ml/min (>60); GFR (African American) 85 ML/MIN (>60); Globulin 2.1 g/dL (1.3-3.2); Glucose 99 mg/dl (74-100); Magnesium 1.6 mg/dl (1.6-2.3); Sodium 134 mmol/L (136-145); Total Protein,Serum 5.4 g/dl (6.3-8.2)
[2024-06-28 13:09] LABS: Potassium 2.8 mmoL/L (3.5-5.1)
[2024-06-28 13:12] LABS: INR 0.96 (0.9-1.1)
[2024-06-28 13:17] LABS: NT Pro Brain Natriuretic Pep. 375 pg/mL (0-125)
[2024-06-28 13:25] LABS: Procalcitonin 0.258 ng/mL (0.0-2.0)
[2024-06-28 14:14] LABS: Human Rhinovirus Not Detected (NotDetected)
[2024-06-28] MEDS: KCl 20mEq/100ml 100 ML 50 MEQ IV ×3 (14:16→18:03)
[2024-06-28] MEDS: POTASSIUM CHLORIDE 20MEQ TAB 60 MEQ PO (14:16)
[2024-06-28 14:17] LABS: Prothrombin Time 10.8 seconds (10.1-12.5)
[2024-06-28] MEDS: ONDANSETRON 4MG/2ML VIAL 4 MG IV (14:29)
--- NOTE | 2024-06-28 15:09 | SW/DCPLANNER ---
Addendum entered by Sarah Billy 07/01/24 15:21: [facility] accepted patient and services will start in 48-72 hours. Cricket King Addendum entered by Gaby Jackson RN 07/01/24 14:49: Spoke with patient this morning, no preference for HH provider. Packet faxed to [facility]. Addendum entered by Katherine Feliz 06/29/24 09:57: I spoke w/ patient this AM regarding plans once medically stable for discharge. PT evaluated patient and recommended home w/ home health services. Patient stated that she would like to have time to think about home health services prior to making decision. Patient and I did discuss what home health services could offer patient at home. I did offer to call and discuss this w/ and patient refused at this time. I also discussed Hospice services w/ patient. Patient voiced at this time she would prefer to continue treatment and not pursue Hospice. I informed patient that if she wants Hospice services in the future myself or [facility] can set this up. I will continue to follow up w/ this patient until medically stable for discharge. Discharge date is unknown at this time. Original Note: I received a call from patient's PCP (Carol Mann) regarding patient/family having an interest in Hospice services. I have relayed information to ED staff (Hannah) and Dr Trammell in case of admission. I will continue to follow up w/ patient and make contact w/ Hospice if MD consults.
--- NOTE | 2024-06-28 17:03 | PC.NURSE ---
bladder scan reads 400.
[2024-06-28 17:58] LABS: Microscopic, Urine URINE MICROSCOPIC (MICROSCOPIC)
[2024-06-28 18:04] LABS: Appearance,Urine CLOUDY (Clear); Bilirubin,Urine Negative (Negative); Blood, Urine Negative (Negative); Color,Urine YELLOW (Yellow); Glucose,Urine (UA) Negative (Negative); Ketones,Urine Negative (Negative); Leukocyte Esterase,Urine 2+ (Negative); Nitrate,Urine POSITIVE (Negative); Protein,Urine TRACE (Negative); Specific Gravity, Urine 1.015 (1.005-1.030)
[2024-06-28] MEDS: SODIUM CHLORIDE 0.9% 250ML BAG 250 ML IV (18:24)
[2024-06-28 18:34] LABS: Bacteria,Urine 4+ /lpf; WBC,Urine TNTC #/hpf (0-3)
[2024-06-28] MEDS: CEFTRIAXONE 1 GM 1 GM in 0.9 % SODIUM CHLORIDE 50 ML IV (18:56)
--- NOTE | 2024-06-28 19:38 | PC.NURSE ---
Pt aware of plans for admission
--- NOTE | 2024-06-28 19:43 | PC.NURSE ---
Pt aware of plans for admission.
--- NOTE | 2024-06-28 20:52 | PC.NURSE ---
Patient arrived to floor via stretcher from ED at 20:48.
[2024-06-28] MEDS: PANTOPRAZOLE 40MG TABLET 40 MG PO (21:41)
--- NOTE | 2024-06-28 23:34 | EXP.HP ---
History of Present Illness *Admission Date: 06/28/24 *Reason for visit:: Urinary tract sepsis, failure to thrive *History of present illness: Ms. funez is well-known to us. She was recently in the hospital, she is being treated with chemotherapy and steroids for non-Hodgkin's lymphoma for more than a year., Patient is notable in the fact that her self-care ability and failure to thrive is getting worse. Really not walking independently for more than 2 months has to use a wheelchair or walker, recently had sore throat Dr. Garcia placed her on a Z-Terrell a week ago. Patient is noted coming in today with fever 103 urine had a fair amount of pus, also noting significant hypokalemia. Basically sepsis without septic shock. Antibiotics received in the emergency room.. After speaking with the ER provider. Going over the labs and assessing the patient I do agree that with her fragile state inpatient with IV the antibiotics is, also with her frailty and decreased ability to ambulate tube have discharge evaluations assess to make sure the patient can receive care at home. [facility] Disclaimer: The information contained in this section may have been updated after the patient was seen, as this information can be updated by other users. Medical History (Updated 06/29/24 @ 00:00 by Colby Menon APRN) T-cell lymphoma Right shoulder injury Post concussion syndrome Sensorineural hearing loss Lymphoma in remission Ear congestion Hearing loss Otalgia Gastroesophageal reflux disease Hyperlipidemia (~06/11/18) Surgical History History of hammer toe correction History of bladder surgery History of hysterectomy Family History Other Alzheimer disease Ange disease Social History Smoking Status: Never smoker alcohol intake: former substance use type: denies use current occupational status: retired Travel in the last 8 weeks: None household members: spouse housing: house caffeine: Yes Other Medical History Have you received the Flu Vaccine for this season: Yes Have you received the Pneumonia Vaccine: Yes Review of Systems Review of Systems Review of systems:: pertinent systems reviewed and negative unless documented below Constitutional Constitutional: Reports as per HPI, Reports body ache(s), Reports chills, Reports poor appetite and Reports weakness Eyes Eyes: Reports as per HPI ENT Ears, Nose, Mouth, and Throat: Reports as per HPI *Cardiovascular Cardiovascular: Reports as per HPI *Respiratory Respiratory: Reports as per HPI *Gastrointestinal Gastrointestinal: Reports as per HPI *Genitourinary Genitourinary: Reports urinary urgency *Musculoskeletal Musculoskeletal: Reports as per HPI, Reports abnormal gait, Reports atrophy and Reports myalgias Integumentary/Breasts Skin/Breast: Reports as per HPI *Neurologic Neurologic: Reports as per HPI, Reports abnormal gait, Reports memory loss and Reports weakness Comments: General Frailty Psychiatric Psychiatric: Reports as per HPI and Reports memory loss Endocrine Endocrine: Reports as per HPI Hematologic/Lymphatic Hematologic/Lymphatic: Reports as per HPI Allergic/Immunologic Allergic/Immunologic: Reports as per HPI Meds Home Medications and Allergies Home Medications ?Medication ?Instructions ?Recorded ?Confirmed ?Type tizanidine 4 mg tablet 8 mg PO HS 30 days ##60 02/09/18 06/29/24 History esomeprazole magnesium 40 mg 40 mg PO DAILY 09/28/21 06/29/24 History capsule,delayed release aspirin 81 mg tablet,delayed 81 mg PO DAILY #30 tabs 09/29/21 06/29/24 Rx release evolocumab 140 mg/mL subcutaneous 40 mg SQ Q2W 02/10/23 06/29/24 History pen injector (Repatha SureClick) clonazepam 1 mg tablet 1.5 mg PO HS 04/21/24 06/29/24 History allopurinol 300 mg tablet See Rx Instructions .Route 04/28/24 06/29/24 Rx .COMPLEX #30 tabs prochlorperazine maleate 10 mg 10 mg PO Q6H PRN nausea and 05/19/24 06/29/24 Rx tablet (Compazine) vomiting #30 tabs pregabalin 25 mg capsule 50 mg PO HS 06/28/24 06/29/24 History ubrogepant 100 mg tablet (Ubrelvy) 100 mg PO DAILY PRN Migraine 06/28/24 06/29/24 History Headache New Prescriptions to Start Prescriptions: Allergies Allergy/AdvReac Type Severity Reaction Status Date / Time Sulfa (Sulfonamide Allergy Mild Verified 06/16/24 10:41 Antibiotics) (SULFA (SULFONAMIDE ANTIBIOTICS)) Exam Data for Last 24 hours Vital signs and Labs for Last 24 Hours: Temp Pulse Resp BP Pulse Ox O2 Del Method 97.9 F 105 H 14 166/85 H 99 Room Air 06/28/24 20:41 06/28/24 20:41 06/28/24 20:41 06/28/24 20:41 06/28/24 18:30 06/28/24 22:46 Laboratory Results - last 24 hr 06/28/24 12:54: WBC 4.8, RBC 3.15 L, Hgb 9.1 L, Hct 27.5 L, MCV 87.3, MCH 28.9, MCHC 33.1, RDW 19.9 H, Plt Count 101 L, MPV 10.5 H, Neut % (Auto) 77.7, Lymph % (Auto) 11.9, [place] % (Auto) 5.2, Eos % (Auto) 1.3, Baso % (Auto) 0.4, Neut # (Auto) 3.7, Lymph # (Auto) 0.6 L, [place] # (Auto) 0.3, Eos # (Auto) 0.1, Baso # (Auto) 0.0, PT 10.8, INR 0.96, Sodium 134 L, Potassium 2.8 L*, Chloride 99, Carbon Dioxide 32 H, Anion Gap 5.8, BUN 11, Creatinine 0.80, Estimated Creat Clear 47, Estimated GFR 71, Est GFR ( Amer) 85, Glucose 99, Calcium 9.1, Magnesium 1.6, Total Bilirubin 1.0, AST 32, ALT 20, Alkaline Phosphatase 76, NT-Pro-B Natriuret Pep 375 H, Total Protein 5.4 L, Albumin 3.3 L, Globulin 2.1, Albumin/Globulin Ratio 1.6, Procalcitonin 0.258 06/28/24 13:02: SARS-CoV-2 (PCR) Not detected, Influenza Type A (PCR) Not detected, Influenza Type B (PCR) Not detected, RSV (PCR) Not detected, Rhinovirus (PCR) Not detected 06/28/24 17:51: Urine Color Yellow, Urine Appearance Cloudy, Urine pH 7.0, Ur Specific [place] 1.015, Urine Protein Trace, Urine Glucose (UA) Negative, Urine Ketones Negative, Urine Blood Negative, Urine Nitrate Positive A, Urine Bilirubin Negative, Urine Urobilinogen 1.0, Ur Leukocyte Esterase 2+ A, Urine RBC None, Urine WBC Tntc, Ur Squamous Epith Cells 3-5, Urine Bacteria 4+ I & O for Last 24 hours: Intake & Output 06/26/24 06/27/24 06/28/24 06/29/24 05:59 05:59 05:59 05:59 Weight 130 lb Radiology Reports for the Last 24 Hours: No acute findings Constitutional Constitutional: mild distress, obese, chronically ill appearing and cooperative *Routine HEENT Exam Head: Present normocephalic and atraumatic Eye: Present EOMI, PERRL and normal accommodation ENT: Present mucous membranes moist, dentition normal and nares patent *Routine Neck Exam Neck: Present supple and full ROM Routine Chest/Breast/Axilla Exam Comments: No tenderness found *Routine Respiratory Exam Respiratory: Present CTA bilaterally, prolonged expiratory phase, diminished air movement, normal respiratory effort, able to speak in complete sentences and symmetric chest movement *Routine Cardiovascular Exam Cardiovascular: Present RRR, Normal S1 and Normal S2 *Routine Abdominal Exam Abdominal: Present soft and normoactive bowel sounds *Routine Rectal Exam Rectal:: deferred *Routine Genitalia Exam Genitalia:: deferred *Routine Extremities Exam Extremities: Present normal capillary refill Comments: Muscle wasting is noted in both the upper arms very tiny forearms hands do not have hardly even a thenar muscle left. Also lower extremities extremely small frail woman with very little muscle into the calves of both legs. Routine Back/Spine/Pelvis Exam Back/Spine: Present full ROM Comments: No injury or pain found *Routine Skin Exam Skin: Present intact, dry and warm *Routine Neurological Exam Neurological: Present alert and oriented X3 Comments: No neurologic deficit found but patient is quite reserved almost have to pull answers out of her to get her to respond. Very comfortable just sitting looking at you and not really interacting Routine Psychiatric Exam Psychiatric: Present normal thought process and cooperative H&P: Result Impressions Urinary tract infection without septicemia Assessment and Plan *Assessment and plan (1) Urinary tract infection: Status: Acute Qualifiers: Hematuria presence: without hematuria Urinary tract infection type: site unspecified Qualified Code(s): N39.0 - Urinary tract infection, site not specified Category: Medical Code(s): N39.0 - Urinary tract infection, site not specified (2) Sepsis without septic shock: Status: Acute Category: Medical Code(s): A41.9 - Sepsis, unspecified organism (3) Acute hypokalemia: Status: Acute Category: Medical Code(s): E87.6 - Hypokalemia (4) Immunosuppressed due to chemotherapy: Status: Acute Category: Medical Code(s): D84.821 - Immunodeficiency due to drugs; T45.1X5A - Adverse effect of antineoplastic and immunosuppressive drugs, initial encounter; Z79.69 - continuous churn buttermaker (current) use of other immunomodulators and immunosuppressants (5) T-cell lymphoma: Status: Acute Category: Medical Code(s): C85.90 - Non-Hodgkin lymphoma, unspecified, unspecified site (6) Decreased strength, endurance, and mobility: Status: Acute Category: Medical Code(s): R53.1 - Weakness; R68.89 - Other general symptoms and signs; Z74.09 - Other reduced mobility Plan This is a 73-year-old female who presents to the emergency department with report of fever. Found to have UTI and meeting sepsis criteria. Case discussed with ER physician, request admission for further management. Medicine agreed to admit. Problems addressed as follows: Sepsis, present on admission Gram-negative UTI Immunocompromise state -Patient tachycardic with suspected infection urine, immunocompromise state, low white count at 3 -Urine is grossly abnormal concerning for UTI with white cells and leuk esterase and bacteria. Blood cultures obtained. -Ceftriaxone once in the ER. -Would like to see cultures negative at 48 hours and speciation and sensitivity of urine prior to discharge home - Low potassium at 2.8, kidney function normal with BUN 11, creatinine 0.8. Repeat CBC, CMP, magnesium ordered for the morning. Lymphoma Follows with oncology. Currently undergoing treatment. Further care discussion in the morning Continue home allopurinol 300 mg daily for gout Continue home Klonopin 0.5 mg nightly for anxiety and sleep Continue home Lyrica 50 mg nightly for neuropathy/restless leg and sleep Due to weakness and failure to thrive, therapy to evaluate. May necessitate placement versus home health. would like some help at home with patient given her care needs. Full code holding anticoagulation with platelets </= to 100k Regular diet Rounded on patient after nurse practitioner. Personally examined and interviewed patient. Agree with exam findings and care plan as documented.
[2024-06-29 04:00] VITALS: BP 107/48; PULSE 93; RESP 16; TEMP 37.3; O2SAT 96; BMI 24.2
--- NOTE | 2024-06-29 06:19 | PC.NURSE ---
Alert and oriented. Has rested since arriving to floor. IV abx. No complaints from patient. Rash noted to face and trunk, patient states this is due to her lymphoma. Incontinent. Purewick in place. Patient unable to ambulate due to weakness. Call light in reach. Bed alarm on.
[2024-06-29 06:55] LABS: Basophils % 0.7 % (0.1-2.0); Eosinophils # 0.1 K/mm3 (0.0-0.4); Hematocrit 26.2 % (37.0-47.0); Hemoglobin 8.5 g/dL (12.2-16.2); Lymphocytes # 0.7 K/mm3 (0.7-4.5); Lymphocytes % 23.1 % (10-50); Mean Corpuscular HGB Conc 32.4 g/dL (31.8-35.4); Mean Corpuscular Hemoglobin 28.5 pg (27.0-31.2); Mean Corpuscular Volume 87.9 fl (81-99); Mean Platelet Volume 9.6 fl (7.4-10.4); Monocytes # 0.2 K/mm3 (0.1-1.0); Monocytes % 6.3 % (1.7-9.3); Neutrophils # 1.9 K/mm3 (1.8-7.8); Neutrophils % 62.6 % (37.0-80.0); Platelet Count 101 K/mm3 (142-424); Red Blood Count 2.98 M/mm3 (4.20-5.40); Red Cell Distribution Width 19.9 % (11.5-17.5)
[2024-06-29 06:59] LABS: Lactic Acid 0.7 mmol/L (0.7-2.1)
[2024-06-29 07:16] LABS: Chloride 104 mmol/L (98-107)
[2024-06-29 07:17] LABS: Albumin Level 2.8 g/dl (3.5-5.0); Potassium 3.7 mmoL/L (3.5-5.1); Sodium 131 mmol/L (136-145)
[2024-06-29 07:19] LABS: Anion Gap 3.7 mEq/L (5-15); Blood Urea Nitrogen 7 mg/dl (7-17); Carbon Dioxide 27 mmol/L (22.0-30.0); Creatinine Clearance Estimated 52 mL/min (50-200); Estimated Glomerular Filt Rate 71 ml/min (>60); GFR (African American) 85 ML/MIN (>60)
[2024-06-29 07:20] LABS: Alanine Aminotransferase 16 U/L (12-78); Albumin/Globulin Ratio 1.3 (1.1-1.8); Alkaline Phosphatase 72 U/L (38-126); Aspartate Amino Transferase 29 U/L (14-36); Bilirubin,Total 0.8 mg/dl (0.2-1.3); Calcium 8.6 mg/dl (8.4-10.2); Globulin 2.1 g/dL (1.3-3.2); Glucose 87 mg/dl (74-100); Magnesium 1.6 mg/dl (1.6-2.3); Total Protein,Serum 4.9 g/dl (6.3-8.2)
[2024-06-29 08:00] VITALS: BP 109/63; PULSE 108; RESP 18; TEMP 37; O2SAT 93
--- NOTE | 2024-06-29 08:42 | HMH.PTEV ---
Physical Therapy Evaluation Rehab PT IP Evaluation Start: 06/28/24 20:34 Freq: ONCE Status: Active Protocol: Document 06/29/24 08:35 KAZ (Rec: 06/29/24 08:41 KAZ [id number]) Subjective/History History History Per H&P: Ms. funez is well- known to us. She was recently in the hospital, she is being treated with chemotherapy and steroids for non-Hodgkin's lymphoma for more than a year. , Patient is notable in the fact that her self-care ability and failure to thrive is getting worse. Really not walking independently for more than 2 months has to use a wheelchair or walker, recently had sore throat Dr. Garcia placed her on a Z-Terrell a week ago. Patient is noted coming in today with fever 103 urine had a fair amount of pus, also noting significant hypokalemia . Basically sepsis without septic shock. Antibiotics received in the emergency room .. After speaking with the ER provider. Going over the labs and assessing the patient I do agree that with her fragile state inpatient with IV the antibiotics is, also with her frailty and decreased ability to ambulate tube have discharge evaluations assess to make sure the patient can receive care at home. Subjective Subjective Pt reports she lives with her in a single-story home with 0 [place]. Pt is still driving some. Pt's able to be around during day to assist her if needed. Pt normally IND with ambulation using a RW. Pt requires some help with getting out of bed. New diagnosis of cancer in past 12 No months? Rehab PT IP Eval Objective Appearance Patient Behavior Appropriate,Cooperative Patient Orientation Person,Situation Difficulty following instructions none Speech Pattern Clear Ambulation Patient Able to Ambulate Yes Ambulation Observation IP General Gait Pattern Observation Narrow Based Gait Ambulation Distance (feet) 30 Ambulation Assistive Device Rolling Walker Ambulation Ability Contact Guard/Hand Hold Balance Ability to Arise Able, uses arms to help Sitting Balance Steady, safe Standing Balance Steady, wide stance Dynamic Sitting Balance Ability Good Dynamic Standing Balance Ability Good Transfers Bed Transfer Ability Moderate x 1 (50% assist) Sit to Stand Bed Transfer Ability Minimal x 1 (25% assist) Rehab PT IP prob,goals,plan Problems Date of Evaluation: 06/29/24 PT IP Problems Bed Mobility,Transfers,Gait, Balance,Safety Rehab Potential Rehab Potential Good Plan PT Intervention Plan Bed Mobility,Transfers,Gait, Balance,Self care,Safety, Therapeutic Exercise Other Intervention Plan 1-2 times PT Plan Frequency Daily Duration LOS Discharge Goals Bed Transfer Ability Minimal x 1 (25% assist) Sit to Stand Chair Transfer Ability Independent Ambulation Assistive Device Rolling Walker Ambulation Distance (feet) 100 Discharge Plan PT Discharge Plan Pt presents below baseline in ambulation and bed mobility. Pt required VCs for sequencing , technique, and for redirection. Pt would benefit from skilled acute care PT while at [facility] to prevent functional decline. Pt most appropriate to d/c home once deemed medically necessary d/t her current level of functioning, home set-up, and spouse support. Eval Complexity Eval Charge Codes 65067 - Moderate Complexity PHYSICIAN CERTIFICATION: I certify the specified therapy services for Maame Funez are required, authorized, and reviewed every 30 days.
[2024-06-29] MEDS: ENOXAPARIN 40MG/0.4ML SYRINGE 40 MG SUBCUT (08:45)
[2024-06-29] MEDS: ALLOPURINOL 300MG TABLET 300 MG PO (08:45)
[2024-06-29] MEDS: ASPIRIN EC 81MG TABLET 81 MG PO (08:46)
--- NOTE | 2024-06-29 10:07 | HMH.OTEV ---
OT Inpatient Evaluation Rehab OT IP Evaluation Start: 06/28/24 20:35 Freq: ONCE Status: Active Protocol: Document 06/29/24 09:55 AUDRA (Rec: 06/29/24 10:07 [id number]) Rehab OT IP Assessment Subjective History Ms. funez is well-known to us. She was recently in the hospital, she is being treated with chemotherapy and steroids for non-Hodgkin's lymphoma for more than a year. , Patient is notable in the fact that her self-care ability and failure to thrive is getting worse. Really not walking independently for more than 2 months has to use a wheelchair or walker, recently had sore throat Dr. Garcia placed her on a Z-Terrell a week ago. Patient is noted coming in today with fever 103 urine had a fair amount of pus, also noting significant hypokalemia . Basically sepsis without septic shock. Antibiotics received in the emergency room .. After speaking with the ER provider. Going over the labs and assessing the patient I do agree that with her fragile state inpatient with IV the antibiotics is, also with her frailty and decreased ability to ambulate tube have discharge evaluations assess to make sure the patient can receive care at home. Patient lives at home with in 1 story home with 1 -2 [place]. is home with her at all times. assist with patient as needed. Patient uses a RW to ambulate within home with recent 2 falls within the past 6 months . Resulted in stitches on R side of forehead. Subjective I would like to sit in the chair. Instructed Patient on safety awareness to complete toileting task of transfers and management of LB drsg. Patient completed tasks with SBA due to fatigue. Patient maneuver within environment and restroom with RW CGA for safety. Left Patient sitting upright in chair with needs met at end of session. Objective Patient Orientation Person,Place,Name,Birthday Right Upper Extremity Gross ROM WFL Left Upper Extremity Gross ROM WFL Transfer Training Sit/Stand/Pivot Transfer Assist Level Contact Guard/Hand Hold Chair Transfer Ability Contact Guard/Hand Hold Chair Transfer Technique Sit to/from Ambulatory Chair Transfer Assistive Devices Rolling Walker Rehab OT IP prob,goals,plan Problems Date of Evaluation: 06/29/24 OT IP Problems Bed Mobility,Transfers,Balance ,Self care Rehab Potential Rehab Potential Good Equipment Needs Assistive Devices Rolling / Wheeled Walker Plan OT intervention Plan Bed Mobility,Transfers,Balance ,Self care,Safety,Therapeutic Exercise OT Plan Frequency Daily Duration LOS Discharge Goals Bed Mobility Ability Standby Assistance Sit to Stand Chair Transfer Ability Supervision/Stand by Chair Transfer Ability Supervision/Stand by Chair Transfer Assistive Devices Rolling Walker Discharge Plan OT Discharge Plan Recommend returning home after medical d/c. Recommend HH services as needed. Patient to continue skilled OT IP services while here at [facility]. Eval Complexity Eval Charge Codes 23332 - Low Complexity PHYSICIAN CERTIFICATION: I certify the specified therapy services for Maame Funez are required, authorized, and reviewed every 30 days.
[2024-06-29] MEDS: POTASSIUM CHLORIDE 20MEQ TAB 40 MEQ PO ×2 (11:12→14:37)
[2024-06-29] MEDS: MAGNESIUM SULFATE IN WATER 2 GM/50 ML PIGGYBACK IV (11:12)
[2024-06-29] MEDS: LEVOFLOXACIN/D5W 750 MG/150 ML 750 MG/150 ML PIGGYBACK 100 MG IV (11:12)
--- NOTE | 2024-06-29 13:30 | PC.NURSE ---
Pt is up with PT walking with walker. Incentive spirometer given to pt. Pt educated on use and understands.
--- NOTE | 2024-06-29 15:35 | P.PN_ITS ---
Subjective *Date: 06/29/24 *Time: 18:03 Interval history: Weak today on exam but stable on room air. Denies any chest pain, fever, nausea, vomiting. States she wants to go home. Expressed my concern for her UTI in the setting of immunocompromise state with her lymphoma and presenting wi th sepsis yesterday. Will continue antibiotics. Tolerating p.o. intake. Family at bedside intermittently through the day today. Medical Exam Vital signs and Labs for Last 24 Hours: Vital Signs Temp Pulse Pulse Resp BP BP Pulse Ox 06/29/24 15:00 06/29/24 13:11 06/29/24 11:20 06/29/24 09:18 06/29/24 08:40 06/29/24 08:00 98.6 F 108 H 18 109/63 L 93 L 06/29/24 06:52 06/29/24 05:00 06/29/24 04:00 99.2 F 93 H 16 107/48 L 96 06/29/24 03:00 06/29/24 01:00 06/28/24 22:46 06/28/24 21:00 06/28/24 20:41 97.9 F 105 H 14 166/85 H 06/28/24 20:00 102 H 06/28/24 18:30 104 H 15 149/79 H 99 06/28/24 18:00 98 H 12 125/68 97 06/28/24 17:31 95 H 14 107/71 L 98 06/28/24 17:02 98 H 16 143/71 H 99 06/28/24 16:49 93 H 13 131/63 97 06/28/24 16:30 94 H 13 126/68 96 06/28/24 16:00 92 H 13 129/70 97 O2 Del Method 06/29/24 15:00 Room Air 06/29/24 13:11 Room Air 06/29/24 11:20 Room Air 06/29/24 09:18 Room Air 06/29/24 08:40 Room Air 06/29/24 08:00 Room Air 06/29/24 06:52 Room Air 06/29/24 05:00 Room Air 06/29/24 04:00 Room Air 06/29/24 03:00 Room Air 06/29/24 01:00 Room Air 06/28/24 22:46 Room Air 06/28/24 21:00 Room Air 06/28/24 20:41 Room Air 06/28/24 20:00 Room Air 06/28/24 18:30 06/28/24 18:00 06/28/24 17:31 06/28/24 17:02 Room Air 06/28/24 16:49 Room Air 06/28/24 16:30 06/28/24 16:00 Room Air Intake and Output 06/28/24 06/29/24 06/29/24 23:59 07:59 15:59 Intake Total 180 / 1100 920 / 1100 Output Total 650 / 650 Balance 180 / 450 270 / 450 Intake: Intake, Oral Amount 180 / 900 720 / 900 Intake, Total IV Amount 200 / 200 Levofloxacin/D5w 750 mg/150 ml 150 / 150 750 mg In 150 ml @ 100 mls/hr IV Q24H [facility] Rx#:[id number] Magnesium Sulfate in Water 2 gm 50 / 50 In 50 ml @ 50 mls/hr IV ONCE ONE Rx#:[id number] Output: Output, Urine Amount 650 / 650 Other: Number of Unmeasured Voids 1 Weight 64.319 kg Patient Weight 06/29/24 23:59 Weight 64.319 kg Laboratory Results - last 24 hr 06/28/24 13:02: SARS-CoV-2 (PCR) Not detected, Influenza Type A (PCR) Not detected, Influenza Type B (PCR) Not detected, RSV (PCR) Not detected, Rhinovirus (PCR) Not detected 06/28/24 17:51: Urine Color Yellow, Urine Appearance Cloudy, Urine pH 7.0, Ur Specific [place] 1.015, Urine Protein Trace, Urine Glucose (UA) Negative, Urine Ketones Negative, Urine Blood Negative, Urine Nitrate Positive A, Urine Bilirubin Negative, Urine Urobilinogen 1.0, Ur Leukocyte Esterase 2+ A, Urine RBC None, Urine WBC Tntc, Ur Squamous Epith Cells 3-5, Urine Bacteria 4+ 06/29/24 06:24: WBC 3.0 L D, RBC 2.98 L, Hgb 8.5 L, Hct 26.2 L, MCV 87.9, MCH 28.5, MCHC 32.4, RDW 19.9 H, Plt Count 101 L, MPV 9.6, Neut % (Auto) 62.6, Lymph % (Auto) 23.1, [place] % (Auto) 6.3, Eos % (Auto) 2.0, Baso % (Auto) 0.7, Neut # (Auto) 1.9, Lymph # (Auto) 0.7, [place] # (Auto) 0.2, Eos # (Auto) 0.1, Baso # (Auto) 0.0, Sodium 131 L, Potassium 3.7 D, Chloride 104, Carbon Dioxide 27, Anion Gap 3.7 L, BUN 7 D, Creatinine 0.80, Estimated Creat Clear 52, Estimated GFR 71, Est GFR ( Amer) 85, Glucose 87, Lactate 0.7, Calcium 8.6, Magnesium 1.6, Total Bilirubin 0.8, AST 29, ALT 16, Alkaline Phosphatase 72, To pauly Protein 4.9 L, Albumin 2.8 L D, Globulin 2.1, Albumin/Globulin Ratio 1.3 I & O for Labs for Last 24 Hours: Intake & Output 06/26/24 06/27/24 06/28/24 06/29/24 23:59 23:59 23:59 23:59 Intake Total 1100 / 1100 Output Total 650 / 650 Balance 450 / 450 Weight 58.967 kg 64.319 kg Microbiology Reports for the Last 24 Hours: Microbiology 06/28/24 17:51 Urine,Catheterized Urine Culture - Preliminary Gram Negative Rods Constitutional: Present no acute distress, average body habitus, chronically ill appearing and cooperative Head: Present normocephalic ENT: Present normal exam Neck: Present normal inspection Respiratory: Absent accessory muscle use, rhonchi, wheezes or crackles Cardiac: Present Reg Rate and Rhythm and Regular Rate GI: Present soft and normal bowel sounds; Absent distention or tenderness Rectal (female): Present deferred (female): Present deferred Extremities: Present normal inspection and full ROM Skin: Present intact and dry Neuro: Present alert, awake, oriented x 3 and moves all extremities Assessment and Plan *Assessment and plan (1) Urinary tract infection: Status: Acute Qualifiers: Hematuria presence: without hematuria Urinary tract infection type: site unspecified Qualified Code(s): N39.0 - Urinary tract infection, site not specified Category: Medical Code(s): N39.0 - Urinary tract infection, site not specified (2) Sepsis without septic shock: Status: Acute Category: Medical Code(s): A41.9 - Sepsis, unspecified organism (3) Acute hypokalemia: Status: Acute Category: Medical Code(s): E87.6 - Hypokalemia (4) Immunosuppressed due to chemotherapy: Status: Acute Category: Medical Code(s): D84.821 - Immunodeficiency due to drugs; T45.1X5A - Adverse effect of antineoplastic and immunosuppressive drugs, initial encounter; Z79.69 - [facility] (current) use of other immunomodulators and immunosuppressants (5) T-cell lymphoma: Status: Acute Category: Medical Code(s): C85.90 - Non-Hodgkin lymphoma, unspecified, unspecified site (6) Decreased strength, endurance, and mobility: Status: Acute Category: Medical Code(s): R53.1 - Weakness; R68.89 - Other general symptoms and signs; Z74.09 - Other reduced mobility Plan This is a 73-year-old female who presents to the emergency department with report of fever. Found to have UTI and meeting sepsis criteria. Admitted for further management. Monitoring cultures for 48 hours. Urine growing gram- negative's. Continues to require patient management. Problems addressed as follows Sepsis, present on admission Gram-negative UTI Immunocompromise state -Patient's blood cultures remain negative. Urine growing gram-negative rods. -Transition to levofloxacin 750 mg daily for empiric coverage. Anticipate discharge home with Levaquin pending culture results. -Would like to see cultures negative at 48 hours and speciation and sensitivity of urine prior to discharge home -Afebrile since admission. White count 3, hemoglobin 8.5. Repeat CBC, CMP, magnesium ordered for the morning. Electrolytes and kidney function normal with BUN 7, creatinine 0.8. Lymphoma Follows with oncology. Currently undergoing treatment. Discussed goals of care, patient does not want to consider hospice at this time or DNR status. Continue home allopurinol 300 mg daily for gout Continue home Klonopin 0.5 mg nightly for anxiety and sleep Continue home Lyrica 50 mg nightly for neuropathy/restless leg and sleep Full code holding anticoagulation with platelets </= to 100k Regular diet
[2024-06-29 16:00] VITALS: BP 122/70; PULSE 100; RESP 18; TEMP 36.9; O2SAT 98
[2024-06-29 20:00] VITALS: BP 127/68; PULSE 108; RESP 16; TEMP 37; O2SAT 100
[2024-06-29] MEDS: PANTOPRAZOLE 40MG TABLET 40 MG PO (20:12)
[2024-06-29] MEDS: PREGABALIN 25MG CAPSULE 50 MG PO (20:12)
[2024-06-29] MEDS: TIZANIDINE 4MG TABLET 8 MG PO (20:12)
[2024-06-29] MEDS: clonazePAM 0.5MG TABLET 1.5 MG PO (20:12)
[2024-06-30 04:00] VITALS: BP 112/55; PULSE 100; RESP 16; TEMP 37.9; O2SAT 96; BMI 23.3
[2024-06-30] MEDS: ACETAMINOPHEN 325MG TAB 650 MG PO ×2 (05:06→19:04)
[2024-06-30 07:01] LABS: Basophils % 0.6 % (0.1-2.0); Eosinophils # 0.1 K/mm3 (0.0-0.4); Eosinophils % 1.4 % (0.1-12.0); Hematocrit 26.3 % (37.0-47.0); Hemoglobin 8.5 g/dL (12.2-16.2); Lymphocytes # 0.7 K/mm3 (0.7-4.5); Lymphocytes % 20.4 % (10-50); Mean Corpuscular HGB Conc 32.3 g/dL (31.8-35.4); Mean Corpuscular Hemoglobin 28.8 pg (27.0-31.2); Mean Corpuscular Volume 89.2 fl (81-99); Mean Platelet Volume 10.7 fl (7.4-10.4); Monocytes # 0.2 K/mm3 (0.1-1.0); Monocytes % 6.5 % (1.7-9.3); Neutrophils # 2.3 K/mm3 (1.8-7.8); Neutrophils % 64.6 % (37.0-80.0); Platelet Count 131 K/mm3 (142-424); Red Blood Count 2.95 M/mm3 (4.20-5.40); Red Cell Distribution Width 20.5 % (11.5-17.5); White Blood Count 3.5 K/mm3 (4.8-10.8)
[2024-06-30 07:11] LABS: Alanine Aminotransferase 16 U/L (12-78); Albumin Level 2.9 g/dl (3.5-5.0); Albumin/Globulin Ratio 1.4 (1.1-1.8); Alkaline Phosphatase 77 U/L (38-126); Anion Gap 5.8 mEq/L (5-15); Aspartate Amino Transferase 28 U/L (14-36); Blood Urea Nitrogen 6 mg/dl (7-17); Calcium 8.8 mg/dl (8.4-10.2); Carbon Dioxide 28 mmol/L (22.0-30.0); Chloride 101 mmol/L (98-107); Creatinine Clearance Estimated 50 mL/min (50-200); Estimated Glomerular Filt Rate 55 ml/min (>60); GFR (African American) 66 ML/MIN (>60); Globulin 2.1 g/dL (1.3-3.2); Glucose 93 mg/dl (74-100); Magnesium 1.8 mg/dl (1.6-2.3); Potassium 3.8 mmoL/L (3.5-5.1); Sodium 131 mmol/L (136-145)
[2024-06-30 08:00] VITALS: BP 122/64; PULSE 98; RESP 18; TEMP 36.8; O2SAT 100
[2024-06-30] MEDS: ALLOPURINOL 300MG TABLET 300 MG PO (08:20)
[2024-06-30] MEDS: ENOXAPARIN 40MG/0.4ML SYRINGE 40 MG SUBCUT (08:20)
[2024-06-30] MEDS: ASPIRIN EC 81MG TABLET 81 MG PO (08:20)
[2024-06-30] MEDS: LEVOFLOXACIN/D5W 750 MG/150 ML 750 MG/150 ML PIGGYBACK 100 MG IV (10:07)
[2024-06-30 11:03] VITALS: BMI 23.3
--- NOTE | 2024-06-30 13:38 | CT_ITS ---
PROCEDURE INFORMATION: Exam: CT Chest With Contrast; Diagnostic Exam date and time: 06/30/2024 2:40 PM Age: 73 years old Clinical indication: Fever; Additional info: Sepsis, fever, TECHNIQUE: Imaging protocol: Diagnostic computed tomography of the chest with contrast. Radiation optimization: All CT scans at this facility use at least one of these dose optimization techniques: automated exposure control; mA and/or kV adjustment per patient size (includes targeted exams where dose is matched to clinical indication); or iterative reconstruction. Contrast material: ISOVUE; Contrast volume: 75 ml; Contrast route: IV; COMPARISON: CT CHEST W CON 04/21/2024 8:38 AM FINDINGS: Lungs: Minimal atelectasis of the left lung base. There is a 3 mm noncalcified nodule in the right upper lobe (series 5, image 30). For patients at low risk (minimal or absent history of smoking and of other known risk factors), no routine follow-up is indicated. For patients at high risk (history of smoking or of other known risk factors), consider optional CT Chest at 12 months. (Reference: Sasha) Pleural spaces: Trace left pleural effusion. Heart: Unremarkable. No cardiomegaly. No pericardial effusion. Lymph nodes: Small mediastinal lymph nodes and bilateral hilar lymph nodes. A pretracheal lymph node measures about 12 mm in short axis dimension. There is an old calcified left hilar lymph node. No axillary lymphadenopathy. Vasculature: Unremarkable. No aortic aneurysm. Diaphragm: Small hiatus hernia. Spleen: Suspected splenomegaly but the spleen is only partially imaged on this study. Bones/joints: No acute osseous lesions. There are multilevel chronic degenerative changes throughout the visualized spine, most severe in the lower cervical spine. Soft tissues: Bilateral breast implants. IMPRESSION: 1. Trace left pleural effusion but no suspicious pulmonary infiltrates identified. 2. 3 mm noncalcified nodule in the right upper lobe with follow-up recommendations as above. 3. Small mediastinal and bilateral hilar lymph nodes. 4. Suspected splenomegaly. REFERENCES: Sasha Bernard et al. Guidelines for Management of Incidental Pulmonary Nodules Detected on CT Images: From the Fleischner Society 2017. Radiology. 2017;284(1):228-243.
--- NOTE | 2024-06-30 13:38 | CT_ITS ---
PROCEDURE INFORMATION: Exam: CT Abdomen And Pelvis With Contrast Exam date and time: 06/30/2024 2:40 PM Age: 73 years old Clinical indication: Fever; Additional info: Sepsis, fever, TECHNIQUE: Imaging protocol: Computed tomography of the abdomen and pelvis with contrast. Radiation optimization: All CT scans at this facility use at least one of these dose optimization techniques: automated exposure control; mA and/or kV adjustment per patient size (includes targeted exams where dose is matched to clinical indication); or iterative reconstruction. Contrast material: ISOVUE; Contrast volume: 75 ml; Contrast route: IV; COMPARISON: CT ABDOMEN PELVIS W CON 05/03/2024 9:07 AM FINDINGS: Liver: Hepatic steatosis. No focal liver lesion is identified. Gallbladder and biliary ducts: Status post cholecystectomy. Pancreas: The pancreas is normal in appearance. No evidence of pancreatic ductal dilatation. Spleen: Splenomegaly. The spleen measures 14.5 cm. Adrenal glands: The adrenal glands are normal in appearance. Kidneys and ureters: The kidneys are normal in appearance. There is a 7 mm simple appearing cyst in the lower pole cortex of the left kidney. No evidence of hydronephrosis or hydroureter. No nephroureteral calculi are identified. Stomach and bowel: The small bowel loops are not thickened and are nondilated. There is colonic diverticulosis but no evidence of diverticulitis. Appendix: No evidence of appendicitis. Intraperitoneal space: Unremarkable. No free air. No significant fluid collection. Vasculature: Unremarkable. No abdominal aortic aneurysm. Lymph nodes: Unremarkable. No enlarged lymph nodes. Urinary bladder: The urinary bladder is normal in appearance. Reproductive: Unremarkable as visualized. Extraperitoneal space: There is a stable appearing cystic lesion in the presacral pelvis measuring about 2.9 cm, unchanged from the prior study. Bones/joints: No acute osseous lesions. There is a grade 1 anterolisthesis of L4 over L5. There is a chronic degenerative fusion at L5-S1 as well as a partial chronic degenerative fusion at L2-L3. Soft tissues: Small fat containing periumbilical hernia. Small volume of gas in the subcutaneous fat of the anterior abdominal wall, likely secondary to injections. IMPRESSION: 1. Splenomegaly. 2. Hepatic steatosis. 3. Other nonemergent incidental findings as above. COMMENTS: Consistent with the [employer]'s Incidental Findings Committee white paper (J Am Monico Radiol 2018): Any incidental renal lesion less than 1 cm or classified as too small to characterize, or any incidental cystic renal lesion characterized as simple-appearing, is likely benign. No follow-up imaging is recommended for these lesions per consensus recommendations based on imaging criteria.
[2024-06-30] MEDS: ONDANSETRON 4MG/2ML VIAL 4 MG IV (15:13)
[2024-06-30] MEDS: SODIUM CHLORIDE 0.9% 10ML SYR (RAD ONLY) 10 ML IV (15:45)
[2024-06-30] MEDS: IOPAMIDOL-370 (76%);100ML BOTTLE 75 ML IV (15:45)
[2024-06-30 16:00] VITALS: BP 119/55; PULSE 115; RESP 16; TEMP 37.4; O2SAT 100
--- NOTE | 2024-06-30 16:42 | PC.NURSE ---
patient is alert and oriented x4. remains on room air, tolerating well. pt was assist x2 to the wheelchair, appears very weak, cannot ambulate without assistance. c/o of nausea after CT, treated per AUG. purewick in place. call light within reach. no complaints at this time.
[2024-06-30 17:37] LABS: Monoscreen (Rapid) Negative (Negative)
--- NOTE | 2024-06-30 17:51 | EXP.PN ---
Subjective *Date: 06/30/24 *Time: 17:51 Interval history: Very pleasant, states she is quite fatigued still. No chest pain, shortness of breath, abdominal pain, urinary symptoms. Exam Data for Last 24 hours Vital signs and Labs for Last 24 Hours: Temp Pulse Resp BP Pulse Ox O2 Del Method 99.3 F 115 H 16 119/55 L 100 Room Air 06/30/24 16:00 06/30/24 16:00 06/30/24 16:00 06/30/24 16:06/30/24 16:06/30/24 16:00 Laboratory Results - last 24 hr 06/30/24 06:20: WBC 3.5 L, RBC 2.95 L, Hgb 8.5 L, Hct 26.3 L, MCV 89.2, MCH 28.8, MCHC 32.3, RDW 20.5 H, Plt Count 131 L D, MPV 10.7 H, Neut % (Auto) 64.6, Lymph % (Auto) 20.4, [place] % (Auto) 6.5, Eos % (Auto) 1.4, Baso % (Auto) 0.6, Neut # (Auto) 2.3, Lymph # (Auto) 0.7, [place] # (Auto) 0.2, Eos # (Auto) 0.1, Baso # (Auto) 0.0, Sodium 131 L, Potassium 3.8, Chloride 101, Carbon Dioxide 28, Anion Gap 5.8, BUN 6 L, Creatinine 1.00 D, Estimated Creat Clear 50, Estimated GFR 55 L, Est GFR ( Amer) 66 D, Glucose 93, Calcium 8.8, Magnesium 1.8 D, Total Bilirubin 1.0, AST 28, ALT 16, Alkaline Phosphatase 77, Total Protein 5.0 L, Albumin 2.9 L, Globulin 2.1, Albumin/Globulin Ratio 1.4, Monoscreen Negative I & O for Last 24 hours: Intake & Output 06/27/24 06/28/24 06/29/24 06/30/24 23:59 23:59 23:59 23:59 Intake Total 1380 / 1380 630 / 630 Output Total 650 / 650 450 / 450 Balance 730 / 730 180 / 180 Weight 58.967 kg 64.319 kg 61.96 kg Microbiology Reports for the Last 24 Hours: Microbiology 06/28/24 17:51 Urine,Catheterized Urine Culture - Final Escherichia coli Constitutional Constitutional: no acute distress and cooperative *Routine HEENT Exam Head: Present normocephalic Eye: Present EOMI and PERRL ENT: Present mucous membranes moist *Routine Neck Exam Neck: Present supple; Absent lymphadenopathy *Routine Respiratory Exam Respiratory: Present CTA bilaterally; Absent rhonchi, wheezes or crackles *Routine Cardiovascular Exam Cardiovascular: Present RRR *Routine Abdominal Exam Abdominal: Present soft and normoactive bowel sounds; Absent tenderness *Routine Rectal Exam Patient deferred: visual exam *Routine Exam Patient deferred: external exam *Routine Extremities Exam Extremities: Absent cyanosis, clubbing or edema *Routine Skin Exam Skin: Present warm; Absent rash *Routine Neurological Exam Neurological: Present alert, oriented X3 and moving all extremities; Absent altered mental status Assessment and Plan *Assessment and plan (1) Urinary tract infection: Status: Acute Qualifiers: Hematuria presence: without hematuria Urinary tract infection type: site unspecified Qualified Code(s): N39.0 - Urinary tract infection, site not specified Category: Medical Code(s): N39.0 - Urinary tract infection, site not specified (2) Sepsis without septic shock: Status: Acute Category: Medical Code(s): A41.9 - Sepsis, unspecified organism (3) Acute hypokalemia: Status: Acute Category: Medical Code(s): E87.6 - Hypokalemia (4) Immunosuppressed due to chemotherapy: Status: Acute Category: Medical Code(s): D84.821 - Immunodeficiency due to drugs; T45.1X5A - Adverse effect of antineoplastic and immunosuppressive drugs, initial encounter; Z79.69 - shelter (current) use of other immunomodulators and immunosuppressants (5) T-cell lymphoma: Status: Acute Category: Medical Code(s): C85.90 - Non-Hodgkin lymphoma, unspecified, unspecified site (6) Decreased strength, endurance, and mobility: Status: Acute Category: Medical Code(s): R53.1 - Weakness; R68.89 - Other general symptoms and signs; Z74.09 - Other reduced mobility Plan This is a 73-year-old female who presents to the emergency department with report of fever. Found to have UTI and meeting sepsis criteria. Admitted for further management. Urine growing E. coli. Continues to require patient management. Problems addressed as follows Sepsis E. coli UTI Immunocompromise state ? Continues to have low-grade fevers, 100.2 at 4 AM this morning. Heart rate 115. WBC slightly improved from 3-3.5. ? Urine culture growing E. coli, sensitive to levofloxacin. ? Follow-up blood cultures. ? Continue levofloxacin day 2. ? CT chest/abdomen/pelvis obtained today do not reveal infection. ? Follow-up iron studies, B12, folate for further evaluation of fatigue. Lymphoma Follows with oncology. Currently undergoing treatment, last on 06/12/2024. Discussed goals of care, patient does not want to consider hospice at this time or DNR status. Continue home allopurinol 300 mg daily for gout Continue home Klonopin 0.5 mg nightly for anxiety and sleep Continue home Lyrica 50 mg nightly for neuropathy/restless leg and sleep Full code holding anticoagulation with platelets </= to 100k Regular diet
[2024-06-30 20:00] VITALS: BP 107/58; PULSE 100; RESP 16; TEMP 37; O2SAT 96
[2024-06-30] MEDS: PANTOPRAZOLE 40MG TABLET 40 MG PO (20:51)
[2024-06-30] MEDS: TIZANIDINE 4MG TABLET 8 MG PO (20:51)
[2024-06-30] MEDS: PREGABALIN 25MG CAPSULE 50 MG PO (20:52)
[2024-07-01 04:00] VITALS: BP 89/45; PULSE 101; RESP 16; TEMP 37.8; O2SAT 97; BMI 24.0
--- NOTE | 2024-07-01 04:27 | PC.NURSE ---
73 yo fe pt is A/O X 4 but forgetful at times. She remains very weak and requires assistance even changing positions in bed. She has rested well throughout the night with no complaints. She is incont and is using Purwick and briefs. 02 sats at 96 on RA. Noted WBC at 3.5
[2024-07-01 07:07] LABS: Basophils % 0.6 % (0.1-2.0); Eosinophils % 1.1 % (0.1-12.0); Hematocrit 26.6 % (37.0-47.0); Hemoglobin 8.6 g/dL (12.2-16.2); Lymphocytes # 0.6 K/mm3 (0.7-4.5); Mean Corpuscular HGB Conc 32.3 g/dL (31.8-35.4); Mean Corpuscular Hemoglobin 28.6 pg (27.0-31.2); Mean Corpuscular Volume 88.4 fl (81-99); Mean Platelet Volume 9.8 fl (7.4-10.4); Monocytes # 0.3 K/mm3 (0.1-1.0); Monocytes % 9.2 % (1.7-9.3); Neutrophils # 2.3 K/mm3 (1.8-7.8); Neutrophils % 64.9 % (37.0-80.0); Platelet Count 158 K/mm3 (142-424); Red Blood Count 3.01 M/mm3 (4.20-5.40); Red Cell Distribution Width 20.8 % (11.5-17.5); White Blood Count 3.6 K/mm3 (4.8-10.8)
[2024-07-01 07:18] LABS: Alanine Aminotransferase 14 U/L (12-78); Albumin Level 2.8 g/dl (3.5-5.0); Albumin/Globulin Ratio 1.4 (1.1-1.8); Alkaline Phosphatase 72 U/L (38-126); Aspartate Amino Transferase 27 U/L (14-36); Bilirubin,Total 0.7 mg/dl (0.2-1.3); Blood Urea Nitrogen 9 mg/dl (7-17); Calcium 8.6 mg/dl (8.4-10.2); Carbon Dioxide 28 mmol/L (22.0-30.0); Chloride 102 mmol/L (98-107); Creatinine Clearance Estimated 51 mL/min (50-200); Estimated Glomerular Filt Rate 55 ml/min (>60); GFR (African American) 66 ML/MIN (>60); Glucose 95 mg/dl (74-100); Total Protein,Serum 4.8 g/dl (6.3-8.2)
[2024-07-01 07:37] LABS: Anion Gap 5.3 mEq/L (5-15); Potassium 3.3 mmoL/L (3.5-5.1); Sodium 132 mmol/L (136-145)
[2024-07-01 07:57] LABS: 25-OH Vitamin D, Total 32.4 ng/mL (30-100)
[2024-07-01 08:00] VITALS: BP 90/47; PULSE 103; RESP 19; TEMP 36.8; O2SAT 97
[2024-07-01 08:09] LABS: Thyroid Stimulating Hormone 2.38 uIU/mL (0.465-4.68)
[2024-07-01 08:45] LABS: Vitamin B12 246 pg/mL (239-931)
[2024-07-01 08:51] LABS: Folate > 20.00 ng/mL
[2024-07-01] MEDS: ASPIRIN EC 81MG TABLET 81 MG PO (09:28)
[2024-07-01] MEDS: ENOXAPARIN 40MG/0.4ML SYRINGE 40 MG SUBCUT (09:28)
[2024-07-01] MEDS: ALLOPURINOL 300MG TABLET 300 MG PO (09:28)
[2024-07-01 09:43] LABS: Iron 32 ug/dL (37-170)
[2024-07-01 09:53] LABS: Total Iron Binding Capacity 244 ug/dL (265-497)
[2024-07-01 11:42] LABS: Ferritin 109 ng/ml (11.1-264)
[2024-07-01] MEDS: LEVOFLOXACIN/D5W 750 MG/150 ML 750 MG/150 ML PIGGYBACK 100 MG IV (11:54)
[2024-07-01 12:47] VITALS: BP 118/58; PULSE 100; RESP 19; TEMP 37.1; O2SAT 98
--- NOTE | 2024-07-01 14:13 | EXP.DC.SUM ---
General Admission date:: 06/28/24 HPI HPI HPI: Ms. funez is well-known to us. She was recently in the hospital, she is being treated with chemotherapy and steroids for non-Hodgkin's lymphoma for more than a year., Patient is notable in the fact that her self-care ability and failure to thrive is getting worse. Really not walking independently for more than 2 months has to use a wheelchair or walker, recently had sore throat Dr. Garcia placed her on a Z-Terrell a week ago. Patient is noted coming in today with fever 103 urine had a fair amount of pus, also noting significant hypokalemia. Basically sepsis without septic shock. Antibiotics received in the emergency room.. After speaking with the ER provider. Going over the labs and assessing the patient I do agree that with her fragile state inpatient with IV the antibiotics is, also with her frailty and decreased ability to ambulate tube have discharge evaluations assess to make sure the patient can receive care at home. Hospital Course Hospital Course Hospital Course: This is a 73-year-old female who presents to the emergency department with report of fever. Found to have UTI and meeting sepsis criteria. Admitted for further management. Sepsis E. coli UTI Immunocompromise state ? Continues to have low-grade fevers, 100.21. WBC slightly improved from 3-3.5. Looks comfortable and stable, however chronically tired from lymphoma and chemotherapy. ? Urine culture growing E. coli, sensitive to levofloxacin. ? Blood culture NGTD ? CT chest/abdomen/pelvis obtained today do not reveal any other source of infection. - Urine culture positive for E. coli which is pansensitive. However, will discharge with Levaquin for total of 7 days for broad coverage in the setting of lymphoma and chemotherapy. Home health will be set up. Lymphoma Follows with oncology. Currently undergoing treatment, last on 06/12/2024. Discussed goals of care, patient does not want to consider hospice at this time or DNR status. Continue home allopurinol 300 mg daily for gout Continue home Klonopin 0.5 mg nightly for anxiety and sleep Continue home Lyrica 50 mg nightly for neuropathy/restless leg and sleep Exam Data for Last 24 hours Vital signs and Labs for Last 24 Hours: Temp Pulse Resp BP Pulse Ox O2 Del Method 98.8 F 100 H 19 118/58 L 98 Room Air 07/01/24 12:47 07/01/24 12:47 07/01/24 12:47 07/01/24 12:47 07/01/24 12:47 07/01/24 12:47 Laboratory Results - last 24 hr 06/30/24 06:20: Monoscreen Negative 07/01/24 05:56: WBC 3.6 L, RBC 3.01 L, Hgb 8.6 L, Hct 26.6 L, MCV 88.4, MCH 28.6, MCHC 32.3, RDW 20.8 H, Plt Count 158, MPV 9.8, Neut % (Auto) 64.9, Lymph % (Auto) 17.0, [place] % (Auto) 9.2, Eos % (Auto) 1.1, Baso % (Auto) 0.6, Neut # (Auto) 2.3, Lymph # (Auto) 0.6 L, [place] # (Auto) 0.3, Eos # (Auto) 0.0, Baso # (Auto) 0.0, Sodium 132 L, Potassium 3.3 L, Chloride 102, Carbon Dioxide 28, Anion Gap 5.3, BUN 9 D, Creatinine 1.00, Estimated Creat Clear 51, Estimated GFR 55 L, Est GFR ( Amer) 66, Glucose 95, Calcium 8.6, Iron 32 L, TIBC 244 L, Iron Saturation 13.75903 L, Ferritin 109, Total Bilirubin 0.7, AST 27, ALT 14, Alkaline Phosphatase 72, Total Protein 4.8 L, Albumin 2.8 L, Globulin 2.0, Albumin/Globulin Ratio 1.4, Vitamin B12 246, 25-OH Vitamin D Total 32.4, Folate > 20.00, TSH 2.38 I & O for Last 24 hours: Intake & Output 06/28/24 06/29/24 06/30/24 07/01/24 23:59 23:59 23:59 23:59 Intake Total 1380 / 1380 870 / 870 660 / 660 Output Total 650 / 650 450 / 450 250 / 250 Balance 730 / 730 420 / 420 410 / 410 Weight 58.967 kg 64.319 kg 61.96 kg 63.957 kg Microbiology Reports for the Last 24 Hours: Microbiology 06/30/24 10:05 Blood Blood Culture - Preliminary NO GROWTH AFTER 24 HOURS Constitutional Constitutional: no acute distress and cooperative *Routine HEENT Exam Head: Present normocephalic Eye: Present EOMI and PERRL ENT: Present mucous membranes moist *Routine Neck Exam Neck: Present supple; Absent lymphadenopathy *Routine Respiratory Exam Respiratory: Present CTA bilaterally; Absent rhonchi, wheezes or crackles *Routine Cardiovascular Exam Cardiovascular: Present RRR *Routine Abdominal Exam Abdominal: Present soft and normoactive bowel sounds; Absent tenderness *Routine Rectal Exam Patient deferred: visual exam *Routine Exam Patient deferred: external exam *Routine Extremities Exam Extremities: Absent cyanosis, clubbing or edema *Routine Skin Exam Skin: Present warm; Absent rash *Routine Neurological Exam Neurological: Present alert, oriented X3 and moving all extremities; Absent altered mental status Results Data Completed and Pending Labs on day of discharge: Labs from last 24 hours 07/01/24 06/30/24 05:56 06:20 WBC 3.6 L RBC 3.01 L Hgb 8.6 L Hct 26.6 L MCV 88.4 MCH 28.6 MCHC 32.3 RDW 20.8 H Plt Count 158 MPV 9.8 Neut % (Auto) 64.9 Lymph % (Auto) 17.0 [place] % (Auto) 9.2 Eos % (Auto) 1.1 Baso % (Auto) 0.6 Neut # (Auto) 2.3 Lymph # (Auto) 0.6 L [place] # (Auto) 0.3 Eos # (Auto) 0.0 Baso # (Auto) 0.0 Sodium 132 L Potassium 3.3 L Chloride 102 Carbon Dioxide 28 Anion Gap 5.3 BUN 9 D Creatinine 1.00 Estimated Creat Clear 51 Estimated GFR 55 L Est GFR ( Amer) 66 Glucose 95 Calcium 8.6 Iron 32 L TIBC 244 L Iron Saturation 13.48721 L Ferritin 109 Total Bilirubin 0.7 AST 27 ALT 14 Alkaline Phosphatase 72 Total Protein 4.8 L Albumin 2.8 L Globulin 2.0 Albumin/Globulin Ratio 1.4 Vitamin B12 246 25-OH Vitamin D Total 32.4 Folate > 20.00 TSH 2.38 Monoscreen Negative Preliminary micro results at discharge 06/30/24 10:05 Blood Culture - Preliminary Blood NO GROWTH AFTER 24 HOURS DS: Diagnosis Discharge Diagnosis (1) Urinary tract infection: Status: Acute Code(s): N39.0 - Urinary tract infection, site not specified Qualifiers: Hematuria presence: without hematuria Urinary tract infection type: site unspecified Qualified Code(s): N39.0 - Urinary tract infection, site not specified (2) Sepsis without septic shock: Status: Acute Code(s): A41.9 - Sepsis, unspecified organism (3) Acute hypokalemia: Status: Acute Code(s): E87.6 - Hypokalemia (4) Immunosuppressed due to chemotherapy: Status: Acute Code(s): D84.821 - Immunodeficiency due to drugs; T45.1X5A - Adverse effect of antineoplastic and immunosuppressive drugs, initial encounter; Z79.69 - longterm (current) use of other immunomodulators and immunosuppressants (5) T-cell lymphoma: Status: Acute Code(s): C85.90 - Non-Hodgkin lymphoma, unspecified, unspecified site (6) Decreased strength, endurance, and mobility: Status: Acute Code(s): R53.1 - Weakness; R68.89 - Other general symptoms and signs; Z74.09 - Other reduced mobility Meds Home Medications and Allergies Home Medications ?Medication ?Instructions ?Recorded ?Confirmed ?Type tizanidine 4 mg tablet 8 mg PO HS 30 days ##60 02/09/18 07/08/24 History esomeprazole magnesium 40 mg 40 mg PO DAILY 09/28/21 07/08/24 History capsule,delayed release aspirin 81 mg tablet,delayed 81 mg PO DAILY #30 tabs 09/29/21 07/08/24 Rx release evolocumab 140 mg/mL subcutaneous 40 mg SQ Q2W 02/10/23 07/08/24 History pen injector (Repatha SureKennyick) clonazepam 1 mg tablet 1.5 mg PO HS 04/21/24 07/08/24 History allopurinol 300 mg tablet See Rx Instructions .Route 04/28/24 07/08/24 Rx .COMPLEX #30 tabs prochlorperazine maleate 10 mg 10 mg PO Q6H PRN nausea and 05/19/24 07/08/24 Rx tablet (Compazine) vomiting #30 tabs pregabalin 25 mg capsule 50 mg PO HS 06/28/24 07/08/24 History ubrogepant 100 mg tablet (Ubrelvy) 100 mg PO DAILY PRN Migraine 06/28/24 07/08/24 History Headache levofloxacin 750 mg tablet 750 mg PO DAILY 4 days #4 tabs 07/01/24 07/08/24 Rx New Prescriptions to Start Prescriptions: levofloxacin Eliceo Do Allergies Allergy/AdvReac Type Severity Reaction Status Date / Time Sulfa (Sulfonamide Allergy Mild Verified 07/08/24 10:19 Antibiotics) (SULFA (SULFONAMIDE ANTIBIOTICS)) Discharge Plan Disposition Patient Disposition: Home Health Service Condition: Fair Discharge Order Discharge Orders: Discharge Order (Routine); Ordered 07/01/24 Ordered By: Eliceo Do Follow up Plan Follow up with: Isaak Donovan MD [Primary Care Provider] - 07/05/24 9:30 am Prescriptions/Medication Reconciliation: New levofloxacin 750 mg tablet 750 mg PO DAILY 4 Days Qty: 4 0RF Continued tizanidine 4 mg tablet 8 mg PO HS 30 Days Qty: 60 Repatha SureClick 140 mg/mL pen injector 40 mg SQ Q2W Patient Comments: INJECT 1 ML UNDER THE SKIN EVERY 2 WEEKS DIRECTED allopurinol 300 mg tablet See Rx Instructions .ROUTE .COMPLEX Qty: 30 0RF Dose Instruction: TAKE 1 TABLET BY MOUTH EVERY DAY Rx Instructions: TAKE 1 TABLET BY MOUTH EVERY DAY prochlorperazine maleate [Compazine] 10 mg tablet 10 mg PO Q6H PRN (Reason: nausea and vomiting) Qty: 30 3RF clonazepam 1 mg tablet 1.5 mg PO HS Patient Comments: TAKE 1 TABLET BY MOUTH TWICE DAILY NEEDED pregabalin 25 mg capsule 50 mg PO HS Patient Comments: TAKE 1 TO 2 CAPSULES BY MOUTH AT BEDTIME Ubrelvy 100 mg tablet 100 mg PO DAILY PRN (Reason: Migraine Headache) Patient Comments: TAKE 1 TABLET BY MOUTH 1 TIME NEEDED FOR MIGRAINE esomeprazole magnesium 40 MG capsule,delayed release(DR/EC) 40 mg PO DAILY aspirin 81 MG tablet,delayed release (DR/EC) 81 mg PO DAILY Qty: 30 0RF Problem Reconciliation Problems Reviewed?: Yes Patient Discharge Instructions Patient Instructions: DI for Urinary Tract Infection (UTI), DI for Hypokalemia, DI for Sepsis -- Adult Print Language: Bulgarian Providers Primary Care Provider: Isaak Donovan Admit Provider: Robi Trammell Attending Provider: Robi Trammell
--- NOTE | 2024-07-01 15:00 | PC.NURSE ---
pt is alert and oriented x 4. has remained on room air throughout the shift. tolerated well. pt has improved to an assist x 1 when transferring and ambulating. pt able to perform ADLs independently as well. pt utilized the purwick and was able to ambulate to the bathroom today for bowel movements. no complaints reported at this time.
--- NOTE | 2024-07-06 11:22 | SW/DCPLANNER ---
Spoke with patient on the phone. Patient stated that she is well. Patient stated that she is aware of her upcoming appointment and that she was able to get her new medicine brought to her bedside. Patient stated that she has no concerns or questions at this time. Cricket King
== END 2024-07-01 16:40 | disposition home health service (06) ==
LOC: ER 19:05 → 2ND 19:49
PROVIDERS: Nurse Practitioner Family; Physician Assistant; Student in an Organized Health Care Education/Training Program; Admitting Provider Internal Medicine Adolescent Medicine; Emergency Provider Emergency Medicine; PCP Internal Medicine Adolescent Medicine; Visit Provider Internal Medicine Adolescent Medicine
DX: N39.0 Urinary tract infection, site not specified; B96.20 Unspecified Escherichia coli [E. coli] as the cause of diseases classified elsewhere; E87.6 Hypokalemia; D84.821 Immunodeficiency due to drugs; T45.1X5A Adverse effect of antineoplastic and immunosuppressive drugs, initial encounter; C85.90 Non-Hodgkin lymphoma, unspecified, unspecified site; R53.1 Weakness; R62.7 Adult failure to thrive; Z68.24 Body mass index [BMI] 24.0-24.9, adult; Z79.82 Long term (current) use of aspirin; Z79.60 Long term (current) use of unspecified immunomodulators and immunosuppressants; Z79.899 Other long term (current) drug therapy
CPT/HCPCS: 36415; 71045; 71260; 74177; 80053; 81001; 82306; 82607; 82728; 82746; 83540; 83550; 83605; 83735; 83880; 84145; 84443; 85025; 85610; 86318; 87040; 87086; 87088; 87186; 87631; 97162; 97165; 97530; 97535; 99285; G0378; J0696; J1650; J1956; J2405; J3475; J7030; Q9967

== ENCOUNTER 2024-07-15 12:13 | Outpatient (CLI) | payer MEDICARE, BC, SELFPAY ==
--- NOTE | 2024-07-15 12:23 | PC.NURSE ---
1218- labs drawn via butterfly needle in right ac. needle removed and coban applied. pt tolerated well.
[2024-07-15 12:24] LABS: Basophils # 0.1 K/mm3 (0-0.2); Basophils % 0.7 % (0.1-2.0); Eosinophils % 0.1 % (0.1-12.0); Hematocrit 31.7 % (37.0-47.0); Hemoglobin 9.7 g/dL (12.2-16.2); Lymphocytes # 1.1 K/mm3 (0.7-4.5); Lymphocytes % 10.1 % (10-50); Mean Corpuscular HGB Conc 30.6 g/dL (31.8-35.4); Mean Corpuscular Hemoglobin 27.7 pg (27.0-31.2); Mean Corpuscular Volume 90.6 fl (81-99); Mean Platelet Volume 10.4 fl (7.4-10.4); Monocytes # 0.4 K/mm3 (0.1-1.0); Monocytes % 3.9 % (1.7-9.3); Neutrophils # 8.1 K/mm3 (1.8-7.8); Neutrophils % 77.7 % (37.0-80.0); Platelet Count 165 K/mm3 (142-424); Red Cell Distribution Width 19.5 % (11.5-17.5); White Blood Count 10.4 K/mm3 (4.8-10.8)
[2024-07-15 12:30] LABS: Albumin Level 3.4 g/dl (3.5-5.0); Chloride 102 mmol/L (98-107); Potassium 3.1 mmoL/L (3.5-5.1); Sodium 134 mmol/L (136-145)
[2024-07-15 12:33] LABS: Alanine Aminotransferase 18 U/L (12-78); Albumin/Globulin Ratio 1.5 (1.1-1.8); Alkaline Phosphatase 59 U/L (38-126); Anion Gap 8.1 mEq/L (5-15); Aspartate Amino Transferase 28 U/L (14-36); Bilirubin,Total 0.9 mg/dl (0.2-1.3); Blood Urea Nitrogen 19 mg/dl (7-17); Carbon Dioxide 27 mmol/L (22.0-30.0); Estimated Glomerular Filt Rate 62 ml/min (>60); GFR (African American) 74 ML/MIN (>60); Globulin 2.2 g/dL (1.3-3.2); Total Protein,Serum 5.6 g/dl (6.3-8.2)
[2024-07-15 12:34] LABS: Calcium 9.9 mg/dl (8.4-10.2); Glucose 110 mg/dl (74-100)
[2024-07-15 12:42] LABS: Lactate Dehydrogenase 240 U/L (313-618)
== END 2024-07-15 12:19 | disposition home or self-care (01) ==
LOC: INF 12:14
PROVIDERS: PCP Internal Medicine Adolescent Medicine; Visit Provider Internal Medicine Medical Oncology
DX: C85.90 Non-Hodgkin lymphoma, unspecified, unspecified site (principal)
CPT/HCPCS: 36415; 80053; 83615; 85025